=== PATIENT | female | born 1950 | race Caucasian/White ===

== ENCOUNTER → 2017-02-21 | Outpatient (CLI) | payer MEDICARE, MEDICAID ==
[~2017-02-21] MED LIST: ALEN70TA47 PO; ASPI-586 PO; ATOR80TA76 PO; BUME2TAB3 PO; CARV6.252 PO; CITA40TA11 PO; DEXL60CA PO; DOCU-238 PO; FLUT9.9S NS; GABA-486 PO; HYDR-3812 PO; INSU100V16 SQ; LEVO500T2 PO; LINA145C PO; LISI10TA2 PO; LORA10TA7 PO; METF500T4 PO; MULT-974 PO; MUPI15CR11 TP; NYST1POW22 TOP; POTA10TA36 PO
== END ==
LOC: FS 11:35
PROVIDERS: ATTEND Internal Medicine Hematology & Oncology
DX: Z08 Encounter for follow-up examination after completed treatment for malignant neoplasm (principal); Z80.3 Family history of malignant neoplasm of breast; M81.0 Age-related osteoporosis without current pathological fracture; I10 Essential (primary) hypertension; I25.10 Atherosclerotic heart disease of native coronary artery without angina pectoris; E11.9 Type 2 diabetes mellitus without complications; F17.210 Nicotine dependence, cigarettes, uncomplicated; Z79.899 Other long term (current) drug therapy
CPT/HCPCS: 99213

== ENCOUNTER 2017-04-03 15:03 | Outpatient (RCR) | payer MEDICARE, MEDICAID ==
[~2017-04-03 15:03] MED LIST changes: +FERRIC CARBOXYMALTOSE (CANCER) 750 MG in NS (IVPB) CANCER CENTER 250 ML IV SCH
== END 2017-05-27 | disposition home or self-care (01) ==
LOC: ONC 15:03
PROVIDERS: ATTEND Internal Medicine Hematology & Oncology
DX: Z79.899 Other long term (current) drug therapy; Z85.3 Personal history of malignant neoplasm of breast; Z08 Encounter for follow-up examination after completed treatment for malignant neoplasm; I25.10 Atherosclerotic heart disease of native coronary artery without angina pectoris; I10 Essential (primary) hypertension; F17.210 Nicotine dependence, cigarettes, uncomplicated; E11.9 Type 2 diabetes mellitus without complications; M81.0 Age-related osteoporosis without current pathological fracture
CPT/HCPCS: 96365

== ENCOUNTER 2017-07-26 11:08 | Outpatient (RCR) | payer MEDICARE, MEDICAID ==
[~2017-07-26 11:08] MED LIST changes: +ACHD5005 PO; -FERRIC CARBOXYMALTOSE (CANCER) 750 MG in NS (IVPB) CANCER CENTER 250 ML IV SCH; -HYDR-3812 PO
== END 2017-10-24 | disposition home or self-care (01) ==
LOC: ONC 11:08
PROVIDERS: ATTEND Internal Medicine Hematology & Oncology
DX: Z08 Encounter for follow-up examination after completed treatment for malignant neoplasm (principal); Z85.3 Personal history of malignant neoplasm of breast; M81.0 Age-related osteoporosis without current pathological fracture; I10 Essential (primary) hypertension; I25.10 Atherosclerotic heart disease of native coronary artery without angina pectoris; E11.9 Type 2 diabetes mellitus without complications; F17.210 Nicotine dependence, cigarettes, uncomplicated; Z79.899 Other long term (current) drug therapy
CPT/HCPCS: 99213

== ENCOUNTER 2018-02-26 12:02 | Outpatient (CLI) | payer MEDICARE, MEDICAID ==
[~2018-02-26] VITALS: Ht 165.1 cm; Wt 96.6 kg
[~2018-02-26 12:02] MED LIST changes: -METF500T4 PO; +METF500T5 PO
[2018-02-26] MEDS ORDERED: CHOL100048 PO (12:15)
[2018-02-26] MEDS ORDERED: CALC600T12 PO (12:15)
[2018-02-26] MEDS ORDERED: TRAZ150T72 PO (12:15)
[2018-02-26 12:23] VITALS: BP 117/59
== END 2018-02-26 15:13 | disposition home or self-care (01) ==
LOC: PREOP 12:02
PROVIDERS: ATTEND Podiatrist Foot & Ankle Surgery
DX: Z01.818 Encounter for other preprocedural examination (principal)
CPT/HCPCS: 87081

== ENCOUNTER 2018-03-02 11:15 | Day surgery (SDC) | payer MEDICARE, MEDICAID ==
[~2018-03-02] VITALS: Ht 165.1 cm; Wt 96.6 kg
[2018-03-02 11:15] VITALS: BP 167/85
[~2018-03-02 11:15] MED LIST changes: +CALC600T12 PO; +CHOL100048 PO; +TRAZ150T72 PO
[2018-03-02] MEDS ORDERED: VANCOMYCIN INJECTION 1,000 MG in NS (IVPB) 250 ML IV ONE (11:30)
[2018-03-02] MEDS ORDERED: ONDANSETRON 4 MG/2 ML (SDV) Z0FRAN ONE (11:54)
[2018-03-02] MEDS ORDERED: LIDOCAINE PF 2% 5 ML (XYLOCAINE) VIAL ONE (11:54)
[2018-03-02] MEDS ORDERED: proPOfol 200 MG/20 ML (DIPRIVAN) VIAL IV ONE (11:54)
[2018-03-02] MEDS ORDERED: MIDAZOLAM 2 MG/2 ML (VERSED) VIAL ONE (11:55)
[2018-03-02] MEDS ORDERED: fentaNYL INJECTION 100 MCG/2 ML AMP ONE (11:55)
[2018-03-02] MEDS: LACTATED RINGERS 1,000 ML IV PRN ×2 (12:16→13:25)
--- NOTE | 2018-03-02 12:36 | Progress Note-Pre Operative ---
Pre-Operative Progress Note H&P Reviewed The H&P was reviewed, patient examined and no changes noted. Date Seen by Provider: Mar 02, 2018 Time Seen by Provider: 12:36 Date H&P Reviewed: Mar 02, 2018 Time H&P Reviewed: 12:36 Pre-Operative Diagnosis: Fracture of the left 5th Metatarsal PASQUALE LEWIS DPM Mar 02, 2018 12:36 pm
[2018-03-02] MEDS ORDERED: BUPIVACAINE 0.5% 30 ML (SENSORCAINE) VIAL ONE (12:55)
--- NOTE | 2018-03-02 12:56 | Physical Therapy Progress Note ---
Therapy Progress Note Talked with patient before surgery. She is aware that she will be NWB on the left foot after surgery. Recommended patient use a rolling walker so she can ambulate and perform transfers while maintaining her weight bearing status. Patient states she will be getting a wheelchair also. Also advised patient to perform ankle pumps and LAQ at home to maintain ROM and strength. Patient has several stairs to enter her home and only a handrail on one side. However, patient has had a similar surgery on the right side and is familiar with mobility when NWB on one side and she is confident that she will be fine. REMI GARCIA PT Mar 02, 2018 12:56
[2018-03-02] MEDS ORDERED: ROCURONIUM 10 MG/ML 5 ML SYRINGE IV ONE (14:19)
[2018-03-02] MEDS ORDERED: SEVOFLURANE (ULTANE) 15 ML INHAL SOLN ONE (14:19)
[2018-03-02] MEDS ORDERED: SUCCINYLCHOLINE INJ 100 MG/5 ML SYR ONE (14:19)
[2018-03-02] MEDS ORDERED: morphine INJ 10 MG/ML 1ML (SYR OR VIAL) IVP PRN (14:30)
[2018-03-02] MEDS ORDERED: LACTATED RINGERS 1,000 ML IV SCH (14:36)
--- NOTE | 2018-03-02 14:36 | Progress Note-Post Operative ---
Post-Operative Progess Note Surgeon (s)/Store Mgr (s) Surgeon PASQUALE LEWIS DPM Store Mgr: None Pre-Operative Diagnosis Fracture of the left 5th Metatarsal Post-Operative Diagnosis Same Procedure & Operative Findings Date of Procedure 03/02/18 Procedure Performed/Findings ORIF of left 5th metatarsal fracture Anesthesia Type General Estimated Blood Loss Estimated blood loss (mL): Minimal Specimens/Packing Specimens Removed none PASQUALE LEWIS DPM Mar 02, 2018 2:36 pm
[2018-03-02] MEDS ORDERED: HYDROcodone/APAP 5 MG/325 MG (LORTAB) TAB PO PRN (14:45)
[2018-03-02] MEDS ORDERED: ACHD5005 PO (14:46)
--- NOTE | 2018-03-02 15:19 | Anesthesia-General Post-Op ---
General Patient Condition Mental Status/LOC: Same as Preop Cardiovascular: Satisfactory Nausea/Vomiting: Absent Respiratory: Satisfactory Pain: Controlled Complications: Absent Post Op Complications Complications None Follow Up Care/Instructions Patient Instructions None needed. Anesthesia/Patient Condition Patient Condition Patient is doing well, no complaints, stable vital signs, no apparent adverse anesthesia problems. No complications reported per nursing. ANDREW VILLAGOMEZ CRNA Mar 02, 2018 15:19
[2018-03-02 15:25] VITALS: BP 183/84
--- NOTE | 2018-03-02 15:50 | Diagnostic Imaging Report ---
INDICATION: Left foot surgery. TIME OF EXAMINATION: 03:00 p.m. FINDINGS: Two views of the left foot demonstrate a partially threaded screw extending through the fifth metatarsal. Alignment is normal. Phalanges are intact. Midfoot and hindfoot are unremarkable apart from a plantar calcaneal spur. IMPRESSION: Postop changes with ORIF of the left fifth metatarsal fracture. Dictated by: Dictated on workstation # [id number]
[2018-03-02 15:55] VITALS: BP 180/80
[2018-03-02] MEDS ORDERED: SULF1TAB35 PO (16:31)
[2018-03-02 16:45] VITALS: BP 170/78
[2018-03-02 17:00] VITALS: BP 170/78
--- NOTE | 2018-03-02 17:48 | Diagnostic Imaging Report ---
INDICATION: Fracture, undergoing fixation. TECHNIQUE: Two intraprocedural images of the foot. CORRELATION STUDY: None. FINDINGS: Imaging not specified as to laterality. There is placement of a partially threaded, cannulated screw transfixing the fifth proximal metatarsal shaft fracture. There does appear to be some callus formation with fracture line visualized. Alignment appears to be near anatomic as visualized on these intraoperative views. FLUOROSCOPY TIME: 21 seconds. IMPRESSION: Fluoroscopy utilized during internal fixation of a fifth metatarsal fracture. Dictated by: Dictated on workstation # [id number]
--- NOTE | 2018-03-02 23:26 | OPERATIVE REPORT ---
DATE OF SERVICE: 03/02/2018 SURGEON: Chata Lewis DPM. PREOPERATIVE DIAGNOSIS: Fracture of the left fifth metatarsal. POSTOPERATIVE DIAGNOSIS: Fracture of the left fifth metatarsal with addition of delayed union. PROCEDURE: Open reduction and internal fixation, left fifth metatarsal. WOUND CLASS: Clean. ANESTHESIA: General. HEMOSTASIS: Pneumatic thigh tourniquet at 300 mmHg. INDICATIONS: This 67-year-old female presents complaining of a chronic fracture of the left fifth metatarsal. Conservative therapy was met with unsatisfactory results and the patient is agreeable to surgical intervention after risks and complications were discussed at length. No guarantees were extended to the patient and she is willing to proceed. DESCRIPTION OF PROCEDURE: The patient was brought back to the armed operating table and placed in a secured supine position. A general anesthetic was then induced. Appropriate timeout was performed. The left foot had a thigh tourniquet placed over several layers of padding. The left foot was then prepped and draped in a normal sterile manner. The left foot was then elevated and allowed to exsanguinate after which the tourniquet was inflated to 250 mmHg. This was inadequate and it was then inflated to 300 mmHg later in the case. Attention was then directed to the lateral aspect of the left fifth ray where a 6 cm longitudinal linear incision was created. The incision was deepened in the same plane with sharp and blunt dissection down to periosteum. Longitudinal periosteal incision was made. The proximal diaphysis fracture site was identified and widened utilizing a freer elevator. The area was fenestrated to help promote healing. There was satisfactory alignment appreciated at this time. The wound was flushed with copious amounts of normal saline. Under the direct observation of C-arm, a guidewire was driven from proximal to distal from the base of the fifth metatarsal down the diaphysis. Next, a 4.0 cannulated screw of 36 mm in length was then introduced over the wire and into the fifth metatarsal. Great care was taken to make sure the threads of the screw were beyond the fracture site. Excellent bony apposition and fixation was appreciated at this time. The guidewire was then removed from the foot. The wound was flushed with copious amounts of normal saline and closure was then performed in layers. Deep closure was performed with 3-0 Vicryl, superficial with 4-0 Vicryl, skin closure with 4-0 Prolene in a horizontal mattress type stitch. Postoperative injection consisted of 10 mL of 0.5% Marcaine injected for local effusion to the incision site. Postoperative dressing consisted of Betadine soaked Adaptic, sterile 4 x 4 and sterile Kerlix secured with a soft roll, three ABD pads applied to the proximal portion of the calf as well as the heel and forefoot. Additional soft roll was applied and a posterior splint secured with two Fuentes wraps. The patient tolerated the anesthesia and procedure well, was transported from the operating room to the recovery area with vital signs stable and vascular status intact to all digits of the left foot. Postoperative instructions were given to the patient. She is to be nonweightbearing on the left. We will see the patient back in the office in 10 days' period of time or sooner if necessary. Job ID: [id number] DocumentID: [id number] Dictated Date: 03/02/2018 14:46:07 Tabulating Supervisor Date: 03/02/2018 23:25:20 Dictated By: CHATA LEWIS DPM
== END 2018-03-02 17:00 | disposition home or self-care (01) ==
LOC: SDC 11:15
PROVIDERS: ATTEND Podiatrist Foot & Ankle Surgery
DX: S92.355K Nondisplaced fracture of fifth metatarsal bone, left foot, subsequent encounter for fracture with nonunion (principal); I25.10 Atherosclerotic heart disease of native coronary artery without angina pectoris; I10 Essential (primary) hypertension; E11.43 Type 2 diabetes mellitus with diabetic autonomic (poly)neuropathy; J44.9 Chronic obstructive pulmonary disease, unspecified; G47.33 Obstructive sleep apnea (adult) (pediatric); Z79.82 Long term (current) use of aspirin; Z79.4 Long term (current) use of insulin; Z79.899 Other long term (current) drug therapy; Z95.1 Presence of aortocoronary bypass graft
CPT/HCPCS: 73620; 82962

== ENCOUNTER 2018-07-26 10:48 | Outpatient (RCR) | payer MEDICARE, MEDICAID ==
[~2018-07-26 10:48] MED LIST changes: -ALEN70TA47 PO; +ALEN70TA5 PO; +METF-397 PO; -METF500T5 PO; +SULF1TAB35 PO
== END 2018-10-24 | disposition home or self-care (01) ==
LOC: ONC 10:48
PROVIDERS: ATTEND Internal Medicine Hematology & Oncology
DX: Z08 Encounter for follow-up examination after completed treatment for malignant neoplasm (principal); Z85.3 Personal history of malignant neoplasm of breast; M81.0 Age-related osteoporosis without current pathological fracture; I10 Essential (primary) hypertension; I25.10 Atherosclerotic heart disease of native coronary artery without angina pectoris; E11.9 Type 2 diabetes mellitus without complications; F17.210 Nicotine dependence, cigarettes, uncomplicated; Z79.899 Other long term (current) drug therapy
CPT/HCPCS: 99213

== ENCOUNTER → 2019-06-10 | Outpatient (CLI) | payer MEDICARE, MEDICAID ==
[~2019-06-10] MED LIST changes: -BUME2TAB3 PO; +BUME2TAB7 PO
--- NOTE | 2019-06-10 16:03 | Diagnostic Imaging Report ---
INDICATION: Right shoulder pain FINDINGS: Two views of the right shoulder do not show any displaced fractures. The acromioclavicular and glenohumeral joints appear intact. IMPRESSION: Negative right shoulder. Dictated by: Dictated on workstation # [id number]
== END ==
LOC: RAD FS 14:49
PROVIDERS: ATTEND Nurse Practitioner Family
DX: M25.511 Pain in right shoulder (principal)
CPT/HCPCS: 73030

== ENCOUNTER → 2019-07-22 | Outpatient (CLI) | payer MEDICARE, MEDICAID ==
[2019-07-22 09:37] LABS: BASOPHILS % (AUTO) 0 % (0-10); EOSINOPHILS # (AUTO) 0.2 10^3/uL (0.0-0.3); EOSINOPHILS % (AUTO) 4 % (0-10); HEMATOCRIT 33 % (35-52); HEMOGLOBIN 10.5 G/DL (11.5-16.0); LYMPHOCYTES # (AUTO) 1.3 X 10^3 (1.0-4.0); LYMPHOCYTES % (AUTO) 27 % (12-44); MEAN CORPUSCULAR HEMOGLOBIN 28 PG (25-34); MEAN CORPUSCULAR HGB CONC 31 G/DL (32-36); MEAN CORPUSCULAR VOLUME 89 FL (80-99); MEAN PLATELET VOLUME 9.5 FL (7.4-10.4); MONOCYTES # (AUTO) 0.5 X 10^3 (0.0-1.0); MONOCYTES % (AUTO) 10 % (0-12); NEUTROPHILS # (AUTO) 2.7 X 10^3 (1.8-7.8); NEUTROPHILS % (AUTO) 58 % (42-75); PLATELET COUNT 130 10^3/uL (130-400); RED CELL DISTRIBUTION WIDTH 13.4 % (10.0-14.5); WHITE BLOOD COUNT 4.7 10^3/uL (4.3-11.0)
[2019-07-22 10:10] LABS: ALBUMIN 3.9 GM/DL (3.2-4.5); BILIRUBIN,TOTAL 0.4 MG/DL (0.1-1.0); CALCIUM 8.6 MG/DL (8.5-10.1); CREATININE SERUM 1.01 MG/DL (0.60-1.30); POTASSIUM 4.4 MMOL/L (3.6-5.0); TOTAL PROTEIN 6.9 GM/DL (6.4-8.2)
== END ==
LOC: ONC 09:19
PROVIDERS: ATTEND Internal Medicine Hematology & Oncology
DX: M81.0 Age-related osteoporosis without current pathological fracture (principal); D50.9 Iron deficiency anemia, unspecified; I25.10 Atherosclerotic heart disease of native coronary artery without angina pectoris; E11.9 Type 2 diabetes mellitus without complications; I10 Essential (primary) hypertension; E78.00 Pure hypercholesterolemia, unspecified; J43.9 Emphysema, unspecified; Z92.23 Personal history of estrogen therapy; Z85.3 Personal history of malignant neoplasm of breast
CPT/HCPCS: 80053; 82728; 85025; 99213

== ENCOUNTER 2019-12-06 21:24 | Emergency (ER) | payer MEDICARE, MEDICAID ==
[~2019-12-06] VITALS: Ht 165 cm; Wt 99.0 kg
--- NOTE | 2019-12-06 21:54 | ED EENT ---
History of Present Illness General Chief Complaint: Dental Problems/Pain Stated Complaint: TEETH EXTRACTON SITE BLEEDING Nursing Triage Note: Pt had 4 upper teeth pulled today and states they are bleeding intermittently. Pt states she also feels nauseated at times. Source: patient History of Present Illness Date Seen by Provider: Dec 06, 2019 Time Seen by Provider: 21:54 Initial Comments 69-year-old female presenting with complaints of bleeding from her left upper mouth where she had 4 teeth pulled today with a dentist through [facility]. She states that this was done this morning and she had been having intermittent oozing of blood since she had gotten home. She has some nausea tonight from swallowing b lood. She denies any vomiting. She states that she tried calling the dentist throughout the day but no one called her back. She denies any pain at the dental extraction site. Out of the 4 extractions only one is oozing blood. She has gone through all of the gauze she had at home. she is still taking Xarelto for a blood thinner. Allergies and Home Medications Allergies Coded Allergies: Penicillins (Verified Allergy, Severe, BLISTERS, 02/26/18) adhesive tape (Verified Allergy, Severe, BLISTERS, 02/26/18) barium sulfate (Verified Allergy, Severe, SEVERE GI UPSET, 02/26/18) cefazolin (Verified Allergy, Severe, BLISTERS, 02/26/18) clindamycin (Verified Allergy, Severe, BLISTERS, 02/26/18) erythromycin base (Verified Allergy, Severe, BLISTERS, 02/26/18) indomethacin (Verified Allergy, Severe, BLISTERS/SYNCOPE, 02/26/18) venom-honey bee (Verified Allergy, Severe, SWELLING, 02/26/18) cortisone (Verified Allergy, Intermediate, SYNCOPE, 02/26/18) Uncoded Allergies: IV DYE (Allergy, Severe, SEVERE GI PROBLEMS FOR DAYS, 07/29/15) SWEETNERS (Allergy, Severe, MAKES HER VERY ILL-HOSPITALIZED, 07/29/15) Home Medications Alendronate Sodium 70 Mg Tablet, 70 MG PO UD, (Reported) Aspirin 81 Mg Tablet.dr, 81 MG PO DAILY, (Reported) Atorvastatin Calcium 80 Mg Tablet, 80 MG PO HS, (Reported) Calcium Carbonate 600 Mg Tablet, 600 MG PO BID, (Reported) Carvedilol 6.25 Mg Tablet, 6.25 MG PO BID, (Reported) Cholecalciferol (Vitamin D3) 1,000 Unit Capsule, 1,000 UNIT PO DAILY, (Reported) Citalopram Hydrobromide 40 Mg Tablet, 40 MG PO HS, (Reported) Dexlansoprazole 60 Mg Cap.bp, 60 MG PO DAILY, (Reported) Docusate Sodium 100 Mg Capsule, 100 MG PO DAILY, (Reported) Fluticasone Propionate 9.9 Ml Bryan.susp, 1 SPR NS BID, (Reported) Gabapentin 100 Mg Capsule, 100 MG PO BID, (Reported) Hydrocodone Bit/Acetaminophen 1 Each Tablet, 1 EACH PO Q4H PRN for PAIN, (Reported) Hydrocodone Bit/Acetaminophen 1 Tab Tab, 1-2 TAB PO Q4-6HR PRN for PAIN PRN PAIN Prescribed by: PASQUALE LEWIS on 03/02/18 1446 Insulin Aspart 100 Unit/1 Ml Susp, 1.9 UNIT SQ UD, (Reported) Lisinopril 10 Mg Tablet, 10 MG PO DAILY, (Reported) Loratadine 10 Mg Tablet, 10 MG PO BID, (Reported) Metformin HCl 500 Mg Tablet, 500 MG PO BID, (Reported) Multivitamin 1 Each Tablet, 1 EACH PO DAILY, (Reported) Potassium Chloride 10 Meq Tab.er.prt, 10 MEQ PO DAILY, (Reported) Sulfamethoxazole/Trimethoprim 1 Each Tablet, 1 EACH PO BID Prescribed by: AMY BARROS on 03/02/18 1631 Trazodone HCl 150 Mg Tablet, 150 MG PO HS, (Reported) Patient Home Medication List Home Medication List Reviewed: Yes Review of Systems Review of Systems Constitutional: No chills, No fever Eyes: No Symptoms Reported Ears: No Symptoms Reported Nose: no symptoms reported Mouth: see HPI Throat: no symptoms reported Respiratory: no symptoms reported Cardiovascular: no symptoms reported Gastrointestinal: see HPI, nausea; No vomiting Musculoskeletal: no symptoms reported Skin: no symptoms reported Past Jnemuye-Lqozkc-Gaawut Hx Past Med/Social Hx: Reviewed Nursing Past Med/Soc Hx Patient Social History Alcohol Use: Denies Use Recreational Drug Use: No Smoking Status: Former Smoker Type Used: Cigarettes Former Smoker, Quit: Nov 24, 2008 2nd Hand Smoke Exposure: No Recent Foreign Travel: No Contact w/Someone Who Travel: No Recent Infectious Disease Expo: No Recent Hopitalizations: No Physical Abuse: No Sexual Abuse: No Immunizations Up To Date Date of Pneumonia Vaccine: Jul 28, 2015 Date of Influenza Vaccine: Jun 12, 2017 Seasonal Allergies Seasonal Allergies: Yes Past Medical History Surgeries: Yes (L EYE, RT HERNIA, PARTIAL AMP. R GREAT TOE, PARTIAL HYSTER- CERVICAL CA,) Breast, CABG, Gallbladder Respiratory: Yes (O2 2L ) Sleep Apnea, COPD, Emphysema Currently Using CPAP: Yes Cardiac: Yes (BYPASS X5) Coronary Artery Disease, Heart Attack, Heart Murmur, High Cholesterol, Hypertension Neurological: Yes Neuropathy Reproductive Disorders: No Female Reproductive Disorders: Denies Sexually Transmitted Disease: No HIV/AIDS: No Gastrointestinal: Yes (HX ULCERATIVE COLITIS) Colitis, Gastrointestinal Bleed Musculoskeletal: Yes (OSTEOARTHRITIS) Back Injury, Chronic Back Pain Endocrine: Yes (INSULIN PUMP) Loss of Vision: Bilateral Hearing Impairment: Denies Cancer: Yes Breast, Cervical Did You Recieve Any Treatments: Yes What Type of Treatment Did You: Radiation, Surgical Intervention Psychosocial: Yes (MILD) Depression Integumentary: No Blood Disorders: No Adverse Reaction/Blood Tranf: Yes (HAS RECIEVED BLOOD WITHOUT DIFFICULTY) Physical Exam Vital Signs Vital Signs - First Documented 12/06/19 21:27 Temp 36.5 Pulse 80 Resp 18 B/P (MAP) 171/80 (110) Pulse Ox 98 O2 Delivery Nasal Cannula O2 Flow Rate 2.00 Height, Weight, BMI Height: 5'5.00" Weight: 213lbs. 0.0oz. 96.881389nl; 36.00 BMI Method: General Appearance: no apparent distress Nose: normal inspection Mouth/Throat: pharynx normal; No pharynx swelling, No tongue swollen; other (edentulous. 4 recent dental extractions to left maxillary area with clots present and some oozing to back most extraction site. ) Neck: non-tender, full range of motion, supple Neurologic/Psychiatric: alert, normal mood/affect, oriented x 3 Skin: normal color, warm/dry Progress/Results/Core Measures Results/Orders My Orders Orders - ZAHRA MEMBRENO MD Ondansetron Oral Dissolve Tab (Zofran (12/06/19 22:09) Vital Signs/I&O 12/06/19 21:27 Temp 36.5 Pulse 80 Resp 18 B/P (MAP) 171/80 (110) Pulse Ox 98 O2 Delivery Nasal Cannula O2 Flow Rate 2.00 Blood Pressure Mean: 110 Progress Progress Note #1: Progress Note Given Zofran 4 mg ODT for nausea. Initially attempted direct pressure with gauze while looking for clotting material such as surgicell or gelfoam. Progress Note #2: Time: 22:32 Progress Note Applied piece of surgicell and had patient hold pressure with rolled up piece of gauze in mouth for over 10 minutes in mouth. This did not control the bleeding when rechecked so at 2246 I applied a new piece of surgicell and held direct pressure for 15 minutes. This did control the bleeding and get it to stop. Counseled on management of bleeding. On recheck of her blood pressure it was also better. Departure Impression Primary Impression: Bleeding gums Additional Impression: Status post tooth extraction Disposition: 01 HOME, SELF-CARE Condition: Stable Departure-Patient Inst. Decision time for Depature: 23:11 Referrals: SELFCHRISTY MD (PCP/Family) Primary Care Physician Patient Instructions: Tooth Extraction (DC), Bleeding Gums (DC) Add. Discharge Instructions: Follow up with dentist as needed. Use gauze to apply pressure and keep bleeding controlled All discharge instructions reviewed with patient and/or family. Voiced understanding. ZAHRA MEMBRENO MD Dec 06, 2019 21:54
[2019-12-06] MEDS ORDERED: ONDANSETRON 4 MG (ZOFRAN) ORAL DISSOLVE TAB PO STA (22:09)
[2019-12-06 23:21] VITALS: BP 152/94
== END 2019-12-06 23:21 | disposition home or self-care (01) ==
LOC: EDUNIT# 21:24 → ER FS 21:25
DX: K91.840 Postprocedural hemorrhage of a digestive system organ or structure following a digestive system procedure (principal); I10 Essential (primary) hypertension; I25.10 Atherosclerotic heart disease of native coronary artery without angina pectoris; I25.2 Old myocardial infarction; E78.00 Pure hypercholesterolemia, unspecified; J43.9 Emphysema, unspecified; F32.9 Major depressive disorder, single episode, unspecified; G47.30 Sleep apnea, unspecified; Z85.3 Personal history of malignant neoplasm of breast; Z85.41 Personal history of malignant neoplasm of cervix uteri; Z95.5 Presence of coronary angioplasty implant and graft; Z79.01 Long term (current) use of anticoagulants; Z88.0 Allergy status to penicillin; Z88.1 Allergy status to other antibiotic agents; Z88.8 Allergy status to other drugs, medicaments and biological substances; Z91.041 Radiographic dye allergy status; Z79.82 Long term (current) use of aspirin; Z79.51 Long term (current) use of inhaled steroids; Z79.4 Long term (current) use of insulin; Z87.891 Personal history of nicotine dependence
CPT/HCPCS: 99283

== ENCOUNTER 2020-03-02 16:00 | Emergency (ER) | payer MEDICARE, MEDICAID ==
[~2020-03-02] VITALS: Ht 165.1 cm; Wt 102.5 kg
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
--- NOTE | 2020-03-02 16:36 | Diagnostic Imaging Report ---
Indication: Right foot pain 3 views right foot There are postsurgical changes in the foot including screws in the 5th metatarsal and head of the 3rd metatarsal. There is no acute fracture or dislocation. IMPRESSION: Postsurgical changes in the foot. No acute abnormalities seen. Dictated by: Dictated on workstation # [id number]
--- NOTE | 2020-03-02 16:38 | Diagnostic Imaging Report ---
Indication: Right ankle pain 3 views of the right ankle show no fracture, dislocation or other acute abnormalities. IMPRESSION: Negative right ankle Dictated by: Dictated on workstation # [id number]
[2020-03-02 17:40] VITALS: BP 145/88
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
--- OUTSIDE RECORDS SUMMARY | 2020-03-02 17:45 | XMS REPORT | Encounter Summary ---
Author Author [facility] Organization [facility] Address Unknown Phone Unavailable Care Team Providers Care Order Caller Name Role Phone Bishnu Martin MD Unavailable Chata Chau DPM Unavailable SelfJesus MD PCP Reason for Visit * Reason Comments Cardiac Eval follow up post-op Encounter Details Care Team Description Date Type Department Dina Barnes, SET DECORATOR-UI DESIGNER [address] [id number] Cardiac Eval (follow up post-op) 01/02/2020 Scheduled [facility] [address] [phone] Social History Date Tobacco Use Types Packs/Day Years Used Quit: 10/30/2008 Former Smoker Cigarettes 2 48 Smokeless Tobacco: Never Used Drinks/Week oz/Week Comments Alcohol Use 0 Standard drinks or equivalent 0.0 1-2 x per year No Sex Assigned at Date Recorded Not on file Industry Job Start Date Occupation Not on file Not on file Not on file Travel End Travel History Travel Start No recent travel history available. Date Recorded COVID-19 Exposure Response 01/02/2020 3:21 PM CDT In the last month, have you been in contact with No / Unsure someone who was confirmed or suspected to have Coronavirus / COVID-19? documented as of this encounter Last Filed Vital Signs Reading Time Taken Comments Vital Sign - - Blood Pressure - - Pulse - - Temperature - - Respiratory Rate - - Oxygen Saturation - - Inhaled Oxygen Concentration 102.5 kg (226 lb) 01/02/2020 3:22 PM CDT Weight 165.1 cm (5' 5") 01/02/2020 3:22 PM CDT Height 37.61 01/02/2020 3:22 PM CDT Body Mass Index documented in this encounter Functional Status Date of Assessment Functional Status Response 12/28/2019 Does the patient have a hearing impairment: No 07/15/2016 Does the patient have a visual impairment: Yes 07/15/2016 Does the patient have impaired ambulation: No 07/15/2016 Does the patient have an activity of daily living No (ADL) impairment: 07/15/2016 Does the patient have an instrumental activity of No daily living (IADL) impairment: Date of Assessment Cognitive Status Response 07/15/2016 Does the patient have a cognitive impairment: No documented as of this encounter Progress Notes * Dina Barnes, TONE-UI DESIGNER - 01/02/2020 4:30 PM CDT Telehealth Visit Note Date of Service: 01/02/2020 Subjective: Obtained patient's verbal consent to treat them and their agreement to LILI johnson policy and NPP via this telehealth visit during the Coronavirus [facility] Maggy Nicholas is a 69 y.o. female. History of Present Illness I had the pleasure of visiting with Maggy Nicholas via telephone for post TAVR follow up. She is a 69 y.o. with a history of insulin dependent diabetes, hyper tension, hyperlipidemia, ANCA, COPD with O2 dependence, obesity, coronary artery disease s/p CABG, breast cancer, PAD, carotid artery disease, PE on chronic anti coagulation and aortic stenosis. She developed progressive aortic stenosis and was referred for TAVR. Maggy Nicholas underwent workup, including a cardiac catheterization which reve aled severe [place] coronary disease with patent grafts. She was admitted on 11/28 and underwent TAVR by Dr. Moise and Dr. Patel utilizing a 26 Gregoria valve with a femoral approach. Her post procedure echo revealed a well seated valve with no paravalvular regurgitation, a mean gradient of 14 mmHg and an ejection fracti on of 55%. She had no post procedure issues and was discharged on post procedur e day 2. Maggy Nicholas returns for follow up and states that she has had symptomatic im provement with less fatigue and shortness of breath. She continues 2L of O2. S he denies chest pain, palpitations, lower extremity edema, near syncope or synco pe. She denies issues with her access sites and states that are slightly sore b ut there is no swelling, redness or drainage. She is planning to start cardiac rehab as soon as it is open. Review of Systems Constitutional: Positive for fatigue. HENT: Negative. Eyes: Negative. Respiratory: Negative. Cardiovascular: Negative. Gastrointestinal: Negative. Endocrine: Negative. Genitourinary: Negative. Musculoskeletal: Negative. Skin: Negative. Allergic/Immunologic: Negative. Neurological: Negative. Hematological: Negative. Psychiatric/Behavioral: Negative. Objective: alendronate (FOSAMAX) 70 mg tablet Take 70 mg by mouth every 7 days. ARIPiprazole (ABILIFY) 5 mg tablet Take 5 mg by mouth at bedtime daily. aspirin EC 81 mg tablet Take 81 mg by mouth daily. atorvastatin (LIPITOR) 80 mg tablet Take 80 mg by mouth at bedtime daily. bacitracin 500 unit/g topical ointment Apply topically to affected area twi ce daily. Apply thin layer to cheek incision twice daily bumetanide (BUMEX) 2 mg tablet Take 2 mg by mouth daily. calcium carbonate/vitamin D-3 (OSCAL-500+D) 1250 mg/200 unit tablet Take 2 t ablets by mouth daily. Calcium Carb 1250mg delivers 500mg elemental Ca citalopram (CELEXA) 40 mg tablet Take 40 mg by mouth at bedtime daily. docusate (COLACE) 100 mg capsule Take 100 mg by mouth at bedtime daily. fluticasone (FLONASE) 50 mcg/actuation nasal spray Apply 1 [place] to each nos tril as directed twice daily. gabapentin (NEURONTIN) 100 mg capsule Take 100 mg by mouth three times daily . HYDROcodone/acetaminophen (NORCO) 5/325 mg tablet Take 1 tablet by mouth jeremy ry 4 hours as needed insulin pump -ASPART- Patients Own by SubQ Pump route. Indications: 1.9U bas al, 1U=8carbs, target range 100-130 lisinopril (PRINIVIL; ZESTRIL) 10 mg tablet Take 10 mg by mouth daily. loratadine (CLARITIN) 10 mg tablet Take 10 mg by mouth twice daily. metFORMIN (GLUCOPHAGE) 500 mg tablet Take 500 mg by mouth twice daily. mupirocin (BACTROBAN) 2 % topical ointment Apply to affected area as Needed . nystatin (NYSTOP) 100,000 unit/g topical powder Apply topically to affected area twice daily as needed. potassium chloride SR (K-DUR) 10 mEq tablet Take 10 mEq by mouth daily after dinner. temazepam (RESTORIL) 15 mg capsule Take 15 mg by mouth at bedtime as needed. traZODone (DESYREL) 150 mg tablet Take 150 mg by mouth at bedtime daily. vitamins, multiple cap Take 1 Cap by mouth daily. XARELTO 20 mg tablet Take 20 mg by mouth daily. Vitals: 01/02/20 1522 Weight: 102.5 kg (226 lb) Height: 1.651 m (5' 5") PainSc: Zero Body mass index is 37.61 kg/m. Physical Exam Not performed Assessment and Plan: 1. Aortic stenosis, status post TAVR with a 26 Gregoria valve. She has had sympt omatic improvement. She denies symptoms of high grade conduction abnormalities. She needs to continue aspirin 81 mg daily and SBE prophylaxis indefinitely. She should continue to increase activity as tolerated. 2. Chronic diastolic heart failure. She has NYHA class II symptoms (primarily related to lung disease). She denies symptoms of volume overload. 3. Coronary artery disease. Recent cath revealed patent grafts. She denies ang inal symptoms. She needs aggressive risk factor modification. 4. Hypertension. Carvedilol was held at discharge. She does not have a BP cuff at home. She is scheduled to follow up on January 22 with an echocardiogram. Thank you for allowing us to participate in the care of this pleasant individual. If you have any other questions or concerns, please do not hesitate to contact us. Efra Barnes APRN Structural Heart Nurse Practitioner Pager [phone] Total time 20 minutes. Estimated counseling time 10 minutes. Counseled her reg micky BP monitoring, activity, follow up. T documented in this encounter Plan of Treatment Not on filedocumented as of this encounter Goals Goal Patient Associated Recent Progress Patient-Stat Aut hor Goal Type Problems ed? Diabetic Blood Sugar Lifestyle No Lashell, Lisa Mera RN documented as of this encounter Visit Diagnoses Diagnosis Nonrheumatic aortic valve stenosis Aortic valve disorders S/P TAVR (transcatheter aortic valve re placement) Heart valve replaced by other means Chronic obstructive pulmonary disease, unspecified COPD type (HCC) Coronary artery disease involving nativ e coronary artery of [place] heart without angina pectoris Acute on chronic diastolic heart failur e (HCC) Acute on chronic diastolic heart failur e Hypoxemia documented in this encounter
--- OUTSIDE RECORDS SUMMARY | 2020-03-02 17:45 | XMS REPORT | Clinical Summary ---
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 If you d o not see the information that you expected, contact Release of Information in [facility] Information Management department at [phone] for further assistan ce in locating additional records.[facility] Allergies Comments Active Allergy Reactions Severity Noted Date Paper tape is OK; Steri strips cause severe reaction Adhesive Tape (Rosins) BLISTERS High 016 Cefazolin UNKNOWN Low 12/01/2015 Artificial Sweetner VISION Medium 12/01/2015 CHANGES Sick x 1 week Barium Sulfate DIARRHEA, Low 12/01/2015 VOMITING Bumble Bee EDEMA Medium 12/01/2015 Clindamycin DIARRHEA, Medium 12/01/2015 RASH, NAUSEA AND VOMITING Iodinated Contrast Media RASH Medium 11/30 Erythromycin DIARRHEA, High 12/01/2015 NAUSEA AND VOMITING, BLISTERS Hornet Venom EDEMA Medium 12/01/2015 Indomethacin RASH Medium 12/01/2015 All over body Penicillins RASH High 12/01/2015 Venom-Wasp EDEMA Medium 12/01/2015 Medications End Date Status Medication Sig Dispensed Refills Start Date Active atorvastatin (LIPITOR) 80 Take 80 mg by 0 mg tablet mouth at bedtime daily. Active alendronate (FOSAMAX) 70 Take 70 mg by 0 mg tablet mouth every 7 days. Active aspirin EC 81 mg tablet Take 81 mg by 0 mouth daily. Active bumetanide (BUMEX) 2 mg Take 2 mg by 0 tablet mouth daily. Active citalopram (CELEXA) 40 mg Take 40 mg by 0 tablet mouth at bedtime daily. Active fluticasone (FLONASE) 50 Apply 1 Juda 0 mcg/actuation nasal spray to each nostril as directed twice daily. Active gabapentin (NEURONTIN) Take 100 mg 0 100 mg capsule by mouth three times daily. Active lisinopril (PRINIVIL; Take 10 mg by 0 ZESTRIL) 10 mg tablet mouth daily. Active metFORMIN (GLUCOPHAGE) Take 500 mg 0 500 mg tablet by mouth twice daily. Active mupirocin (BACTROBAN) 2 % Apply to 0 topical ointment affected area as Needed. Active potassium chloride SR Take 10 mEq 0 (K-DUR) 10 mEq tablet by mouth daily after dinner. Active insulin pump -ASPART- by SubQ Pump 0 Patients OwnIndications: route. 1.9U basal, 1U=8carbs, Indications: target range 100-130 1.9U basal, 1U=8carbs, target range 100-130 Active docusate (COLACE) 100 mg Take 100 mg 0 capsule by mouth at bedtime daily. Active vitamins, multiple cap Take 1 Cap by 0 mouth daily. Active nystatin (NYSTOP) 100,000 Apply 0 unit/g topical powder topically to affected area twice daily as needed. Active loratadine (CLARITIN) 10 Take 10 mg by 0 mg tablet mouth twice daily. Active bacitracin 500 unit/g Apply 14 g 1 09/28 topical ointment topically to 7 affected area twice daily. Apply thin layer to cheek incision twice daily Active calcium carbonate/vitamin Take 2 0 D-3 (OSCAL-500+D) 1250 tablets by mg/200 unit tablet mouth daily. Calcium Carb 1250mg delivers 500mg elemental Ca Active ARIPiprazole (ABILIFY) 5 Take 5 mg by 0 11/03 / mg tablet mouth at 0 bedtime daily. Active traZODone (DESYREL) 150 Take 150 mg 0 05/25/ mg tablet by mouth at 8 bedtime daily. Active XARELTO 20 mg tablet Take 20 mg by 0 mouth daily. 0 Active HYDROcodone/acetaminophen Take 1 tablet 0 07/30 (NORCO) 5/325 mg tablet by mouth 8 every 4 hours as needed Active temazepam (RESTORIL) 15 Take 15 mg by 0 mg capsule mouth at bedtime as needed. Active Problems Problem Noted Date Hypoxemia 01/02/2020 Thrombocytopenia 12/28/2019 Postoperative anemia due to acute blood loss 020 S/P TAVR (transcatheter aortic valve replacement) Overview: 12/26/19 Type 2 diabetes mellitus with circulatory disorder, w ith long-term current 10/03/2016 use of insulin Overview: 2009 - Insulin pump started. L ast Assessment & Plan: Dr. López is managing her diabetes. Hypertension 09/27/2016 Last Assessment & Plan: Her ARNOLD inhibitor/diuretic dosages were cut in half recently because she was having symptomatic hypotension. Coronary artery disease involving [place] coronary art mukul of [place] heart 09/27/2016 without angina pectoris Overview: 09/15/05 Cath ([facility]):Triple-vessel CAD with 100% proximal RCA with significant reconstitution of the vesse l distally from collaterals, 90% stenosis of the circumflex proximal to a large obtuse marginal branch, and a 75% lesion in the diagonal branch. EF 25-30%. Elevated EDP. Inferior akinesis. 04/17/06 Cath ([facility]): Severe triple-ves namrata [place] coronary disease. 12/30 bypasses remain open with good flow. Ov erall preserved LV systolic function. 02/15/13 Echo ([facility]): Normal LV contrac tion. AV sclerosis vs mild aortic stenosis. Minimally dilated LA. Mild mi tral and tricuspid regurgitation. 12/30/14 Echo ([facility]): Mild concentric LV H and dilation with overall normal systolic EF and mildly impaired diastol ic relaxation. Calcified , mild to moderate. Left atrial enlargement, mild . Mild tricuspid regurgitation. 02/19/16 Echo ([facility]): EF 60%. Mild to m oderate . (Mean gradient 21 mmHg) Mild mitral and tricuspid regurgitation . Mild diastolic dysfunction of the LV. LVH with normal LV contraction. Min imally dilated LA. 07/23/16 ECG ([facility]): SR, 86 BPM. No di stinct abnormalities are seen. 07/23/16 Chest X-ray ([facility]): No acute cardiopulmonary findings. 07/24/16 CTA Chest ([facility]): No central PE. Groundglass opacities involving the upper lobes in the dependent RLL wh y may represent fluid overload. Emphysema. L ast Assessment & Plan: She's had none of the left shoulder/dys pnea symptoms that she had prior to her CABG 10 years ago. She's had every -other-year surveillance stress testing through Dr. Herrera in [place]. I'll get a copies of his CABG Operative Report and the most recent st ress test. COPD (chronic obstructive pulmonary disease) 017 HLD (hyperlipidemia) 09/27/2016 Last Assessment & Plan: Dr. 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 From my standpoint I 'd prefer to get this chronic, infected fistula track dealt with soone r than later. We won't want her to have such a lesion at the point she fonseca s need a prosthetic aortic valve, which will probably be necessary within a few years. It is fine for her to stop aspirin 7 da ys prior to the anticipated surgery date. Primary osteoarthritis of hand 12/01/2015 Breast cancer 08/28/2007 Overview: Right- lumpectomy and radiation MRSA cellulitis 08/28/2005 Overview: right leg vein harvest site S/P CABG (coronary artery bypass graft) 08/28/2005 Overview: [facility] in [place], [place] Nonrheumatic aortic valve stenosis Contrast media allergy Hyperlipidemia DM (diabetes mellitus) Obese PVD (peripheral vascular disease) Pulmonary embolism Myocardial infarction Overview: Total of 3 Family history of premature CAD Requires continuous at home supplementa l oxygen ANCA on CPAP Overview: with supplemental O2 Obesity, Class II, BMI 35-39.9 Anticoagulated Overview: for PE Acute on chronic diastolic heart failur e Chronic back pain Overview: with spinal nerve stimulator Gastroparesis PAD (peripheral artery disease) Overview: s/p bilateral iliac stents Osteoporosis Bilateral carotid artery disease Overview: moderate disease CVA (cerebral vascular accident) Encounters Care Team Description Date Type Specialty Sue Ríos RN Essential hypertension (Primary Dx); Nonrheumatic aortic valve stenosis; S/P TAVR (transcatheter aortic valve replacement) 01/21/2020 Orders Only Cardiology Dina Barnes, HOUSE CARPENTER-ASSISTANT FRONT OFFICE MANAGER Cardiac Eval (follow up post-op) 01/02/2020 Scheduled Cardiology Telephone 01/02/2020 Travel Ashlie Pina MA Appointment (Telephone appt) 01/01/2020 Telephone Cardiology Neymar Moise (Trip) Arcenio MENA MD PERCUTANEOUS TRANSCATHETER REPLACEMENT A ORTIC VALVE - FEMORAL ARTERY-amelia, left common femoral, 26s3 *ICU* 12/26/2019 Surgery Sudarshan Lynne, Sharon Sesay PA-C 12/26/2019 Anesthesia Event Neymar Moise (Trip) MD Amanda Rg III, Peter N, MD S/P TAVR (transcatheter aortic valve rep lacement) 12/26/2019 Hospital - Encounter 12/28/2019 12/26/2019 Travel Carline Frank RN 12/25/2019 Documentation Cardiothoracic Surg Flavia Geller MD Acute upper respiratory infection, unspe cified 12/24/2019 Hospital Lab Encounter Pre-op testing (Primary Dx) 12/24/2019 Nurse Only Urgent Care Neymar Moise (Augusto) Arcenio MENA MD 12/24/2019 Hospital Radiology Encounter Neymar Moise (Augusto) Arcenio MENA MD Canceled (Office-Scheduling Error) 12/24/2019 Hospital Radiology Encounter Neymar Moise (Augusto) Arcenio MENA MD Preop examination (Primary Dx); Aortic valve stenosis, etiology of cardiac valve disease unspecified 12/24/2019 Ancillary Pre-Admission Testi ng Procedure 12/24/2019 Travel Carline Frank RN 12/23/2019 Telephone Pre-Admission Testi ng Carline Frank RN 12/23/2019 Telephone Cardiothoracic Surg Carline Ibarra RN 12/23/2019 Telephone Cardiothoracic Surg Neymar Gordon (Trip) Arcenio MENA MD Contrast media allergy (Primary Dx); Aortic valve stenosis, etiology of cardiac valve disease unspecified 12/23/2019 Pre-Admit Cardiology Orders Only Carline Frank RN 12/23/2019 Telephone Cardiothoracic Surg Neymar Gordon (Trip) Arcenio MENA MD Aortic valve stenosis, etiology of cardi ac valve disease unspecified (Primary Dx) 12/23/2019 Pre-Admit Cardiology Orders Only Dina Barnes, HOUSE CARPENTER-ASSISTANT FRONT OFFICE MANAGER Provider Discussion About Patient (TAVR eval) 12/23/2019 Documentation Cardiology Jud Portillo RN 12/20/2019 Documentation Cardiothoracic Surg Neymar Gordon (Trip) Arcenio MENA MD 12/20/2019 Orders Only Cardiothoracic Surg Neymar Gordon (Trip) Arcenio MENA MD Aortic valve stenosis, etiology of cardi ac valve disease unspecified (Primary Dx) 12/20/2019 Orders Only Cardiothoracic Surg Sue Delgadillo RN Nonrheumatic aortic valve stenosis (Prim brandon Dx) 12/12/2019 Prep for Case Cardiology Sue Ríos RN Follow-up Phone Call (Xarelto holding & Lovenox bridging prior to TAVR & dental work completed) 12/10/2019 Telephone Cardiology from Last 3 Months Family History Medical History Relation Name Comments Diabetes Father Emphysema Father Heart Attack Father >55 y/o Heart Disease Father Cancer Mother uterine Stroke Mother Cancer-Breast Other Seizures Other Cancer Paternal Grandmother Diabetes Paternal Grandmother Relation Name Status Comments Father Mother Other Other Paternal Grandmother Social History Date Tobacco Use Types Packs/Day Years Used Quit: 10/30/2008 Former Smoker Cigarettes 2 48 Smokeless Tobacco: Never Used Tobacco Cessation: Counseling Given: Yes Drinks/Week oz/Week Comments Alcohol Use 0 Standard drinks or equivalent 0.0 1-2 x per year No Sex Assigned at Date Recorded Not on file Industry Job Start Date Occupation Not on file Not on file Not on file Travel End Travel History Travel Start No recent travel history available. 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 Respiratory Rate 98% 12/28/2019 3:36 PM CDT Oxygen Saturation - - Inhaled Oxygen Concentration 102.5 kg (226 lb) 01/02/2020 3:22 PM CDT Weight 165.1 cm (5' 5") 01/02/2020 3:22 PM CDT Height 37.61 01/02/2020 3:22 PM CDT Body Mass Index Plan of Treatment Health Maintenance Due Date Last Done Comments MEDICARE ANNUAL WELLNESS 1948 VISIT DILATED EYE EXAM 1966 DTAP/TDAP VACCINES (1 - 1966 Tdap) FOOT EXAM 1966 HEPATITIS C SCREENING 1966 PHYSICAL (COMPREHENSIVE) 1966 EXAM BREAST CANCER SCREENING 1988 COLORECTAL CANCER 1998 SCREENING SHINGLES RECOMBINANT 1998 VACCINE (1 of 2) OSTEOPOROSIS 2013 SCREENING/MONITORING PNEUMONIA (PPSV23) 2013 VACCINE (1 of 1 - PPSV23) INFLUENZA VACCINE 05/28/2020 HBA1C 06/24/2020 12/24/2019 Goals Goal Patient Associated Recent Progress Patient-Stat Aut hor Goal Type Problems ed? Diabetic Blood Sugar Lifestyle No Lashell, Lisa Mera RN Implants Device Identifier Shelf Expiration Date Model / Serial / L ot Implanted Type Area Manufactur er 05/28/2021 [id number] / [id number] / NA System Delivery 26mm Commander - N/A: Heart EDWA RDS [id number] [employer] Implanted: Qty: 1 on 12/26/2019 by Armor5 Neymar Becerra III, MD (Trip) at [facility] Procedures Comments Procedure Name Priority Date/Time Associated Diag nosis POC GLUCOSE 12/28/2019 4:31 PM CDT POC GLUCOSE 12/28/2019 3:36 PM CDT POC GLUCOSE 12/28/2019 2:46 PM CDT POC GLUCOSE 12/28/2019 12:36 PM CDT POC GLUCOSE 12/28/2019 9:13 AM CDT CHEST SINGLE VIEW Routine 12/28/2019 6:50 AM CDT HC CBC,AUTOMATED 12/28/2019 4:50 AM CDT HC BASIC METABOLIC PANEL 12/28/2019 4:50 AM CDT HC MAGNESIUM Routine 12/28/2019 4:50 AM CDT POC GLUCOSE 12/28/2019 3:09 AM CDT POC GLUCOSE 12/27/2019 10:14 PM CDT ECG 12-LEAD Routine 12/27/2019 8:00 PM CDT POC GLUCOSE 12/27/2019 5:16 PM CDT POC GLUCOSE 12/27/2019 4:04 PM CDT POC GLUCOSE 12/27/2019 2:27 PM CDT POC GLUCOSE 12/27/2019 1:26 PM CDT POC GLUCOSE 12/27/2019 12:15 PM CDT POC GLUCOSE 12/27/2019 9:20 AM CDT LIMITED ECHO NO CONTRAST Routine 12/27/2019 7:15 AM CDT POC GLUCOSE 12/27/2019 5:40 AM CDT CHEST SINGLE VIEW Routine 12/27/2019 4:07 AM CDT POC GLUCOSE 12/27/2019 3:15 AM CDT HC MAGNESIUM Routine 12/27/2019 3:15 AM CDT HC BASIC METABOLIC PANEL STAT 12/27/2019 3:15 AM CDT HC CBC,AUTOMATED STAT 12/27/2019 3:15 AM CDT POC GLUCOSE 12/27/2019 1:10 AM CDT POC GLUCOSE 12/26/2019 11:47 PM CDT POC GLUCOSE 12/26/2019 11:11 PM CDT POC GLUCOSE 12/26/2019 9:32 PM CDT POC GLUCOSE 12/26/2019 8:28 PM CDT POTASSIUM Routine 12/26/2019 6:31 PM CDT HC MAGNESIUM Routine 12/26/2019 6:31 PM CDT POC GLUCOSE 12/26/2019 6:29 PM CDT POC GLUCOSE 12/26/2019 5:14 PM CDT POC GLUCOSE 12/26/2019 4:05 PM CDT POC GLUCOSE 12/26/2019 2:14 PM CDT POC GLUCOSE 12/26/2019 1:06 PM CDT ANESTHESIA Routine 12/26/2019 TRANSEESOPHAGEAL 12:14 PM CDT ECHOCARDIOGRAM LINE PLCMT 1V CXR STAT 12/26/2019 12:11 PM CDT POC GLUCOSE 12/26/2019 12:01 PM CDT HC PTT(APTT) STAT 12/26/2019 12:00 PM CDT HC PT(INR) STAT 12/26/2019 12:00 PM CDT HC MAGNESIUM STAT 12/26/2019 12:00 PM CDT HC BASIC METABOLIC PANEL STAT 12/26/2019 12:00 PM CDT HC CBC,AUTOMATED STAT 12/26/2019 12:00 PM CDT ECG 12-LEAD STAT 12/26/2019 11:53 AM CDT POC GLUCOSE 12/26/2019 10:57 AM CDT HC ACTIVATED CLTG TIME-OR 12/26/2019 LAB 10:38 AM CDT HC IONIZED CA, POC 12/26/2019 10:34 AM CDT HC SODIUM, POC 12/26/2019 10:34 AM CDT HC POTASSIUM, POC 12/26/2019 10:34 AM CDT HC HEMATOCRIT POC 12/26/2019 10:34 AM CDT HC BLOOD GAS, POC 12/26/2019 10:34 AM CDT POC GLUCOSE 12/26/2019 10:31 AM CDT HC ACTIVATED CLTG TIME-OR 12/26/2019 LAB 10:30 AM CDT ANESTHESIA CENTRAL LINE Routine 12/26/2019 INSERTION 10:15 AM CDT ANESTHESIA ARTERIAL LINE Routine 12/26/2019 INSERTION 8:35 AM CDT HC ABO GROUP STAT 12/26/2019 7:38 AM CDT POC GLUCOSE 12/26/2019 7:37 AM CDT TELEMETRY STRIPS-SCAN 12/26/2019 12:00 AM CDT TELEMETRY STRIPS-SCAN 12/26/2019 12:00 AM CDT ECG-SCAN 12/26/2019 12:00 AM CDT ECG-SCAN 12/26/2019 12:00 AM CDT ECG-SCAN 12/26/2019 12:00 AM CDT COVID-19 (SARS-COV-2) PCR Routine 12/24/2019 Aort ic valve stenosis, 1:51 PM CDT etiology of cardiac valve disease unspecified CHEST 2 VIEWS STAT 12/24/[address] enosis, 1:16 PM CDT etiology of cardiac valve disease unspecified URINALYSIS MICROSCOPIC STAT 12/24/2019 Aortic valve stenosis, REFLEX TO CULTURE 12:05 PM CDT etiology of cardiac valve disease unspecified HC URINALYSIS UAR STAT 12/24/2019 Aortic valve stenosis, 12:05 PM CDT etiology of cardiac valve disease unspecified UA REFLEX CULTURE LABEL STAT 12/24/2019 Aortic valve stenosis, 12:05 PM CDT etiology of cardiac valve disease unspecified HC BLOOD TYPING, ABO Routine 12/24/2019 Preop exa mination CONFIRM 91 12:00 PM CDT HC ABO GROUP 12/24/2019 11:50 AM CDT HC COMPREHENSIVE STAT 12/24/2019 Aortic valve stenosis, METABOLIC PANEL 11:50 AM CDT etiology of cardiac valve disease unspecified HC PTT(APTT) STAT 12/24/[address] enosis, 11:50 AM CDT etiology of cardiac valve disease unspecified HC PT(INR) STAT 12/24/[address] enosis, 11:50 AM CDT etiology of cardiac valve disease unspecified HC HEMOGLOBIN A1C STAT 12/24/2019 Aortic valve stenosis, 11:50 AM CDT etiology of cardiac valve disease unspecified HC CBC,AUTOMATED STAT 12/24/2019 Aortic valve stenosis, 11:50 AM CDT etiology of cardiac valve disease unspecified HC B-TYPE NATRIURETIC STAT 12/24/2019 Aortic v alve stenosis, PEPTIDE 11:50 AM CDT etiology of cardiac valve disease unspecified ECG-SCAN 12/24/2019 12:00 AM CDT from Last 3 Months Results * POC GLUCOSE (12/28/2019 4:31 PM CDT) Only the most recent of 29 results within the time period is included. Glucose, POC 182 (H) 70 - 100 MG/DL [facility] Specimen Performing Organization Address City/State/Zipcode Ph one Number MAIN LAB [address] [place] [address] * CHEST SINGLE VIEW (12/28/2019 6:50 AM CDT) Only the most recent of 2 results within the time period is included. Specimen Impressions Performed At 1. Interval removal previously noted right IJ tempora ry pacer lead. [facility] 2. Unchanged mild cardiomegaly with sta ble mild central pulmonary venous congestion. 3. Persistent bibasilar opacities, like ly representing atelectasis. Finalized by Bhavesh Wilhelm M.D. on 020 7:27 AM. Dictated by Bhavesh Wilhelm M.D. on 12/28/2019 7:23 AM. Narrative Performed At Portable AP chest [facility] CLINICAL HISTORY: Atelectasis, status p ost TAVR . COMPARISON: 12/27/2019. FINDINGS: Portable upright AP chest again demonst rates prior median sternotomy and CABG. Spinal stimulator leads again noted in place. Prior TAVR are again noted. There has been removal previously noted right IJ temporary pacer lead. There is persistent mild cardiac enlarg ement with stable mild central pulmonary venous congestion. Atherosclerotic calc ification about the aortic knob again noted. Bibasilar opacities are again id entified, likely representing atelectasis. No pneumothorax or signifi cant pleural effusion. Procedure Note Interface, Radiant Results - 12/28/2019 7:30 AM CDT Portable AP chest CLINICAL HISTORY: Atelectasis, status post TAVR . COMPARISON: 12/27/2019. FINDINGS: Portable upright AP chest again demonstrates prior median sternotomy and CABG. Spinal stimulator leads again noted in place. Prior TAVR are again noted. There has been removal previously noted right IJ temporary pacer lead. There is persistent mild cardiac enlargement with stable mild central pulmonary venous congestion. Atherosclerotic calcification about the aortic knob again noted. Bibasilar opacities are again identified, likely representing atelectasis. No pneumothorax or significant pleural effusion. IMPRESSION 1. Interval removal previously noted rig ht IJ temporary pacer lead. 2. Unchanged mild cardiomegaly with stab le mild central pulmonary venous congestion. 3. Persistent bibasilar opacities, likel y representing atelectasis. Finalized by Bhavesh Wilhelm M.D. on 12/28/2019 7:27 AM. Dictated by Bhavesh Wilhelm M.D. on 12/28/2019 7:23 AM. Performing Organization Address City/State/Zipcode Ph one Number [facility] * CBC (12/28/2019 4:50 AM CDT) Only the most recent of 4 results within the time period is included. White Blood 4.9 4.5 - 11.0 K/UL [facility] Cells RBC 2.72 (L) 4.0 - 5.0 M/UL [facility] Hemoglobin 7.7 (L) 12.0 - 15.0 GM/DL [facility] Hematocrit 23.1 (L) 36 - 45 % [facility] MCV 85.0 80 - 100 FL [facility] MCH 28.4 26 - 34 PG [facility] MCHC 33.4 32.0 - 36.0 G/DL [facility] RDW 14.6 11 - 15 % [facility] Platelet Count 86 (L) 150 - 400 K/UL [facility] MPV 7.7 7 - 11 FL [facility] Specimen Performing Organization Address [facility] Ph one Number [facility] [address] [place] [address] * MAGNESIUM (12/28/2019 4:50 AM CDT) Only the most recent of 4 results within the time period is included. Magnesium 2.0 1.6 - 2.6 mg/dL [facility] Specimen Blood Performing Organization Address [facility] one Number [facility] [address] [place] [address] * BASIC METABOLIC PANEL (12/28/2019 4:50 AM CDT) Only the most recent of 3 results within the time period is included. Sodium 135 (L) 137 - 147 MMOL/L [facility] Potassium 4.5 3.5 - 5.1 MMOL/L [facility] Chloride 102 98 - 110 MMOL/L [facility] CO2 28 21 - 30 MMOL/L [facility] Anion Gap 5 3 - 12 [facility] Glucose 217 (H) 70 - 100 MG/DL [facility] Blood Urea 16 7 - 25 MG/DL [facility] Nitrogen Creatinine 0.92 0.4 - 1.00 MG/DL [facility] Calcium 7.7 (L) 8.5 - 10.6 MG/DL [facility] eGFR Non >60 >60 mL/min [facility] Comment: [facility] The eGFR is not validated f or use in drug dosing adjustments. Continue to use estimated creatinine clearance per dosing reference text. Please contact the Clinical Pharmacist for questions. eGFR >60 >60 mL/min [facility] Comment: The eGFR is not validated for use in drug dosing adjustments. Continue to use estimated creatinine clearance per dosing reference text. Please contact the Clinical Pharmacist for questions. Specimen Performing Organization Address City/State/Zipcode Ph one Number [facility] [address] [place] [address] * LIMITED ECHO (12/27/2019 7:15 AM CDT) LVOT diameter 2.21 cm OTHER OUTSIDE LAB IVS 1.35 0.6 - 0.9 cm OTHER OUTSIDE LAB LVIDD 4.68 3.8 - 5.2 cm OTHER OUTSIDE LAB LVIDS 3.02 2.2 - 3.5 cm OTHER OUTSIDE LAB PW 1.23 0.6 - 0.9 cm OTHER OUTSIDE LAB Left Ventricle 102.38 46 - 106 mL OTHER OUTSIDE Diastolic LAB Volume Left Ventricle 47.84 29 - 61 mL OTHER OUTSIDE Diastolic LAB Volume Index Left Ventricle 47.44 14 - 42 mL OTHER OUTSIDE Systolic Volume LAB Left Ventricle 22.17 8 - 24 mL OTHER OUTSIDE Systolic Volume LAB Index LVOT peak gerardo 1.34 m/s OTHER OUTSIDE LAB LVOT peak VTI 29.58 cm OTHER OUTSIDE LAB TDI lateral e' 0.07 m/s OTHER OUTSIDE LAB Right 3.01 1.9 - 3.5 cm OTHER OUTSIDE Ventricular Mid LAB Diameter LA size 3.19 2.7 - 3.8 cm OTHER OUTSIDE LAB LA volume 43.29 22 - 52 mL OTHER OUTSIDE LAB Right Atrial 15.72 <18 cm2 OTHER OUTSIDE Area LAB Right Atrial 4.88 2.2 - 2.8 cm OTHER OUTSIDE Major Dimension LAB , with a mean 14 mmHg OTHER OUTSIDE gradient of LAB AV peak 2.6 m/s OTHER OUTSIDE velocity LAB Ao VTI 53.1 cm OTHER OUTSIDE LAB MV Peak A Gerardo 0.87 m/s OTHER OUTSIDE LAB MV Peak E Gerardo 0.62 m/s OTHER OUTSIDE PW LAB Right 3.90 2.5 - 4.1 cm OTHER OUTSIDE Ventricular LAB Basal Diameter Right Heart 0.13 m/s OTHER OUTSIDE Systolic TDI S' LAB Right Heart 2.24 >1.7 cm OTHER OUTSIDE Systolic Mmode LAB TAPSE Sinus 3.36 2.4 - 3.6 cm OTHER OUTSIDE LAB Ascending aorta 2.95 cm OTHER OUTSIDE LAB BSA 2.14 m2 OTHER OUTSIDE LAB Referring Self, Jesus OTHER OUTSIDE Provider LAB FS 35.47 28 - 44 % OTHER OUTSIDE LAB EF 60.30 % OTHER OUTSIDE LAB LV mass 233.69 67 - 162 g OTHER OUTSIDE LAB RWT 0.53 <=0.42 OTHER OUTSIDE LAB Aortic valve 2.14 cm2 OTHER OUTSIDE area = LAB AV index 0.52 OTHER OUTSIDE ([place]) LAB E/A ratio 0.71 OTHER OUTSIDE LAB LVOT area 3.84 cm2 OTHER OUTSIDE LAB LVOT stroke 113.47 cm3 OTHER OUTSIDE volume LAB and a peak 27 mmHg OTHER OUTSIDE gradient of LAB TV rest N/A mmHg OTHER OUTSIDE pulmonary LAB artery pressure Lateral E/E' 8.86 OTHER OUTSIDE ratio LAB Left Atrium 20.23 16 - 34 OTHER OUTSIDE Index LAB Cardiology Siemens [id number] OTHER OUTSIDE Ultrasound LAB Machine Left Ventricle 109.20 43 - 95 g/m2 OTHER OUTSIDE Mass Index LAB TDI Medial e' 0.055 m/s OTHER OUTSIDE LAB Medial E/E' 11.27 OTHER OUTSIDE ratio LAB ECHO EF 55 % OTHER OUTSIDE LAB Specimen Narrative Performed At OTHER OUTSIDE LAB Left Ventricle: Normal size. Mild co ncentric hypertrophy. Normal ejection fraction with LVEF=55%. No seg mental wall motion abnormalities. Right Ventricle: Normal size, wall t hickness and ejection fraction. Normal biatrial size. Aortic Valve: There is a 26 mm S3 bi oprosthetic valve present. The prosthetic valve is normal. (MG=14mmHg, DVI=0.52) No regurgitation. The pulmonary artery pressure could not be obtained. No pericardial effusion. Compared with study dated 10/08/19, t here is no a bioprosthesis in the aortic position. No other significant c hange are noted. Performing Organization Address [facility] Ph one Number OTHER OUTSIDE LAB * POTASSIUM (12/26/2019 6:31 PM CDT) Potassium 4.1 3.5 - 5.1 MMOL/L MAIN LAB Specimen Blood Performing Organization Address [facility] Ph one Number MAIN LAB [address] [place] [address] * MALINA (12/26/2019 12:14 PM CDT) Narrative Performed At Sudarshan Lynne MD 12/26/2019 12 :19 PM Anesthesia Procedure: Transesophageal E chocardiogram AMLINA Date/Time: 12/26/2019 11:14 AM Associated procedure: AVR Preprocedure checklist performed: 2 pat ient identifiers, risks & benefits discussed, patient evaluated, timeout p erformed, consent obtained and patient being monitored Staff Anesthesiologist: Sudarshan Lynne MD Surgeon: Neymar Moise III, MD (Trip) Performed personally Indication for MALINA: assessment of ascen ding aorta, assessment of surgical repair, defect repair evaluation, hemod ynamic monitoring, ventricular function, confirmation of pre-procedure diagnosis and valvular assessment Physician requesting echo: Neymar Moise III, MD (Trip) CPT codes: 76889 - MALINA 2D imaging (w or w/o M-mode) including probe placement, image acquisition, interpret ation & report, 89935 - PWD and/or CWD f/u or limited study and 61637 - Co sun flow velocity mapping Patient location: OR Intubated: yes Bite block: no Heart visualized: yes Insertion: easy Probe type: multiplane Modalities: 2D, color flow mapping, con tinuous wave Doppler and pulse wave Doppler Echocardiographic and Doppler Measureme nts Ventricular Findings Right Ventricle RV cavity size: normal RV hypertrophy: no RV thrombus: no RV global function: normal Left Ventricle LV cavity size: normal LV cavity dimension: 4.33 cm LV hypertrophy: yes LV wall thickness: 1.39 cm LV thrombus: no LV global function: mildly impaired LV ejection fraction: 45-50% Ventricular Wall Motion Four Chamber View Basal anterolateral: normal Basal inferoseptal: normal Mid anterolateral: normal Mid inferoseptal: normal Apical lateral: normal Apical septal: normal Two Chamber View Basal anterior: normal Basal inferior: normal Mid anterior: normal Mid inferior: normal Apical anterior: normal Apical inferior: normal [place] View Basal anteroseptal: normal Basal inferolateral: normal Mid anteroseptal: normal Mid inferolateral: normal Apical lateral: normal Apical septal: normal [place]: normal Mid [place] View Mid anteroseptal: normal Mid anterior: normal Mid anterolateral: normal Mid inferolateral: normal Mid inferior: normal Mid inferoseptal: normal Valves Aortic Valve Annulus: calcified Stenosis: severe and dimensionless i ndex 0.19 Area: 0.72 cm2 Peak gradient: 35 mmHg Mean gradient: 24 mmHg Regurgitation severity: none Leaflet morphology: calcified Leaflet motion: restricted Mitral Valve Annulus: calcified Stenosis: none Regurgitation severity: mild Leaflet morphology: normal Leaflet motion: normal Tricuspid Valve Annulus: normal Stenosis: none Regurgitation severity: trace Leaflet morphology: normal Leaflet motion: normal Pulmonic Valve Annulus: normal Stenosis: none Regurgitation severity: none Leaflet morphology: normal Aorta Ascending Aorta Size: normal Diameter: 3.12 cm Dissection: no Plaque thickness: >3 mm Plaque mobile: no Sinotubular Junction Size: normal Diameter: 2.27 cm Dissection: no Sinus of Valsalva Size: normal Diameter: 3.34 cm Dissection: no Descending Thoracic Aorta Size: normal Dissection: no Plaque thickness: >3 mm Plaque mobile: no Atria Right Atrium Size: normal SEC (smoke): no Thrombus: no Tumor: no Device: no Left Atrium Size: dilated SEC (smoke): no Thrombus: no Tumor: no Device: no Left atrial appendage size: normal Septa Intra-atrial septal morphology: normal and lipomatous hypertrophy Other Findings Pericardium: normal Pleural effusion: none Pulmonary venous flow: normal Post Procedure Post-procedure comments: Post-TAVR: The patient is in SR and is not on any vasoactive infusions. A prosthetic valve is seen in the aortic position. T here is a trace paravalvular leak. The mean gradient across the valve is 5 mmHg. LV systolic function and RV systolic function are preserved. The ao rta is intact after removal of wires. These findings were communicated to Dr. Moise and Dr. Patel at the time of surgery. Performed by: Sudarshan Lynne MD Authorized by: Sudarshan Lynne MD * [facility] 1 CXR (12/26/2019 12:11 PM CDT) Specimen Impressions Performed At 1. Interval TAVR and placement of temporary pacing electrode. [facility] RAD RESULTS 2. Stable cardiomegaly with developme nt of mild pulmonary vascular congestion. 3. Bibasilar opacities, likely atelec tasis. By my electronic signature, I attest th at I have personally reviewed the images for this examination and formulated the interpretations and opinions expressed in this report Finalized by Andrew Levine M.D. on 020 1:38 PM. Dictated by Shilpa Ingram MD on 12/26/2019 1:02 PM. Narrative Performed At [facility] 1 CXR KU RAD RESULTS HISTORY: Female, 69 years old; s/p TA VR TECHNIQUE: A portable AP view of the est was obtained. COMPARISON: Chest radiograph December 24, 2019 FINDINGS: Interval TAVR and placement of right IJ temporary pacing electrode with tip overlying the right ventricle. Prior me caryl sternotomy and CABG with stable configuration of multiple fractured dayana rnal wires. Spinal stimulator electrodes overlying the thoracic spine. The heart size remains enlarged with de velopment of mild pulmonary venous congestion. Bibasilar opacities, likely atelectasis. No pleural effusion or pneumothorax. Procedure Note Interface, Radiant Results - 12/26/2019 1:41 PM CDT LINE PLCMT 1V CXR HISTORY: Female, 69 years old; s/p TAVR TECHNIQUE: A portable AP view of the chest was obtained. COMPARISON: Chest radiograph December 24, 2019 FINDINGS: Interval TAVR and placement of right IJ temporary pacing electrode with tip overlying the right ventricle. Prior median sternotomy and CABG with stable configuration of multiple fractured sternal wires. Spinal stimulator electrodes overlying the thoracic spine. The heart size remains enlarged with development of mild pulmonary venous congestion. Bibasilar opacities, likely atelectasis. No pleural effusion or pneumothorax. IMPRESSION 1. Interval TAVR and placement of tempo rary pacing electrode. 2. Stable cardiomegaly with development of mild pulmonary vascular congestion. 3. Bibasilar opacities, likely atelecta sis. By my electronic signature, I attest that I have personally reviewed the images for this examination and formulated the interpretations and opinions expressed in this report Finalized by Andrew Levine M.D. on 12/26/2019 1:38 PM. Dictated by Shilpa Ingram MD on 12/26/2019 1:02 PM. Performing Organization Address [facility] one Number RAD RESULTS * PTT (APTT) (12/26/2019 12:00 PM CDT) Only the most recent of 2 results within the time period is included. APTT 32.5 24.0 - 36.5 SEC MAIN LAB Specimen Performing Organization Address [facility] one Number MAIN LAB [address] [place] [address] * PROTIME INR (PT) (12/26/2019 12:00 PM CDT) Only the most recent of 2 results within the time period is included. INR 1.2 0.8 - 1.2 MAIN LAB Specimen Performing Organization Address [facility] one Number MAIN LAB [address] [place] [address] * POC ACTIVATED CLOTTING TIME (12/26/2019 10:38 AM CDT) Only the most recent of 2 results within the time period is included. Activated 252 s MAIN LAB Clotting Time Specimen Performing Organization Address [email or web address]de Ph one Number MAIN LAB [address] [place] [address] * POC BLOOD GAS ARTERIAL (12/26/2019 10:34 AM CDT) PH-ART-POC 7.39 7.35 - 7.45 MAIN LAB [id number]-AQL 46 (H) 35 - 45 MMHG [facility] MAIN LAB PO2-ART-POC 143 (H) 80 - 100 MMHG MAIN LAB Base Ex-ART-POC 2.0 MMOL/L MAIN LAB O2 Sat-ART-POC 99.0 95 - 99 % MAIN LAB Bicarbonate-ART 27.5 21 - 28 MMOL/L MAIN LAB -POC Specimen Performing Organization Address [facility] Ph one Number MAIN LAB [address] [id number] * POC SODIUM (12/26/2019 10:34 AM CDT) Sodium-POC 135 (L) 137 - 147 MMOL/L MAIN LAB Specimen Performing Organization Address [facility] Ph one Number MAIN LAB [address] [place] [address] * POC POTASSIUM (12/26/2019 10:34 AM CDT) Potassium-POC 4.8 3.5 - 5.1 MMOL/L MAIN LAB Specimen Performing Organization Address [email or web address] Ph one Number MAIN LAB [address] [place] [address] * POC IONIZED CALCIUM (12/26/2019 10:34 AM CDT) Ionized 1.13 1.0 - 1.3 MMOL/L MAIN LAB Calcium-POC Specimen Performing Organization Address [facility] Ph one Number MAIN LAB [address] [place] [address] * POC HEMATOCRIT (12/26/2019 10:34 AM CDT) Hemoglobin POC 9.9 (L) 12.0 - 15.0 GM/DL [facility] MAIN LAB Hematocrit POC 29.0 (L) 36 - 45 % [facility] MAIN LAB Specimen Performing Organization Address City/State/Zipcode Ph one Number MAIN LAB [address] [place] [address] * CENTRAL LINE INSERTION (12/26/2019 10:15 AM CDT) Narrative Performed At Sudarshan Lynne MD 12/26/2019 12 :12 PM Anesthesia Procedure: Central Venous Ca theter Line CENTRAL LINE INSERTION Date/Time: 12/26/2019 9:50 AM Patient location: OR Indications: medications requiring CV a ccess, other and vascular access Preprocedure checklist performed: 2 pat ient identifiers, risks & benefits discussed, patient evaluated, timeout p erformed, consent obtained, patient being monitored and CVC bundle followed (proper hand washing, maximal sterile barrier technique with cap, dayana rile gown, sterile glove, sterile drape, and skin prep for antisepsis) CVC Line Insertion Procedure Skin prepped with chlorhexidine; skin p rep agent completely dried prior to procedure. Patient Position: Trendelenburg Location: internal jugular vein Laterality: right Vein identification: ultrasound guided Confirmation of venous placement prior to dilation of vein by: ultrasound Ultrasound image captured Number of attempts: 1 Successful placement: yes Patient sedated: yes Catheter: Catheter type: introducer placed usi ng standard wire through needle technique Catheter size: 6Fr. Catheter insertion depth (cm): hub. Procedure Outcome Post procedure: all ports aspirated, dr essing applied, line sutured and securement device; Dressing: chlorhexid ine impregnated sponge and sterile occlusive dressing Placement verification: x-ray verificat ion pending Events: none Observations: patient tolerated well Additional notes: ATTESTATION I was present during the entire procedu re performed by a resident Staff name: Sudarshan Lynne MD Date: 12/26/2019 Performed by: Nayana Watson DO Authorized by: Sudarshan Lynne MD * A-LINE INSERTION (12/26/2019 8:35 AM CDT) Narrative Performed At Sudarshan Lynne MD 12/26/2019 12 :11 PM Anesthesia Procedure: Arterial Line Kishore cement A-LINE INSERTION Date/Time: 12/26/2019 8:30 AM Patient location: Pre/Post Indications: multiple ABGs and hemodyna britt monitoring Preprocedure checklist performed: 2 pat ient identifiers, risks & benefits discussed, patient evaluated, timeout p erformed, consent obtained, patient being monitored and sterile drape Sterile technique: - Proper hand washing - Cap, mask - Sterile gloves - Skin prep for antisepsis Arterial Line Procedure Patient sedated: yes (see MAR) Sedation type: midazolam; Artery prepped with chlorhexidine; skin prep agent completely dried prior to procedure. Location: radial artery Laterality: left Technique: palpation and ultrasound Needle gauge: 20 G Number of attempts: 1 Procedure Medications Local Anesthesia: lidocaine PF 1% (10 m g/mL) injection, 1 mL Procedure Outcome Catheter secured with adhesive dressing applied Events: no complications noted during i nsertion and skin intact, warm, and dry Observation: pt tolerated well Additional notes: ATTESTATION I was present during the entire procedu re performed by a resident Staff name: Sudarshan Lynne MD Date: 12/26/2019 Refer to nursing documentation for stephie ls and monitoring data during procedure. Performed by: Nayana Watson DO Authorized by: Sudarshan Lynne MD * TYPE & CROSSMATCH (12/26/2019 7:38 AM CDT) Only the most recent of 2 results within the time period is included. Units Ordered 4 MAIN LAB Crossmatch 12/29/2019,2359 [facility] MAIN LAB Expires Record Check FOUND [facility] MAIN LAB ABO/RH(D) O POS [facility] MAIN LAB Antibody Screen NEG [facility] MAIN LAB Electronic YES [facility] MAIN LAB Crossmatch Unit Number [id number] MAIN LAB Blood Component RBC,ADSOL,LEUKO REDUCED MAIN LAB Type Unit Division 0 MAIN LAB Status OF Unit REL FROM ALLOC MAIN LAB Transfusion OK TO TRANSFUSE MAIN LAB Status Crossmatch COMPATIBLE,ELECTRONIC MAIN LAB Result Unit Number [id number] MAIN LAB Blood Component RBC,ADSOL,LEUKO REDUCED MAIN LAB Type Unit Division 0 MAIN LAB Status OF Unit REL FROM ALLOC MAIN LAB Transfusion OK TO TRANSFUSE MAIN LAB Status Crossmatch COMPATIBLE,ELECTRONIC MAIN LAB Result Unit Number [id number] MAIN LAB Blood Component RBC,ADSOL,LEUKO REDUCED MAIN LAB Type Unit Division 0 MAIN LAB Status OF Unit REL FROM ALLOC [facility] MAIN LAB Transfusion OK TO TRANSFUSE [facility] MAIN LAB Status Crossmatch COMPATIBLE,ELECTRONIC [facility] MAIN LAB Result Unit Number [id number] [facility] MAIN LAB Blood Component RBC,ADSOL,LEUKO REDUCED [facility] MAIN LAB Type Unit Division 0 MAIN LAB Status OF Unit REL FROM ALLOC [facility] MAIN LAB Transfusion OK TO TRANSFUSE [facility] MAIN LAB Status Crossmatch COMPATIBLE,ELECTRONIC MAIN LAB Result Specimen Blood Performing Organization Address City/State/Zipcode Ph one Number MAIN LAB [address] [place] [address] * TELEMETRY STRIPS-SCAN (12/26/2019 12:00 AM CDT) Narrative Performed At This result has an attachment that is n ot available. Ordered by an unspecified provider. * TELEMETRY STRIPS-SCAN (12/26/2019 12:00 AM CDT) Narrative Performed At This result has an attachment that is n ot available. Ordered by an unspecified provider. * ECG-SCAN (12/26/2019 12:00 AM CDT) Narrative Performed At This result has an attachment that is n ot available. Ordered by an unspecified provider. * ECG-SCAN (12/26/2019 12:00 AM CDT) Narrative Performed At This result has an attachment that is n ot available. Ordered by an unspecified provider. * ECG-SCAN (12/26/2019 12:00 AM CDT) Narrative Performed At This result has an attachment that is n ot available. Ordered by an unspecified provider. * COVID-19 (SARS-COV-2) PCR (12/24/2019 1:51 PM CDT) COVID-19 NASOPHARYNGEAL SWAB REFERENCE LAB (SARS-CoV-2) PCR Source COVID-19 NOT DETECTED DN-NOT DETECTED REFERENCE LAB (SARS-CoV-2) Comment: PCR This assay is designed to detect the N and/or RdRp genes of SARS-CoV-2 using nucleic acid amplification. A "Not Detected" result does not preclude the possibility of SARS-CoV-2 infection since the adequacy of sample collection and/or low viral burden may result in the presence of viral nucleic acids below the analytical sensitivity of this test method. Test results should be used along with other clinical and laboratory data in making the diagnosis. Test parameters have not been validated for screening in asymptomatic patients. This test is authorized for use under the FDA Emergency Use Authorization and performance characteristics have been verified by the [facility]. Fact sheet for providers: https://www.fda.gov/media/3285 56/download Fact sheet for patients: https://www.fda.gov/media/0638 57/download Specimen Nasopharyngeal Swab Performing Organization Address City/State/Zipcode Ph one Number REFERENCE LAB REFERENCE LAB See results for address. * CHEST 2 VIEWS (12/24/2019 1:16 PM CDT) Specimen Impressions Performed At 1. Mild cardiomegaly without evidence of pulmonary vascular congestion. [facility] RAD RESULTS 2. Bibasilar opacities, likely atelec tasis. By my electronic signature, I attest th at I have personally reviewed the images for this examination and formulated the interpretations and opinions expressed in this report Finalized by Ximena Trevino M.D. on 1:38 PM. Dictated by Shilpa Ingram MD on 12/24/2019 1:32 PM. Narrative Performed At CHEST 2 VIEWS [facility] RAD RESULTS HISTORY: Female, 69 years old; PREOP TAVR EXAM TECHNIQUE: Frontal and lateral views of the chest were obtained. COMPARISON: CTA chest October 02, 2019, and chest radiograph September 21, 2016 FINDINGS: Prior median sternotomy and CABG. Mild cardiomegaly without evidence of pulmonary venous congestion. Calcificat ion of the aortic knob. Bibasilar opacities, likely atelectasis. No pleur al effusion, pneumothorax, or lobar consolidation. Partial visualization of thoracic spinal stimulator leads. Thoracic spondylosis. Procedure Note Interface, Radiant Results - 12/24/2019 1:41 PM CDT CHEST 2 VIEWS HISTORY: Female, 69 years old; PREOP TAVR EXAM TECHNIQUE: Frontal and lateral views of the chest were obtained. COMPARISON: CTA chest October 02, 2019, and chest radiograph September 21, 2016 FINDINGS: Prior median sternotomy and CABG. Mild cardiomegaly without evidence of pulmonary venous congestion. Calcification of the aortic knob. Bibasilar opacities, likely atelectasis. No pleural effusion, pneumothorax, or lobar consolidation. Partial visualization of thoracic spinal stimulator leads. Thoracic spondylosis. IMPRESSION 1. Mild cardiomegaly without evidence o f pulmonary vascular congestion. 2. Bibasilar opacities, likely atelecta sis. By my electronic signature, I attest that I have personally reviewed the images for this examination and formulated the interpretations and opinions expressed in this report Finalized by Ximena Trevino M.D. on 12/24/2019 1:38 PM. Dictated by Shilpa Ingram MD on 12/24/2019 1:32 PM. Performing Organization Address [facility] one Number KU RAD RESULTS * UA REFLEX CULTURE LABEL (12/24/2019 12:05 PM CDT) UA Reflex Criteria for reflex to culture [facility] Culture are WBC>10, Positive Nitrit e, and/or >=+1 leukocytes. If quantity is not sufficient, an addendum will follow. Specimen Urine Performing Organization Address [facility] one Number [facility]U MAIN LAB [address] [place] [address] * URINALYSIS MICROSCOPIC REFLEX TO CULTURE (12/24/2019 12:05 PM CDT) WBCs,UA 0-2 0 - 2 /HPF [facility] MAIN LAB RBCs,UA 0-2 0 - 3 /HPF [facility] MAIN LAB Comment,UA Criteria for reflex to culture [facility] are WBC>10, Positive Nitrite, and/or >=+1 leukocytes. If quantity is not sufficient, an addendum will follow. MucousUA TRACE [facility] MAIN LAB Squamous 0-2 0 - 5 [facility] MAIN LAB Epithelial Cells Specimen Urine Performing Organization Address [facility] one Number [facility] MAIN LAB [address] [place] [address] * URINALYSIS DIPSTICK REFLEX TO CULTURE (12/24/2019 12:05 PM CDT) Color,UA YELLOW [facility] MAIN LAB Turbidity,UA CLEAR CLEAR-CLEAR [facility] MAIN LAB Specific 1.017 1.003 - 1.035 [facility] MAIN LAB [place]-Urine pH,UA 6.0 5.0 - 8.0 [facility] MAIN LAB Protein,UA NEG NEG-NEG [facility] MAIN LAB Glucose,UA NEG NEG-NEG [facility] MAIN LAB Ketones,UA NEG NEG-NEG [facility] MAIN LAB Bilirubin,UA NEG NEG-NEG [facility] MAIN LAB Blood,UA NEG NEG-NEG [facility] MAIN LAB Urobilinogen,UA NORMAL NORM-NORMAL [facility] MAIN LAB Nitrite,UA NEG NEG-NEG [facility] MAIN LAB Leukocytes,UA NEG NEG-NEG [facility] MAIN LAB Urine Ascorbic NEG NEG-NEG [facility] MAIN LAB Acid, UA Specimen Urine Performing Organization Address [facility] Ph one Number MAIN LAB [address] [place] [address] * BLOOD TYPE CONFIRMATION - ORDER ONLY IF REQUESTED BY LAB (12/24/2019 12:00 PM CDT) ABO/RH(D) O POS [facility] MAIN LAB Specimen Blood Performing Organization Address [facility] Ph one Number MAIN LAB [address] [place] [address] * BNP (B-TYPE NATRIURETIC PEPTI) (12/24/2019 11:50 AM CDT) B Type 13.0 0 - 100 PG/ML [facility] MAIN LAB Natriuretic Peptide Specimen Blood Performing Organization Address [facility] one Number MAIN LAB [address] [place] [address] * HEMOGLOBIN A1C (12/24/2019 11:50 AM CDT) Hemoglobin A1C 6.8 (H) 4.0 - 6.0 % [facility] MAIN LAB Comment: The ADA recommends that most patients with type 1 and type 2 diabetes maintain an A1c level <7%. Specimen Blood Performing Organization Address [facility] one Number MAIN LAB [address] [place] [address] * COMPREHENSIVE METABOLIC PANEL (12/24/2019 11:50 AM CDT) Sodium 141 137 - 147 MMOL/L [facility] MAIN LAB Potassium 4.6 3.5 - 5.1 MMOL/L [facility] MAIN LAB Chloride 103 98 - 110 MMOL/L [facility] MAIN LAB Glucose 142 (H) 70 - 100 MG/DL [facility] MAIN LAB Blood Urea 15 7 - 25 MG/DL [facility] MAIN LAB Nitrogen Creatinine 0.98 0.4 - 1.00 MG/DL [facility] MAIN LAB Calcium 9.2 8.5 - 10.6 MG/DL [facility] MAIN LAB Total Protein 6.7 6.0 - 8.0 G/DL [facility] MAIN LAB Total Bilirubin 0.3 0.3 - 1.2 MG/DL [facility] MAIN LAB Albumin 3.8 3.5 - 5.0 G/DL [facility] MAIN LAB Alk Phosphatase 72 25 - 110 U/L [facility] MAIN LAB AST (SGOT) 21 7 - 40 U/L [facility] MAIN LAB CO2 30 21 - 30 MMOL/L [facility] MAIN LAB ALT (SGPT) 17 7 - 56 U/L [facility] MAIN LAB Anion Gap 8 3 - 12 [facility] MAIN LAB eGFR Non 56 (L) >60 mL/min [facility] MAIN LAB Comment: [facility] The eGFR is not validated f or use in drug dosing adjustments. Continue to use estimated creatinine clearance per dosing reference text. Please contact the Clinical Pharmacist for questions. eGFR >60 >60 mL/min [facility] MAIN [facility] Comment: The eGFR is not validated for use in drug dosing adjustments. Continue to use estimated creatinine clearance per dosing reference text. Please contact the Clinical Pharmacist for questions. Specimen Blood Performing Organization Address City/State/Zipcode Ph one Number [facility] MAIN LAB [address] [place] [address] * ECG-SCAN (12/24/2019 12:00 AM CDT) Narrative Performed At This result has an attachment that is n ot available. Ordered by an unspecified provider. 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
--- OUTSIDE RECORDS SUMMARY | 2020-03-02 17:45 | XMS REPORT | Encounter Summary ---
Author Author [facility] Organization [facility] Address Unknown Phone Unavailable Care Team Providers Care Outer Diameter Technician Name Role Phone Bihsnu Martin MD Unavailable Chata Chau DPM Unavailable Jesus López MD PCP Encounter Details Care Team Description Date Type Department 01/02/2020 Travel Social History Date Tobacco Use Types Packs/Day [...] / COVID-19? documented as of this encounter Functional Status Date of Assessment [...] impairment: No documented as of this encounter Plan of Treatment Not on filedocumented as of this encounter Goals Goal Patient Associated Recent Progress Patient-Stat Aut hor Goal Type Problems ed? Diabetic Blood Sugar Lifestyle No Lashell, Monitoring Samaria, RN documented as of this encounter Visit Diagnoses Not on filedocumented in this encounter
--- OUTSIDE RECORDS SUMMARY | 2020-03-02 17:45 | XMS REPORT | Encounter Summary ---
Author Author [facility] Organization [facility] Address Unknown Phone Unavailable Care Team Providers Care [facility] Worker Name Role Phone Bishnu Martin MD Unavailable Chata Chau DPM Unavailable SelfJesus MD PCP Reason for Visit * Reason Comments Appointment Telephone appt Encounter Details Care Team Description Date Type Department Ashlie Pina MA Appointment (Telephone appt) 01/01/2020 Telephone The [address] [place] [address] Social History Date Tobacco Use Types Packs/Day [...] history available. Date Recorded COVID-19 Exposure Response 12/26/2019 6:50 AM CDT In the last month, have you [...] impairment: No documented as of this encounter Miscellaneous Notes * Telephone Encounter - Ashlie Pina MA - 01/01/2020 12:04 PM CDT Staff called pt and had to leave voicemail. Staff briefly went over the reason f or the call and left pt a call back number as well. documented in this encounter Plan of Treatment Not on filedocumented as of this encounter Goals Goal Patient Associated Recent Progress Patient-Stat Aut hor Goal Type Problems ed? Diabetic Blood Sugar Lifestyle No Lashell, Lisa Mera RN documented as of this encounter Visit Diagnoses Not on filedocumented in this encounter
--- OUTSIDE RECORDS SUMMARY | 2020-03-02 17:45 | XMS REPORT | Encounter Summary ---
Author Author [facility] Organization [facility] Address Unknown Phone Unavailable Care Team Providers Care Renewals Representative Name Role Phone Bishnu Martin MD Unavailable Chata Chau DPM Unavailable SelfJesus MD PCP Reason for Referral * Test (Routine) Referred By Contact Referred To Contact Status Reason Specialty Diagnoses / Procedures Dina Barnes D, BLUEPRINTER-CERAMICS INSTRUCTOR [address] [address] [facility] [address] [address] No Auth Needed Cardiology Diagnoses Nonrheumatic aortic valve stenosis S/P TAVR (transcatheter aortic valve replacement) P rocedures 2-D + DOPPLER ECHOCARDIOGRAM [place] ECHO [facility] R-T 2D W/WOM-MODE COMPL SPEC&COLR D Encounter Details Care Team Description Date Type Department Sue Ríos RN Essential hypertension (Primary Dx); Nonrheumatic aortic valve stenosis; S/P TAVR (transcatheter aortic valve replacement) 01/21/2020 Orders Only The [facility] [address] [id number] Social History Date Tobacco Use Types Packs/Day [...] as of this encounter Plan of Treatment Order Schedule Name Type Priority Associated Diag noses Expected: 01/23/2020, Expires: 2-D + DOPPLER ECHO Routine Nonrheumatic ao rtic valve ECHOCARDIOGRAM stenosis S/P TAVR (transcatheter aortic valve replacement) Expected: 01/23/2020 (Approximate), Expi res: 01/20/2021 CBC Lab Routine Nonrheumatic ao rtic valve stenosis S/P TAVR (transcatheter aortic valve replacement) Expected: 01/23/2020 (Approximate), Expi res: 01/20/2021 BASIC METABOLIC PANEL Lab Routine Nonrheum atic aortic valve stenosis S/P TAVR (transcatheter aortic valve replacement) Expected: 01/23/2020 (Approximate), Expi res: 01/20/2021 BNP (B-TYPE NATRIURETIC Lab Routine Essent ial hypertension PEPTI) Nonrheumatic aortic valve stenosis S/P TAVR (transcatheter aortic valve replacement) documented as of this encounter Goals Goal Patient Associated Recent Progress Patient-Stat Aut hor Goal Type Problems ed? Diabetic Blood Sugar Lifestyle Lisa Mendoza RN documented as of this encounter Visit Diagnoses Diagnosis Essential hypertension Unspecified essential hypertension Nonrheumatic aortic valve stenosis Aortic valve disorders S/P TAVR (transcatheter aortic valve re placement) Heart valve replaced by other means documented in this encounter
--- OUTSIDE RECORDS SUMMARY | 2020-03-02 17:46 | XMS REPORT | Encounter Summary ---
Author Author [facility] Organization [facility] Address Unknown Phone Unavailable Care Team Providers Care Service Desk Team Lead Name Role Phone Bishnu Martin MD Unavailable Chata Chau DPM Unavailable SelfChristy MD PCP Reason for Visit * Auth/Cert Referred By Contact Referred To Contact Status Reason Specialty Diagnoses / Procedures Diagnoses Nonrheumatic aortic valve stenosis Nonrheumatic aortic valve stenosis [I35.0] P rocedures MS REPLACE AORTIC VALVE PERQ FEMORAL ARTRY APPROACH PERCUTANEOUS TRANSCATHETER REPLACEMENT AORTIC VALVE - FEMORAL ARTERY-gregoria, left common femoral, 26s3 *ICU* Encounter Details Care Team Description Date Type Department Nando Lemus (Trip) Arcenio MENA MD [address] [address] [phone] Duncan Patel MD [address] [address] [phone] S/P TAVR (transcatheter aortic valve rep lacement) 12/26/2019 [facility] 12/28/2019 [address] [place] [address] Social History Date Tobacco Use Types Packs/Day [...] (98.1 F) 12/28/2019 3:36 PM CDT Temperature - - Respiratory Rate 98% 12/28/2019 3:36 PM CDT Oxygen Saturation - - Inhaled Oxygen Concentration 102 kg (224 lb 12.8 oz) 12/28/2019 5:00 AM CDT Weight 165.1 cm (5' 5") 12/27/2019 7:16 AM CDT Height 37.41 12/27/2019 7:16 AM CDT Body Mass Index documented in this [...] impairment: No documented as of this encounter Discharge Summaries * Madeline Wilkins PA-C - 12/28/2019 3:05 PM CDT Physician Discharge Summary Name: Kvng Sumner Date Of : 1950 Age: 69 years Admit date: 12/26/2019 Discharge date: 12/28/2019 Attending Physician: Nando Lemus II (Trip)* Physician Summary completed by: Madeline Wilkins PA-C Reason for hospitalization: Aortic stenosis, severe [I35.0] Significant PMH: Medical History: Diagnosis Date Acute on chronic diastolic CHF (congestive heart failure), NYHA class 3 (HCC ) Anticoagulated for PE Aortic stenosis Arthritis Bilateral carotid artery disease (HCC) moderate disease Breast cancer ([facility]) 2007 Right- lumpectomy and radiation CAD (coronary artery disease) CHF (congestive heart failure) ([facility]) Chronic back pain with spinal nerve stimulator Contrast media allergy COPD, severe (HCC) CVA (cerebral vascular accident) ([facility]) DM (diabetes mellitus) ([facility]) Family history of premature CAD Gastroparesis Heart murmur Hyperlipidemia Hypertension MRSA cellulitis 2006 right leg vein harvest site Myocardial infarction ([facility]) 2005, ~2004 Total of 3 Neuropathy Obese Obesity, Class II, BMI 35-39.9 ANCA on CPAP with supplemental O2 Osteoporosis PAD (peripheral artery disease) ([facility]) s/p bilateral iliac stents Pulmonary embolism ([facility]) PVD (peripheral vascular disease) ([facility]) Requires continuous at home supplemental oxygen S/P CABG (coronary artery bypass graft) 2006 [facility] in [place], [place] Allergies: Adhesive tape (rosins); Erythromycin; Pcn [penicillins]; Artificial s weetner; Bee [bumble bee]; Clindamycin; Contrast dye iv, iodine containing [iodi nated contrast media]; Hornet venom; Indomethacin; Venom-wasp; Ancef [cefazolin] ; and Barium sulfate Admission Physical Exam notable for: Aortic stenosis, severe [I35.0] Admission Lab/Radiology studies notable for: Hgb A1c 6.8%, COVID negative, BNP 1 3 Brief Hospital Course: The patient was admitted to [facility] for elective transcatheter aortic valve replacement. The patient underwen t the procedure and tolerated it well. She was monitored in the cardiothoracic intensive care unit following surgery. Endocrinology was consulted to assist wi managing the patient's insulin pump. Her rhythm remained stable overnight. The patient's overall hospital course was uneventful. They increased their acti vity and oral intake. She was able to ambulate on room air and maintain an SpO2 93% on POD 2. (She was requiring 2L supplemental oxygen at home prior to surge ry). A post-operative echocardiogram demonstrated a well seated bioprosthetic v alve. The patient had normal bowel and bladder function. The patient was stabl e to be discharged home on post operative day#2. She will follow up with her P for continued diabetes management. Her [employer] coreg was not resumed due to labil e blood pressure. Condition at Discharge: Stable Discharge Diagnoses: Hospital Problems Active Problems * (Principal) S/P TAVR (transcatheter aortic valve replacement) Hypertension CAD (coronary artery disease) COPD (chronic obstructive pulmonary disease) ([facility]) HLD (hyperlipidemia) Status post coronary artery bypass graft Type 2 diabetes mellitus with circulatory disorder, with long-term current use of insulin ([facility]) Contrast media allergy Hyperlipidemia Obese PVD (peripheral vascular disease) ([facility]) Pulmonary embolism ([facility]) Requires continuous at home supplemental oxygen ANCA on CPAP MRSA cellulitis Anticoagulated Acute on chronic diastolic CHF (congestive heart failure), NYHA class 3 ([facility]) PAD (peripheral artery disease) ([facility]) Bilateral carotid artery disease ([facility]) CVA (cerebral vascular accident) ([facility]) Thrombocytopenia ([facility]) Postoperative anemia due to acute blood loss Resolved Problems RESOLVED: Aortic stenosis Surgical Procedures: 12/26/19: 1. Access to bilateral common femoral arteries using ultrasound guidance with a micropuncture technique. 2. Placement of balloon-tipped temporary pacemaker. 3. Ascending aortogram. 4. Transcatheter aortic valve replacement using a 26 mm S3 valve. 5. Iliofemoral arteriogram with runoff Significant Diagnostic Studies and Procedures: noted in brief hospital course Consults: Anesthesiology and Endocrinology Patient Disposition: Home Patient instructions/medications: Cardiac Diet Limiting unhealthy fats and cholesterol is the most important step you can take in reducing your risk for cardiovascular disease. Unhealthy fats include satura sammie and trans fats. Monitor your sodium and cholesterol intake. Restrict your so dium to 2g (grams) or 2000mg (milligrams) daily, and your cholesterol to 200mg d aily. If you have questions regarding your diet at home, you may contact a dietitian a t . Diabetic Diet You should eat between 1600 and 2000 calories per day. This is equal to 60g (g desiree) of carbohydrates per meal, and 30g of carbohydrates for a bedtime snack. If you have questions about your diet after you go home, you can call a dietitia n at [phone]. Other Activity Restrictions -You should and need to walk daily. Your goal is to walk 30 minutes at at time without stopping for breaks. This is a daily exercise routine that you should st art as soon as you arrive home. Your basic daily activities do not count toward your 30 minute minimum, e.g. housework, toileting, fixing meals. Do not exercise outside in extremely hot or cold temperatures. -Bathing: NO tub baths, hot tubs, or swimming for 6 weeks. You may shower at any time. -Driving: NO driving for 2 weeks or while taking narcotics -Lifting: NO lifting more than 10 pounds (gallon of milk) for 2 weeks. -Monitoring: If you have access to a home blood pressure cuff, record your blood pressure and heart rate daily. Please call if your systolic blood pressure is <90 or >160, OR if your heart rate is <50 or >120 at rest Incision Care Keep your incision(s) clean and dry. It is ok to shower unless otherwise noted . Do not soak in a bath tub, hot tub, pool or rees for 6 weeks. Do not use cre ams or lotions on incision until it is fully healed. If your surgeon used [place] lin (skin glue), this will fall off gradually, do not pick at the glue. If you notice redness, swelling, drainage, foul odor, or sutures sticking up through y our incision, please call the Cardiothoracic Surgery clinic immediately. Report These Signs and Symptoms Please contact your doctor for the following symptoms: *Temperature over 100 degrees F *Uncontrolled pain *Drainage with a foul odor *Shortness of breath *Racing or skipping heart beats *Swelling or tenderness in your groin *Painful/Cold/Discolored legs or toes *Suture material sticking up through your incisions *Change in coordination of ability to talk *If you gain more than 2 pounds in 24 hours, or 5 pounds in one week. Return Appointment Echocardiogram at 2pm, appointment will follow at 3pm. Provider DINA BARNES [[id number]] Location Cardiology Clinic Appointment date: 01/23/2020 Appointment time: 2:00 PM Return Appointment Call to schedule an appointment with your primary care doctor in 1-2 weeks for a check up and medication review. Address your blood glucose levels at this aldo ointment as well. Provider CHRISTY MORA [[id number]] Cardiac Rehab Your physician has referred you [facility] at [phone] to schedule an appointment. If you will be attending cardiac rehab at a different facility, a referral will be sent to the facility of your choice. If you have not heard from that facilit y within 2 weeks after you have been discharged, please call them to schedule an appointment. Referral to outpatient cardiac rehab: Outside referral faxed: Internal referral sent to: Opioid (Narcotic) Safety Information OPIOID (NARCOTIC) PAIN MEDICATION SAFETY We care about your comfort, and believe you need opioid medications at this time to treat your pain. An opioid is a strong pain medication. It is only availab le by prescription for moderate to severe pain. Usually these medications are u sed for only a short time to treat pain, but sometimes will be prescribed for lo nger. Talk with your doctor or nurse about how long they expect you to need thi s medication. When used the right way, opioids are safe and effective medications to treat you r pain, even when used for a long time. Yet, when used in the wrong way, opioid s can be dangerous for you or others. Opioids do not work for everyone. Most p atients do not get full relief of their pain from opioid medication; full relief of your pain may not be possible. For your safety, we ask you to follow these instructions: *Only take your opioid medication as prescribed. If your pain is not controlled with the prescribed dose, or the medication is not lasting long enough, call yo ur doctor. *Do not break or crush your opioid medication unless your doctor or pharmacist s ays you can. With certain medications, this can be dangerous, and may cause galindo th. *Never share your medications with others, even if they appear to have a good re ason. Never take someone else's pain medication-this is dangerous, and illegal (a crime). Overdoses and deaths have occurred. *Keep your opioid medications safe, as you would with martinez, in a lock box or sim ilar container. *Make sure your opioids are going to be secure, especially if you are around chi ldren or teens. *Talk with your doctor or pharmacist before you take other medications. *Avoid driving, operating machinery, or drinking alcohol while taking opioid shalini n medication. This may be unsafe. Pain medications can cause constipation. Constipation is bowel movements that ar e less often than normal. Stools often become very hard and difficult to pass. T his may lead to stomach pain and bloating. It may also cause pain when trying to use the bathroom. Constipation may be treated with suppositories, laxatives or stool softeners. A diet high in fiber with plenty of fluids helps to maintain re gular, soft bowel movements. Risk Reduction Plan Cardiac Event Personal Risk Factor Reduction Plan Take this sheet to your physician to show treatment recommendations Kvng Sumner Admission Date: 12/26/2019 LOS: 2 days Blood Pressure Risk Goal: Keep blood pressure below 130/80 Your Numbers: BP Readings from Last 1 Encounters: 12/28/19 : 138/60 Plan: High blood pressure is the single most important risk factor for cardiac e vents because it's the #1 cause of cardiac events. Take medication as prescribe d and monitor your blood pressure. Abnormal lipids (fats in blood) Risk Goal: Total Cholesterol: <200 LDL (bad cholesterol): primary prevention <100 LDL (bad cholesterol): secondary prevention < 70 HDL ("good" cholesterol): >40 for men, >50 for women Triglycerides: <150 Your Numbers: No results found for: CHOL No results found for: LDL No results found for: HDL No results found for: TRIG Plan: Diets high in saturated fat, trans fat and cholesterol can raise blood cho lesterol levels increasing your risk of having a cardiac event. Take medication as prescribed and eat a heart healthy, low sodium diet. Smoking Risk Goals: If you smoke, STOP! Plan: Smoking DOUBLES your risk of having a cardiac event. Quitting can greatly reduce your risk. To register for smoking cessation program call [phone] or visit www.smokefree.gov Diabetes Risk Goal: Non-diabetic: Below 5.7% Goal for diabetic: Less than 7% Your Numbers: Hemoglobin A1C Date Value Ref Range Status 12/24/2019 6.8 (H) 4.0 - 6.0 % Final Comment: The ADA recommends that most patients with type 1 and type 2 diabetes maintain an A1c level <7%. Plan: If you have diabetes, even if treated, you are at an increased risk of hav ing a cardiac event. Alcohol Use Risk Goal: Alcohol use can lead to a cardiac event. Plan: For men, limit intake to no more than 2 drinks per day. For women, limit intake to no more than one drink per day. Weight Management Risk Goal: Healthy: BMI is 18.5 to 24.9 Overweight: BMI is 25 to 29.9 Obese: BMI is 30 or higher Morbid Obesity: BMI [...] Your Numbers: Your BMI (Calculated): 36.61 Plan: If you have questions about your diet after you go home, you can call a deng randall at [phone] Physical Activity Risk Goal: Patients should have approval by a physician prior to beginning an exercis e program. Plan: Try to get at least 30 minutes of moderate physical activity five days a w grayling or 20 minutes of vigorous physical activity three days a week with your doct or's approval. To the Neurology and the NeuroSurg Discharge order sets set add a new order in t he education section titled "Risk Reduction Plan", in the comments section add t he following (default select this new order for neuro and neuro surg and ensure this information is added to the AVS). Additional Discharge Instructions You MUST take antibiotics prior to any dental procedures (including cleaning), invasive respiratory tract procedures and invasive skin procedures. You should NOT have any of these procedure for 3 months after your valve surgery. This дмитрий l help to prevent infection to the heart valve. Contact your primary care provi mckay or other spatial scientist for an antibiotic prescription when needed. Questions About Your Stay For questions or concerns regarding your hospital stay. Call [phone] Discharging attending physician: NANDO LEMUS ([place]) Arcenio MENA [[id number]] Return Appointment [facility] Provider DINA BARNES [[id number]] Location [facility] Appointment date: 01/02/2020 Appointment time: 4:30 PM Diabetes Information Diabetes is managed by checking your blood sugar, taking your medicine, exercis ing and eating healthy. Target blood sugar range is 110 - 130 mg/dL Check your blood sugar today on your trip home - at 3:30pm and 4:30pm to ensure your glucose is continuing to normalize. Check blood sugars before meals and at bedtime once you are home from the hospit al. Treatment of low blood sugars: If your blood sugar is low, you may feel shaky, w eak, sweaty, hungry, confused, or have a headache. Check your blood sugar with a glucose meter. If it is below 70 treat with one of the following: juice (4 oz.) or regular soda (4 oz.) or 4-5 hard candies. Recheck your blood sugar in 15 min utes and repeat this until level is above 70. Follow up with your doctor and inform them of any changes to your diabetes plan of care. *Talk with your doctor before stopping any medication or if you need refills on supplies or medications. *Eat three meals each day at regularly scheduled intervals (about 4-5 hours apar t). It helps to control your blood sugar. Each meal should have equal amounts of carbohydrates. *Check your feet every day for blisters, cuts, and redness. Call your doctor if you have an infection, wound or cut anywhere on your feet. *Get a dilated eye exam each year. *Wear a medic alert ID if you are on insulin. *In an emergency contact your healthcare provider or go to the emergency room. A free class is available for diabetes education. The class is held in the [facility] on the 5th Floor of the Medical Office Building, every Monday f rom 2:00 PM - 3:00 PM. The class is not held on actual or observed holidays. Iain cosme call [phone] to let us know when you plan on attending. There is no cost and we will not bill your insurance. More diabetes education and individual nutrition appointments are offered at the [facility]. Most insurance plans cover these services if you have a r eferral from your doctor. Call [phone], option 3 or go to [email or web address] for details. insulin pen needles not needed insulin pen needles not needed insulin syringe-needle not needed insulin syringe-needle not needed HOME RESPIRATORY EQUIPMENT Pt has supplemental home oxygen therapy arranged. Continue to use as needed to maintain SpO2 >88%. Respiratory Therapy equipment to be ordered from homecare provider: Oxygen Current Discharge Medication List START taking these medications Details acetaminophen (TYLENOL) 325 mg tablet Take one tablet by mouth every 6 hours as needed. PRESCRIPTION TYPE: OTC senna/docusate (SENOKOT-S) 8.6/50 mg tablet Take two tablets by mouth twice cyndy y. PRESCRIPTION TYPE: OTC CONTINUE these medications which have NOT CHANGED Details albuterol (VENTOLIN HFA, PROAIR HFA, PROVENTIL HFA) 90 mcg/actuation inhaler Inh bebe 2 Puffs by mouth into the lungs every 6 hours as needed for Wheezing or Shor tness of Breath. Shake well before use. Qty: 1 Inhaler, Refills: 11 PRESCRIPTION TYPE: Normal Associated Diagnoses: Other emphysema (HCC) alendronate (FOSAMAX) 70 mg tablet Take 70 mg by mouth every 7 days. PRESCRIPTION TYPE: Historical Med ARIPiprazole (ABILIFY) 5 mg tablet Take 5 mg by mouth at bedtime daily. PRESCRIPTION TYPE: Historical Med aspirin EC 81 mg tablet Take 81 mg by mouth daily. PRESCRIPTION TYPE: Historical Med atorvastatin (LIPITOR) 80 mg tablet Take 80 mg by mouth at bedtime daily. PRESCRIPTION TYPE: Historical Med bacitracin 500 unit/g topical ointment Apply topically to affected area twice d aily. Apply thin layer to cheek incision twice daily Qty: 14 g, Refills: 1 PRESCRIPTION TYPE: Print bumetanide (BUMEX) 2 mg tablet Take 2 mg by mouth daily. PRESCRIPTION TYPE: Historical Med calcium carbonate/vitamin D-3 (OSCAL-500+D) 1250 mg/200 unit tablet Take 2 table ts by mouth daily. Calcium Carb 1250mg delivers 500mg elemental Ca PRESCRIPTION TYPE: Historical Med chlorhexidine gluconate (PERIDEX) 0.12 % solution Swish and Spit 15 mL by mouth as directed after meals and at bedtime. Qty: 473 mL, Refills: 2 PRESCRIPTION TYPE: Print citalopram (CELEXA) 40 mg tablet Take 40 mg by mouth at bedtime daily. PRESCRIPTION TYPE: Historical Med dexlansoprazole (+) (DEXILANT) 60 mg capsule Take 60 mg by mouth daily. PRESCRIPTION TYPE: Historical Med docusate (COLACE) 100 mg capsule Take 100 mg by mouth at bedtime daily. PRESCRIPTION TYPE: Historical Med fluticasone (FLONASE) 50 mcg/actuation nasal spray Apply 1 [place] to each nostril as directed twice daily. PRESCRIPTION TYPE: Historical Med gabapentin (NEURONTIN) 100 mg capsule Take 100 mg by mouth three times daily. PRESCRIPTION TYPE: Historical Med HYDROcodone/acetaminophen (NORCO) 5/325 mg tablet Take 1 tablet by mouth every 4 hours as needed PRESCRIPTION TYPE: Historical Med insulin pump -ASPART- Patients Own by [employer] Pump route. Indications: 1.9U basal, 1U=8carbs, target range 100-130 PRESCRIPTION TYPE: Historical Med lisinopril (PRINIVIL; ZESTRIL) 10 mg tablet Take 5 mg by mouth daily. PRESCRIPTION TYPE: Historical Med loratadine (CLARITIN) 10 mg tablet Take 10 mg by mouth twice daily. PRESCRIPTION TYPE: Historical Med metFORMIN (GLUCOPHAGE) 500 mg tablet Take 500 mg by mouth twice daily. PRESCRIPTION TYPE: Historical Med mupirocin (BACTROBAN) 2 % topical ointment Apply to affected area as Needed. PRESCRIPTION TYPE: Historical Med nystatin (NYSTOP) 100,000 unit/g topical powder Apply topically to affected are a twice daily as needed. PRESCRIPTION TYPE: Historical Med potassium chloride SR (K-DUR) 10 mEq tablet Take 10 mEq by mouth daily after din ner. PRESCRIPTION TYPE: Historical Med temazepam (RESTORIL) 15 mg capsule Take 15 mg by mouth at bedtime as needed. PRESCRIPTION TYPE: Historical Med traZODone (DESYREL) 150 mg tablet Take 150 mg by mouth at bedtime daily. PRESCRIPTION TYPE: Historical Med vitamin E 400 unit capsule Take 400 Units by mouth daily. PRESCRIPTION TYPE: Historical Med vitamins, multiple cap Take 1 Cap by mouth daily. PRESCRIPTION TYPE: Historical Med XARELTO 20 mg tablet Take 20 mg by mouth daily. PRESCRIPTION TYPE: Historical Med The following medications were removed from your list. This list includes medic ations discontinued this stay and those removed from your prior med list in our system carvedilol (COREG) 6.25 mg tablet enoxaparin (LOVENOX) 100 mg syringe predniSONE (DELTASONE) 20 mg tablet Scheduled appointments: January 02, 2020 4:30 PM CDT Return Patient with MARI Cruz [facility] (CVM Exam) [address] [facility] [facility] [address] January 23, 2020 2:00 PM CDT Echo Doppler with [facility] SPECIAL PROC/RESEARCH [facility] (CVM Procedural) 4000 [facility] [facility] [address] January 23, 2020 3:00 PM CDT Return Patient with MARI Cruz [facility] (CVM Exam) 4000 [facility] [facility] [address] Pending items needing follow up: [facility] 4:30[facility] to ensure the level is normalizing. Signed: Madeline Wilkins PA-C 12/28/2019 cc: Primary Care Physician: Christy Mora Referring physicians: Dina Barnes A* Additional provider(s): Referral to outpatient cardiac rehab: Pt refused. Outside referral faxed: Internal referral sent to: T documented in this encounter Medications at Time of Discharge Start Date End Date Medication Sig Dispensed Refills alendronate (FOSAMAX) 70 Take 70 mg by 0 mg tablet mouth every 7 days. 11/04/2019 ARIPiprazole (ABILIFY) 5 Take 5 mg by 0 mg tablet mouth at bedtime daily. aspirin EC 81 mg tablet Take 81 mg by 0 mouth daily. atorvastatin (LIPITOR) 80 Take 80 mg by 0 mg tablet mouth at bedtime daily. 10/13/2016 bacitracin 500 unit/g Apply 14 g 1 topical ointment topically to affected area twice daily. Apply thin layer to cheek incision twice daily bumetanide (BUMEX) 2 mg Take 2 mg by 0 tablet mouth daily. calcium carbonate/vitamin Take 2 0 D-3 (OSCAL-500+D) 1250 tablets by mg/200 unit tablet mouth daily. Calcium Carb 1250mg delivers 500mg elemental Ca citalopram (CELEXA) 40 mg Take 40 mg by 0 tablet mouth at bedtime daily. docusate (COLACE) 100 mg Take 100 mg 0 capsule by mouth at bedtime daily. fluticasone (FLONASE) 50 Apply 1 [place] 0 mcg/actuation nasal spray to each nostril as directed twice daily. gabapentin (NEURONTIN) Take 100 mg 0 100 mg capsule by mouth three times daily. 08/27/2018 HYDROcodone/acetaminophen Take 1 tablet 0 (NORCO) 5/325 mg tablet by mouth every 4 hours as needed insulin pump -ASPART- by SubQ Pump 0 Patients OwnIndications: route. 1.9U basal, 1U=8carbs, Indications: target range 100-130 1.9U basal, 1U=8carbs, target range 100-130 lisinopril (PRINIVIL; Take 10 mg by 0 ZESTRIL) 10 mg tablet mouth daily. loratadine (CLARITIN) 10 Take 10 mg by 0 mg tablet mouth twice daily. metFORMIN (GLUCOPHAGE) Take 500 mg 0 500 mg tablet by mouth twice daily. mupirocin (BACTROBAN) 2 % Apply to 0 topical ointment affected area as Needed. nystatin (NYSTOP) 100,000 Apply 0 unit/g topical powder topically to affected area twice daily as needed. potassium chloride SR Take 10 mEq 0 (K-DUR) 10 mEq tablet by mouth daily after dinner. temazepam (RESTORIL) 15 Take 15 mg by 0 mg capsule mouth at bedtime as needed. 05/25/2018 traZODone (DESYREL) 150 Take 150 mg 0 mg tablet by mouth at bedtime daily. vitamins, multiple cap Take 1 Cap by 0 mouth daily. 10/21/2019 XARELTO 20 mg tablet Take 20 mg by 0 mouth daily. 12/28/2019 01/02/2020 acetaminophen (TYLENOL) Take one 0 325 mg tablet tablet by mouth every 6 hours as needed. 09/21/2016 01/02/2020 albuterol (VENTOLIN HFA, Inhale 2 1 Inhaler 11 PROAIR HFA, PROVENTIL Puffs by HFA) 90 mcg/actuation mouth into inhalerIndications: Other the lungs emphysema (HCC) every 6 hours as needed for Wheezing or Shortness of Breath. Shake well before use. 10/13/2016 01/02/2020 chlorhexidine gluconate Swish and 473 mL 2 (PERIDEX) 0.12 % solution Spit 15 mL by mouth as directed after meals and at bedtime. 01/02/2020 dexlansoprazole (+) Take 60 mg by 0 (DEXILANT) 60 mg capsule mouth daily. 12/28/2019 01/02/2020 senna/docusate Take two 0 (SENOKOT-S) 8.6/50 mg tablets by tablet mouth twice daily. 01/02/2020 vitamin E 400 unit Take 400 0 capsule Units by mouth daily. documented as of this encounter Progress Notes * Samaria Lobo RN - 12/28/2019 1:05 PM CDT 1305: Patient refusing HFR bundle, patient provided education on importance of bundle, patient still refused. Charge nurse and CTS notified. Per CTS, patient cleared to be off HFR bundle. CTS and Endo teams notified of patient's elevated blood sugar levels. Will reche ck blood sugar at 1445 and notify teams. 1545: Reviewed AVS with patient - patient denied any questions or concerns. PIV and te le d/c'd. Patient A&Ox4. VS per trend. RA / 2L on NC. Incisions CDI. Pain controlled c current PO pain regimen. Blood sugar levels WNL. Patient's spouse on way to pick out hand patient for d/c. 1645: Patient escorted via wheelchair for d/c by staff. All belongings c patient. * Candace Kahn MD - 12/28/2019 12:48 PM CDT Called by nurse: - had regular lunch around noon -blood sugar around 1230 517, right after she ate -patient bolused 18.1 units of insulin around 1230 for lunch, she estimated 93 c arbs and the other was correction -will plan to recheck blood sugar 2 hours after call, around 245pm Patient hoping to dc home today. Discussed if blood sugar improving <300 would be okay with dc later today. Will re evaluate plan at 245 and nurse will call me back. Appreciate nurses call. Discussed with CTS. * Eloisa Mancera - 12/28/2019 10:37 AM CDT 12/28/19 1015 Education Person Instructed Patient Patient Barriers To Learning None Noted Interventions/Teaching Methods Verbal Instructions;Written Materials Provided Patient Response Verbalized Understanding Topics Wound Care;Reasons to call your doctor;Home Walking Guidelines;Outpatient Cardiac Rehab Referral Information (Lifting restrictions) Teaching Completed 12/28/19 Heart Resource Manual Given 12/28/19 Comments Pt. provided with outpatient cardiac rehab referral. Pt. verbalized she is not intersted at this time due to the distance she would have to travel. Pt. was provided with written contact infromation should she wish to participate in the future. Outpatient Cardiopulmonary Rehab OPCR No Why? Refused/Declined * Eloisa Mancera - 12/28/2019 10:35 AM CDT 12/28/19 1006 Cardiac Rehab Activity Distance Walked (feet) 360 ft HR Pre-activity 94 bpm HR Post-activity 108 SaO2 Pre-activity 94 % SaO2 Post-activity 93 O2 Device None (Room Air) Comments Pt. tolerated 360ft on RA. Pt. stopped for two standing rest breaks due to chronic back pain. Pt. was assisted to the bed at the completion and voiced no concerns. Mobility Progressive Mobility Level 9 Level of Assistance Stand by assistance Assistive Device None Time Tolerated 0-10 minutes Activity Limited By No limitations * Candace Kahn MD - 12/28/2019 7:39 AM CDT Endocrinology Note Name: Kvng Sumner Admission Date: 12/26/2019 Principal Problem: S/P TAVR (transcatheter aortic valve replacement) Active Problems: Hypertension CAD (coronary artery disease) COPD (chronic obstructive pulmonary disease) ([facility]) HLD (hyperlipidemia) Status post coronary artery bypass graft Type 2 diabetes mellitus with circulatory disorder, with long-term current use of insulin (HCC) Contrast media allergy Hyperlipidemia Obese PVD (peripheral vascular disease) ([facility]) Pulmonary embolism (HCC) Requires continuous at home supplemental oxygen ANCA on CPAP MRSA cellulitis Anticoagulated Acute on chronic diastolic CHF (congestive heart failure), NYHA class 3 ([facility]) PAD (peripheral artery disease) ([facility]) Bilateral carotid artery disease (HCC) CVA (cerebral vascular accident) ([facility]) Thrombocytopenia ([facility]) Postoperative anemia due to acute blood loss Reason for Consult: "insulin pump" Assessment / Plan Kvng Sumner is a 69 y.o. female with a PMH of aortic stenosis, diastolic hea rt failure, CAD s/p CABG, COPD, type 2 diabetes, HLD, HTN, PAD who was admitted for TAVR on 12/25. Endocrinology is been consulted for assistance in management of insulin drip and [employer]AT[employer]ER pump. 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 Mora (PCP) in [place] -Diabetic-complications assessment: Retinopathy: denies Peripheral neuropathy: yes, bilateral feet Gastroparesis: yes Autonomic neuropathy: denies Nephropathy: pt reports yes, last urine prot:cr ratio 8.9 mg/g 10/31/2017 Macrovascular complications: PVD, RI Risk factor assessment: Last lipid profile - 07/25/2018 LDL 79 TG 110 BP 127/51 On ACEi/ARB?: lisinopril 5mg qday On Statin?: atorvastatin 80mg qhs -Blood glucose 360 on admission, took high dose prednisone (60mg 12/24, 60mg 12/25 ) for contrast allergy -insulin pump removed on admission, initiated insulin drip, has most recently be en on 6.5 units/hr -required 15 units of insulin via drip from 1734-3400 12/26, equates 2.5 units/hr basal rate - insulin pump resumed on 12/26 Aortic stenosis s/p TAVR 12/25 Diastolic heart failure CAD s/p CABG COPD HLD HTN PAD Impression / Recommendations Patient bolused for dinner and then for correction at 2200 on 12/26. Results for KVNG SUMNER ( ) as of 12/28/2019 09:35 Ref. Range 12/27/2019 16:04 12/27/2019 17:16 12/27/2019 22:14 12/28/2019 03:09 12/28/2019 09:13 Glucose, POC Latest Ref Range: 70 - 100 MG/DL 164 (H) 159 (H) 300 (H) 222 (H) 22 5 (H) -continue current insulin pump settings (same as home settings): basal rate of 1 .9, bolus of 1:8 carb ratio, target 110-120 -parent educator consult to provide education on priming her insulin pump, aldo reciate their help Okay to discharge from a diabetes standpoint. Blood sugars will likely decrease over the day and improve as further out from prednisone. (last dose on 12/25) Follow up: will be with her PCP in [place] (she has appt in January and have adv ised her to call in 1 week with blood sugars) Thank you for the consult, we will continue to follow. Seen and discussed with Dr. Alanis. Candace Kahn MD Endocrinology Fellow PGY-4 Subjective: Ms Sumner is doing well today. She is happy to have her insulin pump back on. H er last dose of steroids was on 12/25. She notes that steroids really effect her blood sugars. She follows with her PCP for diabetes care. She denies eating or d rinking anything overnight except water. She bolused around dinner time and then again around 2200 for a correction bolus. She notes that she is supposed to try and walk without oxygen today. ROS: denies any fevers,c hills, nausea, vomiting, shortness of breath Physical Exam: General: sitting in chair, comfortable in no acute distress Head: Normocephalic ENT: NC in place Lungs: non labored breathing Neurologic: Alert Vital Signs: Last Filed In 24 Hours Vital Signs: 24 Hour Range BP: 116/54 (12/27 1138) Temp: 37.1 C (98.8 F) (12/27 1138) Pulse: 84 (12/27 1138) Respirations: 18 PER MINUTE (12/27 1138) SpO2: 96 % (12/27 1138) SpO2 Pulse: 73 (12/26 1200) BP: (100-145)/(41-66) Temp: [36.6 C (97.8 F)-37.7 C (99.9 F)] Pulse: [73-89] Respirations: [16 PER MINUTE-19 PER MINUTE] SpO2: [88 %-100 %] Intensity Pain Scale (Self Report): 2 (12/28/19 0900) Medications: Current Facility-Administered Medications: acetaminophen (TYLENOL) tablet 325 mg, 325 mg, Oral, Q6H PRN, Codi Kumar APRN, 325 mg at 12/28/19 0904 albuterol sulfate (PROAIR HFA) inhaler 2 puff, 2 puff, Inhalation, PRN, Nando Serrano (Mary Rg III, MD ARIPiprazole (ABILIFY) tablet 5 mg, 5 mg, Oral, QHS, Mildred Carrillo APRN- FLAVOR MAKER, 5 mg at 12/27/192049 aspirin chewable tablet 81 mg, 81 mg, Oral, QDAY, Mildred Carrillo APRN-FLAVOR MAKER, 81 mg at 12/28/1904 atorvastatin (LIPITOR) tablet 80 mg, 80 mg, Oral, QHS, Mildred Carrillo APR N-FLAVOR MAKER, 80 mg at 12/27/192048 bisacodyL (DULCOLAX) rectal suppository 10 mg, 10 mg, Rectal, QDAY PRN, Mildred Marie APRN-FLAVOR MAKER citalopram (CeleXA) tablet 40 mg, 40 mg, Oral, QHS, Mildred Carrillo APRN-N P, 40 mg at 12/27/192048 fluticasone propionate (FLONASE) nasal spray 2 spray, 2 spray, Each Nostril , QDAY, Modesta Walton MD, 2 spray at 12/27/1918 gabapentin (NEURONTIN) capsule 100 mg, 100 mg, Oral, TID, Mildred Carrillo APRN-FLAVOR MAKER, 100 mg at 12/28/1904 hydrALAZINE (APRESOLINE) injection 10 mg, 10 mg, Intravenous, Q6H PRN, Mildred Terry APRN-FLAVOR MAKER HYDROcodone/acetaminophen (NORCO) 5/325 mg tablet 1 tablet, 1 tablet, Oral, Q4H PRN, Shelley Kumar TREE WRAPPER, 1 tablet at 12/27/19 2207 Insulin Pump User Patient Agreement Form, , , Once AND insulin pump - PART- Patients Own, , SubQ Pump, TID w/ Meals & PRN, Meaghan Red MD, 11.1 Units at 12/28/19 0930 magnesium sulfate 1 g/D5W 100 mL IVPB, 1 g, Intravenous, PRN AND Magn esium, , , PRN AND Notify Physician, , , Ongoing, Mildred Carrillo APRN-FLAVOR MAKER milk of magnesia (CONC) oral suspension 10 mL, 10 mL, Oral, QDAY PRN, Mildred Carrillo TREE WRAPPER-FLAVOR MAKER ondansetron (ZOFRAN) injection 4 mg, 4 mg, Intravenous, Q6H PRN, Deshawn Carrillo, TREE WRAPPER-FLAVOR MAKER pantoprazole DR (PROTONIX) tablet 40 mg, 40 mg, Oral, QDAY(21), Franky Carrillo, TREE WRAPPER-FLAVOR MAKER, 40 mg at 12/27/192047 potassium chloride SR (K-DUR) tablet 20-40 mEq, 20-40 mEq, Oral, PRN, 20 mE q at 12/26/19 2245 OR potassium chloride oral solution 20-40 mEq, 20-40 mEq, Per NG tube, PRN OR potassium chloride in water IVPB 10 mEq, 10 mEq, Intrav enous, PRN, Mildred Carrillo, TREE WRAPPER-FLAVOR MAKER, Last Rate: 50 mL/hr at 12/26/19 1314, 10 m Eq at 12/26/19 1314 prochlorperazine (COMPAZINE) rectal suppository 25 mg, 25 mg, Rectal, Q6H P RN, Mildred Carrillo, TREE WRAPPER-FLAVOR MAKER rivaroxaban (XARELTO) tablet 20 mg, 20 mg, Oral, QDAY w/dinner, Franky Carrillo, TREE WRAPPER-FLAVOR MAKER, 20 mg at 12/27/19 1716 senna/docusate (SENOKOT-S) tablet 2 tablet, 2 tablet, Oral, BID, Deshawn Carrillo, TREE WRAPPER-FLAVOR MAKER, 2 tablet at 12/28/19 0904 traZODone (DESYREL) tablet 150 mg, 150 mg, Oral, QHS PRN, Margarita Olivo AP RN, 150 mg at 12/27/198 Lab/Radiology/Other Diagnostic Tests: 24-hour labs: Results for orders placed or performed during the hospital encounter of 12/26/19 (from the past 24 hour(s)) POC GLUCOSE Collection Time: 12/27/19 12:15 PM Result Value Ref Range Glucose, POC 182 (H) 70 - 100 MG/DL POC GLUCOSE Collection Time: 12/27/19 1:26 PM Result Value Ref Range Glucose, POC 174 (H) 70 - 100 MG/DL POC GLUCOSE Collection Time: 12/27/19 2:27 PM Result Value Ref Range Glucose, POC 229 (H) 70 - 100 MG/DL POC GLUCOSE Collection Time: 12/27/19 4:04 PM Result Value Ref Range Glucose, POC 164 (H) 70 - 100 MG/DL POC GLUCOSE Collection Time: 12/27/19 5:16 PM Result Value Ref Range Glucose, POC 159 (H) 70 - 100 MG/DL POC GLUCOSE Collection Time: 12/27/19 10:14 PM Result Value Ref Range Glucose, POC 300 (H) 70 - 100 MG/DL POC GLUCOSE Collection Time: 12/28/19 3:09 AM Result Value Ref Range Glucose, POC 222 (H) 70 - 100 MG/DL MAGNESIUM Collection Time: 12/28/19 4:50 AM Result Value Ref Range Magnesium 2.0 1.6 - 2.6 mg/dL BASIC METABOLIC PANEL Collection Time: 12/28/19 4:50 AM Result Value Ref Range Sodium 135 (L) 137 - 147 MMOL/L Potassium 4.5 3.5 - 5.1 MMOL/L Chloride 102 98 - 110 MMOL/L CO2 28 21 - 30 MMOL/L Anion Gap 5 3 - 12 Glucose 217 (H) 70 - 100 MG/DL Blood Urea Nitrogen 16 7 - 25 MG/DL Creatinine 0.92 0.4 - 1.00 MG/DL Calcium 7.7 (L) 8.5 - 10.6 MG/DL eGFR Non >60 >60 mL/min eGFR >60 >60 mL/min CBC Collection Time: 12/28/19 4:50 AM Result Value Ref Range White Blood Cells 4.9 4.5 - 11.0 K/UL RBC 2.72 (L) 4.0 - 5.0 M/UL Hemoglobin 7.7 (L) 12.0 - 15.0 GM/DL Hematocrit 23.1 (L) 36 - 45 % MCV 85.0 80 - 100 FL MCH 28.4 26 - 34 PG MCHC 33.4 32.0 - 36.0 G/DL RDW 14.6 11 - 15 % Platelet Count 86 (L) 150 - 400 K/UL MPV 7.7 7 - 11 FL POC GLUCOSE Collection Time: 12/28/19 9:13 AM Result Value Ref Range Glucose, POC 225 (H) 70 - 100 MG/DL Glucose: (!) 217 (12/28/19 6760) POC Glucose (Download): (!) 225 (12/28/19 0538) Pertinent radiology reviewed. Associated attestation - Ion Alanis MD - 12/28/2019 11:53 AM CDT ATTESTATION I personally performed the jackson portions of the E/M visit, discussed case with re sident and concur with resident documentation of history, physical exam, assessm ent, and treatment plan unless otherwise noted. I agreed with Dr. Barahona's note I have reviewed diabetes plan with the yusuf sy. She will follow up with Dr. Mora as an outpatient for diabetes management She has all her insulin and pump supplies. She was seen by diabetes education kerrie avery. Staff name: Ion Alanis MD Date: 12/28/2019 * Madeline Wilkins PA-C - 12/28/2019 6:48 AM CDT Cardiothoracic Surgery Progress Note Kvnglizzette Sumner Today's Date: 12/28/2019 Admission Date: 12/26/2019 LOS: 2 days POD: 2 Procedure: 12/26/19 - PERCUTANEOUS TRANSCATHETER REPLACEMENT AORTIC VALVE - FEMOR AL ARTERY-gregoria, left common femoral, 26s3 *ICU*: 51401 (CPT) Principal Problem: S/P TAVR (transcatheter aortic valve replacement) Active Problems: Hypertension CAD (coronary artery disease) COPD (chronic obstructive pulmonary disease) ([facility]) HLD (hyperlipidemia) Status post coronary artery bypass graft Type 2 diabetes mellitus with circulatory disorder, with long-term current use of insulin (HCC) Contrast media allergy Hyperlipidemia Obese PVD (peripheral vascular disease) ([facility]) Pulmonary embolism (HCC) Requires continuous at home supplemental oxygen ANCA on CPAP MRSA cellulitis Anticoagulated Acute on chronic diastolic CHF (congestive heart failure), NYHA class 3 (HCC) PAD (peripheral artery disease) (HCC) Bilateral carotid artery disease (HCC) CVA (cerebral vascular accident) (HCC) Thrombocytopenia (HCC) Postoperative anemia due to acute blood loss Subjective: Feels like breathing has improved. Overnight Events: Transferred from [facility] yesterday. Assessment/Plan: Neuro A&O x4, OGLESBY. Continue PRN Tylenol, resume [employer] [place]. CV SR, rates 70s-80s. SBP 100-140s. Cont ASA 81 mg, [employer] PLATEMAKER xarelto (for h/o PD ) and statin. Intra op AMLINA LVEF 45-50%. Hold [employer]ATEMAKER coreg 6.25mg and Lisinopril 5m g for now. Resp Daily CXR lungs expanded, atelectasis, pulmonary vascular congestio n. SpO2 93% on 2 L NC, on home O2 @ 2 L. Continue IS, aggressive pulm toilet. Renal Baseline Scr 0.9. Today 0.92. UOP 1.9L/24hr, net -100 mL/24hr, Weight +1.8kg/admission. Resume [employer]AT[employer]ER Bumex. GI - KRISHNA, continue post op bowel regimen. No BM since surgery. ID Afebrile, wbc 4.9. Heme Hgb 9.0-->7.7, plt 86. Monitor anemia/thrombocytopenia. Continue [employer]ER Xarelto for PE, continue mechanical DVT prophylaxis. FEN Hgb A1c 6.8 %. On insulin pump [employer]ER, resumed yesterday. Endocrinology f luiza, appreciate recs. Activity OOBTC, ambulate in halls with nursing, CR/PT/OT. Ambulated 360' on RA and was able to maintain SpO2 93%. Prophylaxis Review: Lines: No Antibiotic Usage: No VTE: Pharmacological prophylaxis; Rivaroxaban and Mechanical prophylaxis; Seque ntial compression device Urinary Catheter: No Disposition: Discharge home today pending Endocrinology recommendations. Madeline Wilkins PA-C [id number] 12/28/2019 Subjective: HPI: Kvng Sumner is a 69 y.o. female with a history of aortic stenosis, diastolic heart failure, DM II(on insulin pump), history of MRSA- cellulitis,chronic Pulmonary embolism- on Xarelto, ANCA, HTN, HLD, and severe COPD with home oxygen (2L). She is now s/p TAVR on 12/26/2019. 12/26: d/c TVP, transfer REVIEW OF SYSTEMS: Constitutional: negative for fevers, chills and fatigue Eyes: negative for visual disturbance Respiratory: negative for increased work of breathing, wheezing or dyspnea on ex ertion Cardiovascular: negative for chest pain, dyspnea, palpitations, lower extremity edema Gastrointestinal: negative for nausea, vomiting and abdominal pain Genitourinary:negative Neurological: negative for headaches, dizziness and paresthesia Objective: Medications: Scheduled Meds:ARIPiprazole (ABILIFY) tablet 5 mg, 5 mg, Oral, QHS aspirin chewable tablet 81 mg, 81 mg, Oral, QDAY atorvastatin (LIPITOR) tablet 80 mg, 80 mg, Oral, QHS citalopram (CeleXA) tablet 40 mg, 40 mg, Oral, QHS fluticasone propionate (FLONASE) nasal spray 2 spray, 2 spray, Each Nostril, QDA Y gabapentin (NEURONTIN) capsule 100 mg, 100 mg, Oral, TID insulin pump -ASPART- Patients Own, , SubQ Pump, TID w/ Meals & PRN pantoprazole DR (PROTONIX) tablet 40 mg, 40 mg, Oral, QDAY(21) rivaroxaban (XARELTO) tablet 20 mg, 20 mg, Oral, QDAY w/dinner senna/docusate (SENOKOT-S) tablet 2 tablet, 2 tablet, Oral, BID Continuous Infusions: PRN and Respiratory Meds:acetaminophen Q6H PRN, albuterol sulfate PRN, bisacodyL QDAY PRN, hydrALAZINE Q6H PRN, HYDROcodone/acetaminophen Q4H PRN, magnesium sul fate PRN AND Magnesium PRN AND Notify Physician Ongoing, milk of magnesi a (CONC) QDAY PRN, ondansetron (ZOFRAN) IV Q6H PRN, potassium chloride SR PRN OR potassium chloride PRN OR potassium chloride in water PRN, prochlorpera zine Q6H PRN, traZODone QHS PRN Vital Signs: Last Filed Vital Signs: 24 Hour Ra nge BP: 138/60 (12/27 814) Temp: 37.1 C (98.8 F) (12/27 814) Pulse: 83 (12/27 929) Respirations: 18 PER MINUTE (12/27 929) SpO2: 95 % (12/27 929) SpO2 Pulse: 73 (12/26 1200) BP: (100-145)/(41-66) Temp: [36.6 C (97.8 F)-37.7 C (99.9 F)] Pulse: [73-89] Respirations: [16 PER MINUTE-19 PER MINUTE] SpO2: [88 %-100 %] Intensity Pain Scale (Self Report): 4 (12/27/192042) Vitals: 12/26/19 0745 12/27/19 0716 12/28/19 0500 Weight: 100.2 kg (220 lb 14.4 oz) 99.8 kg (220 lb) 102 kg (224 lb 12.8 oz) Intake/Output Summary: (Last 24 hours) Intake/Output Summary (Last 24 hours) at 12/28/2019 1028 Last data filed at 12/28/2019 1000 Gross per 24 hour Intake 1157.03 ml Output 2001 ml Net -843.97 ml Physical Exam: Neuro: A&O x4, OGLESBY Cardiovascular: RRR no rub or murmur Respiratory: LS CTA jovita - diminished in the bases GI: soft, NT, active BS Extremities: No Edema Incisions: groin dressings C/D/I, without hematoma, ecchymosis present LABS: Recent Labs 12/26/19 1200 12/26/19 1831 12/27/19 0315 12/28/19 0450 NA 138 -- 138 135* K 3.7 4.1 3.8 4.5 CL 103 -- 103 102 CO2 27 -- 26 28 GAP 8 -- 9 5 BUN 11 -- 13 16 CR 0.81 -- 1.04* 0.92 GLU 256* -- 180* 217* CA 8.2* -- 7.9* 7.7* MG 1.1* 1.9 1.8 2.0 Recent Labs 12/26/19 1200 12/27/19 0315 12/28/19 0450 WBC 6.6 7.7 4.9 HGB 10.6* 9.0* 7.7* HCT 31.4* 26.7* 23.1* PLTCT 134* 116* 86* INR 1.2 -- -- PTT 32.5 -- -- Estimated Creatinine Clearance: 66.4 mL/min (based on SCr of 0.92 mg/dL). Vitals: 12/26/19 0745 12/27/19 0716 12/28/19 0500 Weight: 100.2 kg (220 lb 14.4 oz) 99.8 kg (220 lb) 102 kg (224 lb 12.8 oz) No results for input(s): PHART, PO2ART in the last 72 hours. Invalid input(s): PC02A Radiology and Other Diagnostic Procedures Review: Reviewed T * Xiao Greenfield RN - 12/28/2019 6:26 AM CDT I have reviewed the notes, assessment, and/or procedures performed by Elena Goetz RN and concur with her documentation unless otherwise noted. * Elena Goetz RN - 12/28/2019 6:22 AM CDT Heart Failure Nursing Progress Note Admission Date: 12/26/2019 LOS: 2 days Admission Weight: 100.2 kg (220 lb 14.4 oz) Most recent weights (inpatient): Vitals: 12/26/19 0745 12/27/19 0716 12/28/19 0500 Weight: 100.2 kg (220 lb 14.4 oz) 99.8 kg (220 lb) 102 kg (224 lb 12.8 oz) Weight change from previous day +2.2kg Fluid restriction ordered: n/a Intake/Output Summary: (Last 24 hours) Intake/Output Summary (Last 24 hours) at 12/28/2019 0623 Last data filed at 12/28/2019 0500 Gross per 24 hour Intake 1753.03 ml Output 1851 ml Net -97.97 ml Is patient incontinent No Anticipated discharge date: 12/28/2019 Discharge goals: to follow plan for care. Daily Assessment of Patient Stated Goals: * Parisa Mcelroy RN - 12/27/2019 4:42 PM CDT I attest to the documentation of URIAH Reddy unless otherwise noted. * Nydia yL RN - 12/27/2019 3:32 PM CDT Assessments complete and documented per flowsheet. A/Ox4. VSS. 2L NC. SR on tele. Insulin gtt infusing per BALJINDER. Patient denies pain. Denies nausea. Surgical incision dressings CDI. Ambulating in room with assist x1, fall bundle in place. UOA but inaccurate with missed hat occurrence. Last BM [employer]ATEM[employer]ER. Call light within reach, will continue to monitor until transferring care to [facility] shift RN. * Cynthia Castanon PT - 12/27/2019 9:05 AM CDT PHYSICAL THERAPY NOTE Name: Kvng Sumner : 1950 Age: 69 y.o. Admission Date: 12/26/2019 LOS: 1 day Physical therapy orders received. Per discussion with Occupational Therapist, sarah bello endorses no concerns with mobility at home. Currently, the patient is ambu lating on unit without difficulty. Physical therapy services will be discontinue d at this time, please re-consult if the patient has a change in mobility status . Therapist: Cynthia Castanon PT, DPT Date: 12/27/2019 * Ibeth Camargo - 12/27/2019 8:43 AM CDT OCCUPATIONAL THERAPY ASSESSMENT AND DISCHARGE NOTE Name: Kvng Sumner : 1950 Age: 69 y.o. Admission Date: 12/26/2019 LOS: 1 day Mobility Patient Turn/Position: Self Progressive Mobility Level: Walk in room Distance Walked (feet): 10 ft(x2) Level of Assistance: Stand by assistance Assistive Device: None Time Tolerated: 0-10 minutes Activity Limited By: No limitations Subjective Pertinent Dx per Physician: s/p TAVR Precautions: O2 Requirement;Falls Pain / Complaints: Patient has no c/o pain Objective Psychosocial Status: Willing and Cooperative to Participate Home Living Type of Home: House Home Layout: One Level Bathroom Toilet: Standard Bathroom Equipment: Shower Chair Home Equipment: Walker;Cane Prior Function Level Of Alexis: Independent with ADLs and functional transfers Lives With: Spouse Receives Help From: None Needed Other Function Comments: Spouse performs all IADLs. ADL's Where Assessed: Edge of Bed;In Bathroom Eating Assist: Independent Grooming Assist: Supervision Only For Lines Toileting Assist: Supervision Only For Lines Functional Transfer Assist: Supervision Only for Lines Activity Tolerance Sitting Balance: 5/5 Moves/Returns Trunkal Midpoint in All Planes > 2 Inches Cognition Overall Cognitive Status: WNL Orientation: Alert & Oriented x4 Education Persons Educated: Patient Barriers To Learning: None Noted Teaching Methods: Verbal Instruction Patient Response: Verbalized Understanding Topics: Role of OT, Goals for Therapy Assessment Prognosis: Good;w/ Family No Skilled OT: No Acute OT Goals Identified;Safe To Return Home AM-PAC 6 Clicks Daily Activity Inpatient Putting on and taking off regular lower body clothes?: None Bathing (Including washing, rinsing, drying): A Little Toileting, which includes using toilet, bedpan, or urinal: None Putting on and taking off regular upper body clothing: None Taking care of personal grooming such as brushing teeth: None Eating meals?: None Daily Activity Raw Score: 23 Standardized (t-scale) score: 51.12 CMS 0-100% Score: 15.86 CMS G Code Modifier: CI Plan Progress: Discontinue OT OT Frequency: No Further Treatment OT Discharge Recommendations Recommendation: Home/prior living situation Patient Currently Requires Supervision For: Mobility Patient Currently Requires Equipment: None;Owns what is needed Therapist: Ibeth Arteaga OTR/L Date: 12/27/2019 * Shelley Kumar APRN - 12/27/2019 8:37 AM CDT Cardiothoracic Surgery Critical Care Progress Note Kvng Sumner Today's Date: 12/27/2019 Admission Date: 12/26/2019 LOS: 1 day POD: 1 Procedure: PERCUTANEOUS TRANSCATHETER REPLACEMENT AORTIC VALVE - FEMORAL ARTERY- gregoria, left common femoral, 26s3 *ICU*: 33262 (CPT) Active Problems: Hypertension CAD (coronary artery disease) COPD (chronic obstructive pulmonary disease) ([facility]) HLD (hyperlipidemia) Status post coronary artery bypass graft Type 2 diabetes mellitus with circulatory disorder, with long-term current use of insulin ([facility]) Contrast media allergy Hyperlipidemia Obese PVD (peripheral vascular disease) ([facility]) Pulmonary embolism ([facility]) ANCA on CPAP MRSA cellulitis Acute on chronic diastolic CHF (congestive heart failure), NYHA class 3 (HCC) PAD (peripheral artery disease) (HCC) Bilateral carotid artery disease (HCC) S/P TAVR (transcatheter aortic valve replacement) Assessment/Plan: Neuro A&O x4, OGLESBY. Continue PRN Tylenol, resume [employer] [place]. CV SR, rates 70s-80s, no pacing requirements, remove TVP. BP 121/53, 90s-120 s/30s-40s overnight. Continue to hold BB for labile BP, and ACEI in the initial post op phase. ASA 81 mg (hold for plts <80k) and statin. Intra op MALINA LVEF 45-50%. Resp Daily CXR bedside interpretation: lungs expanded, atelectasis, pulm onary vascular congestion. Will review radiology report. SpO2 97% on 2 L NC, on home O2 @ 2 L. Continue IS, aggressive pulm toilet. Renal Baseline Scr 0.9. Monitor BMP, assess for MAIKOL. UOP 2.8 L/24hr, net -10 50 mL/24hr, Resume [employer] Bumex. GI - ADAT, continue post op bowel regimen. ID Continue standard post op antibiotic for prophylaxis, per CTS protocol. Heme 9.0, Continue [employer] Xarelto for PE, continue mechanical DVT prophylaxis. FEN If creatinine < 2.0, replace Mg and K per CTS post op protocol to minimize cardiac arrhythmias. Hgb A1c 6.8 %.On insulin pump [employer], currently on insulin gtt. Endocrinology following, appreciate recs. Activity OOBTC, ambulate in halls with nursing. Early cardiac PT/OT. Prophylaxis Review: Lines: No - remove introducer Antibiotic Usage: No VTE: Pharmacological prophylaxis; Rivaroxaban and Mechanical prophylaxis; Seque ntial compression device Urinary Catheter: No Disposition: Plan as above, This patient is post-cardiac surgery and at risk for life threate sadia deterioration. Recovering as expected. Anticipate transfer to the floor la ter today. Shelley Kumar APRN [facility] Intensive Care Pager [phone] 12/27/2019 Subjective: HPI: Kvng Sumner is a 69 y.o. female with a history of aortic stenosis, diastolic heart failure, DM II(on insulin pump), history of MRSA- cellulitis,chronic Pulmonary embolism- on Xarelto, ANCA, HTN, HLD, and severe COPD with home oxygen (2L). She is now s/p TAVR on 12/26/2019. 12/26: d/c TVP, transfer REVIEW OF SYSTEMS: Constitutional: negative for fevers, chills and fatigue Eyes: negative for visual disturbance Respiratory: negative for increased work of breathing, wheezing or dyspnea on ex ertion Cardiovascular: negative for chest pain, dyspnea, palpitations, lower extremity edema Gastrointestinal: negative for nausea, vomiting and abdominal pain Genitourinary:negative Neurological: negative for headaches, dizziness and paresthesia Objective: Medications: Scheduled Meds:albuterol sulfate (PROAIR HFA) inhaler 2 puff, 2 puff, Inhalation , Q6H & PRN ARIPiprazole (ABILIFY) tablet 5 mg, 5 mg, Oral, QHS aspirin chewable tablet 81 mg, 81 mg, Oral, QDAY atorvastatin (LIPITOR) tablet 80 mg, 80 mg, Oral, QHS citalopram (CeleXA) tablet 40 mg, 40 mg, Oral, QHS fluticasone propionate (FLONASE) nasal spray 2 spray, 2 spray, Each Nostril, QDA Y gabapentin (NEURONTIN) capsule 100 mg, 100 mg, Oral, TID magnesium sulfate 1 g/D5W 100 mL IVPB, 1 g, Intravenous, Q1H X 2DO pantoprazole DR (PROTONIX) tablet 40 mg, 40 mg, Oral, QDAY(21) rivaroxaban (XARELTO) tablet 20 mg, 20 mg, Oral, QDAY w/dinner senna/docusate (SENOKOT-S) tablet 2 tablet, 2 tablet, Oral, BID vancomycin (VANCOCIN) 1,500 mg in sodium chloride 0.9% (NS) IVPB, 15 mg/kg, Intr avenous, Q24H* Continuous Infusions: insulin regular 100 units/NS 100 mL IV drip (premade) 4 Units/hr (12/27/19 0 708) PRN and Respiratory Meds:acetaminophen Q6H PRN, [START ON 12/28/2019] bisacodyL QD AY PRN, hydrALAZINE Q6H PRN, magnesium sulfate PRN AND Magnesium PRN AND Notify Physician Ongoing, milk of magnesia (CONC) QDAY PRN, ondansetron (ZOFRAN) IV Q6H PRN, potassium chloride SR PRN OR potassium chloride PRN OR pot assium chloride in water PRN, prochlorperazine Q6H PRN, traZODone QHS PRN Vital Signs: Last Filed Vital Signs: 24 Hour Ra nge BP: 121/53 (12/26 699) Temp: 36.7 C (98 F) (12/26 744) Pulse: 75 (12/26 744) Respirations: 13 PER MINUTE (12/26 744) SpO2: 98 % (12/26 744) SpO2 Pulse: 75 (12/26 744) Height: 165.1 cm (65") (12/27 715) BP: (117-182)/(53-99) ABP: (95-202)/(38-82) Temp: [36.6 C (97.9 F)-36.9 C (98.4 F)] Pulse: [73-90] Respirations: [12 PER MINUTE-27 PER MINUTE] SpO2: [89 %-100 %] Intensity Pain Scale (Self Report): 4 (12/26/191999) Vitals: 12/26/19 0745 12/27/19 0716 Weight: 100.2 kg (220 lb 14.4 oz) 99.8 kg (220 lb) Intake/Output Summary: (Last 24 hours) Intake/Output Summary (Last 24 hours) at 12/27/2019 0837 Last data filed at 12/27/2019 0600 Gross per 24 hour Intake 1741.78 ml Output 2800 ml Net -1058.22 ml Physical Exam: Neuro: A&O x4, OGLESBY Cardiovascular: RRR no rub or murmur Respiratory: LS CTA jovita - diminished in the bases GI: soft, NT, active BS Extremities: No Edema Incisions: groin dressings C/D/I, without hematoma, ecchymosis present Laboratory: LABS: Recent Labs 12/24/19 1150 12/26/19 1200 12/26/19 1831 12/27/19 0315 NA 141 138 -- 138 K 4.6 3.7 4.1 3.8 CL 103 103 -- 103 CO2 30 27 -- 26 GAP 8 8 -- 9 BUN 15 11 -- 13 CR 0.98 0.81 -- 1.04* GLU 142* 256* -- 180* CA 9.2 8.2* -- 7.9* ALBUMIN 3.8 -- -- -- MG -- 1.1* 1.9 1.8 HGBA1C 6.8* -- -- -- Recent Labs 12/24/19 1150 12/26/19 1200 12/27/19 0315 WBC 4.4* 6.6 7.7 HGB 9.6* 10.6* 9.0* HCT 28.6* 31.4* 26.7* PLTCT 150 134* 116* INR 1.2 1.2 -- PTT 42.8* 32.5 -- AST 21 -- -- ALT 17 -- -- ALKPHOS 72 -- -- Estimated Creatinine Clearance: 58 mL/min (A) (based on SCr of 1.04 mg/dL (H)). Vitals: 12/26/19 0745 12/27/19 0716 Weight: 100.2 kg (220 lb 14.4 oz) 99.8 kg (220 lb) No results for input(s): PHART, PO2ART in the last 72 hours. Invalid input(s): PC02A Radiology and Other Diagnostic Procedures Review: Reviewed * Meaghan Red MD - 12/27/2019 8:08 AM CDT Endocrinology Note Name: Kvng Sumner Admission Date: 12/26/2019 Active Problems: Hypertension CAD (coronary artery disease) COPD (chronic obstructive pulmonary disease) (HCC) HLD (hyperlipidemia) Status post coronary artery bypass graft Type 2 diabetes mellitus with circulatory disorder, with long-term current use of insulin (HCC) Contrast media allergy Hyperlipidemia Obese PVD (peripheral vascular disease) ([facility]) Pulmonary embolism (HCC) ANCA on CPAP MRSA cellulitis Acute on chronic diastolic CHF (congestive heart failure), NYHA class 3 (HCC) PAD (peripheral artery disease) (HCC) Bilateral carotid artery disease (HCC) S/P TAVR (transcatheter aortic valve replacement) Reason for Consult: "insulin pump" Assessment / Plan Kvng Sumner is a 69 y.o. female with a PMH of aortic stenosis, diastolic hea rt failure, CAD s/p CABG, COPD, type 2 diabetes, HLD, HTN, PAD who was admitted for TAVR on 12/25. Endocrinology is been consulted for assistance in management of insulin drip and [employer] pump. Type 2 Diabetes Mellitus Steroid induced hyperglycemia -Diagnosed: 1986 -A1c 6.8 (12/23) -[employer] regimen: insulin pump (medtronic, 1.9 unit bolus, 1 unit per 8 carbs, targe t 110-130), metformin 500mg BID -she has a new medtronic insulin pump which she will start using on discharge (p revious one has outgrown 5 yr warranty), also will start using freestyle eugenio C GM -Hypoglycemic episodes on this regimen: glucoses in 60s approximately 2x/week, h x of asymptomatic hypoglycemia -Follows with Dr. Mora (PCP) in [place] -Diabetic-complications assessment: Retinopathy: denies Peripheral neuropathy: yes, bilateral feet Gastroparesis: yes Autonomic neuropathy: denies Nephropathy: pt reports yes, last urine prot:cr ratio 8.9 mg/g 10/31/2017 Macrovascular complications: PVD, RI Risk factor assessment: Last lipid profile - 07/25/2018 LDL 79 TG 110 BP 127/51 On ACEi/ARB?: lisinopril 5mg qday On Statin?: atorvastatin 80mg qhs -Blood glucose 360 on admission, took high dose prednisone (60mg 12/24, 60mg 12/25 ) for contrast allergy -insulin pump removed on admission, initiated insulin drip, has most recently be en on 6.5 units/hr -required 15 units of insulin via drip from [id number] 12/26, equates 2.5 units/hr basal rate Aortic stenosis s/p TAVR 12/25 Diastolic heart failure CAD s/p CABG COPD HLD HTN PAD Impression / Recommendations Hyperglycemia likely secondary to recent high dose steroid use and recent cardia c procedure. Recent Labs 12/27/19 0315 12/27/19 0540 12/27/19 0920 12/27/19 1215 12/27/19 1326 12/27/19 1427 12/27/19 1604 12/27/19 1716 GLUPOC 190* 178* 151* 182* 174* 229* 164* 159* -resumed insulin pump at [employer] basal rate of 1.9, bolus of 1:8 carb ratio, target 11-120, pt initiated during our encounter (order placed) -insulin drip discontinued 2 hours after (ordered) -parent educator consult to provide education on priming her insulin pump Thank you for the consult, we will continue to follow. Seen and discussed with Dr. Alanis. Meaghan Red MD Internal Medicine PGY1 Pager [phone], available on Voalte Subjective: Ms Sumner is doing well today, she is up to the chair. She drank a coke last ni ght (non-diet, states she is allergic to artificial sweetener) and came to an ag reement with her nurse that she would have one 12 oz coke daily. She was able to eat dinner last night and breakfast this AM without issue. ROS:Denies CP, SOA Physical Exam: General: Alert, cooperative, no distress Head: Normocephalic Eyes: No scleral icterus Lungs: CTA Heart: RRR Abdomen: S, NT, + BS Skin: No rashes Neurologic: Alert Vital Signs: Last Filed In 24 Hours Vital Signs: 24 Hour Range BP: 119/48 (12/26 151) Temp: 37.1 C (98.7 F) (12/26 151) Pulse: 74 (12/26 1514) Respirations: 16 PER MINUTE (12/26 151) SpO2: 100 % (12/26 1514) SpO2 Pulse: 73 (12/26 1200) Height: 165.1 cm (65") (12/26 0716) BP: (119-145)/(48-63) ABP: (95-127)/(38-56) Temp: [36.6 C (97.8 F)-37.1 C (98.7 F)] Pulse: [72-90] Respirations: [13 PER MINUTE-22 PER MINUTE] SpO2: [89 %-100 %] Intensity Pain Scale (Self Report): 4 (12/26/191999) Medications: No current facility-administered medications on file prior to encounter. Current Outpatient Medications on File Prior to Encounter Medication Sig Dispense Refill albuterol (VENTOLIN HFA, PROAIR HFA, PROVENTIL HFA) 90 mcg/actuation inhaler Inhale 2 Puffs by mouth into the lungs every 6 hours as needed for Wheezing or Shortness of Breath. Shake well before use. 1 Inhaler 11 alendronate (FOSAMAX) 70 mg tablet Take 70 mg by mouth every 7 days. aspirin EC 81 mg tablet Take 81 mg by mouth daily. atorvastatin (LIPITOR) 80 mg tablet Take 80 mg by mouth at bedtime daily. bacitracin 500 unit/g topical ointment Apply topically to affected area twi ce daily. Apply thin layer to cheek incision twice daily 14 g 1 bumetanide (BUMEX) 2 mg tablet Take 2 mg by mouth daily. carvedilol (COREG) 6.25 mg tablet Take 6.25 mg by mouth twice daily. chlorhexidine gluconate (PERIDEX) 0.12 % solution Swish and Spit 15 mL by [facility] as directed after meals and at bedtime. 473 mL 2 citalopram (CELEXA) 40 mg tablet Take 40 mg by mouth at bedtime daily. dexlansoprazole (+) (DEXILANT) 60 mg capsule Take 60 mg by mouth daily. docusate (COLACE) 100 mg capsule Take 100 mg by mouth at bedtime daily. enoxaparin (LOVENOX) 100 mg syringe Inject 1 mL under the skin every 12 hour s. First injection will be the morning of 12/20. Last injection will be the morni ng of 12/24. 10 each 1 fluticasone (FLONASE) 50 mcg/actuation nasal spray Apply 1 [place] to each nos tril as directed twice daily. gabapentin (NEURONTIN) 100 mg capsule Take 100 mg by mouth three times daily . insulin pump -ASPART- Patients Own by [employer] Pump route. Indications: 1.9U bas al, 1U=8carbs, target range 100-130 lisinopril (PRINIVIL; ZESTRIL) 10 mg tablet Take 5 mg by mouth daily. loratadine (CLARITIN) 10 [...] mg by mouth at bedtime as needed. vitamin E 400 unit capsule Take 400 Units by mouth daily. vitamins, multiple cap Take 1 Cap by mouth daily. Lab/Radiology/Other Diagnostic Tests: 24-hour labs: Results for orders placed or performed during the hospital encounter of 12/26/19 (from the past 24 hour(s)) POC GLUCOSE Collection Time: 12/26/19 8:28 PM Result Value Ref Range Glucose, POC 241 (H) 70 - 100 MG/DL POC GLUCOSE Collection Time: 12/26/19 9:32 PM Result Value Ref Range Glucose, POC 198 (H) 70 - 100 MG/DL POC GLUCOSE Collection Time: 12/26/19 11:11 PM Result Value Ref Range Glucose, POC 114 (H) 70 - 100 MG/DL POC GLUCOSE Collection Time: 12/26/19 11:47 PM Result Value Ref Range Glucose, POC 133 (H) 70 - 100 MG/DL POC GLUCOSE Collection Time: 12/27/19 1:10 AM Result Value Ref Range Glucose, POC 191 (H) 70 - 100 MG/DL CBC Collection Time: 12/27/19 3:15 AM Result Value Ref Range White Blood Cells 7.7 4.5 - 11.0 K/UL RBC 3.21 (L) 4.0 - 5.0 M/UL Hemoglobin 9.0 (L) 12.0 - 15.0 GM/DL Hematocrit 26.7 (L) 36 - 45 % MCV 83.2 80 - 100 FL MCH 28.0 26 - 34 PG MCHC 33.7 32.0 - 36.0 G/DL RDW 15.0 11 - 15 % Platelet Count 116 (L) 150 - 400 K/UL MPV 7.3 7 - 11 FL BASIC METABOLIC PANEL Collection Time: 12/27/19 3:15 AM Result Value Ref Range Sodium 138 137 - 147 MMOL/L Potassium 3.8 3.5 - 5.1 MMOL/L Chloride 103 98 - 110 MMOL/L CO2 26 21 - 30 MMOL/L Anion Gap 9 3 - 12 Glucose 180 (H) 70 - 100 MG/DL Blood Urea Nitrogen 13 7 - 25 MG/DL Creatinine 1.04 (H) 0.4 - 1.00 MG/DL Calcium 7.9 (L) 8.5 - 10.6 MG/DL eGFR Non 52 (L) >60 mL/min eGFR >60 >60 mL/min MAGNESIUM Collection Time: 12/27/19 3:15 AM Result Value Ref Range Magnesium 1.8 1.6 - 2.6 mg/dL POC GLUCOSE Collection Time: 12/27/19 3:15 AM Result Value Ref Range Glucose, POC 190 (H) 70 - 100 MG/DL POC GLUCOSE Collection Time: 12/27/19 5:40 AM Result Value Ref Range Glucose, POC 178 (H) 70 - 100 MG/DL POC GLUCOSE Collection Time: 12/27/19 9:20 AM Result Value Ref Range Glucose, POC 151 (H) 70 - 100 MG/DL POC GLUCOSE Collection Time: 12/27/19 12:15 PM Result Value Ref Range Glucose, POC 182 (H) 70 - 100 MG/DL POC GLUCOSE Collection Time: 12/27/19 1:26 PM Result Value Ref Range Glucose, POC 174 (H) 70 - 100 MG/DL POC GLUCOSE Collection Time: 12/27/19 2:27 PM Result Value Ref Range Glucose, POC 229 (H) 70 - 100 MG/DL POC GLUCOSE Collection Time: 12/27/19 4:04 PM Result Value Ref Range Glucose, POC 164 (H) 70 - 100 MG/DL POC GLUCOSE Collection Time: 12/27/19 5:16 PM Result Value Ref Range Glucose, POC 159 (H) 70 - 100 MG/DL Glucose: (!) 180 (12/27/19 0315) POC Glucose (Download): (!) 159 (12/27/19 1716) Pertinent radiology reviewed. Associated attestation - Ion Alanis MD - 12/27/2019 8:53 PM CDT ATTESTATION I personally performed the jackson portions of the E/M visit, discussed case with re sident and concur with resident documentation of history, physical exam, assessm ent, and treatment plan unless otherwise noted. Recent Labs 12/27/19 0315 12/27/19 0540 12/27/19 0920 12/27/19 1215 12/27/19 1326 12/27/19 1427 12/27/19 1604 12/27/19 1716 GLUPOC 190* 178* 151* 182* 174* 229* 164* 159* -resumed insulin pump at [employer] basal rate of 1.9, bolus of 1:8 carb ratio, target 11-120, pt initiated during our encounter (order placed) -insulin drip discontinued 2 hours after (ordered) -parent educator consult to provide education on priming her insulin pump I have reviewed with her how to set a temporary basal. She demonstrated a good understanding of the insulin pump and I think was competent to operate the pump. Pump [place] Administrator: Medtronic Paradigm Insulin type Humalog Insulin Time: 4 hours Insulin Pump Settings Time Basal Rate ISF I:C Ratio Time Basal Rate ISF I:C Ratio MN 1.9 25 8 noon 0100 1300 0200 1400 0300 1500 0400 1600 0500 1700 0600 1800 0700 1900 0800 2000 0900 2100 1000 2200 1100 2300 1200 MN BG Targets: 110-130 Staff name: Ion Alanis MD Date: 12/27/2019 * Maryuri Simms RN - 12/27/2019 4:01 AM CDT Patient intermittently has low MAPs < 65. Lupe Villanueva APRN notified. No further orders. Pt still urinating appropriately at this time. * Maryuri Simms RN - 12/27/2019 1:00 AM CDT Patient reassessed, no c/o pain. Neurologically intact with no acute changes. SR ~ 80's. MAP > 65. NIV ~ home CPAP Adequate UOP Insulin gtt paused for low BS restarted @ 4 when blood sugar reached 191. Gtts: Insulin @ 4 NS @ 30 * Maryuri Simms RN - 12/26/2019 10:00 PM CDT Assumed care. Pt A&Ox4. FC. Afebrile. C/o chronic pain in lower back/feet/hands ~ Lupe Villanueva APRN to order [place] per patient request and home dose. SR ~ 70-80's. Pulses palpable. MAP > 65. TV pacemaker @ 40 VVI, sensitivity 2, output 5 ~ patient has not required/used pacer this shift. 2 L NC ~ baseline Cards/ADA diet. Pt, RN, and TREE WRAPPER discussed dietary restrictions for pt while on insulin gtt and attempting to manage blood sugars. Pt agreeable to only drinking one coke daily. Adequate UOP ~ yellow/clear All incisions/dressings CDI. Gtts: Insulin @ 8 units/hr NS @ 30 mL/hr * Herson Crowder MD - 12/26/2019 8:43 PM CDT Critical Care Progress Note Today's Date: 12/26/2019 Name: Kvng Sumner Admission Date: 12/26/2019 LOS: 0 days Assessment/Plan: Active Problems: Hypertension CAD (coronary artery disease) COPD (chronic obstructive pulmonary disease) (HCC) HLD (hyperlipidemia) Status post coronary artery bypass graft Type 2 diabetes mellitus with circulatory disorder, with long-term current use of insulin (HCC) Contrast media allergy Hyperlipidemia Obese PVD (peripheral vascular disease) (HCC) Pulmonary embolism (HCC) ANCA on CPAP MRSA cellulitis Acute on chronic diastolic CHF (congestive heart failure), NYHA class 3 (HCC) PAD (peripheral artery disease) (HCC) Bilateral carotid artery disease (HCC) S/P TAVR (transcatheter aortic valve replacement) Date of Service: 12/26/2019 I have personally seen and cared for this patient in conjunction with the ICU te am. This patient is critically ill with s/p TAVR. I provided or personally di rected critical care services including Management of Fluid Overload and Complex Fluid & Electrolyte Management and the patient is at risk for life threatening deterioration necessitating complex medical decision making and ongoing provision of ICU care. 69 y/o female with h/o , ANCA, obesity, COPD on home oxygen, CAD now s/p TAVR. Neurologically intact. Denies pain. Sleep hygiene. HR and BP good. TAVR today without complication. ASA/xeralto for valve and h/o PE. Monitor. Oxygenation good. Breathing comfortably. Advanced COPD on home oxygen. CXR cl ear. May need some diuresis in favor of lungs. Creat near baseline. Lasix in favor of lungs. H/H stable. No signs of bleeding. ASA/Xeralto. Advance diet once able to sit upright. Marleny-op abx. No other infectious concerns. MD Herson Iyer MD Pager [phone] * Ana M Mendez RN - 12/26/2019 6:39 PM CDT Pt care assumed 1640. Pt blood sugar decreased from 204 to 190, per scale no carol nge needed to insulin gtt of 6.5. Pt requesting regular coke, RN offered educati on on diabetes and blood sugar. While RN was in another pt room, transport broug ht pt's belongings from another floor and set next to her chair. Pt retrieved re missyr coke from personal belongings and drank it. Blood sugar 259. CTS notified. Pt stating she will continue to drink her coke and no one can stop her. * Tian Gilliland RT - 12/26/2019 4:37 PM CDT RT Adult Assessment Note NAME:Kvng Sumner :1950 AGE: 69 y.o. ADMISSION DATE: 12/26/2019 DAYS ADMITTED: LOS: 0 days RT Treatment Plan: Protocol Plan: Medications Albuterol: MDI PRN Protocol Plan: Procedures Oxygen/Humidity: O2 to keep SpO2 > 92% Monitoring: Pulse oximetry continuous during night/sleep Comment: ANCA Hx Additional Comments: Impressions of the patient: pt sitting on a chair and using 2 lpm Oxygen. Intervention(s)/outcome(s): assessment and IS . Patient education that was completed: IS . Recommendations to the care team: continue IS and use CPAP at night. Vital Signs: Pulse: 79 RR: 15 PER MINUTE SpO2: 97 % O2 Device: Cannula Liter Flow: 2 Lpm O2%: Breath Sounds: Respiratory Effort: * Jae Langley RN - 12/26/2019 12:43 PM CDT Patient arrived to room # (HC 303*) via bed accompanied by RN. Patient transferr ed to the bed with assistance. Bedside safety checks completed. Initial patient assessment completed. Refer to flowsheet for details. Admission skin assessment completed with: Maria Esther Nance RN Pressure injury present on arrival?: No 1. Head/Face/Neck: No 2. Trunk/Back: No 3. Upper Extremities: No 4. Lower Extremities: No 5. Pelvic/Coccyx: No 6. Assessed for device associated injury? Yes 7. Malnutrition Screening Tool (Nursing Nutrition Assessment) Completed? No See Doc Flowsheet for additional wound details. INTERVENTIONS: Will turn q 2 until able to get out of bed off bedrest. * Margarita Olivo APRN - 12/26/2019 12:22 PM CDT Cardiothoracic Surgery Critical Care Progress Note Kvng Sumner Today's Date: 12/26/2019 Admission Date: 12/26/2019 LOS: 0 days POD: 1 Procedure: PERCUTANEOUS TRANSCATHETER REPLACEMENT AORTIC VALVE - FEMORAL ARTERY- gregoria, left common femoral, 26s3 *ICU*: 83517 (CPT) Active Problems: Hypertension CAD (coronary artery disease) COPD (chronic obstructive pulmonary disease) (HCC) HLD (hyperlipidemia) Status post coronary artery bypass graft Type 2 diabetes mellitus with circulatory disorder, with long-term current use of insulin (HCC) Contrast media allergy Hyperlipidemia Obese PVD (peripheral vascular disease) ([facility]) Pulmonary embolism (HCC) ANCA on CPAP MRSA cellulitis Acute on chronic diastolic CHF (congestive heart failure), NYHA class 3 (HCC) PAD (peripheral artery disease) ([facility]) Bilateral carotid artery disease (HCC) S/P TAVR (transcatheter aortic valve replacement) Assessment/Plan: Neuro Lethargic, OGLESBY. Continue PRN Tylenol. CV SR 85, BP 157/72. TVP in place. Known carotic stenosis, goal SBP 160-170. Cont ASA 81 mg (hold for plts <80k) and statin. Hold BB and ACEI in the initial post op phase. Intra op MALINA LVEF 45-50%. Resp Daily CXR bedside interpretation: lungs expanded, lines in place, p ulmonary vascular congestion. Will await radiology report. 2 L NC, baseline per patient. 100 pack-year smoking history, quit in 2008. Severe COPD hx, FEV 1 38%. Initiate IS, aggressive pulm toilet. Renal Baseline Scr 0.9. Monitor BMP, assess for MAIKOL. Takes 2 mg PO bumex, wi ll give 1 mg IV bumex now. GI - ADAT, start post op bowel regimen. ID Continue standard post op antibiotic for prophylaxis, per CTS protocol. Heme Check post op CBC/coags, assess for coagulopathy. Hold DVT prophylaxis until cleared by CTS, continue mechanical prophylaxis. History of DVT/PE, on xar elto, will resume tonight per Dr. Lemus. FEN If creatinine < 2.0, replace Mg and K per CTS post op protocol to minimize cardiac arrhythmias. Hgb A1c 6.8 %. Insulin pump (needle kept in per patient), however pump disconnected from patient in OR. Will remain on insulin gtt today. Reportedly does not know how to manage her pump at home. Endocrine consulted Activity Bedrest x 6 hours, then advance activity as tolerated. Early cardia c PT/OT. Prophylaxis Review: Lines: Yes; Arterial Line; Indication: Continuous BP monitoring; Location: Ra dial Central Line; Indication: Hemodynamic monitoring; Type: Internal jugular Antibiotic Usage: No VTE: Mechanical prophylaxis; Sequential compression device Urinary Catheter: No Disposition: The patient is post-cardiac surgery at at risk for life threatening deterioration. Patient is critically ill s/p TAVR with Dr. Lemus. I have seen, personally fully evaluated, and discussed patient with the critical care attending and cardiothoracic surgeon. The patient is critically ill s/p TA VR. I spent 60 minutes (excluding time spent performing procedures) providing an d personally directing critical care services including direct OR recovery, hemo dynamic monitoring and management, lab and radiology review, medication review a nd management, fluid and electrolyte management and coordination of care. Margarita Olivo APRN CTS Intensive Care Pager [phone] 12/26/2019 Subjective: HPI: Kvng Sumner is a 69 y.o. female with a history of aortic stenosis, diastolic heart failure, DM II (on insulin pump), history of MRSA- cellulitis, chronic Pu lmonary embolism- on Xarelto, ANCA, HTN, HLD, and severe COPD with home oxygen (2 L). REVIEW OF SYSTEMS: Review of systems not obtained from patient due to patient factors. Objective: Medications: Scheduled Meds:albuterol sulfate (PROAIR HFA) inhaler 2 puff, 2 puff, Inhalation , Q6H & PRN ARIPiprazole (ABILIFY) tablet 5 mg, 5 mg, Oral, QHS aspirin chewable tablet 81 mg, 81 mg, Oral, QDAY atorvastatin (LIPITOR) tablet 80 mg, 80 mg, Oral, QHS bumetanide (BUMEX) injection 1 mg, 1 mg, Intravenous, ONCE citalopram (CeleXA) tablet 40 mg, 40 mg, Oral, QHS gabapentin (NEURONTIN) capsule 100 mg, 100 mg, Oral, TID pantoprazole DR (PROTONIX) tablet 40 mg, 40 mg, Oral, QDAY(21) rivaroxaban (XARELTO) tablet 20 mg, 20 mg, Oral, QDAY senna/docusate (SENOKOT-S) tablet 2 tablet, 2 tablet, Oral, BID [START ON 12/27/2019] vancomycin (VANCOCIN) 1,500 mg in sodium chloride 0.9% (NS) IVPB, 15 mg/kg, Intravenous, Q24H* Continuous Infusions: insulin regular 100 units/NS 100 mL IV drip (premade) 6.5 Units/hr (12/26/19 1215) niCARdipine (cardENE) 50 mg in sodium chloride 0.9% (NS) 250 mL IV drip (dbl conc) sodium chloride 0.9 % infusion 30 mL/hr at 12/26/19 1207 PRN and Respiratory Meds:acetaminophen Q6H PRN, [START ON 12/28/2019] bisacodyL QD AY PRN, hydrALAZINE Q6H PRN, magnesium sulfate PRN AND Magnesium PRN AND Notify Physician Ongoing, milk of magnesia (CONC) QDAY PRN, ondansetron (ZOFRAN) IV Q6H PRN, potassium chloride SR PRN OR potassium chloride PRN OR pot assium chloride in water PRN, prochlorperazine Q6H PRN Vital Signs: Last Filed Vital Signs: 24 Hour Ra ng BP: 182/99 (12/25 0845) Temp: 36.6 C (97.9 F) (12/25 1153) Pulse: 85 (12/25 1215) Respirations: 15 PER MINUTE (12/25 1215) SpO2: 99 % (12/25 1215) SpO2 Pulse: 85 (12/25 1215) Height: 165.1 cm (65") (12/25 07) BP: (160-182)/(88-99) ABP: (164-202)/(62-82) Temp: [36.5 C (97.7 F)-36.6 C (97.9 F)] Pulse: [77-85] Respirations: [14 PER MINUTE-23 PER MINUTE] SpO2: [94 %-99 %] Intensity Pain Scale (Self Report): Asleep (12/26/19 1215) Vitals: 12/26/19 0745 Weight: 100.2 kg (220 lb 14.4 oz) Intake/Output Summary: (Last 24 hours) Intake/Output Summary (Last 24 hours) at 12/26/2019 1233 Last data filed at 12/26/2019 1200 Gross per 24 hour Intake 942.53 ml Output Net 942.53 ml Physical Exam: Neuro: lethargic, follows commands, OGLESBY Cardiovascular: RRR no rub or murmur Respiratory: LS CTA jovita - diminished in the bases GI: soft, NT, hypoactive BS Extremities: trace Edema Incisions: groin dressings C/D/I, without hematoma Laboratory: LABS: Recent Labs 12/24/19 1150 NA 141 K 4.6 CL 103 CO2 30 GAP 8 BUN 15 CR 0.98 GLU 142* CA 9.2 ALBUMIN 3.8 HGBA1C 6.8* Recent Labs 12/24/19 1150 12/26/19 1200 WBC 4.4* 6.6 HGB 9.6* 10.6* HCT 28.6* 31.4* PLTCT 150 134* INR 1.2 -- PTT 42.8* -- AST 21 -- ALT 17 -- ALKPHOS 72 -- Estimated Creatinine Clearance: 61.8 mL/min (based on SCr of 0.98 mg/dL). Vitals: 12/26/19 0745 Weight: 100.2 kg (220 lb 14.4 oz) No results for input(s): PHART, PO2ART in the last 72 hours. Invalid input(s): PC02A Radiology and Other Diagnostic Procedures Review: Reviewed * Maryam Aguilar RN - 12/26/2019 11:58 AM CDT CARDIOPULMONARY REHABILITATION INPATIENT ASSESSMENT Cardiac Rehabilitation Staff: Maryam Hernandez Discharge Date: Demographics Pre-admit Dx: Aortic Stenosis Date of Admission: 12/26/2019 Room: [place] [id number] : 1950 Insurance: Primary: Medicare Secondary: unknown Address: [address] [place] [id number] Patient (home) Marital Status: Occupation: Unknown ED Contact: Gianfranco Sumner ED Phone #: CTS: [place] Door Manager: not listed Cardiac Procedures and Events Valve: 12/26/19(TAVR) EF: 55 % Risk Factors Risk Factors: Hypertension, Obesity, Hyperlipidemia, Diabetes-type II BP: (!) 182/99 Height: 165.1 cm (65") Weight: 100.2 kg (220 lb 14.4 oz) BMI (Calculated): 36.76 Medical History has a past medical history of Acute on chronic diastolic CHF (congestive heart failure), NYHA class 3 ([facility]), Anticoagulated, Aortic stenosis, Arthritis, Bilate ral carotid artery disease ([facility]), Breast cancer ([facility]) (2007), CAD (coronary clarence ry disease), CHF (congestive heart failure) ([facility]), Chronic back pain, Contrast m edia allergy, COPD, severe ([facility]), CVA (cerebral vascular accident) ([facility]), DM (di abetes mellitus) ([facility]), Family history of premature CAD, Gastroparesis, Heart mu rmur, Hyperlipidemia, Hypertension, MRSA cellulitis (2005), Myocardial infarctio n ([facility]) (2005, ~2004), Neuropathy, Obese, Obesity, Class II, BMI 35-39.9, ANCA on CPAP, Osteoporosis, PAD (peripheral artery disease) ([facility]), Pulmonary embolism ( [facility]), PVD (peripheral vascular disease) ([facility]), Requires continuous at home suppl emental oxygen, and S/P CABG (coronary artery bypass graft) (2005). Labs Hemoglobin A1C Date Value Ref Range Status 12/24/2019 6.8 (H) 4.0 - 6.0 % Final Comment: The ADA recommends that most patients with type 1 and type 2 diabetes maintain an A1c level <7%. Heart Resource Manual Given: Teaching Completed: Outpatient Cardiopulmonary Rehabilitation Outpatient [facility] Rehab: Referral Faxed to: Date Faxed: Location: If [facility], Sent to Staff: Maryam Aguilar RN 12/26/2019 documented in this encounter H&P Notes * Mildred Carrillo, TREE WRAPPER-FLAVOR MAKER - 12/26/2019 8:13 AM CDT Admission History and Physical Examination Name: Kvng Sumner Admission Date: 12/26/2019 Assessment/Plan: Active Problems: Hypertension CAD (coronary artery disease) COPD (chronic obstructive pulmonary disease) (HCC) HLD (hyperlipidemia) Status post coronary artery bypass graft Type 2 diabetes mellitus with circulatory disorder, with long-term current use of insulin (HCC) Contrast media allergy Hyperlipidemia Obese PVD (peripheral vascular disease) (HCC) Pulmonary embolism (HCC) ANCA on CPAP MRSA cellulitis Acute on chronic diastolic CHF (congestive heart failure), NYHA class 3 (HCC) PAD (peripheral artery disease) (HCC) Bilateral carotid artery disease (HCC) Patient to undergo TAVR today with Dr. Lemus and Dr. Patel as planned. Patients states that Dr. Lemus explained the procedure and risks to patients satisfaction. Pertinent preoperative testing including history, labs and imaging reviewed. Sarah bello denies any new symptoms- COVID-19 testing negative on 12/23. Patient unders tands procedure and all questions were answered. Consents are signed and in christy t. Last Dose of Xarelto: 12/19, bridged with Lovenox, last dose 12/24. Home beta b locker dose taken this morning [employer] PLATEM[employer]ER. Pt has a home insulin pump- patient stopped pump at 0750, Endocrine consulted, Insulin drip ordered. Pt allergic to Ancef wi ll order Vancomycin. Patient has contrast allergy- patient received pretreatment . __ Primary Care Physician: Christy Mora Chief Complaint: Aortic Stenosis History of Present Illness: Kvng Sumner is a 69 y.o. female who presents tod for TAVR with Dr. Lemus and Dr. Patel. Patient has a history of aortic stenos is, diastolic heart failure, DM II (on insulin pump), history of MRSA- celluliti s, chronic Pulmonary embolism- on Xarelto, ANCA, HTN, HLD, and severe COPD with h ome oxygen (2L). Patient reports that she has had increased fatigue. Patient has severe COPD with shortness of air. Patient denies chest pain, lightheadedness, syncopal episodes, nausea, and vomiting. Medical History: Diagnosis Date Acute on chronic diastolic CHF (congestive heart failure), NYHA class 3 ([facility] ) Anticoagulated for PE Aortic stenosis Arthritis Bilateral carotid artery disease ([facility]) moderate disease Breast cancer ([facility]) 2007 Right- lumpectomy and radiation CAD (coronary artery disease) CHF (congestive heart failure) ([facility]) Chronic back pain with spinal nerve stimulator Contrast media allergy COPD, severe (HCC) CVA (cerebral vascular accident) ([facility]) DM (diabetes mellitus) ([facility]) Family history of premature CAD Gastroparesis Heart murmur Hyperlipidemia Hypertension MRSA cellulitis 2006 right leg vein harvest site Myocardial infarction ([facility]) 2006, ~2005 Total of 3 Neuropathy Obese Obesity, Class II, BMI 35-39.9 ANCA on CPAP with supplemental O2 Osteoporosis PAD (peripheral artery disease) ([facility]) s/p bilateral iliac stents Pulmonary embolism (HCC) PVD (peripheral vascular disease) ([facility]) Requires continuous at home supplemental oxygen S/P CABG (coronary artery bypass graft) 2006 [place], [place] Surgical History: Procedure Laterality Date EYE SURGERY Left 1956 HERNIA REPAIR Right 1958 HX TUBAL LIGATION 1974 HX HYSTERECTOMY 1980 AMPUTATION Right 1989 Toe CYST REMOVAL Left 1993 hand X2 HX CHOLECYSTECTOMY 1996 HX POLYPECTOMY Right 2003 vocal cord CORONARY ARTERY BYPASS GRAFT 2006 x 5 BREAST LUMPECTOMY Right 2008 BLADDER SUSPENSION 2009 VENTRAL HERNIA REPAIR 2011 mesh CARDIAC CATHERIZATION Bilateral 2011 PERIPHERAL VASCULAR SURGERY Bilateral 2011 Stent placement CARPAL TUNNEL RELEASE Left 2011 SPINE SURGERY 2014 neurostem FOOT SURGERY Right 2015 RADICAL EXCISION OF CHEEK FISTULA, TOOTH EXTRACTION Right 10/13/2016 Performed by Gianfranco Conti MD at [facility] OR CATARACT REMOVAL Bilateral 2009, 2010 DENTAL SURGERY 2011, 2013 cheek infection MS EXCISION TUMOR SOFT TISSUE LEG/ANKLE SUBQ 3 CM/> Right 2009 Fatty tumor LE Family History Problem Relation Age of Onset Cancer-Breast Other Cancer Mother uterine Stroke Mother Cancer Paternal Grandmother Diabetes Paternal Grandmother Diabetes Father Heart Disease Father Heart Attack Father >55 y/o Emphysema Father Seizures Other Social History Socioeconomic History Marital status: Spouse name: Not on file Number of children: Not on file Years of education: Not on file Highest education level: Not on file Occupational History Not on file Social Needs Financial resource strain: Not on file Food insecurity Worry: Not on file Inability: Not on file Transportation needs Medical: Not on file Non-medical: Not on file Tobacco Use Smoking status: Former Smoker Packs/day: 2.00 Years: 48.00 Pack years: 96.00 Types: Cigarettes Last attempt to quit: 10/30/2008 Years since quittin.1 Smokeless tobacco: Never Used Substance and Sexual Activity Alcohol use: No Alcohol/week: 0.0 standard drinks Comment: 1-2 x per year Drug use: No Sexual activity: Not on file Lifestyle Physical activity Days per week: Not on file Minutes per session: Not on file Stress: Not on file Relationships Social connections Talks on phone: Not on file Gets together: Not on file Attends hindu service: Not on file Active member of club or organization: Not on file Attends meetings of clubs or organizations: Not on file Relationship status: Not on file Intimate partner violence Fear of current or ex partner: Not on file Emotionally abused: Not on file Physically abused: Not on file Forced sexual activity: Not on file Other Topics Concern Not on file Social History Narrative Not on file Immunizations (includes history and patient reported): There is no immunization history on file for this patient. Allergies: Adhesive tape (rosins); Erythromycin; Pcn [penicillins]; Artificial sweetner; Bee [bumble bee]; Clindamycin; Contrast dye iv, iodine containing [iod inated contrast media]; Hornet venom; Indomethacin; Venom-wasp; Ancef [cefazolin ]; and Barium sulfate Medications: Medications Prior to Admission Medication Sig albuterol (VENTOLIN HFA, PROAIR HFA, PROVENTIL HFA) 90 mcg/actuation inhaler Inhale 2 Puffs by mouth into the lungs every 6 hours as needed for Wheezing or Shortness of Breath. Shake well before use. alendronate (FOSAMAX) 70 mg tablet Take 70 [...] Calcium Carb 1250mg delivers 500mg elemental Ca carvedilol (COREG) 6.25 mg tablet Take 6.25 mg by mouth twice daily. chlorhexidine gluconate (PERIDEX) 0.12 % solution Swish and Spit 15 mL by [facility] as directed after meals and at bedtime. citalopram (CELEXA) 40 mg tablet Take 40 mg by mouth at bedtime daily. dexlansoprazole (+) (DEXILANT) 60 mg capsule Take 60 mg by mouth daily. docusate (COLACE) 100 mg capsule Take 100 mg by mouth at bedtime daily. enoxaparin (LOVENOX) 100 mg syringe Inject 1 mL under the skin every 12 hour s. First injection will be the morning of 12/20. Last injection will be the morni ng of 12/24. fluticasone (FLONASE) 50 mcg/actuation nasal spray Apply 1 [place] to each nos tril as directed twice daily. gabapentin (NEURONTIN) 100 mg capsule Take 100 mg by mouth three times daily . HYDROcodone/acetaminophen (NORCO) 5/325 mg tablet Take 1 tablet by mouth jeremy ry 4 hours as needed insulin pump -ASPART- Patients Own by SubQ Pump route. Indications: 1.9U bas al, 1U=8carbs, target range 100-130 lisinopril (PRINIVIL; ZESTRIL) 10 mg tablet Take 5 mg by mouth daily. loratadine (CLARITIN) 10 [...] 10 mEq by mouth daily after dinner. predniSONE (DELTASONE) 20 mg tablet Take three tablets by mouth daily. Take 3 tablets with dinner on 12/24 traZODone (DESYREL) 150 mg tablet Take 150 mg by mouth at bedtime daily. vitamin E 400 unit capsule Take 400 Units by mouth daily. vitamins, multiple cap Take 1 Cap by mouth daily. XARELTO 20 mg tablet Take 20 mg by mouth daily. Review of Systems: Constitutional: positive fatigue. Ears, nose, mouth, throat, and face: negative Respiratory: positive, shortness of air. Cardiovascular: negative, positive for fatigue Gastrointestinal: negative Genitourinary:negative Integument/breast: negative Musculoskeletal:negative Neurological: negative Behavioral/Psych: negative Physical Exam: Vital Signs: Last Filed In 24 Hours Vital Signs: 24 Hour Range BP: 160/88 (12/25 744) Temp: (P) 36.5 C (97.7 F) (12/25 744) Pulse: 79 (12/25 744) Respirations: 21 PER MINUTE (12/25 744) SpO2: 94 % (12/25 744) SpO2 Pulse: 79 (12/25 744) Height: (P) 165.1 cm (65") (12/25 744) BP: (160-174)/(88-89) Temp: [36.5 C (97.7 F)] Pulse: [78-79] Respirations: [21 PER MINUTE-23 PER MINUTE] SpO2: [94 %] Intensity Pain Scale (Self Report): (P) 6 (12/26/19744) General: Alert, cooperative, no distress, appears stated age Neck: trachea midline, supple, no JVD. Lungs: Diminished bases. Heart: Regular rate and rhythm, S1, S2 normal, murmur, click rub or gallop Abdomen: Soft, non-tender. Bowel sounds normal. No masses. No organomegaly. Extremities: Extremities normal, atraumatic, no cyanosis or edema Peripheral pulses: 2+ and symmetric, all extremities Cap Refill: Capillary refill +3 Skin: Skin color, texture, turgor normal. No rashes or lesions. Neurologic: CNII - XII intact. Normal strength, sensation and reflexes through out. Psych: Calm and Cooperative. Lab/Radiology/Other Diagnostic Tests: Hematology: Lab Results Component Value Date HGB 9.6 12/24/2019 HCT 28.6 12/24/2019 PLTCT 150 12/24/2019 WBC 4.4 12/24/2019 MCV 83.7 12/24/2019 MCHC 33.7 12/24/2019 MPV 7.6 12/24/2019 RDW 14.7 12/24/2019 , Coagulation: Lab Results Component Value Date PTT 42.8 12/24/2019 INR 1.2 12/24/2019 , General Chemistry: Lab Results Component Value Date NA 141 12/24/2019 K 4.6 12/24/2019 CL 103 12/24/2019 GAP 8 12/24/2019 BUN 15 12/24/2019 CR 0.98 12/24/2019 GLU 142 12/24/2019 CA 9.2 12/24/2019 ALBUMIN 3.8 12/24/2019 TOTBILI 0.3 12/24/2019 , Enzymes: Lab Results Component Value Date AST 21 12/24/2019 ALT 17 12/24/2019 ALKPHOS 72 12/24/2019 , Cardiac markers: No results found for: TNI, CKMB, MYOGLB, Mg and PO4: No resu lts found for: MG, Endocrine: No results found for: ISAAK, FREET4, TSH, HgbA1C: Lab Results Component Value Date HGBA1C 6.8 12/24/2019 and Lipid Profile: No results found for: CHOL, TRIG, HDL, LDL, VLDL POC Glucose (Download): (!) 360 (12/26/19 3986) Pertinent radiology reviewed. STS: 11.143% Frailty: TAVR 5 Meter Walk Walk 1: 6.07 Walk 2: 5.71 Walk 3: 5.40 Lab: Hgb 10.2 Creat cl: 82.42 EKG: NSR Echo: LVEF=55-60%, Mild Abnormal Septal Motion Moderate Concentric LVH Mild Left Atrial Dilatation Severe Aortic Valve Stenosis: Peak Velocity=3.8m/sec, Mean Gradient=37mmHg, V elocity Ratio=0.21, Area=0.64cm2 Mild Mitral Annular Calcification No Pericardial Effusion PASP=19mmHg TAPSE=1.42cm Cath: elevated mean right atrial pressure at 10 pulmonary artery pressure mean was 34, pulmonary capillary wedge pressure was 25, cardiac output was 5.6 L/min with an index of 2.5, severe aortic valve stenosis with a mean gradient of 56 mmHg and a valve area of 0.6 cm, severe [place] three-vessel coronary artery disease with patent grafts throughout. Carotid duplex: severe bilateral carotid artery disease 60 to 79% with severe velocities. PFTs: FEV1 of 0.8 L and 38% predicted and a DLCO of 50% predicted suggesting sev ere COPD with air trapping and a moderate defect in diffusion. CTA report: CHEST: 1. Bilateral lower lobe pulmonary emboli 2. Enlarged main pulmonary artery that is suggestive of pulmonary hypertension. 3. Thickening and calcification of the aortic valve with a normal caliber thoracic aorta. 4. Emphysema and coronary artery disease ABDOMEN AND PELVIS: 1. Nonocclusive thrombus in the right external iliac vein 2. 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 bilateral iliac stents. calcium at CAR FERRY MASTER bilaterally. Likely bes t through left CAR FERRY MASTER. May need to dilate stents. 26 S3. Annular size: 23.9 CXR: 12/23 IMPRESSION 1. Mild cardiomegaly without evidence of pulmonary vascular congestion. 2. Bibasilar opacities, likely atelectasis. COVID-19: Negative 12/23 Mildred Carrillo APRN-FLAVOR MAKER Available on [employer]. T documented in this encounter Consult Notes * Maryam Sweet, RN - 12/28/2019 11:25 AM CDT Associated Order(s): CONSULT DIABETES NURSE EDUCATOR INPATIENT DIABETES EDUCATION TEAM Clinical Excellence Nursing Practice Reason for Consult: Pt has medtronic insulin pump, please provide education on h ow to prime the pump. Thanks. This consult team does not write orders. Primary Team is responsible for placing orders. Supplies/Resources provided: none Met with Kvng Sumner to discuss diabetes management. Pt laying in bed. Intro duced self and role. Diagnosed DM in 1982. Pt states that after surgery, her insulin pump was re-started. Re-started with t he assistance of endocrinology doctors. States that there was confusion when tegan d to prime her pump. Her pump prompts her to fill the tubing. It is at this time that she watches for drops of insulin from her cannula. She was confused because she had never heard of priming before, but now understands what the doctor was referring to. States that she has an new insulin pump and CGM at home. She is going to have an insulin pump teaching with a pump ultimate hoops trainer after leaving hospital. State that she has been using an insulin pump for 10 years, and knows how to work it properly. Knows what to do if her BS is high and knows what to do when her BS is low. Treats BS with hard candy using Rule of 15. Carb counts all foods. Avoid some carbohydrates. Drinks 1 coke a day with lunch. Pt has no further questions about diabetes management. Maryam Sweet RN, BSN, CDE Clinical Nurse Excellence - Town Administrator (P) [phone] (Pager) [phone] 08:00-4:30 weekdays, If no response, please call team pager ([phone]) Diabetic Education Team office [phone]) Available on [facility]. * Meaghan Red MD - 12/26/2019 2:24 PM CDT Associated Order(s): CONSULT ENDOCRINOLOGY PHYSICIAN Endocrinology Note Name: Kvng Sumner Admission Date: 12/26/2019 Active Problems: Hypertension CAD (coronary artery disease) COPD (chronic obstructive pulmonary disease) (HCC) HLD (hyperlipidemia) Status post coronary artery bypass graft Type 2 diabetes mellitus with circulatory disorder, with long-term current use of insulin (HCC) Contrast media allergy Hyperlipidemia Obese PVD (peripheral vascular disease) ([facility]) Pulmonary embolism (HCC) ANCA on CPAP MRSA cellulitis Acute on chronic diastolic CHF (congestive heart failure), NYHA class 3 (HCC) PAD (peripheral artery disease) (HCC) Bilateral carotid artery disease (HCC) S/P TAVR (transcatheter aortic valve replacement) Reason for Consult: "insulin pump" Assessment / Plan Kvng Sumner is a 69 y.o. female with a PMH of aortic stenosis, diastolic hea rt failure, CAD s/p CABG, COPD, type 2 diabetes, HLD, HTN, PAD who was admitted for TAVR on 12/25. Endocrinology is been consulted for assistance in management of insulin drip and [employer] PLATEMAKER pump. Type 2 Diabetes Mellitus Steroid induced hyperglycemia -Diagnosed: 1984 -A1c 6.8 (12/23) -[employer] P[employer]AGES PLATEMAKER regimen: insulin pump (medtronic, 1.9 unit bolus, 1 unit per 8 carbs, targe t 110-130), metformin 500mg BID -she has a new medtronic insulin pump which she will start using on discharge (p revious one has outgrown 5 yr warranty), also will start using freestyle eugenio C GM -Hypoglycemic episodes on this regimen: glucoses in 60s approximately 2x/week, h x of asymptomatic hypoglycemia -Follows with Dr. Mora (PCP) in [place] -Diabetic-complications assessment: Retinopathy: denies Peripheral neuropathy: yes, bilateral feet Gastroparesis: yes Autonomic neuropathy: denies Nephropathy: pt reports yes, last urine prot:cr ratio 8.9 mg/g 10/31/2017 Macrovascular complications: PVD, [place] Risk factor assessment: Last lipid profile - 07/25/2018 LDL 79 TG 110 BP 127/51 On ACEi/ARB?: lisinopril 5mg qday On Statin?: atorvastatin 80mg qhs -Blood glucose 360 on admission, took high dose prednisone (60mg 12/24, 60mg 12/25 ) for contrast allergy -insulin pump removed on admission, initiated insulin drip, has most recently be en on 6.5 units/hr Aortic stenosis s/p TAVR 12/25 Diastolic heart failure CAD s/p CABG COPD HLD HTN PAD Impression / Recommendations Hyperglycemia likely secondary to recent high dose steroid use and recent cardia c procedure. -continue insulin pump for now, as glucoses will likely remain elevated for the next 24 hours and variable glycemic control in the post operative period for TAV R is associated with increased risk of major adverse events -if awake, alert, and stable tomorrow will consider transitioning off the insuli n drip and restarting insulin pump, she brought her pump, insulin, and materials with her to the hospital Thank you for the consult, we will continue to follow. Seen and discussed with Dr. Alanis. Meaghan Red MD Internal Medicine PGY1 Pager [phone], available on Voalte Subjective: Kvng Sumner is a 69 y.o. female with a PMH of aortic stenosis, diastolic hea rt failure, CAD s/p CABG, COPD, type 2 diabetes, HLD, HTN, PAD who was admitted for TAVR on 12/25. Endocrinology has been consulted for assistance in management of insulin drip and [employer] insulin pump. Ms Sumner was diagnosed with type 2 diabetes in 1984 and states she has since c onverted to type I DM (DIMITRIS Ab 0 in 2014). [facility]. Last A1c was 6.8 on 12/23. Her [employer] regimen consists of metfo rmin 500 mg twice daily and an insulin pump (Medtronic, 1.9 unit bolus, 1 unit p er 8 carbs, target 110-130 per pt report). She states she has had this Medtroni c insulin pump for 5 years and will start a new Medtronic pump after discharge. Has been on an insulin pump for the past 10 years. Has previously been on glyb uride and subcutaneous insulin. She states her blood glucoses are usually less than 170, reports hypoglycemia occurring approximately twice a week with blood g lucoses in the 60s. Has once in the past had a blood glucose of 30 and was asym ptomatic. Prior to her TAVR she took prednisone 20 mg x 3 the day prior to the procedure and today of for the procedure for contrast allergy, she is not on andrey g-term steroids. Medical History: Diagnosis Date Acute on chronic diastolic CHF (congestive heart failure), NYHA class 3 ([facility] ) Anticoagulated for PE Aortic stenosis Arthritis Bilateral carotid artery disease ([facility]) moderate disease Breast cancer ([facility]) 2007 Right- lumpectomy and radiation CAD (coronary artery disease) CHF (congestive heart failure) ([facility]) Chronic back pain with spinal nerve stimulator Contrast media allergy COPD, severe ([facility]) CVA (cerebral vascular accident) ([facility]) DM (diabetes mellitus) ([facility]) Family history of premature CAD Gastroparesis Heart murmur Hyperlipidemia Hypertension MRSA cellulitis 2006 right leg vein harvest site Myocardial infarction ([facility]) 2005, ~2005 Total of 3 Neuropathy Obese Obesity, Class II, BMI 35-39.9 ANCA on CPAP with supplemental O2 Osteoporosis PAD (peripheral artery disease) ([facility]) s/p bilateral iliac stents Pulmonary embolism (HCC) PVD (peripheral vascular disease) (HCC) Requires continuous at home supplemental oxygen S/P CABG (coronary artery bypass graft) 2006 [facility] in [place], [place] Surgical History: Procedure Laterality Date EYE SURGERY Left 1956 HERNIA REPAIR Right 1958 HX TUBAL LIGATION 1974 HX HYSTERECTOMY 1980 AMPUTATION Right 1989 Toe CYST REMOVAL Left 1993 hand X2 HX CHOLECYSTECTOMY 1996 HX POLYPECTOMY Right 2003 vocal cord CORONARY ARTERY BYPASS GRAFT 2006 x 5 BREAST LUMPECTOMY Right 2008 BLADDER SUSPENSION 2009 VENTRAL HERNIA REPAIR 2011 mesh CARDIAC CATHERIZATION Bilateral 2010 PERIPHERAL VASCULAR SURGERY Bilateral 2010 Stent placement CARPAL TUNNEL RELEASE Left 2011 SPINE SURGERY 2014 neurostem FOOT SURGERY Right 2015 RADICAL EXCISION OF CHEEK FISTULA, TOOTH EXTRACTION Right 10/13/2016 Performed by Gianfranco Conti MD at [facility] OR CATARACT REMOVAL Bilateral 2009, 2010 DENTAL SURGERY 2011, 2013 cheek infection MS EXCISION TUMOR SOFT TISSUE LEG/ANKLE SUBQ 3 CM/> Right 2008, 2009 Fatty tumor LE Family History Problem Relation Age of Onset Cancer-Breast Other Cancer Mother uterine Stroke Mother Cancer Paternal Grandmother Diabetes Paternal Grandmother Diabetes Father Heart Disease Father Heart Attack Father >55 y/o Emphysema Father Seizures Other Social History Socioeconomic History Marital status: Spouse name: Not on file Number of children: Not on file Years of education: Not on file Highest education level: Not on file Occupational History Not on file Social Needs Financial resource strain: Not on file Food insecurity Worry: Not on file Inability: Not on file Transportation needs Medical: Not on file Non-medical: Not on file Tobacco Use Smoking status: Former Smoker Packs/day: 2.00 Years: 48.00 Pack years: 96.00 Types: Cigarettes Last attempt to quit: 10/30/2008 Years since quittin.1 Smokeless tobacco: Never Used Substance and Sexual Activity Alcohol use: No Alcohol/week: 0.0 standard drinks Comment: 1-2 x per year Drug use: No Sexual activity: Not on file Lifestyle Physical activity Days per week: Not on file Minutes per session: Not on file Stress: Not on file Relationships Social connections Talks on phone: Not on file Gets together: Not on file Attends hindu service: Not on file Active member of club or organization: Not on file Attends meetings of clubs or organizations: Not on file Relationship status: Not on file Intimate partner violence Fear of current or ex partner: Not on file Emotionally abused: Not on file Physically abused: Not on file Forced sexual activity: Not on file Other Topics Concern Not on file Social History Narrative Not on file Immunizations (includes history and patient reported): There is no immunization history on file for this patient. Allergies: Adhesive tape (rosins); Erythromycin; Pcn [penicillins]; Artificial sweetner; Bee [bumble bee]; Clindamycin; Contrast dye iv, iodine containing [iod inated contrast media]; Hornet venom; Indomethacin; Venom-wasp; Ancef [cefazolin ]; and Barium sulfate Review of Systems: A 10 point review of systems was completed and negative except for dry mouth. Physical Exam: General: Alert, cooperative, no distress Head: Normocephalic Eyes: No scleral icterus Lungs: CTA Heart: RRR Abdomen: S, NT, + BS Skin: No rashes Neurologic: Alert Vital Signs: Last Filed In 24 Hours Vital Signs: 24 Hour Range BP: 182/99 (12/25 0845) Temp: 36.6 C (97.9 F) (12/25 1153) Pulse: 82 (12/25 1300) Respirations: 15 PER MINUTE (12/25 1300) SpO2: 96 % (12/25 1300) SpO2 Pulse: 82 (12/25 1300) Height: 165.1 cm (65") (12/25 0745) BP: (160-182)/(88-99) ABP: (140-202)/(57-82) Temp: [36.5 C (97.7 F)-36.6 C (97.9 F)] Pulse: [77-85] Respirations: [14 PER MINUTE-23 PER MINUTE] SpO2: [94 %-100 %] Intensity Pain Scale (Self Report): Asleep (12/26/19 1215) Medications: No current facility-administered medications on file prior to encounter. Current Outpatient Medications on File Prior to Encounter Medication Sig Dispense Refill albuterol (VENTOLIN HFA, PROAIR HFA, PROVENTIL HFA) 90 mcg/actuation inhaler Inhale 2 Puffs by mouth into the lungs every 6 hours as needed for Wheezing or Shortness of Breath. Shake well before use. 1 Inhaler 11 alendronate (FOSAMAX) 70 mg tablet Take 70 mg by mouth every 7 days. aspirin EC 81 mg tablet Take 81 mg by mouth daily. atorvastatin (LIPITOR) 80 mg tablet Take 80 mg by mouth at bedtime daily. bacitracin 500 unit/g topical ointment Apply topically to affected area twi ce daily. Apply thin layer to cheek incision twice daily 14 g 1 bumetanide (BUMEX) 2 mg tablet Take 2 mg by mouth daily. carvedilol (COREG) 6.25 mg tablet Take 6.25 mg by mouth twice daily. chlorhexidine gluconate (PERIDEX) 0.12 % solution Swish and Spit 15 mL by [facility] as directed after meals and at bedtime. 473 mL 2 citalopram (CELEXA) 40 mg tablet Take 40 mg by mouth at bedtime daily. dexlansoprazole (+) (DEXILANT) 60 mg capsule Take 60 mg by mouth daily. docusate (COLACE) 100 mg capsule Take 100 mg by mouth at bedtime daily. enoxaparin (LOVENOX) 100 mg syringe Inject 1 mL under the skin every 12 hour s. First injection will be the morning of 12/20. Last injection will be the morni ng of 12/24. 10 each 1 fluticasone (FLONASE) 50 mcg/actuation nasal spray Apply 1 [place] to each nos tril as directed twice daily. gabapentin (NEURONTIN) 100 mg capsule Take 100 mg by mouth three times daily . insulin pump -ASPART- Patients Own by [employer] Pump route. Indications: 1.9U bas al, 1U=8carbs, target range 100-130 lisinopril (PRINIVIL; ZESTRIL) 10 mg tablet Take 5 mg by mouth daily. loratadine (CLARITIN) 10 [...] mg by mouth at bedtime as needed. vitamin E 400 unit capsule Take 400 Units by mouth daily. vitamins, multiple cap Take 1 Cap by mouth daily. Lab/Radiology/Other Diagnostic Tests: 24-hour labs: Results for orders placed or performed during the hospital encounter of 12/26/19 (from the past 24 hour(s)) POC GLUCOSE Collection Time: 12/26/19 7:37 AM Result Value Ref Range Glucose, POC 360 (H) 70 - 100 MG/DL TYPE & CROSSMATCH Collection Time: 12/26/19 7:38 AM Result Value Ref Range Units Ordered 4 Crossmatch Expires 12/29/2019,2359 Record Check FOUND ABO/RH(D) O POS Antibody Screen NEG Electronic Crossmatch YES Unit Number [id number] Blood Component Type RBC,ADSOL,LEUKO REDUCED Unit Division 0 Status OF Unit REL FROM ALLOC Transfusion Status OK TO TRANSFUSE Crossmatch Result COMPATIBLE,ELECTRONIC Unit Number [id number] Blood Component Type RBC,ADSOL,LEUKO REDUCED Unit Division 0 Status OF Unit REL FROM ALLOC Transfusion Status OK TO TRANSFUSE Crossmatch Result COMPATIBLE,ELECTRONIC Unit Number [id number] Blood Component Type RBC,ADSOL,LEUKO REDUCED Unit Division 0 Status OF Unit REL FROM ALLOC Transfusion Status OK TO TRANSFUSE Crossmatch Result COMPATIBLE,ELECTRONIC Unit Number [id number] Blood Component Type RBC,ADSOL,LEUKO REDUCED Unit Division 0 Status OF Unit REL FROM ALLOC Transfusion Status OK TO TRANSFUSE Crossmatch Result COMPATIBLE,ELECTRONIC POC GLUCOSE Collection Time: 12/26/19 10:31 AM Result Value Ref Range Glucose, POC 327 (H) 70 - 100 MG/DL POC BLOOD GAS ARTERIAL Collection Time: 12/26/19 10:34 AM Result Value Ref Range PH-ART-POC 7.39 7.35 - 7.45 [id number]-HWV 46 (H) 35 - 45 MMHG PO2-ART-POC 143 (H) 80 - 100 MMHG Base Ex-ART-POC 2.0 MMOL/L O2 Sat-ART-POC 99.0 95 - 99 % Yfeerdgljwn-AQR-CFI 27.5 21 - 28 MMOL/L POC HEMATOCRIT Collection Time: 12/26/19 10:34 AM Result Value Ref Range Hemoglobin POC 9.9 (L) 12.0 - 15.0 GM/DL Hematocrit POC 29.0 (L) 36 - 45 % POC POTASSIUM Collection Time: 12/26/19 10:34 AM Result Value Ref Range Potassium-POC 4.8 3.5 - 5.1 MMOL/L POC SODIUM Collection Time: 12/26/19 10:34 AM Result Value Ref Range Sodium-POC 135 (L) 137 - 147 MMOL/L POC IONIZED CALCIUM Collection Time: 12/26/19 10:34 AM Result Value Ref Range Ionized Calcium-POC 1.13 1.0 - 1.3 MMOL/L POC GLUCOSE Collection Time: 12/26/19 10:57 AM Result Value Ref Range Glucose, POC 305 (H) 70 - 100 MG/DL CBC Collection Time: 12/26/19 12:00 PM Result Value Ref Range White Blood Cells 6.6 4.5 - 11.0 K/UL RBC 3.73 (L) 4.0 - 5.0 M/UL Hemoglobin 10.6 (L) 12.0 - 15.0 GM/DL Hematocrit 31.4 (L) 36 - 45 % MCV 84.1 80 - 100 FL MCH 28.3 26 - 34 PG MCHC 33.6 32.0 - 36.0 G/DL RDW 14.4 11 - 15 % Platelet Count 134 (L) 150 - 400 K/UL MPV 7.2 7 - 11 FL BASIC METABOLIC PANEL Collection Time: 12/26/19 12:00 PM Result Value Ref Range Sodium 138 137 - 147 MMOL/L Potassium 3.7 3.5 - 5.1 MMOL/L Chloride 103 98 - 110 MMOL/L CO2 27 21 - 30 MMOL/L Anion Gap 8 3 - 12 Glucose 256 (H) 70 - 100 MG/DL Blood Urea Nitrogen 11 7 - 25 MG/DL Creatinine 0.81 0.4 - 1.00 MG/DL Calcium 8.2 (L) 8.5 - 10.6 MG/DL eGFR Non >60 >60 mL/min eGFR >60 >60 mL/min MAGNESIUM Collection Time: 12/26/19 12:00 PM Result Value Ref Range Magnesium 1.1 (L) 1.6 - 2.6 mg/dL PROTIME INR (PT) Collection Time: 12/26/19 12:00 PM Result Value Ref Range INR 1.2 0.8 - 1.2 PTT (APTT) Collection Time: 12/26/19 12:00 PM Result Value Ref Range APTT 32.5 24.0 - 36.5 SEC POC GLUCOSE Collection Time: 12/26/19 12:01 PM Result Value Ref Range Glucose, POC 259 (H) 70 - 100 MG/DL POC GLUCOSE Collection Time: 12/26/19 1:06 PM Result Value Ref Range Glucose, POC 253 (H) 70 - 100 MG/DL POC GLUCOSE Collection Time: 12/26/19 2:14 PM Result Value Ref Range Glucose, POC 239 (H) 70 - 100 MG/DL POC GLUCOSE Collection Time: 12/26/19 4:05 PM Result Value Ref Range Glucose, POC 204 (H) 70 - 100 MG/DL Glucose: (!) 256 (12/26/19 1200) POC Glucose (Download): (!) 239 (12/26/19 1414) Pertinent radiology reviewed. Associated attestation - Ion Alanis MD - 12/26/2019 9:31 PM CDT ATTESTATION I personally performed the jackson portions of the E/M visit, discussed case with re sident and concur with resident documentation of history, physical exam, assessm ent, and treatment plan unless otherwise noted. Endocrinology is consulted to provide an opinion and assistance in the managemen t of diabetes mellitus type 2. The patient's current presentation, previous his tory, physical examination, laboratory studies and assessment are well summarize d in DR. Red's note. The patient is awake and alert and provides good history and the chart was reviewed. The patient has a history of diabetes mellitus type 2 diagnosed initially in 198 . She is under the care of Dr. Christy Mora in [place] and has been under g ood glycemic control with a hemoglobin A1c recently of 6.8%. Control has been a chieved by the use of a Medtronic insulin pump without CGM with a basal rate of 1.9 units for the whole 24 hours and insulin to carb ratio of 8. She states she has a new Medtronic pump as her warranty just ran out but has not received educ ation on how to set it up or use it yet. She states that the CGM from [employer]tr[employer] was not covered under her insurance and she is going to be using freestyle eugenio which she also has not started yet. She has hypoglycemia 1-3 times per week. She is admitted to with aortic stenosis and underwent a TAVR procedure she is currently on an IV insulin drip and the pump has been discontinued and placed w ith her personal effects. The patient received prednisone 60 mg the night befor e the procedure and 60 mg this morning in light of her contrast allergy and the need for some contrast in the TAVR procedure. This will raise her blood sugar a nd increase her insulin requirements. For that reason we have elected to continue IV insulin today and through the jeremy sadia and tomorrow assess her insulin requirements and decide whether to restart her insulin pump at that time. She has her pump and infusion sets and seems sadi y competent to use it. Thank you very much for allowing us to participate in this patient's care. We w ill continue to see her and make adjustments in her insulin to achieve appropria te glycemic control. Staff name: Ion Alanis MD Date: 12/26/2019 documented in this encounter Miscellaneous Notes * Case Mgmt DC Plan - Harleen Saravia - 12/27/2019 4:03 PM CDT Case Management Note Plan: Admitted for TAVR and is POD 1 Intervention: NCM attempted to complete CM assessment x4 today with no success. CM team to follow up Monday to complete same. Should any dc needs arise over the weekend, please contact the [facility] and ask for the RNCM software configuration specialist. Harleen HYDEN, RN CTS Nurse Building Construction Ironworker [phone]: [phone] [phone] Cell: [phone] * Care Plan - Margarita Balbuena RN - 12/27/2019 7:49 AM CDT Problem: Discharge Planning Goal: Participation in plan of care Outcome: Goal Ongoing Goal: Knowledge regarding plan of care Outcome: Goal Ongoing Goal: Prepared for discharge Outcome: Goal Ongoing Problem: Infection, Risk of, Central Venous Catheter-Associated Bloodstream Infe ction Goal: Absence of CVC Associated Bloodstream infection Outcome: Goal Ongoing Problem: Falls, High Risk of Goal: Absence of falls-Adult Patient Outcome: Goal Ongoing * Care Plan - Maryuri Simms RN - 12/27/2019 4:07 AM CDT Problem: Discharge Planning Goal: Participation in plan of care Outcome: Goal Ongoing Note: POC discussed with patient at the start of the shift. Patient agreeable to all plans. Explained to patient we will walk before bed and walk in the morning. Manage bs with insulin gtt. Goal: Knowledge regarding plan of care Outcome: Goal Ongoing Goal: Prepared for discharge Outcome: Goal Ongoing Problem: Infection, Risk of, Central Venous Catheter-Associated Bloodstream Infe ction Goal: Absence of CVC Associated Bloodstream infection Outcome: Goal Ongoing Note: Will ensure dressing CDI, no s/s of infection * Operative Report (DICTATED ONLY) - Nando Lemus III, MD (Trip) - 12/26/2019 10:59 AM CDT [address] [id number] PATIENT NAME: KVNG SUMNER MR#/PT#: [id number] OPERATIVE REPORT : 1950 DATE OF OPERATION: 12/26/2019 ROOM #: 3 CV OR OPERATIVE REPORT SURGEON: Nando Lemus III, MD (Trip) PREOPERATIVE DIAGNOSIS: Severe symptomatic aortic stenosis. POSTOPERATIVE DIAGNOSIS: Severe symptomatic aortic stenosis. OPERATIVE PROCEDURE: 1. Access to bilateral common femoral arteries using ultrasound guidance with a micropuncture technique. 2. Placement of balloon-tipped temporary pacemaker. 3. Ascending aortogram. 4. Transcatheter aortic valve replacement using a 26 mm S3 valve. 5. Iliofemoral arteriogram with runoff. ANESTHESIA: General endotracheal. DESCRIPTION AND FINDINGS OF OPERATIVE PROCEDURE: After informed consent, the patient was brought to the Operating Room and placed supine on the table. Arterial and venous lines were placed per Anesthesia. A single-lumen endotracheal tube was placed. General endotracheal anesthesia was induced. The patient was prepped and draped in the usual sterile fashion. Access was gained to the bilateral common femoral arteries using ultrasound guid ance and a micropuncture technique. On the left side, 2 ProGlide sutures were p laced and an 8-Portuguese, and then subsequently the Caputo 14-Portuguese Esheath was p laced. On the right side, a 5-Portuguese sheath was positioned. A balloon-tipped t emporary pacemaker was advanced to the right IJ sheath into the right ventricle. Appropriate pacing thresholds were obtained. Systemic heparinization was achi eved and maintained throughout the procedure. The aortic valve was crossed using the AL1 catheter. After catheter and wire ex change, a pigtail catheter was positioned, and simultaneous pressure measurement s were used to confirm severe aortic stenosis. A Safari wire was then positione d in the ventricle, and over this, a 26 mm S3 valve was advanced and deployed wi thin the valve. We were very happy with the positioning of the device. There w as approximately 80% aortic and 20% ventricular. There was immediate hemodynami c recovery, without evidence of a conduction block. MALINA, ascending aortogram, a nd simultaneous pressure measurements confirmed resolution of the aortic stenosi s, with no paravalvular leak. The delivery system and sheath were removed. The ProGlide sutures were secured with good hemostasis. An iliofemoral arteriogram was performed, showing good distal runoff, without evidence of arterial injury. Protamine was administered. Manual pressure was held. Mynx device was used to close the right common femoral artery. The patient was awakened and extubated in the room, having tolerated the procedure well. All sponge, needle, and inst rument counts were correct per report. I was present for the entire procedure. ESTIMATED BLOOD LOSS: 20 mL. SPECIMENS REMOVED: None. COMPLICATIONS: None. Nando Lemus III, MD (Trip) GLMayra/Yasmin Lemus III, MD (Trip) / [employer] [id number] cc: - Nando eLmus III, MD (Trip) T * Operative Report (Direct Entry) - Duncan Patel MD - 12/26/2019 10:02 AM CDT TAVR (Transcatheter Aortic Valve Replacement) Date of procedure: 12/26/2019 Kvng Sumner, : 1950 INDICATIONS FOR PROCEDURE: Kvng Sumner is a 69 y.o. who has severe symptom atic aortic valve stenosis and Class III heart failure. In view of significant c o-morbidities, She is felt to be at high risk to undergo standard open surgical AVR as evaluated by the combined heart team. After a discussion with the combine d heart team of the risks and benefits and alternative of proceeding with surgic al versus transcatheter AVR, Kvng Sumner has elected to proceed with TAVR. OPERATORS: 1. Duncan Patel MD, Interventional Cardiology. 2. Augusto Lemus MD, Cardiothoracic Surgery. PROCEDURES PERFORMED: 1. Transvenous pacemaker through right IJ access. 2. Ultrasound-guided access to bilateral common femoral arteries 3. Left heart cardiac catheterization with simultaneous pressure assessment of t he LV and aorta both pre and post TAVR. 4. Ascending aortography. 5. Descending aortography. 6. Transcatheter valve replacement utilizing a number 26 Gregoria S3. PROCEDURE: 1. Patient was informed and consented to risks, benefits, and alternatives. Inez ent verbalized understanding and wished to proceed. 2. General anesthesia was performed under the care of Dr. Lynne/Josh the [facility] anesthesia service. The anesthesia team monitored the patient's hemodynamic s, airway, and sedation throughout the case. 3. Access was obtained in the right common femoral artery with placement of 5-Fr ench sheath. Access also obtained in the left common femoral artery with placeme nt of an 8-Portuguese sheath. A dual ProGlide pre-close technique was utilized. This was up sized to a 14 Fr delivery sheath 4. A 5Fr Diag bipolar balloon-tipped temporary pacemaker was advanced to the rig ht ventricle where appropriate pacing thresholds were obtained. 5. Utilizing an AL1 catheter and Glidewire, access was obtained into the left ve ntricle. 6. Initial hemodynamics were performed utilizing simultaneous pigtail catheter a ssessments in both the aortic root and left ventricle. Hemodynamics revealed an LV pressure of 140/16 LVEDP and a mean aortic gradient of 34 mmHg. 7. Utilizing an Safari extra small wire in the left ventricle, the valve was dep loyed under fluoroscopic guidance. The valve was well seated and had an aortic:v entricular ratio of 80%:20%. 8. TTE revealed a well seated TAVR valve with no paravalvular regurgitation and no evidence of central valve regurgitation. 9. Ascending aortography revealed no aortic valve regurgitation. Excellent yamilex w was noted within the coronary arteries as well as in the ascending aorta. Ther e was no evidence of dissection, perforation, intramural hematoma, plaque disrup tion or thrombus. 10. Post hemodynamic measurements had been obtained which revealed an LV pressur e 180/18 LVEDP with a mean gradient of 5 mmHg. 11. The left common femoral 16-Portuguese sheath was then removed and the dual ProGl kacey technique was used to close the arteriotomy. A descending aortography was pe rformed with no evidence of dissection, perforation, intramural hematoma, and th ere was excellent brisk flow in the iliofemoral system. The right common femora l artery sheath was removed and the arteriotomy was closed with a Perclose devic e. 12. Patient was extubated in the hybrid room at the conclusion of the case and t ransported to CTI in stable condition. 13. At the conclusion of the case the patient's transvenous pacemaker was suture d in place after pacing thresholds were re-checked. 14. A total of 86 mL of Visapaque 270 was utilized for the procedure. 15. Air Kerma was 366 mGy. IMPRESSION: 1. Severe symptomatic aortic valve stenosis. 2. Successful transcatheter valve replacement utilizing a number 26 Gregoria S3. -Residual transaortic mean gradient of 5 mmHg. -no paravalvular regurgitation. No central valve regurgitation was noted. RECOMMENDATIONS: 1. SBE prophylaxis indefinitely. 2. Aspirin 81 mg indefinitely 3. Echo Doppler in the morning. 4. Early ambulation. Duncan Patel MD documented in this encounter Plan of Treatment Not on filedocumented as of this encounter Goals Goal Patient Associated Recent Progress Patient-Stat Aut hor Goal Type Problems ed? Diabetic Blood Sugar Lifestyle No Lisa Lobo RN documented as of this encounter Procedures Comments Procedure Name Priority Date/Time Associated Diag nosis POC GLUCOSE 12/28/2019 4:31 PM CDT POC GLUCOSE 12/28/2019 3:36 PM CDT POC GLUCOSE 12/28/2019 2:46 PM CDT POC GLUCOSE 12/28/2019 12:36 PM CDT POC GLUCOSE 12/28/2019 9:13 AM CDT CHEST SINGLE VIEW Routine 12/28/2019 6:50 AM CDT HC CBC,AUTOMATED 12/28/2019 4:50 AM CDT HC MAGNESIUM Routine 12/28/2019 4:50 AM CDT HC BASIC METABOLIC PANEL 12/28/2019 4:50 AM CDT POC GLUCOSE 12/28/2019 [...] POC GLUCOSE 12/27/2019 3:15 AM CDT HC CBC,AUTOMATED STAT 12/27/2019 3:15 AM CDT HC MAGNESIUM Routine 12/27/2019 3:15 AM CDT HC BASIC METABOLIC PANEL STAT 12/27/2019 3:15 AM CDT POC GLUCOSE [...] CDT POC GLUCOSE 12/26/2019 1:06 PM CDT LINE PLCMT 1V CXR STAT 12/26/2019 12:11 PM CDT POC GLUCOSE 12/26/2019 12:01 PM CDT HC PTT(APTT) STAT 12/26/2019 12:00 PM CDT HC PT(INR) STAT 12/26/2019 12:00 PM CDT HC CBC,AUTOMATED STAT 12/26/2019 12:00 PM CDT HC MAGNESIUM STAT 12/26/2019 12:00 PM CDT HC BASIC METABOLIC PANEL STAT 12/26/2019 12:00 PM CDT ECG 12-LEAD STAT 12/26/2019 11:53 AM CDT POC GLUCOSE 12/26/2019 10:57 AM CDT HC ACTIVATED CLTG TIME-OR 12/26/2019 LAB 10:38 AM CDT HC BLOOD GAS, POC 12/26/2019 10:34 AM CDT HC SODIUM, POC 12/26/2019 10:34 AM CDT HC POTASSIUM, POC 12/26/2019 10:34 AM CDT HC IONIZED CA, POC 12/26/2019 10:34 AM CDT HC HEMATOCRIT POC 12/26/2019 10:34 AM CDT POC GLUCOSE 12/26/2019 10:31 AM CDT HC ACTIVATED CLTG TIME-OR 12/26/2019 LAB 10:30 AM CDT HC ABO GROUP STAT 12/26/2019 7:38 AM CDT POC GLUCOSE 12/26/2019 7:37 AM CDT TELEMETRY STRIPS-SCAN 12/26/2019 12:00 AM CDT TELEMETRY STRIPS-SCAN 12/26/2019 12:00 AM CDT ECG-SCAN 12/26/2019 12:00 AM CDT ECG-SCAN 12/26/2019 12:00 AM CDT ECG-SCAN 12/26/2019 12:00 AM CDT documented in this encounter Results * POC GLUCOSE (12/28/2019 4:31 PM CDT) Glucose, POC 182 (H) 70 - 100 MG/DL MAIN LAB Specimen Performing Organization Address [facility] Ph one Number MAIN LAB [address] [place] [address] * POC GLUCOSE (12/28/2019 3:36 PM CDT) Glucose, POC 164 (H) 70 - 100 MG/DL MAIN LAB Specimen Performing Organization Address [facility] Ph one Number MAIN LAB [address] [place] [address] * POC GLUCOSE (12/28/2019 2:46 PM CDT) Glucose, POC 201 (H) 70 - 100 MG/DL KU MAIN LAB Specimen Performing Organization Address [facility] one Number MAIN LAB [address] [place] [address] * POC GLUCOSE (12/28/2019 12:36 PM CDT) Glucose, POC 517 (HH) 70 - 100 MG/DL KU MAIN LAB Specimen Performing Organization Address [facility] one Number MAIN LAB [address] [place] [address] * POC GLUCOSE (12/28/2019 9:13 AM CDT) Glucose, POC 225 (H) 70 - 100 MG/DL MAIN LAB Specimen Performing Organization Address [facility] one Number MAIN LAB [address] [place] [address] * CHEST SINGLE VIEW (12/28/2019 6:50 AM CDT) Specimen Impressions Performed At 1. Interval removal [...] on 12/28/2019 7:23 AM. Performing Organization Address City/[facility] Ph one Number KU RAD RESULTS * CBC (12/28/2019 4:50 AM CDT) Pathologist [facility] White Blood 4.9 4.5 - 11.0 K/UL [...] KU MAIN LAB Specimen Performing Organization Address City/[facility] Ph one Number KU MAIN LAB [address] [place] [address] * BASIC METABOLIC PANEL (12/28/2019 4:50 AM CDT) Pathologist [facility] Sodium 135 (L) 137 - 147 MMOL/L KU MAIN LAB Potassium 4.5 3.5 - 5.1 MMOL/L KU MAIN LAB Chloride 102 98 - 110 MMOL/L KU MAIN LAB CO2 28 21 - 30 MMOL/L KU MAIN LAB Anion Gap 5 3 - 12 KU MAIN LAB Glucose 217 (H) 70 - 100 MG/DL MAIN LAB Blood Urea 16 7 - 25 MG/DL MAIN LAB Nitrogen Creatinine 0.92 0.4 - 1.00 MG/DL MAIN LAB Calcium 7.7 (L) 8.5 - 10.6 MG/DL MAIN LAB eGFR Non >60 >60 mL/min MAIN LAB Comment: [place] The eGFR is not validated f or use in drug dosing adjustments. Continue to use estimated creatinine clearance per dosing reference text. Please contact the Clinical Pharmacist for questions. eGFR >60 >60 mL/min MAIN LAB [place] Comment: The eGFR is not validated for use in drug dosing adjustments. Continue to use estimated creatinine clearance per dosing reference text. Please contact the Clinical Pharmacist for questions. Specimen Performing Organization Address City/State/Zipcode Ph one Number MAIN LAB [address] [place] [address] * MAGNESIUM (12/28/2019 4:50 AM CDT) Magnesium 2.0 1.6 - 2.6 mg/dL MAIN LAB Specimen Blood Performing Organization Address City/[facility] Number [facility] LAB [address] [place] [address] * POC GLUCOSE (12/28/2019 3:09 AM CDT) Glucose, POC 222 (H) 70 - 100 MG/DL MAIN LAB Specimen Performing Organization Address City/[facility] Ph one Number MAIN LAB [address] [place] [address] * POC GLUCOSE (12/27/2019 10:14 PM CDT) Glucose, POC 300 (H) 70 - 100 MG/DL MAIN LAB Specimen Performing Organization Address City/[facility]/Zipcode Ph one Number MAIN LAB [address] [place] [address] * POC GLUCOSE (12/27/2019 5:16 PM CDT) Glucose, POC 159 (H) 70 - 100 MG/DL MAIN LAB Specimen Performing Organization Address City/[facility] Ph one Number MAIN LAB [address] [place] [address] * POC GLUCOSE (12/27/2019 4:04 PM CDT) Glucose, POC 164 (H) 70 - 100 MG/DL KU MAIN LAB Specimen Performing Organization Address City/State/Zipcode Ph one Number MAIN LAB [address] [place] [address] * POC GLUCOSE (12/27/2019 2:27 PM CDT) Glucose, POC 229 (H) 70 - 100 MG/DL KU MAIN LAB Specimen Performing Organization Address City/[facility] Ph one Number MAIN LAB [address] [place] [address] * POC GLUCOSE (12/27/2019 1:26 PM CDT) Glucose, POC 174 (H) 70 - 100 MG/DL MAIN LAB Specimen Performing Organization Address City/[facility] Ph one Number MAIN LAB [address] [place] [address] * POC GLUCOSE (12/27/2019 12:15 PM CDT) Glucose, POC 182 (H) 70 - 100 MG/DL MAIN LAB Specimen Performing Organization Address City/[facility]/Zipcode Ph one Number MAIN LAB [address] [place] [address] * POC GLUCOSE (12/27/2019 9:20 AM CDT) Glucose, POC 151 (H) 70 - 100 MG/DL MAIN LAB Specimen Performing Organization Address City/[facility] Ph one Number MAIN LAB [address] [place] [address] * LIMITED ECHO (12/27/2019 7:15 AM CDT) [...] OUTSIDE Systolic Volume LAB Index LVOT peak jamir 1.34 m/s OTHER OUTSIDE LAB LVOT peak [...] cm OTHER OUTSIDE LAB MV Peak A Jamir 0.87 m/s OTHER OUTSIDE LAB MV Peak E Jamir 0.62 m/s OTHER OUTSIDE PW LAB Right 3.90 2.5 - 4.1 cm OTHER OUTSIDE Ventricular LAB Basal Diameter Right Heart 0.13 m/s OTHER OUTSIDE Systolic TDI S' LAB Right Heart 2.24 >1.7 cm OTHER OUTSIDE Systolic Mmode LAB TAPSE Sinus 3.36 2.4 - 3.6 cm OTHER OUTSIDE LAB Ascending aorta 2.95 cm OTHER OUTSIDE LAB BSA 2.14 m2 OTHER OUTSIDE LAB Referring Self, Christy OTHER OUTSIDE Provider LAB FS 35.47 28 - 44 % OTHER OUTSIDE LAB EF 60.30 % OTHER OUTSIDE LAB LV mass 233.69 67 - 162 g OTHER OUTSIDE LAB RWT 0.53 <=0.42 OTHER OUTSIDE LAB Aortic valve 2.14 cm2 OTHER OUTSIDE area = LAB AV index 0.52 OTHER OUTSIDE ([facility]) LAB E/A ratio 0.71 OTHER OUTSIDE LAB LVOT area 3.84 cm2 OTHER OUTSIDE LAB LVOT stroke 113.47 cm3 OTHER OUTSIDE volume LAB and a peak 27 mmHg OTHER OUTSIDE gradient of LAB TV rest N/A mmHg OTHER OUTSIDE pulmonary LAB artery pressure Lateral E/E' 8.86 OTHER OUTSIDE ratio LAB Left Atrium 20.23 16 - 34 OTHER OUTSIDE Index LAB Cardiology Siemens [id number] OTHER OUTSIDE Ultrasound LAB Machine Left Ventricle [...] c hange are noted. Performing Organization Address City/State/[facility] Ph one Number OTHER OUTSIDE LAB * POC GLUCOSE (12/27/2019 5:40 AM CDT) Glucose, POC 178 (H) 70 - 100 MG/DL KU MAIN LAB Specimen Performing Organization Address City/State/[facility] Ph one Number KU MAIN LAB [address] [place] [address] * CHEST SINGLE VIEW (12/27/2019 4:07 AM CDT) Specimen Impressions Performed At 1. Unchanged mild enlargement of the cardiac silhou ette with improvement in [facility] RAD RESULTS pulmonary venous congestion. 2. Improvement in bibasilar opacities , likely atelectasis. 3. Stable medical support devices as above. By my electronic signature, I attest th at I have personally reviewed the images for this examination and formulated the interpretations and opinions expressed in this report Finalized by Jose eMdrano M.D. on 020 7:36 AM. Dictated by Gumaro Maya M.D. on 12/27/2019 7:29 AM. Narrative Performed At CHEST SINGLE VIEW [facility] RAD RESULTS Clinical Indication: Female, 69 years o ld. Atelectasis, s/p TAVR or MitraClip Comparison: Chest x-ray prior day Findings: Prior TAVR. Unchanged position of right IJ temporary pacing electrode with tip overlying the right ventricle. Prior me caryl sternotomy and CABG with stable configuration of multiple fractured dayana rnal wires. Spinal stimulator electrodes overlying the thoracic spine. The heart size remains enlarged with im provement in mild pulmonary venous congestion. Improvement in bibasilar op acities, likely atelectasis. No pleural effusion or pneumothorax. Procedure Note Interface, Radiant Results - 12/27/2019 7:39 AM CDT CHEST SINGLE VIEW Clinical Indication: Female, 69 years old. Atelectasis, s/p TAVR or MitraClip Comparison: Chest x-ray prior day Findings: Prior TAVR. Unchanged position of right IJ temporary pacing electrode with tip overlying the right ventricle. Prior median sternotomy and CABG with stable configuration of multiple fractured sternal wires. Spinal stimulator electrodes overlying the thoracic spine. The heart size remains enlarged with improvement in mild pulmonary venous congestion. Improvement in bibasilar opacities, likely atelectasis. No pleural effusion or pneumothorax. IMPRESSION 1. Unchanged mild enlargement of the ca rdiac silhouette with improvement in pulmonary venous congestion. 2. Improvement in bibasilar opacities, likely atelectasis. 3. Stable medical support devices as ab ove. By my electronic signature, I attest that I have personally reviewed the images for this examination and formulated the interpretations and opinions expressed in this report Finalized by Jose Medrano M.D. on 12/27/2019 7:36 AM. Dictated by Gumaro Maya M.D. on 12/27/2019 7:29 AM. Performing Organization Address [facility] Ph one Number RAD RESULTS * POC GLUCOSE (12/27/2019 3:15 AM CDT) Glucose, POC 190 (H) 70 - 100 MG/DL MAIN LAB Specimen Performing Organization Address [facility] one Number MAIN LAB [address] [place] [address] * MAGNESIUM (12/27/2019 3:15 AM CDT) Magnesium 1.8 1.6 - 2.6 mg/dL MAIN LAB Specimen Blood Performing Organization Address [facility] Ph one Number MAIN LAB [address] [place] [address] * BASIC METABOLIC PANEL (12/27/2019 3:15 AM CDT) Sodium 138 137 - 147 MMOL/L KU MAIN LAB Potassium 3.8 3.5 - 5.1 MMOL/L KU MAIN LAB Chloride 103 98 - 110 MMOL/L KU MAIN LAB CO2 26 21 - 30 MMOL/L KU MAIN LAB Anion Gap 9 3 - 12 KU MAIN LAB Glucose 180 (H) 70 - 100 MG/DL KU MAIN LAB Blood Urea 13 7 - 25 MG/DL KU MAIN LAB Nitrogen Creatinine 1.04 (H) 0.4 - 1.00 MG/DL KU MAIN LAB Calcium 7.9 (L) 8.5 - 10.6 MG/DL MAIN LAB eGFR Non 52 (L) >60 mL/min MAIN LAB Comment: [place] The eGFR is not validated f or use in drug dosing adjustments. Continue to use estimated creatinine clearance per dosing reference text. Please contact the Clinical Pharmacist for questions. eGFR >60 >60 mL/min K[facility] MAIN LAB [place] Comment: The eGFR is not validated for use in drug dosing adjustments. Continue to use estimated creatinine clearance per dosing reference text. Please contact the Clinical Pharmacist for questions. Specimen Performing Organization Address City/[facility] Ph one Number MAIN LAB [address] [place] [address] * CBC (12/27/2019 3:15 AM CDT) White Blood 7.7 4.5 - 11.0 K/UL MAIN LAB Cells RBC 3.21 (L) 4.0 - 5.0 M/UL MAIN LAB Hemoglobin 9.0 (L) 12.0 - 15.0 GM/DL MAIN LAB Hematocrit 26.7 (L) 36 - 45 % MAIN LAB MCV 83.2 80 - 100 FL MAIN LAB MCH 28.0 26 - 34 PG MAIN LAB MCHC 33.7 32.0 - 36.0 G/DL MAIN LAB RDW 15.0 11 - 15 % MAIN LAB Platelet Count 116 (L) 150 - 400 K/UL MAIN LAB MPV 7.3 7 - 11 FL MAIN LAB Specimen Performing Organization Address [facility] one Number MAIN LAB [address] [place] [id number] * POC GLUCOSE (12/27/2019 1:10 AM CDT) Glucose, POC 191 (H) 70 - 100 MG/DL MAIN LAB Specimen Performing Organization Address [facility] one Number MAIN LAB [address] [place] [id number] * POC GLUCOSE (12/26/2019 11:47 PM CDT) Glucose, POC 133 (H) 70 - 100 MG/DL MAIN LAB Specimen Performing Organization Address [facility]/Zipcode Ph one Number MAIN LAB [address] [place] [address] * POC GLUCOSE (12/26/2019 11:11 PM CDT) Glucose, POC 114 (H) 70 - 100 MG/DL MAIN LAB Specimen Performing Organization Address [facility] Ph one Number MAIN LAB [address] [place] [address] * POC GLUCOSE (12/26/2019 9:32 PM CDT) Glucose, POC 198 (H) 70 - 100 MG/DL MAIN LAB Specimen Performing Organization Address City/[facility] Ph one Number MAIN LAB [address] [place] [address] * POC GLUCOSE (12/26/2019 8:28 PM CDT) Glucose, POC 241 (H) 70 - 100 MG/DL MAIN LAB Specimen Performing Organization Address [facility] Ph one Number MAIN LAB [address] [place] [address] * POTASSIUM (12/26/2019 6:31 PM CDT) Potassium 4.1 3.5 - 5.1 MMOL/L MAIN LAB Specimen Blood Performing Organization Address [facility] Ph one Number MAIN LAB [address] [place] [address] * MAGNESIUM (12/26/2019 6:31 PM CDT) Magnesium 1.9 1.6 - 2.6 mg/dL MAIN LAB Specimen Blood Performing Organization Address [facility] Ph one Number MAIN LAB [address] [place] [address] * POC GLUCOSE (12/26/2019 6:29 PM CDT) Glucose, POC 259 (H) 70 - 100 MG/DL MAIN LAB Specimen Performing Organization Address [facility] Ph one Number MAIN LAB [address] [place] [address] * POC GLUCOSE (12/26/2019 5:14 PM CDT) Glucose, POC 190 (H) 70 - 100 MG/DL MAIN LAB Specimen Performing Organization Address [facility] Ph one Number MAIN LAB [address] [place] [address] * POC GLUCOSE (12/26/2019 4:05 PM CDT) Glucose, POC 204 (H) 70 - 100 MG/DL KU MAIN LAB Specimen Performing Organization Address [facility] Ph one Number MAIN LAB [address] [place] [address] * POC GLUCOSE (12/26/2019 2:14 PM CDT) Glucose, POC 239 (H) 70 - 100 MG/DL MAIN LAB Specimen Performing Organization Address [facility] Ph one Number MAIN LAB [address] [place] [address] * POC GLUCOSE (12/26/2019 1:06 PM CDT) Glucose, POC 253 (H) 70 - 100 MG/DL MAIN LAB Specimen Performing Organization Address [facility] one Number MAIN LAB [address] [place] [address] * LINE PLCMT 1V CXR (12/26/2019 12:11 PM CDT) Specimen Impressions [...] on 12/26/2019 1:02 PM. Narrative Performed At LINE PLCMT 1V CXR K[facility] RAD RESULTS HISTORY: Female, 69 [...] on 12/26/2019 1:02 PM. Performing Organization Address [facility] one Number RAD RESULTS * POC GLUCOSE (12/26/2019 12:01 PM CDT) Glucose, POC 259 (H) 70 - 100 MG/DL MAIN LAB Specimen Performing Organization Address [facility] one Number MAIN LAB [address] [place] [address] * PTT (APTT) (12/26/2019 12:00 PM CDT) APTT 32.5 24.0 - 36.5 SEC MAIN LAB Specimen Performing Organization Address [facility] one Number MAIN LAB [address] [place] [address] * PROTIME INR (PT) (12/26/2019 12:00 PM CDT) INR 1.2 0.8 - 1.2 MAIN LAB Specimen Performing Organization Address [facility] one Number MAIN LAB [address] [place] [address] * MAGNESIUM (12/26/2019 12:00 PM CDT) Pathologist [facility] Magnesium 1.1 (L) 1.6 - 2.6 mg/dL KU MAIN LAB Specimen Blood Performing Organization Address [facility] Ph one Number KU MAIN LAB [address] [place] [address] * BASIC METABOLIC PANEL (12/26/2019 12:00 PM CDT) Pathologist [facility] Sodium 138 137 - 147 MMOL/L KU MAIN LAB Potassium 3.7 3.5 - 5.1 MMOL/L KU MAIN LAB Chloride 103 98 - 110 MMOL/L KU MAIN LAB CO2 27 21 - 30 MMOL/L KU MAIN LAB Anion Gap 8 3 - 12 KU MAIN LAB Glucose 256 (H) 70 - 100 MG/DL KU MAIN LAB Blood Urea 11 7 - 25 MG/DL KU MAIN LAB Nitrogen Creatinine 0.81 0.4 - 1.00 MG/DL KU MAIN LAB Calcium 8.2 (L) 8.5 - 10.6 MG/DL KU MAIN LAB eGFR Non >60 >60 mL/min K[facility] MAIN LAB Comment: [place] The eGFR is not validated f or use in drug dosing adjustments. Continue to use estimated creatinine clearance per dosing reference text. Please contact the Clinical Pharmacist for questions. eGFR >60 >60 mL/min KU MAIN LAB [place] Comment: The eGFR is not validated for use in drug dosing adjustments. Continue to use estimated creatinine clearance per dosing reference text. Please contact the Clinical Pharmacist for questions. Specimen Performing Organization Address [facility] Ph one Number KU MAIN LAB [address] [place] [address] * CBC (12/26/2019 12:00 PM CDT) White Blood 6.6 4.5 - 11.0 K/UL KU MAIN LAB Cells RBC 3.73 (L) 4.0 - 5.0 M/UL KU MAIN LAB Hemoglobin 10.6 (L) 12.0 - 15.0 GM/DL KU MAIN LAB Hematocrit 31.4 (L) 36 - 45 % KU MAIN LAB MCV 84.1 80 - 100 FL KU MAIN LAB MCH 28.3 26 - 34 PG KU MAIN LAB MCHC 33.6 32.0 - 36.0 G/DL KU MAIN LAB RDW 14.4 11 - 15 % MAIN LAB Platelet Count 134 (L) 150 - 400 K/UL MAIN LAB MPV 7.2 7 - 11 FL MAIN LAB Specimen Performing Organization Address City/State/Zipcode Ph one Number MAIN LAB [address] [place] [address] * POC GLUCOSE (12/26/2019 10:57 AM CDT) Glucose, POC 305 (H) 70 - 100 MG/DL MAIN LAB Specimen Performing Organization Address City/[facility]/Zipcode Ph one Number MAIN LAB [address] [place] [address] * POC ACTIVATED CLOTTING TIME (12/26/2019 10:38 AM CDT) Activated 252 s MAIN LAB Clotting Time Specimen Performing Organization Address City/[facility] Ph one Number MAIN LAB [address] [place] [address] * POC IONIZED CALCIUM (12/26/2019 10:34 AM CDT) Ionized 1.13 1.0 - 1.3 MMOL/L MAIN LAB Calcium-POC Specimen Performing Organization Address City/[facility] Ph one Number MAIN LAB [address] [place] [address] * POC SODIUM (12/26/2019 10:34 AM CDT) Sodium-POC 135 (L) 137 - 147 MMOL/L MAIN LAB Specimen Performing Organization Address City/[facility] Ph one Number MAIN LAB [address] [place] [address] * POC POTASSIUM (12/26/2019 10:34 AM CDT) Potassium-POC 4.8 3.5 - 5.1 MMOL/L MAIN LAB Specimen Performing Organization Address City/[facility] Number MAIN LAB [address] [place] [address] * POC HEMATOCRIT (12/26/2019 10:34 AM CDT) Hemoglobin POC 9.9 (L) 12.0 - 15.0 GM/DL MAIN LAB Hematocrit POC 29.0 (L) 36 - 45 % MAIN LAB Specimen Performing Organization Address City/State/Zipcode Ph one Number MAIN LAB [address] [place] [address] * POC BLOOD GAS ARTERIAL (12/26/2019 10:34 AM CDT) PH-ART-POC 7.39 7.35 - 7.45 KU MAIN LAB BNC1-JKA-BIP 46 (H) 35 - 45 MMHG KU MAIN LAB PO2-ART-POC 143 (H) 80 - 100 MMHG KU MAIN LAB Base Ex-ART-POC 2.0 MMOL/L KU MAIN LAB O2 Sat-ART-POC 99.0 95 - 99 % KU MAIN LAB Bicarbonate-ART 27.5 21 - 28 MMOL/L KU MAIN LAB -POC Specimen Performing Organization Address City/State/[facility] Ph one Number MAIN LAB [address] [place] [address] * POC GLUCOSE (12/26/2019 10:31 AM CDT) Glucose, POC 327 (H) 70 - 100 MG/DL KU MAIN LAB Specimen Performing Organization Address City/State/[facility] Ph one Number MAIN LAB [address] [place] [address] * POC ACTIVATED CLOTTING TIME (12/26/2019 10:30 AM CDT) Activated 223 s MAIN LAB Clotting Time Specimen Performing Organization Address City/[facility] Ph one Number MAIN LAB [address] [place] [address] * TYPE & CROSSMATCH (12/26/2019 7:38 AM CDT) Units Ordered 4 MAIN LAB Crossmatch 12/29/2019,2359 KU MAIN LAB Expires Record Check FOUND KU MAIN LAB ABO/RH(D) O POS MAIN LAB Antibody Screen NEG MAIN LAB Electronic YES MAIN LAB Crossmatch Unit Number [id number] MAIN LAB Blood Component RBC,ADSOL,LEUKO REDUCED MAIN LAB Type Unit Division 0 MAIN LAB Status OF Unit REL FROM ALLOC MAIN LAB Transfusion OK TO TRANSFUSE MAIN LAB Status Crossmatch COMPATIBLE,ELECTRONIC MAIN LAB Result Unit Number [id number] MAIN LAB Blood Component RBC,ADSOL,LEUKO REDUCED MAIN LAB Type Unit Division 0 MAIN LAB Status OF Unit REL FROM ALLOC MAIN LAB Transfusion OK TO TRANSFUSE KU MAIN LAB Status Crossmatch COMPATIBLE,ELECTRONIC KU MAIN LAB Result Unit Number [id number] K[facility] MAIN LAB Blood Component RBC,ADSOL,LEUKO REDUCED KU MAIN LAB Type Unit Division 0 KU MAIN LAB Status OF Unit REL FROM ALLOC KU MAIN LAB Transfusion OK TO TRANSFUSE KU MAIN LAB Status Crossmatch COMPATIBLE,ELECTRONIC KU MAIN LAB Result Unit Number [id number] [facility] MAIN LAB Blood Component RBC,ADSOL,LEUKO REDUCED KU MAIN LAB Type Unit Division 0 KU MAIN LAB Status OF Unit REL FROM ALLOC KU MAIN LAB Transfusion OK TO TRANSFUSE KU MAIN LAB Status Crossmatch COMPATIBLE,ELECTRONIC K[facility] MAIN LAB Result Specimen Blood Performing Organization Address City/State/Zipcode Ph one Number MAIN LAB [address] [place] [address] * POC GLUCOSE (12/26/2019 7:37 AM CDT) [facility] Signature Glucose, POC 360 (H) 70 - 100 MG/DL K[facility] MAIN LAB Specimen Performing Organization Address [facility] Ph one Number MAIN LAB [address] [place] [address] * TELEMETRY STRIPS-SCAN (12/26/2019 12:00 AM CDT) [...] ot available. Ordered by an unspecified provider. documented in this encounter Visit Diagnoses Diagnosis Aortic valve stenosis, etiology of card iac valve disease unspecified Contrast media allergy Allergy to radiographic dye Acute on chronic diastolic CHF (congest jeffrey heart failure), NYHA class 3 (HCC) Acute on chronic diastolic heart failur e Bilateral carotid artery stenosis Occlusion and stenosis of multiple and bilateral precerebral arteries without mention of cerebral infarction Chronic obstructive pulmonary disease, unspecified COPD type ([facility]) Mixed hyperlipidemia Essential hypertension Unspecified essential hypertension Class 2 severe obesity due to excess ca lories with serious comorbidity and body mass index (BMI) of 36.0 to 36.9 in adult (HCC) ANCA on CPAP Obstructive sleep apnea (adult) ([facility]) PAD (peripheral artery disease) ([facility]) Peripheral vascular disease, unspecifie d Chronic pulmonary embolism, unspecified pulmonary embolism type, unspecified whether acute cor pulmonale present ([facility]) S/P TAVR (transcatheter aortic valve re placement) Heart valve replaced by other means Type 2 diabetes mellitus with other cir culatory complication, with long-term current use of insulin ([facility]) Coronary artery disease due to calcifie d coronary lesion Status post coronary artery bypass maged t Postsurgical aortocoronary bypass statu s Hypertension Unspecified essential hypertension Coronary artery disease involving nativ e coronary artery of [place] heart without angina pectoris HLD (hyperlipidemia) Other and unspecified hyperlipidemia Hyperlipidemia Other and unspecified hyperlipidemia Obese Obesity, unspecified PVD (peripheral vascular disease) ([facility]) Peripheral vascular disease, unspecifie d Pulmonary embolism (HCC) Other pulmonary embolism and infarction Bilateral carotid artery disease ([facility]) Unspecified disorders of arteries and a rterioles Acute on chronic diastolic heart failur e (HCC) Acute on chronic diastolic heart failur e MRSA cellulitis Cellulitis and abscess of unspecified s ite Nonrheumatic aortic valve stenosis Aortic valve disorders Anticoagulated Long-term (current) use of anticoagulan ts Requires continuous at home supplementa l oxygen CVA (cerebral vascular accident) ([facility]) Unspecified cerebral artery occlusion w ith cerebral infarction Thrombocytopenia ([facility]) Thrombocytopenia, unspecified Postoperative anemia due to acute blood loss Acute posthemorrhagic anemia documented in this encounter Administered Medications Action Date Dose Rate Site Medication Order MAR Action 12/28/2019 3:45 PM CDT 325 mg acetaminophen (TYLENOL) tablet 325 mg Given 325 mg, Oral, EVERY 6 HOURS PRN, Starting Mon12/27/19 at 0922, Until 12/28/19 at 1847, Pain non-opioid: may be used alone or in combination with opioi d analgesia, Temp > 38.5 C, TOTAL ACETAMINOPHEN DOSE NOT TO EXCEED 4GM DAILY., 325 mg Given 12/28/2019 9:04 AM CDT 12/26/2019 2:35 PM CDT 650 mg acetaminophen (TYLENOL) tablet 650 mg Given 650 mg, Oral, EVERY 6 HOURS PRN, Starting Mon12/26/19 at 1153, Until Mon12/27/19 at 0922, Pain non-opioid: may be used alone or in combination with opioi d analgesia, Temp > 38.5 C, TOTAL ACETAMINOPHEN DOSE NOT TO EXCEED 4GM DAILY., albuterol sulfate (PROAIR HFA) inhaler 2 puff 2 puff, Inhalation, RT NEEDED, Starting Mon12/27/19 at 1415, Until Mon12/28/19 at 1847, RT PROTOCOL, When administered by RT, will be per RT policy., 12/27/2019 8:50 PM CDT 5 mg ARIPiprazole (ABILIFY) tablet 5 mg Given 5 mg, Oral, AT BEDTIME DAILY, First dos e on Christie 12/26/19 at 2100, Until Discontinued 5 mg Given 12/26/2019 10:34 PM CDT 12/28/2019 9:04 AM CDT 81 mg aspirin chewable tablet 81 mg Given 81 mg, Oral, DAILY, First dose on Christie 12/26/19 at 1200, Until Discontinued, Hold for platelet count <80K., 81 mg Given 12/27/2019 9:17 AM CDT 12/27/2019 8:49 PM CDT 80 mg atorvastatin (LIPITOR) tablet 80 mg Given 80 mg, Oral, AT BEDTIME DAILY, First dose on Christie 12/26/19 at 2100, Until Discontinued 80 mg Given 12/26/2019 10:35 PM CDT 12/26/2019 12:36 PM CDT 1 mg bumetanide (BUMEX) injection 1 mg Given 1 mg, Intravenous, ONCE, 1 dose, [facility] 12/26/19 at 1230, PROTECT FROM LIGHT, 12/27/2019 8:49 PM CDT 40 mg citalopram (CeleXA) tablet 40 mg Given 40 mg, Oral, AT BEDTIME DAILY, First dose on Christie 12/26/19 at 2100, Until Discontinued 40 mg Given 12/26/2019 10:33 PM CDT 12/26/2019 7:56 AM CDT 50 mg diphenhydrAMINE (BENADRYL) capsule 50 mg Given 50 mg, Oral, ONCE, 1 dose, [facility] 12/26/19 at 0700, Pre-Op DIPHENHYDRAMINE HCL 25 MG PO CAP (Cabinet Override) NOW, 1 dose, Christie 12/26/19 at 0800, Created by cabinet override, Created by cabinet override, 12/26/2019 7:57 AM CDT 20 mg famotidine (PEPCID) tablet 20 mg Given 20 mg, Oral, ONCE, 1 dose, Christie 12/26/19 at 0700, Pre-Op FAMOTIDINE 20 MG PO TAB (Cabinet Override) NOW, 1 dose, Christie 12/26/19 at 0800, Created by cabinekerrie override, Created by cabinet override, 12/27/2019 9:18 AM CDT 2 sprays fluticasone propionate (FLONASE) nasal Given spray 2 spray 2 spray, Each Nostril, DAILY, First dos e on Mon12/27/19 at 0900, Until Discontinued 12/28/2019 3:45 PM CDT 100 mg gabapentin (NEURONTIN) capsule 100 mg Given 100 mg, Oral, THREE TIMES DAILY, First dose on Christie 12/26/19 at 1500, Until Discontinued 100 mg Given 12/28/2019 9:04 AM CDT 100 mg Given 12/27/2019 8:48 PM CDT 12/26/2019 10:34 PM CDT 1 tablet HYDROcodone/acetaminophen (NORCO) 5/325 Given mg tablet 1 tablet 1 tablet, Oral, ONCE, 1 dose, [facility] 12/26/19 at 2100, TOTAL ACETAMINOPHEN DOSE NOT TO EXCEED 4GM DAILY NOTE: This is a HIGH ALERT Medication., 12/27/2019 10:07 PM CDT 1 tablet HYDROcodone/acetaminophen (NORCO) 5/325 Given mg tablet 1 tablet 1 tablet, Oral, EVERY 4 HOURS PRN, Starting Mon12/27/19 at 0922, Until 12/28/19 at 1847, Pain PO, TOTAL ACETAMINOPHEN DOSE NOT TO EXCEED 4GM DAILY NOTE: This is a HIGH ALERT Medication., 1 tablet Given 12/27/2019 10:27 AM CDT 12/28/2019 12:44 PM CDT 18.1 Units insulin pump -ASPART- Patients Own Given by SubQ Pump, THREE TIMES DAILY WITH MEALS Patient/Fami & PRN, First dose on 12/28/19 at 0800, ly Until Discontinued, This order is for a patient's own insulin pump in accordanc e with the Hospital's Insulin Pump (Non-Obstetric) policy. This order is for documentation of boluses delivered by the patient via the insulin pump. Please record units of insulin administered and grams of carbs consumed. Basal rate - 1.9 units/hr Bolus - 1:8 carbohydrate ratio ISF - 25 Target - 100-120, 11.1 Units Given by Patient/Family 12/28/2019 9:30 AM CDT 12/27/2019 4:30 PM CDT 4 Units/hr 4 mL/hr insulin regular 100 units/NS 100 mL IV Dose/Rate drip (premade) Change 100 mL, 1-32 Units/hr (1-32 mL/hr), at 1-32 mL/hr, Intravenous, TITRATE DIRECTED , Starting Christie 12/26/19 at 0800, Until Mon12/27/19 at 1715, (Administration Instructions were omitted from this summary because they were too long), 6 Units/hr 6 mL/hr Dose/Rate Change 12/27/2019 2:29 PM CDT 4 Units/hr 4 mL/hr Dose/Rate Verify 12/27/2019 1:29 PM CDT 12/26/2019 10:33 PM CDT 800 mg magnesium oxide (MAG-OX) tablet 800 mg Given 800 mg, Oral, ONCE, 1 dose, Christie 12/26/19 at 2100, Delivers 241.3mg elemental magnesium per tab, magnesium sulfate 1 g/D5W 100 mL IVPB 1 g, Intravenous, 100 mL, Administer over 1 Hours, NEEDED, Starting Christie 12/26/19 at 1153, Until 12/28/19 at 1847, Other..., magnesium replacement (see Admin Instructions), If urine output < 30 mL/hr or SCr >2 mg/dL, chec k with physician prior to giving magnesiu m replacement. - For Serum Magnesium > 2.1 mg/dL, No replacement necessary. - For Serum Magnesium 1.8 - 2.0 mg/dL, give Magnesium Sulfate 2 grams IV over 2 hours. - For Serum Magnesium 1.6 - 1.7 mg/dL, give Magnesium Sulfate 3 grams I V over 3 hours. - For Serum Magnesium 1. 3 - 1.5 mg/dL, give Magnesium Sulfate 4 grams IV over 4 hours. - For Serum Magnesium < = 1.2 mg/dL, give Magnesium Sulfate 6 grams IV over 6 hours AND notify physician. Recheck serum magnesium level 2 hours after completio n of appropriate replacement dose. Repeat this standing order x 1. Notify physician if serum magnesium < 2.1 mg/d L after two replacements. Infuse each 1gm Magnesium sulfate over 1 hour. Each 1 gm delivers 8.1 mEq Magnesium., 12/27/2019 7:44 AM CDT 1 g 100 mL/hr magnesium sulfate 1 g/D5W 100 mL IVPB Given - New 1 g, Intravenous, 100 mL, Administer Bag over 1 Hours, EVERY 1 HOUR FOR 2 DOSES , 2 doses, First dose on Mon12/27/19 at 0600, Last dose on Mon12/27/19 at 0700, Each 1gm delivers 8.1 mEq Magnesium., 1 g 100 mL/hr Given - New Bag 12/27/2019 5:34 AM CDT 12/26/2019 12:52 PM CDT 4 g 12.5 mL/hr magnesium sulfate 4 g/50 mL IVPB Given - New 4 g, Intravenous, 50 mL, Administer over Bag 4 Hours, ONCE, 1 dose, Christie 12/26/19 at 1345, Each 1gm delivers 8.1 mEq Magnesium, MAGNESIUM SULFATE IN WATER 4 GRAM/50 ML (8 %) IV PGBK (Cabinet Override) NOW, 1 dose, Christie 12/26/19 at 1300, Created by cabinet override, Created by cabinet override, 12/27/2019 8:48 PM CDT [address] (PROTONIX) tablet 40 mg Given 40 mg, Oral, DAILY, First dose on Christie 12/26/19 at 2100, Until Discontinued, Do not crush or chew tablet., 40 mg Given 12/26/2019 10:33 PM CDT 12/26/2019 1:14 PM CDT 10 mEq 50 mL/hr potassium chloride in water IVPB 10 mEq Given - New 10 mEq, Intravenous, 50 mL, Administer Bag over 60 Minutes, NEEDED, Starting Th u 12/26/19 at 1153, Until 12/28/19 at 1847, See admin instructions, Use table t or suspension if patient tolerating PO; use IV if not tolerating PO. It urine output <30 mL/hr or SCr >2 mg/dL, check with physician prior to giving K+ replacement. - For K+ 4.0-4.3, give potassium chloride 10 mEq IV over 1 hour* - For K+ 3.5-3.9, give potassium chloride 20 mEq IV over 2 hours* - For K+ 3.0-3.4, give potassium chloride 30 mEq IV over 3 hours* - For K+ <3, give potassium chloride 40 mEq IV over 4 hours* - *May increase rate to 20 mEq/h r if patient has central line - Check K+ 1 hour after end of each replacement dose . Follow K+ replacement orders based on result. NOTE: This is a HIGH ALERT Medication., 10 mEq 50 mL/hr Given - New Bag 12/26/2019 12:52 PM CDT potassium chloride oral solution 20-40 mEq 20-40 mEq, Per NG tube, NEEDED, Starting Christie 12/26/19 at 1153, Until 12/28/19 at 1847, Other..., See admin instructions, If urine output <30 mL/hr or SCr >2 mg/dL, check with physician prior to giving K+ replacement. - For K + 4.0-4.3, give potassium chloride 20 mEq PO/NG x 1 dose - For K+ 3.5-3.9, give potassium chloride 40 mEq PO/NG x 1 dos e - For K+ <3.5, give potassium chloride 40 mEq PO/NG every 4 hours x 2 doses - Check K+ in the AM if potassium >= 3.5 and replacement given - Check K+ 4 hour s after last replacement dose given if K+ <3.5, then repeat replacement orders if needed. , 12/26/2019 10:45 PM CDT 20 mEq potassium chloride SR (K-DUR) tablet Given 20-40 mEq 20-40 mEq, Oral, NEEDED, Starting Th u 12/26/19 at 1153, Until 12/28/19 at 1847, Other..., See admin instructions, If urine output <30 mL/hr or SCr >2 mg/dL, check with physician prior to giving K+ replacement. - For K+ 4.0-4.3 , give potassium chloride 20 mEq PO/NG x 1 dose - For K+ 3.5-3.9, give potassium chloride 40 mEq PO/NG x 1 dose - For K+ <3.5, give potassium chloride 40 mEq PO/NG every 4 hours x 2 doses - Check K + in the AM if potassium >= 3.5 and replacement given - Check K+ 4 hours after last replacement dose given if K+ <3.5, then repeat replacement orders if needed. , 12/27/2019 5:34 AM CDT 40 mEq potassium chloride SR (K-DUR) tablet 40 Given mEq 40 mEq, Oral, ONCE, 1 dose, Mon12/27/19 at 0615, - Tablet may be dispersed in water. Place tab in 30 mL of water for 40-60 seconds. - Gently swirl until fully dispersed. If particles remain after admin, add small amount of water and admin remaining content. - DO NOT CRUSH. Tablet may be split in half. , 12/27/2019 5:16 PM CDT 20 mg rivaroxaban (XARELTO) tablet 20 mg Given 20 mg, Oral, DAILY WITH DINNER, First dose on Mon12/26/19 at 1700, Until Discontinued, Administer with food. NOTE: This is a HIGH ALERT Medication., 20 mg Given 12/26/2019 4:05 PM CDT 12/28/2019 9:04 AM CDT 2 tablets senna/docusate (SENOKOT-S) tablet 2 Given tablet 2 tablet, Oral, TWICE DAILY, First dose on Mon12/26/19 at 1200, Until Discontinued, Hold for loose stools, 2 tablets Given 12/27/2019 8:49 PM CDT 2 tablets Given 12/26/2019 10:33 PM CDT 12/26/2019 7:45 AM CDT 20 mL/hr sodium chloride 0.9 % infusion Given - New 1,000 mL, Intravenous, at 20 mL/hr, Bag CONTINUOUS, Starting Mon12/26/19 at 0700, Until Mon12/26/19 at 1200, Pre-Op 12/26/2019 12:07 PM CDT 30 mL/hr sodium chloride 0.9 % infusion Dose/Rate 1,000 mL, Intravenous, at 30 mL/hr, Verify CONTINUOUS, Starting Mon12/26/19 at 1200, Until Mon12/27/19 at 0836 SODIUM CHLORIDE 0.9 % IV SOLP (Cabinet Override) NOW, 1 dose, Mon12/26/19 at 0600, Created by cabinet override, Created by cabinet override, 12/27/2019 8:48 PM CDT 150 mg traZODone (DESYREL) tablet 150 mg Given 150 mg, Oral, AT BEDTIME PRN, Starting Christie 12/26/19 at 1647, Until 12/28/19 a t 1847, Insomnia 150 mg Given 12/26/2019 8:09 PM CDT 12/27/2019 9:18 AM CDT 1,500 mg 187 mL/hr vancomycin (VANCOCIN) 1,500 mg in sodium Given - New chloride 0.9% (NS) IVPB Bag 1,500 mg (rounded from 1,497 mg = 15 mg/kg 99.8 kg), Intravenous, 280 mL, Administer over 90 Minutes, EVERY 24 HOURS, 1 dose, First dose on Mon12/27/19 at 0930, Give first dose at 12 hours after initial dose in the operating room. Note Pharmacokinetic Monitoring: Please record infusion start time (Action= Given) and stop time (Action= Completed) of dose when blood levels ar e drawn., for patients allergic to B-lactam, documented in this encounter
--- OUTSIDE RECORDS SUMMARY | 2020-03-02 17:46 | XMS REPORT | Encounter Summary ---
Author Author [facility] Organization [facility] Address Unknown Phone Unavailable Care Team Providers Care Eating Disorder Psychologist Name Role Phone Bishnu Martin MD Unavailable Chata Chau DPM Unavailable Jesus López MD PCP Encounter Details Care Team Description Date Type Department 12/26/2019 Travel Social History Date Tobacco Use Types [...] Status Date of Assessment Functional Status Response 07/15/2016 Does the patient have a hearing impairment: [...]
--- OUTSIDE RECORDS SUMMARY | 2020-03-02 17:47 | XMS REPORT | Encounter Summary ---
Author Author [facility] Organization [facility] Address Unknown Phone Unavailable Care Team Providers Care Tong Hooker Name Role Phone Bishnu Martin MD Unavailable Chata Chau DPM Unavailable SelfChristy MD PCP Reason for Visit * Auth/Cert Referred By Contact Referred To Contact Status Reason Specialty Diagnoses / Procedures Diagnoses Nonrheumatic aortic valve stenosis Nonrheumatic aortic valve stenosis [I35.0] P rocedures VA REPLACE AORTIC VALVE PERQ FEMORAL ARTRY APPROACH PERCUTANEOUS TRANSCATHETER REPLACEMENT AORTIC VALVE - FEMORAL ARTERY-gregoria, left common femoral, 26s3 *ICU* Encounter Details Care Team Description Date Type Department Nando Lemus (Trip) Arcenio MENA MD [address] [phone] PERCUTANEOUS TRANSCATHETER REPLACEMENT A ORTIC VALVE - FEMORAL ARTERY-gregoria, left common femoral, 26s3 *ICU* 12/26/2019 Surgery [facility] OR [address] [place], [place] [id number] Social History Date Tobacco Use Types Packs/Day [...] artery disease (HCC) moderate disease Breast cancer (HCC) 2007 Right- lumpectomy and radiation CAD (coronary artery disease) CHF (congestive heart failure) (HCC) Chronic back pain with spinal nerve stimulator Contrast media allergy COPD, severe ([facility]) CVA (cerebral vascular accident) ([facility]) DM (diabetes mellitus) ([facility]) Family history of premature CAD Gastroparesis Heart murmur Hyperlipidemia Hypertension MRSA cellulitis 2006 right leg vein harvest site Myocardial infarction ([facility]) 2006, ~2004 Total of 3 Neuropathy Obese Obesity, Class II, BMI 35-39.9 ANCA on CPAP with supplemental O2 Osteoporosis PAD (peripheral artery disease) ([facility]) s/p bilateral iliac stents Pulmonary embolism ([facility]) PVD (peripheral vascular disease) ([facility]) Requires continuous at home supplemental oxygen S/P CABG (coronary artery bypass graft) 2006 [facility] in [place], [place] Allergies: Adhesive tape (rosins); Erythromycin; Pcn [...] Course: The patient was admitted to [facility] for elective transcatheter aortic valve replacement. The patient underwen t the procedure and tolerated it well. She was monitored in the cardiothoracic intensive care unit following surgery. Endocrinology was consulted to assist wi th managing the patient's insulin pump. Her rhythm [...] day#2. She will follow up with her PC P for continued diabetes management. Her FORKLIFT TRUCK OPERATOR coreg was not resumed due to labil e blood pressure. Condition at Discharge: Stable Discharge Diagnoses: Hospital Problems Active Problems * (Principal) S/P TAVR (transcatheter aortic valve replacement) Hypertension CAD (coronary artery disease) COPD (chronic obstructive pulmonary disease) ([facility]) HLD (hyperlipidemia) Status post coronary artery bypass graft Type 2 diabetes mellitus with circulatory disorder, with long-term current use of insulin (HCC) Contrast media allergy Hyperlipidemia Obese PVD (peripheral vascular disease) (HCC) Pulmonary embolism (HCC) Requires continuous at home [...] you can call a dietitia n at [phone]. Other Activity Restrictions -You should and need [...] is fully healed. If your surgeon used [place] lin (skin glue), this will fall off [...] appointment will follow at 3pm. Provider DINA HAMILTON [[id number]] Location Cardiology Clinic Appointment date: 01/23/2020 Appointment time: 2:00 PM Return Appointment Call to schedule an appointment with your primary care doctor in 1-2 weeks for a check up and medication review. Address your blood glucose levels at this aldo ointment as well. Provider CHRISTY MORA [[id number]] Cardiac Rehab Your physician has referred you to [facility] Contact [facility] Cardiac Rehabilitation Departme nt at [phone] to schedule an appointment. If you will [...] is not lasting long enough, call yo doctor. *Do not break or crush your [...] To register for smoking cessation program call [phone] or visit www.smokefree.gov Diabetes Risk Goal: Non-diabetic: [...] you can call a deng randall at [phone] Physical Activity Risk Goal: Patients should have approval by a physician prior to beginning an exercis e program. Plan: Try to get at least 30 minutes of moderate physical activity five days a w atka or 20 minutes of vigorous physical activity [...] Contact your primary care provi mckay or automatic lump making machine tender for an antibiotic prescription when needed. Questions About Your Stay For questions or concerns regarding your hospital stay. Call [phone] Discharging attending physician: NANDO LEMUS ([place]) Arcenio MENA [[id number]] Return Appointment [facility] Provider DINA HAMILTON [[id number]] Location [facility] Appointment date: 01/02/2020 Appointment time: 4:30 PM [...] education. The class is held in the [facility] [place] on the 5th Floor of the Medical Office Building, every Monday f rom 2:00 PM - 3:00 PM. The class is not held on actual or observed holidays. Iain cosme call [phone] to let us know when you plan on attending. There is no cost and we will not bill your insurance. More diabetes education and individual nutrition appointments are offered at the [facility]. Most insurance plans cover these services if you have a r eferral from your doctor. Call [phone], option 3 or go to [email or web address] for details. insulin pen needles not needed [...] (FLONASE) 50 mcg/actuation nasal spray Apply 1 Schwertner to each nostril as directed twice daily. [...] CDT Return Patient with MARI Cruz [facility] (CVM Exam) [address] [address] January 23, 2020 2:00 PM CDT Echo Doppler with [facility] SPECIAL PROC/RESEARCH [facility] (CVM Procedural) [address] [address] January 23, 2020 3:00 PM CDT Return Patient with MARI Cruz [facility] (CVM Exam) [address] [address] Pending items needing follow up: Check your blood [facility]30[facility] and 4:30pm to ensure the level is normalizing. Signed: Madeline Wilkins PA-C 12/28/2019 cc: Primary Care Physician: Christy Mora Referring physicians: Cameron, Dina D, A* Additional provider(s): Referral to outpatient cardiac [...] bedtime daily. fluticasone (FLONASE) 50 Apply 1 Schwertner 0 mcg/actuation nasal spray to each nostril [...] of this encounter Progress Notes * Samaria Lobo, RN - 12/28/2019 1:05 PM CDT 1305: [...] levels WNL. Patient's spouse on way to worm picker patient for d/c. 1645: Patient escorted via [...] (peripheral vascular disease) (HCC) Pulmonary embolism (HCC) Requires continuous at home [...] assistance in management of insulin drip and FORKLIFT TRUCK OPERATOR pump. Type 2 Diabetes Mellitus Steroid induced hyperglycemia -Diagnosed: 1984 -A1c 6.8 (12/23) -FORKLIFT TRUCK OPERATOR regimen: insulin pump (medtronic, 1.9 unit bolus, [...] hypoglycemia -Follows with Dr. Mora (PCP) in [place] -Diabetic-complications assessment: Retinopathy: denies Peripheral neuropathy: yes, bilateral feet Gastroparesis: yes Autonomic neuropathy: denies Nephropathy: pt reports yes, last urine prot:cr ratio 8.9 mg/g 10/31/2017 Macrovascular complications: [place], [place] Risk factor assessment: Last lipid profile - [...] 15 units of insulin via drip from 3894-1408 12/26, equates 2.5 units/hr basal rate - [...] bolus of 1:8 carb ratio, target 110-120 -breastfeeding educator consult to provide education on priming her insulin pump, aldo reciate their help Okay to discharge from a diabetes standpoint. Blood sugars will likely decrease over the day and improve as further out from prednisone. (last dose on 12/25) Follow up: will be with her PCP in [place] (she has appt in January and have [...] mg, 325 mg, Oral, Q6H PRN, Codi Kumar, RUBBER VULCANIZING MACHINE OPERATOR, 325 mg at 12/28/19 0904 albuterol sulfate (PROAIR HFA) inhaler 2 puff, 2 puff, Inhalation, PRN, Nando Serrano (Trip) Arcenio MENA MD ARIPiprazole (ABILIFY) tablet 5 mg, 5 mg, Oral, QHS, Mildred Carrillo APRN- HAM TRIMMER, 5 mg at 12/27/19 205 aspirin chewable tablet 81 mg, 81 mg, Oral, QDAY, Mildred Carrillo APRN-HAM TRIMMER, 81 mg at 12/28/19 0904 atorvastatin (LIPITOR) tablet 80 mg, 80 mg, Oral, QHS, Mildred Carrillo APR N-HAM TRIMMER, 80 mg at 12/27/192048 bisacodyL (DULCOLAX) rectal suppository 10 mg, 10 mg, Rectal, QDAY PRN, Mildred Marie APRN-HAM TRIMMER citalopram (CeleXA) tablet 40 mg, 40 mg, Oral, QHS, Mildred Carrillo APRN-N P, 40 mg at 12/27/192048 fluticasone propionate (FLONASE) nasal spray 2 spray, 2 spray, Each Nostril , QDAY, Modesta Walton MD, 2 spray at 12/27/19917 gabapentin (NEURONTIN) capsule 100 mg, 100 mg, Oral, TID, Mildred Carrillo APRN-HAM TRIMMER, 100 mg at 12/28/1904 hydrALAZINE (APRESOLINE) injection 10 mg, 10 mg, Intravenous, Q6H PRN, Mildred Terry APRN-HAM TRIMMER HYDROcodone/acetaminophen (NORCO) 5/325 mg tablet 1 tablet, 1 tablet, Oral, Q4H PRN, Shelley Kumar APRN, 1 tablet at 12/27/197 Insulin Pump User Patient Agreement Form, , , Once AND insulin pump - PART- Patients Own, , SubQ Pump, TID w/ Meals & PRN, Meaghan Red MD, 11.1 Units at 12/28/19 0930 magnesium sulfate 1 g/D5W 100 mL IVPB, 1 g, Intravenous, PRN AND Magn esium, , , PRN AND Notify Physician, , , Ongoing, Mildred Carrillo APRN-NP milk of magnesia (CONC) oral suspension 10 mL, 10 mL, Oral, QDAY PRN, Mildred Carrillo APRN-HAM TRIMMER ondansetron (ZOFRAN) injection 4 mg, 4 mg, Intravenous, Q6H PRN, Deshawn Carrillo APRN-MEGAN pantoprazole DR (PROTONIX) tablet 40 mg, 40 mg, Oral, QDAY(21), Franky Carrillo, RUBBER VULCANIZING MACHINE OPERATOR-HAM TRIMMER, 40 mg at 12/27/198 potassium chloride SR (K-DUR) tablet 20-40 mEq, 20-40 mEq, Oral, PRN, 20 mE q at 12/26/19 2245 OR potassium chloride oral solution 20-40 mEq, 20-40 mEq, Per NG tube, PRN OR potassium chloride in water IVPB 10 mEq, 10 mEq, Intrav enous, PRN, Mildred Carrillo, RUBBER VULCANIZING MACHINE OPERATOR-HAM TRIMMER, Last Rate: 50 mL/hr at 12/26/19 1314, 10 m Eq at 12/26/19 1314 prochlorperazine (COMPAZINE) rectal suppository 25 mg, 25 mg, Rectal, Q6H P RN, Mildred Carrillo, RUBBER VULCANIZING MACHINE OPERATOR-HAM TRIMMER rivaroxaban (XARELTO) tablet 20 mg, 20 mg, Oral, QDAY w/dinner, Franky Carrillo, RUBBER VULCANIZING MACHINE OPERATOR-HAM TRIMMER, 20 mg at 12/27/19 1716 senna/docusate (SENOKOT-S) tablet 2 tablet, 2 tablet, Oral, BID, Deshawn Carrillo, RUBBER VULCANIZING MACHINE OPERATOR-HAM TRIMMER, 2 tablet at 12/28/19 0904 traZODone (DESYREL) tablet 150 mg, 150 mg, Oral, QHS PRN, Margarita Olivo AP RN, 150 mg at 12/27/19 2048 Lab/Radiology/Other Diagnostic Tests: 24-hour labs: Results for [...] - 100 MG/DL Glucose: (!) 217 (12/28/19 0450) POC Glucose (Download): (!) 225 (12/28/19912) Pertinent radiology reviewed. Associated attestation - Ion Alanis MD - 12/28/2019 11:53 AM CDT ATTESTATION I personally performed the jackson portions of the E/M visit, discussed case with re sident and concur with resident documentation of history, physical exam, assessm ent, and treatment plan unless otherwise noted. I agreed with Dr. Barahona's note I have reviewed diabetes plan with the patiestela t. She will follow up with Dr. Mora as an outpatient for diabetes management She has all her insulin and pump supplies. She was seen by diabetes education kerrie avery. Staff name: Ion Alanis MD Date: 12/28/2019 * Madeline Wilkins PA-C - 12/28/2019 6:48 AM CDT Cardiothoracic Surgery Progress Note Kvng Rg Prafuladams Today's Date: 12/28/2019 Admission Date: 12/26/2019 LOS: 2 days POD: 2 Procedure: 12/26/19 - PERCUTANEOUS TRANSCATHETER REPLACEMENT AORTIC VALVE - FEMOR AL ARTERY-gregoria, left common femoral, 26s3 *ICU*: 73042 (CPT) Principal Problem: S/P TAVR (transcatheter aortic valve replacement) Active Problems: Hypertension CAD (coronary artery disease) COPD (chronic obstructive pulmonary disease) ([facility]) HLD (hyperlipidemia) Status post coronary artery bypass graft Type 2 diabetes mellitus with circulatory disorder, with long-term current use of insulin (HCC) Contrast media allergy Hyperlipidemia Obese PVD (peripheral vascular disease) ([facility]) Pulmonary embolism (HCC) Requires continuous at home supplemental oxygen ANCA on CPAP MRSA cellulitis Anticoagulated Acute on chronic diastolic CHF (congestive heart failure), NYHA class 3 (HCC) PAD (peripheral artery disease) ([facility]) Bilateral carotid artery disease (HCC) CVA (cerebral vascular accident) (HCC) Thrombocytopenia (HCC) Postoperative anemia due to acute blood loss Subjective: Feels like breathing has improved. Overnight Events: Transferred from CTICU yesterday. Assessment/Plan: Neuro A&O x4, OGLESBY. Continue PRN Tylenol, resume FORKLIFT TRUCK OPERATOR [place]. CV SR, rates 70s-80s. SBP 100-140s. Cont ASA 81 mg, FORKLIFT TRUCK OPERATOR xarelto (for h/o PD ) and statin. Intra op MALINA LVEF 45-50%. Hold FORKLIFT TRUCK OPERATOR coreg 6.25mg and Lisinopril 5m g for now. Resp Daily CXR lungs expanded, atelectasis, pulmonary vascular congestio n. SpO2 93% on 2 L NC, on home O2 @ 2 L. Continue IS, aggressive pulm toilet. Renal Baseline Scr 0.9. Today 0.92. UOP 1.9L/24hr, net -100 mL/24hr, Weight +1.8kg/admission. Resume FORKLIFT TRUCK OPERATOR Bumex. GI - KRISHNA, continue post op bowel regimen. No BM since surgery. ID Afebrile, wbc 4.9. Heme Hgb 9.0-->7.7, plt 86. Monitor anemia/thrombocytopenia. Continue FORKLIFT TRUCK OPERATOR Xarelto for PE, continue mechanical DVT prophylaxis. FEN Hgb A1c 6.8 %. On insulin pump FORKLIFT TRUCK OPERATOR, resumed yesterday. Endocrinology f luiza, appreciate recs. [...] Signs: Last Filed Vital Signs: 24 Hour [facility] BP: 138/60 (12/27 814) Temp: 37.1 C [...] URIAH Reddy unless otherwise noted. * Nydia Ly RN - 12/27/2019 3:32 PM CDT Assessments complete and documented per flowsheet. A/Ox4. VSS. 2L NC. SR on tele. Insulin gtt infusing per MAR. Patient denies pain. Denies nausea. Surgical incision dressings CDI. Ambulating in room with assist x1, fall bundle in place. UOA but inaccurate with missed hat occurrence. Last BM FORKLIFT TRUCK OPERATOR. Call light within reach, will continue to monitor until transferring care to [facility] shift RN. * Cynthia Castanon, PT - 12/27/2019 9:05 AM CDT PHYSICAL [...] Home Equipment: Walker;Cane Prior Function Level Of [place]: Independent with ADLs and functional transfers Lives [...] Requires Equipment: None;Owns what is needed Therapist: NATHAN Lopez/Arcenio Date: 12/27/2019 * Shelley Kumar APRN - 12/27/2019 8:37 AM CDT Cardiothoracic Surgery Critical Care Progress Note Kvng Sumner Today's Date: 12/27/2019 Admission Date: 12/26/2019 LOS: 1 day POD: 1 Procedure: PERCUTANEOUS TRANSCATHETER REPLACEMENT AORTIC VALVE - FEMORAL ARTERY- gregoria, left common femoral, 26s3 *ICU*: 48549 (CPT) Active Problems: Hypertension CAD (coronary artery disease) COPD (chronic obstructive pulmonary disease) ([facility]) HLD (hyperlipidemia) Status post coronary artery bypass graft Type 2 diabetes mellitus with circulatory disorder, with long-term current use of insulin ([facility]) Contrast media allergy Hyperlipidemia Obese PVD (peripheral vascular disease) ([facility]) Pulmonary embolism ([facility]) ANCA on CPAP MRSA cellulitis Acute on chronic diastolic CHF (congestive heart failure), NYHA class 3 ([facility]) PAD (peripheral artery disease) ([facility]) Bilateral carotid artery disease ([facility]) S/P TAVR (transcatheter aortic valve replacement) Assessment/Plan: Neuro A&O x4, OGLESBY. Continue PRN Tylenol, resume FORKLIFT TRUCK OPERATOR [place]. CV SR, rates 70s-80s, no pacing requirements, [...] 2.8 L/24hr, net -10 50 mL/24hr, Resume FORKLIFT TRUCK OPERATOR Bumex. GI - ADAT, continue post op bowel regimen. ID Continue standard post op antibiotic for prophylaxis, per CTS protocol. Heme 9.0, Continue FORKLIFT TRUCK OPERATOR Xarelto for PE, continue mechanical DVT prophylaxis. FEN If creatinine < 2.0, replace Mg and K per CTS post op protocol to minimize cardiac arrhythmias. Hgb A1c 6.8 %.On insulin pump FORKLIFT TRUCK OPERATOR, currently on insulin gtt. Endocrinology following, appreciate [...] floor la ter today. Shelley Kumar APRN [facility] Intensive Care Pager [phone] 12/27/2019 Subjective: HPI: Kvng Sumner is a 69 y.o. female with a history of aortic stenosis, diastolic heart failure, DM II(on insulin pump), history of MRSA- cellulitis,chronic Pulmonary embolism- on Xarelto, ANCA, HTN, HLD, and severe COPD with home oxygen (2L). She is now s/p TAVR on 12/26/2019. 5/: d/c TVP, transfer REVIEW OF SYSTEMS: Constitutional: [...] assistance in management of insulin drip and FORKLIFT TRUCK OPERATOR pump. Type 2 Diabetes Mellitus Steroid induced hyperglycemia -Diagnosed: 1984 -A1c 6.8 (12/23) -FORKLIFT TRUCK OPERATOR regimen: insulin pump (medtronic, 1.9 unit bolus, [...] hypoglycemia -Follows with Dr. Mora (PCP) in [place] -Diabetic-complications assessment: Retinopathy: denies Peripheral neuropathy: yes, bilateral feet Gastroparesis: yes Autonomic neuropathy: denies Nephropathy: pt reports yes, last urine prot:cr ratio 8.9 mg/g 10/31/2017 Macrovascular complications: [place], [place] Risk factor assessment: Last lipid profile - [...] 15 units of insulin via drip from 7850-9852 12/26, equates 2.5 units/hr basal rate Aortic [...] 229* 164* 159* -resumed insulin pump at FORKLIFT TRUCK OPERATOR basal rate of 1.9, bolus of 1:8 carb ratio, target 11-120, pt initiated during our encounter (order placed) -insulin drip discontinued 2 hours after (ordered) -breastfeeding educator consult to provide education on priming her insulin pump Thank you for the consult, we will continue to follow. Seen and discussed with Dr. Alanis. Meaghan Red MD Internal Medicine PGY1 Pager [phone], available on Voalte Subjective: Ms Sumner is [...] Signs: 24 Hour Range BP: 119/48 (12/26 1514) Temp: 37.1 C (98.7 F) (12/26 1514) Pulse: 74 (12/26 1514) Respirations: 16 PER MINUTE (12/26 1514) SpO2: 100 % (12/26 1514) SpO2 Pulse: [...] solution Swish and Spit 15 mL by [facility] as directed after meals and [...] (FLONASE) 50 mcg/actuation nasal spray Apply 1 Schwertner to each nos tril as directed twice [...] 0315) POC Glucose (Download): (!) 159 (12/27/19 171) Pertinent radiology reviewed. Associated attestation - Ion [...] 229* 164* 159* -resumed insulin pump at FORKLIFT TRUCK OPERATOR basal rate of 1.9, bolus of 1:8 carb ratio, target 11-120, pt initiated during our encounter (order placed) -insulin drip discontinued 2 hours after (ordered) -breastfeeding educator consult to provide education on priming her insulin pump I have reviewed with her how to set a temporary basal. She demonstrated a good understanding of the insulin pump and I think was competent to operate the pump. Pump Icing Maker: Medtronic Paradigm Insulin type Humalog Insulin Time: [...] back/feet/hands ~ Lupe Villanueva APRN to order [place] per patient request and home dose. SR ~ 70-80's. Pulses palpable. MAP > 65. TV pacemaker @ 40 VVI, sensitivity 2, output 5 ~ patient has not required/used pacer this shift. 2 L NC ~ baseline Cards/ADA diet. Pt, RN, and RUBBER VULCANIZING MACHINE OPERATOR discussed dietary restrictions for pt while on [...] allergy Hyperlipidemia Obese PVD (peripheral vascular disease) ([facility]) Pulmonary embolism (HCC) ANCA on CPAP MRSA cellulitis Acute on chronic diastolic CHF (congestive heart failure), NYHA class 3 (HCC) PAD (peripheral artery disease) ([facility]) Bilateral carotid artery disease ([facility]) S/P TAVR (transcatheter aortic valve replacement) Date [...] infectious concerns. MD Herson Iyer MD Pager [phone] * Ana M Mendez RN - 12/26/2019 [...] next to her chair. Pt retrieved re adiel coke from personal belongings and drank it. [...] Cardiothoracic Surgery Critical Care Progress Note Kvng Rg Prafuladams Today's Date: 12/26/2019 Admission Date: 12/26/2019 LOS: 0 days POD: 1 Procedure: PERCUTANEOUS TRANSCATHETER REPLACEMENT AORTIC VALVE - FEMORAL ARTERY- gregoria, left common femoral, 26s3 *ICU*: 61626 (CPT) Active Problems: Hypertension CAD (coronary artery disease) COPD (chronic obstructive pulmonary disease) (HCC) HLD (hyperlipidemia) Status post coronary artery bypass graft Type 2 diabetes mellitus with circulatory disorder, with long-term current use of insulin (HCC) Contrast media allergy Hyperlipidemia Obese PVD (peripheral vascular disease) ([facility]) Pulmonary embolism (HCC) ANCA on CPAP MRSA cellulitis Acute on chronic diastolic CHF (congestive heart failure), NYHA class 3 (HCC) PAD (peripheral artery disease) ([facility]) Bilateral carotid artery disease (HCC) S/P [...] and coordination of care. Margarita Olivo APRN [facility] Intensive Care Pager [phone] 12/26/2019 Subjective: HPI: Kvng Sumner is a [...] Vital Signs: 24 Hour Ra nge BP: 182/99 (12/25 0845) Temp: 36.6 C (97.9 F) (12/25 1153) Pulse: 85 (12/25 1215) Respirations: 15 PER MINUTE (12/25 1215) SpO2: 99 % (12/25 1215) SpO2 Pulse: 85 (12/25 1215) Height: 165.1 cm (65") (12/25 0745) BP: (160-182)/(88-99) ABP: (164-202)/(62-82) Temp: [36.5 C [...] Aortic Stenosis Date of Admission: 12/26/2019 Room: [facility]/ : 1950 Insurance: Primary: Medicare Secondary: unknown Address: [address] [place] [address] [address] [place] [address] Patient (home) Marital Status: Occupation: Unknown ED Contact: Gianfranco Yu ED Phone #: CTS: [place] General Inspector: not listed Cardiac Procedures and Events Valve: 12/26/19(TAVR) EF: 55 % Risk Factors Risk Factors: Hypertension, Obesity, Hyperlipidemia, Diabetes-type II BP: (!) 182/99 Height: 165.1 cm (65") Weight: 100.2 kg (220 lb 14.4 oz) BMI (Calculated): 36.76 Medical History has a past medical history of Acute on chronic diastolic CHF (congestive heart failure), NYHA class 3 ([facility]), Anticoagulated, Aortic stenosis, Arthritis, Bilate ral carotid artery disease ([facility]), Breast cancer ([facility]) (2007), CAD (coronary clarence ry disease), CHF (congestive heart failure) ([facility]), Chronic back pain, Contrast m edia allergy, COPD, severe ([facility]), CVA (cerebral vascular accident) ([facility]), DM (di abetes mellitus) ([facility]), Family history of premature CAD, Gastroparesis, Heart mu rmur, Hyperlipidemia, Hypertension, MRSA cellulitis (2005), Myocardial infarctio n ([facility]) (2005, ~2004), Neuropathy, Obese, Obesity, Class II, BMI 35-39.9, ANCA on CPAP, Osteoporosis, PAD (peripheral artery disease) ([facility]), Pulmonary embolism ( [facility]), PVD (peripheral vascular disease) ([facility]), Requires continuous at home suppl emental oxygen, and S/P CABG (coronary artery bypass graft) (2005). Labs Hemoglobin A1C Date Value Ref Range Status 12/24/2019 6.8 (H) 4.0 - 6.0 % Final Comment: The ADA recommends that most patients with type 1 and type 2 diabetes maintain an A1c level <7%. Heart Resource Manual Given: Teaching Completed: Outpatient Cardiopulmonary Rehabilitation Outpatient [facility] Rehab: Referral Faxed to: Date Faxed: Location: If , Sent to Staff: Maryam Aguilar RN 12/26/2019 documented in this encounter H&P Notes * Gerardo Mildred New, RUBBER VULCANIZING MACHINE OPERATOR-HAM TRIMMER - 12/26/2019 8:13 AM CDT Admission History [...] beta b locker dose taken this morning FORKLIFT TRUCK OPERATOR. Pt has a home insulin pump- patient [...] CHF (congestive heart failure), NYHA class 3 ([facility] ) Anticoagulated for PE Aortic stenosis Arthritis Bilateral carotid artery disease (HCC) moderate disease Breast cancer ([facility]) 2007 Right- lumpectomy and radiation CAD (coronary artery disease) CHF (congestive heart failure) ([facility]) Chronic back pain with spinal nerve stimulator Contrast media allergy COPD, severe (HCC) CVA (cerebral vascular accident) ([facility]) DM (diabetes mellitus) ([facility]) Family history of premature CAD Gastroparesis Heart murmur Hyperlipidemia Hypertension MRSA cellulitis 2006 right leg vein harvest site Myocardial infarction (HCC) 2006, ~2005 Total of 3 Neuropathy Obese Obesity, Class II, BMI 35-39.9 ANCA on CPAP with supplemental O2 Osteoporosis PAD (peripheral artery disease) ([facility]) s/p bilateral iliac stents Pulmonary embolism ([facility]) PVD (peripheral vascular disease) ([facility]) Requires continuous at home supplemental oxygen S/P CABG (coronary artery bypass graft) 2006 [facility] in [place], [place] Surgical History: Procedure Laterality Date EYE [...] 10/13/2016 Performed by Gianfranco Conti MD at [facility] OR CATARACT REMOVAL Bilateral 2009, 2010 DENTAL SURGERY 2012, 2013 cheek infection VA EXCISION TUMOR SOFT TISSUE LEG/ANKLE SUBQ 3 [...] file Gets together: Not on file Attends gnosticism service: Not on file Active member of [...] solution Swish and Spit 15 mL by [facility] as directed after meals and [...] (FLONASE) 50 mcg/actuation nasal spray Apply 1 Schwertner to each nos tril as directed twice [...] VLDL POC Glucose (Download): (!) 360 (12/26/19 0734) Pertinent radiology reviewed. STS: 11.143% Frailty: TAVR [...] a valve area of 0.6 cm, severe [place] three-vessel coronary artery disease with patent grafts [...] difficult access. bilateral iliac stents. calcium at TRANSFER AND PUMPHOUSE OPERATOR bilaterally. Likely bes t through left TRANSFER AND PUMPHOUSE OPERATOR. May need to dilate stents. 26 S3. Annular size: 23.9 CXR: 12/23 IMPRESSION 1. Mild cardiomegaly without evidence of pulmonary vascular congestion. 2. Bibasilar opacities, likely atelectasis. COVID-19: Negative 12/23 Mildred Carrillo APRN-MEGAN Available on Voalte. T documented in this encounter Consult Notes * Maryam Sweet RN - 12/28/2019 11:25 AM CDT Associated [...] an insulin pump teaching with a pump industrial trainer after leaving hospital. State that she [...] RN, BSN, CDE Clinical Nurse Excellence - Baked Goods Stock Clerk (P) [phone] (Pager) [phone] 08:00-4:30 weekdays, If no response, please call team pager ([phone]) Diabetic Education Team office [phone]) Available on [employer]. * Meaghan Red MD - 12/26/2019 2:24 [...] assistance in management of insulin drip and FORKLIFT TRUCK OPERATOR pump. Type 2 Diabetes Mellitus Steroid induced hyperglycemia -Diagnosed: 1984 -A1c 6.8 (12/23) -FORKLIFT TRUCK OPERATOR regimen: insulin pump (medtronic, 1.9 unit bolus, [...] hypoglycemia -Follows with Dr. Mora (PCP) in [place] -Diabetic-complications assessment: Retinopathy: denies Peripheral neuropathy: yes, bilateral feet Gastroparesis: yes Autonomic neuropathy: denies Nephropathy: pt reports yes, last urine prot:cr ratio 8.9 mg/g 10/31/2017 Macrovascular complications: PVD, [place] Risk factor assessment: Last lipid profile - [...] Meaghan Red MD Internal Medicine PGY1 Pager [phone], available on Voalte Subjective: Kvng Sumner is a 69 y.o. female with a PMH of aortic stenosis, diastolic hea rt failure, CAD s/p CABG, COPD, type 2 diabetes, HLD, HTN, PAD who was admitted for TAVR on 12/25. Endocrinology has been consulted for assistance in management of insulin drip and FORKLIFT TRUCK OPERATOR insulin pump. Ms Sumner was diagnosed with type 2 diabetes in 1984 and states she has since c onverted to type I DM (DIMITRIS Ab 0 in 2014). She follows with Dr. mora in [facility] tt who is her PCP. Last A1c was 6.8 on 12/23. Her FORKLIFT TRUCK OPERATOR regimen consists of metfo rmin 500 mg [...] CHF (congestive heart failure), NYHA class 3 ([facility] ) Anticoagulated for PE Aortic stenosis Arthritis Bilateral carotid artery disease ([facility]) moderate disease Breast cancer ([facility]) 2007 Right- lumpectomy and radiation CAD (coronary artery disease) CHF (congestive heart failure) ([facility]) Chronic back pain with spinal nerve stimulator Contrast media allergy COPD, severe ([facility]) CVA (cerebral vascular accident) ([facility]) DM (diabetes mellitus) ([facility]) Family history of premature CAD Gastroparesis Heart murmur Hyperlipidemia Hypertension MRSA cellulitis 2006 right leg vein harvest site Myocardial infarction ([facility]) 2005, ~2004 Total of 3 Neuropathy Obese Obesity, Class II, BMI 35-39.9 ANCA on CPAP with supplemental O2 Osteoporosis PAD (peripheral artery disease) ([facility]) s/p bilateral iliac stents Pulmonary embolism ([facility]) PVD (peripheral vascular disease) ([facility]) Requires continuous at home supplemental oxygen S/P CABG (coronary artery bypass graft) 2005 [facility] [place] Surgical History: Procedure Laterality Date EYE [...] CATHERIZATION Bilateral 2011 PERIPHERAL VASCULAR SURGERY Bilateral 2010 Stent placement CARPAL TUNNEL RELEASE Left 2011 SPINE SURGERY 2014 neurostem FOOT SURGERY Right 2015 RADICAL EXCISION OF CHEEK FISTULA, TOOTH EXTRACTION Right 10/13/2016 Performed by Gianfranco Conti MD at [facility] OR CATARACT REMOVAL Bilateral 2009, 2010 DENTAL SURGERY 2012, 2014 cheek infection VA EXCISION TUMOR SOFT TISSUE LEG/ANKLE SUBQ 3 [...] file Gets together: Not on file Attends gnosticism service: Not on file Active member of [...] solution Swish and Spit 15 mL by [facility] as directed after meals and [...] (FLONASE) 50 mcg/actuation nasal spray Apply 1 Schwertner to each nos tril as directed twice [...] Screen NEG Electronic Crossmatch YES Unit Number [id number] Blood Component Type RBC,ADSOL,LEUKO REDUCED Unit Division 0 Status OF Unit REL FROM ALLOC Transfusion Status OK TO TRANSFUSE Crossmatch Result COMPATIBLE,ELECTRONIC Unit Number [id number] Blood Component Type RBC,ADSOL,LEUKO REDUCED Unit Division 0 Status OF Unit REL FROM ALLOC Transfusion Status OK TO TRANSFUSE Crossmatch Result COMPATIBLE,ELECTRONIC Unit Number [id number] Blood Component Type RBC,ADSOL,LEUKO REDUCED Unit Division 0 Status OF Unit REL FROM ALLOC Transfusion Status OK TO TRANSFUSE Crossmatch Result COMPATIBLE,ELECTRONIC Unit Number [id number] Blood Component Type RBC,ADSOL,LEUKO REDUCED Unit Division 0 Status OF Unit REL FROM ALLOC Transfusion Status OK TO TRANSFUSE Crossmatch Result COMPATIBLE,ELECTRONIC POC GLUCOSE Collection Time: 12/26/19 10:31 AM Result Value Ref Range Glucose, POC 327 (H) 70 - 100 MG/DL POC BLOOD GAS ARTERIAL Collection Time: 12/26/19 10:34 AM Result Value Ref Range PH-ART-POC 7.39 7.35 - 7.45 OFC7-CRF-KJC 46 (H) 35 - 45 MMHG PO2-ART-POC 143 (H) 80 - 100 MMHG Base Ex-ART-POC 2.0 MMOL/L O2 Sat-ART-POC 99.0 95 - 99 % Sdwpcmjzzif-PGE-UES 27.5 21 - 28 MMOL/L POC HEMATOCRIT [...] diabetes mellitus type 2 diagnosed initially in . She is under the care of Dr. Christy Mora in [place] and has been under g ood glycemic [...] arise over the weekend, please contact the [facility] and ask for the RNCM director of labor relations. Harleen Saravia BSN, RN CTS Nurse Medical Genetics Director [phone]: [phone] [phone] Cell: [phone] * Care Plan - Margarita Balbuena RN [...] MD (Trip) - 12/26/2019 10:59 AM CDT [address] [address] PATIENT NAME: KVNG SUMNER MR#/PT#: [id number] OPERATIVE REPORT : 1950 DATE OF OPERATION: 12/26/2019 ROOM #: HC3 CV OR OPERATIVE REPORT SURGEON: Nando Lemus [...] ProGlide sutures were p laced and an 8-Greenlandic, and then subsequently the Caputo 14-Greenlandic Esheath was p laced. On the right side, a 5-Greenlandic sheath was positioned. A balloon-tipped t emporary [...] COMPLICATIONS: None. Nando Lemus III, MD (Trip) GLZ/Yasmin Lemus III, MD (Trip) / Yasmin [id number] cc: - Nando Lemus III, MD (Trip) T * Operative Report [...] under the care of Dr. Lynne/Josh [facility] anesthesia service. The anesthesia team monitored the patient's hemodynamic s, airway, and sedation throughout the case. 3. Access was obtained in the right common femoral artery with placement of 5-Fr ench sheath. Access also obtained in the left common femoral artery with placeme nt of an 8-Greenlandic sheath. A dual ProGlide pre-close technique was [...] 5 mmHg. 11. The left common femoral 16-Greenlandic sheath was then removed and the dual [...] Mera RN documented as of this encounter Procedures [...] MG/DL MAIN LAB Specimen Performing Organization Address [facility] Ph one Number MAIN LAB [address] [place] [address] * POC GLUCOSE (12/28/2019 3:36 PM CDT) Glucose, POC 164 (H) 70 - 100 MG/DL MAIN LAB Specimen Performing Organization Address [facility] Ph one Number MAIN LAB [address] [place] [address] * POC GLUCOSE (12/28/2019 2:46 PM CDT) Glucose, POC 201 (H) 70 - 100 MG/DL MAIN LAB Specimen Performing Organization Address [facility]/State/Zipcode Ph one Number MAIN LAB [address] [place] [address] * POC GLUCOSE (12/28/2019 12:36 PM CDT) Glucose, POC 517 (HH) 70 - 100 MG/DL KU MAIN LAB Specimen Performing Organization Address [facility] Ph one Number MAIN LAB [address] [place] [address] * POC GLUCOSE (12/28/2019 9:13 AM CDT) Glucose, POC 225 (H) 70 - 100 MG/DL MAIN LAB Specimen Performing Organization Address [facility] Ph one Number MAIN LAB [address] [place] [address] * CHEST SINGLE VIEW (12/28/2019 6:50 AM [...] on 12/28/2019 7:23 AM. Performing Organization Address [facility] Ph one Number KU RAD RESULTS * CBC (12/28/2019 4:50 AM CDT) White Blood 4.9 4.5 - 11.0 K/UL [...] KU MAIN LAB Specimen Performing Organization Address [facility] Ph one Number KU MAIN LAB [address] [place] [address] * BASIC METABOLIC PANEL (12/28/2019 4:50 AM CDT) Sodium 135 (L) 137 - 147 MMOL/L [...] Non >60 >60 mL/min MAIN LAB Comment: [place]ian The eGFR is not validated f or use in drug dosing adjustments. Continue to use estimated creatinine clearance per dosing reference text. Please contact the Clinical Pharmacist for questions. eGFR >60 >60 mL/min MAIN LAB Croatian Comment: The eGFR is not validated for use in drug dosing adjustments. Continue to use estimated creatinine clearance per dosing reference text. Please contact the Clinical Pharmacist for questions. Specimen Performing Organization Address City/State/Zipcode Ph one Number MAIN LAB [address] [place] [address] * MAGNESIUM (12/28/2019 4:50 AM CDT) Magnesium 2.0 1.6 - 2.6 mg/dL MAIN LAB Specimen Blood Performing Organization Address City/State/Zipcode Ph one Number [facility] LAB [address] [place] [address] * POC GLUCOSE (12/28/2019 3:09 AM CDT) Glucose, POC 222 (H) 70 - 100 MG/DL MAIN LAB Specimen Performing Organization Address City/State/Zipcode Ph one Number MAIN LAB [address] [place] [address] * POC GLUCOSE (12/27/2019 10:14 PM CDT) Glucose, POC 300 (H) 70 - 100 MG/DL MAIN LAB Specimen Performing Organization Address City/[facility]/Zipcode Ph one Number MAIN LAB [address] [place] [address] * POC GLUCOSE (12/27/2019 5:16 PM CDT) Glucose, POC 159 (H) 70 - 100 MG/DL MAIN LAB Specimen Performing Organization Address City/[facility]/Zipcode Ph one Number MAIN LAB [address] [place] [address] * POC GLUCOSE (12/27/2019 4:04 PM CDT) Glucose, POC 164 (H) 70 - 100 MG/DL MAIN LAB Specimen Performing Organization Address City/[facility]/Zipcode Ph one Number MAIN LAB [address] [place] [address] * POC GLUCOSE (12/27/2019 2:27 PM CDT) Glucose, POC 229 (H) 70 - 100 MG/DL KU MAIN LAB Specimen Performing Organization Address City/[facility] [address] [place] [address] * POC GLUCOSE (12/27/2019 1:26 PM CDT) Glucose, POC 174 (H) 70 - 100 MG/DL KU MAIN LAB Specimen Performing Organization Address City/State/[facility] one Number MAIN LAB [address] [place] [address] * POC GLUCOSE (12/27/2019 12:15 PM CDT) Glucose, POC 182 (H) 70 - 100 MG/DL MAIN LAB Specimen Performing Organization Address City/[facility] Number MAIN LAB [address] [place] [address] * POC GLUCOSE (12/27/2019 9:20 AM CDT) Glucose, POC 151 (H) 70 - 100 MG/DL MAIN LAB Specimen Performing Organization Address City/[facility] Ph one Number MAIN LAB [address] [place] [address] * LIMITED ECHO (12/27/2019 7:15 AM CDT) [...] = LAB AV index 0.52 OTHER OUTSIDE ([place]) LAB E/A ratio 0.71 OTHER OUTSIDE LAB LVOT area 3.84 cm2 OTHER OUTSIDE LAB LVOT stroke 113.47 cm3 OTHER OUTSIDE volume LAB and a peak 27 mmHg OTHER OUTSIDE gradient of LAB TV rest N/A mmHg OTHER OUTSIDE pulmonary LAB artery pressure Lateral E/E' 8.86 OTHER OUTSIDE ratio LAB Left Atrium 20.23 16 - 34 OTHER OUTSIDE Index LAB Cardiology Siemens [id number] OTHER OUTSIDE Ultrasound LAB Machine Left Ventricle [...] c hange are noted. Performing Organization Address City/State/Zipcode Ph one Number OTHER OUTSIDE LAB * POC GLUCOSE (12/27/2019 5:40 AM CDT) Glucose, POC 178 (H) 70 - 100 MG/DL KU MAIN LAB Specimen Performing Organization Address City/State[facility] Number [facility]U MAIN LAB [address] [place] [address] * CHEST SINGLE VIEW (12/27/2019 4:07 AM [...] report Finalized by Jose Medrano M.D. on 020 7:36 AM. Dictated by [...] on 12/27/2019 7:29 AM. Performing Organization Address [facility] Ph one Number RAD RESULTS * POC GLUCOSE (12/27/2019 3:15 AM CDT) Pathologist [facility] Glucose, POC 190 (H) 70 - 100 MG/DL MAIN LAB Specimen Performing Organization Address [facility] Ph one Number MAIN LAB [address] [place] [address] * MAGNESIUM (12/27/2019 3:15 AM CDT) [facility] Magnesium 1.8 1.6 - 2.6 mg/dL MAIN LAB Specimen Blood Performing Organization Address [facility] Ph one Number MAIN LAB [address] [place] [address] * BASIC METABOLIC PANEL (12/27/2019 3:15 AM [...] Calcium 7.9 (L) 8.5 - 10.6 MG/DL KU MAIN LAB eGFR Non 52 (L) >60 mL/min MAIN LAB Comment: [place]ian The eGFR is not validated f or use in drug dosing adjustments. Continue to use estimated creatinine clearance per dosing reference text. Please contact the Clinical Pharmacist for questions. eGFR >60 >60 mL/min KU MAIN LAB Croatian Comment: The eGFR is not validated for use in drug dosing adjustments. Continue to use estimated creatinine clearance per dosing reference text. Please contact the Clinical Pharmacist for questions. Specimen Performing Organization Address City/[facility] one Number MAIN LAB [address] [place] [address] * CBC (12/27/2019 3:15 AM CDT) White [...] FL MAIN LAB Specimen Performing Organization Address [facility] one Number MAIN LAB [address] [place] [address] * POC GLUCOSE (12/27/2019 1:10 AM CDT) Glucose, POC 191 (H) 70 - 100 MG/DL MAIN LAB Specimen Performing Organization Address [facility] Ph one Number MAIN LAB [address] [place] [address] * POC GLUCOSE (12/26/2019 11:47 PM CDT) Glucose, POC 133 (H) 70 - 100 MG/DL MAIN LAB Specimen Performing Organization Address [facility] Ph one Number MAIN LAB [address] [place] [address] * POC GLUCOSE (12/26/2019 11:11 PM CDT) Glucose, POC 114 (H) 70 - 100 MG/DL MAIN LAB Specimen Performing Organization Address City/[facility] Number MAIN LAB [address] [place] [address] * POC GLUCOSE (12/26/2019 9:32 PM CDT) Glucose, POC 198 (H) 70 - 100 MG/DL KU MAIN LAB Specimen Performing Organization Address City/[facility] one Number MAIN LAB [address] [place] [address] * POC GLUCOSE (12/26/2019 8:28 PM CDT) Glucose, POC 241 (H) 70 - 100 MG/DL MAIN LAB Specimen Performing Organization Address City/[facility] one Number MAIN LAB [address] [place] [address] * POTASSIUM (12/26/2019 6:31 PM CDT) Potassium 4.1 3.5 - 5.1 MMOL/L MAIN LAB Specimen Blood Performing Organization Address City/[facility] one Number MAIN LAB [address] [place] [address] * MAGNESIUM (12/26/2019 6:31 PM CDT) Magnesium 1.9 1.6 - 2.6 mg/dL MAIN LAB Specimen Blood Performing Organization Address City/[facility] Number MAIN LAB [address] [place] [address] * POC GLUCOSE (12/26/2019 6:29 PM CDT) Glucose, POC 259 (H) 70 - 100 MG/DL MAIN LAB Specimen Performing Organization Address City/[facility]/Zipcode Ph one Number MAIN LAB [address] [place] [address] * POC GLUCOSE (12/26/2019 5:14 PM CDT) Glucose, POC 190 (H) 70 - 100 MG/DL MAIN LAB Specimen Performing Organization Address City/[facility]/Zipcode Ph one Number MAIN LAB [address] [place] [address] * POC GLUCOSE (12/26/2019 4:05 PM CDT) Glucose, POC 204 (H) 70 - 100 MG/DL KU MAIN LAB Specimen Performing Organization Address [facility] one Number MAIN LAB [address] [place] [address] * POC GLUCOSE (12/26/2019 2:14 PM CDT) Glucose, POC 239 (H) 70 - 100 MG/DL KU MAIN LAB Specimen Performing Organization Address [facility] one Number MAIN LAB [address] [place] [address] * POC GLUCOSE (12/26/2019 1:06 PM CDT) Glucose, POC 253 (H) 70 - 100 MG/DL MAIN LAB Specimen Performing Organization Address [facility] one Number MAIN LAB [address] [place] [address] * [facility] 1V CXR (12/26/2019 12:11 PM CDT) Specimen [...] 12/26/2019 1:02 PM. Narrative Performed At [facility] 1V CXR KU RAD RESULTS HISTORY: Female, [...] on 12/26/2019 1:02 PM. Performing Organization Address [facility] one Number RAD RESULTS * POC GLUCOSE (12/26/2019 12:01 PM CDT) Glucose, POC 259 (H) 70 - 100 MG/DL MAIN LAB Specimen Performing Organization Address [facility] one Number MAIN LAB [address] [place] [address] * PTT (APTT) (12/26/2019 12:00 PM CDT) APTT 32.5 24.0 - 36.5 SEC MAIN LAB Specimen Performing Organization Address [facility] Ph one Number MAIN LAB [address] [place] [address] * PROTIME INR (PT) (12/26/2019 12:00 PM CDT) INR 1.2 0.8 - 1.2 MAIN LAB Specimen Performing Organization [facility] one Number MAIN LAB [address] [place] [address] * MAGNESIUM (12/26/2019 12:00 PM CDT) Magnesium 1.1 (L) 1.6 - 2.6 mg/dL KU MAIN LAB Specimen Blood Performing Organization Address [facility] Ph one Number KU MAIN LAB [address] [place] [address] * BASIC METABOLIC PANEL (12/26/2019 12:00 PM CDT) Pathologist [facility] Sodium 138 137 - 147 MMOL/L KU [...] >60 >60 mL/min KU MAIN LAB Comment: [place]ian The eGFR is not validated f or use in drug dosing adjustments. Continue to use estimated creatinine clearance per dosing reference text. Please contact the Clinical Pharmacist for questions. eGFR >60 >60 mL/min KU MAIN LAB Croatian Comment: The eGFR is not validated for use in drug dosing adjustments. Continue to use estimated creatinine clearance per dosing reference text. Please contact the Clinical Pharmacist for questions. Specimen Performing Organization Address [facility] Ph one Number KU MAIN LAB [address] [place] [address] * CBC (12/26/2019 12:00 PM CDT) Pathologist [facility] White Blood 6.6 4.5 - 11.0 K/UL [...] LAB RDW 14.4 11 - 15 % KU MAIN LAB Platelet Count 134 (L) 150 - 400 K/UL KU MAIN LAB MPV 7.2 7 - 11 FL KU MAIN LAB Specimen Performing Organization Address City/State/Zipcode Ph one Number MAIN LAB [address] [place] [address] * POC GLUCOSE (12/26/2019 10:57 AM CDT) Glucose, POC 305 (H) 70 - 100 MG/DL MAIN LAB Specimen Performing Organization Address City/[facility]/Zipcode Ph one Number MAIN LAB [address] [place] [address] * POC ACTIVATED CLOTTING TIME (12/26/2019 10:38 AM CDT) Activated 252 s MAIN LAB Clotting Time Specimen Performing Organization Address City/[facility] Number MAIN LAB [address] [place] [address] * POC IONIZED CALCIUM (12/26/2019 10:34 AM CDT) Ionized 1.13 1.0 - 1.3 MMOL/L MAIN LAB Calcium-POC Specimen Performing Organization Address City/[facility] Number MAIN LAB [address] [place] [address] * POC SODIUM (12/26/2019 10:34 AM CDT) Sodium-POC 135 (L) 137 - 147 MMOL/L MAIN LAB Specimen Performing Organization Address City/[facility] Number MAIN LAB [address] [place] [address] * POC POTASSIUM (12/26/2019 10:34 AM CDT) Potassium-POC 4.8 3.5 - 5.1 MMOL/L MAIN LAB Specimen Performing Organization Address City/[facility] Number MAIN LAB [address] [place] [address] * POC HEMATOCRIT (12/26/2019 10:34 AM CDT) Hemoglobin POC 9.9 (L) 12.0 - 15.0 GM/DL MAIN LAB Hematocrit POC 29.0 (L) 36 - 45 % MAIN LAB Specimen Performing Organization Address City/[facility]/Zipcode Ph one Number MAIN LAB [address] [place] [address] * POC BLOOD GAS ARTERIAL (12/26/2019 10:34 AM CDT) PH-ART-POC 7.39 7.35 - 7.45 KU MAIN LAB [id number] 46 (H) 35 - 45 MMHG KU MAIN LAB PO2-ART-POC 143 (H) 80 - 100 MMHG MAIN LAB Base Ex-ART-POC 2.0 MMOL/L MAIN LAB O2 Sat-ART-POC 99.0 95 - 99 % MAIN LAB Bicarbonate-ART 27.5 21 - 28 MMOL/L [facility] MAIN LAB -POC Specimen Performing Organization Address City/State/Zipcode Ph one Number MAIN LAB [address] [place] [address] * POC GLUCOSE (12/26/2019 10:31 AM CDT) Glucose, POC 327 (H) 70 - 100 MG/DL [facility] MAIN LAB Specimen Performing Organization Address City/[facility] LAB [address] [place] [address] * POC ACTIVATED CLOTTING TIME (12/26/2019 10:30 AM CDT) Activated 223 s MAIN LAB Clotting Time Specimen Performing Organization Address City/[facility] Ph one Number MAIN LAB [address] [place] [address] * TYPE & CROSSMATCH (12/26/2019 7:38 AM CDT) Units Ordered 4 [facility] MAIN LAB Crossmatch 12/29/2019,2359 [facility] MAIN LAB Expires Record Check FOUND MAIN LAB ABO/RH(D) O POS MAIN LAB Antibody Screen NEG MAIN LAB Electronic YES MAIN LAB Crossmatch Unit Number [id number] MAIN LAB Blood Component RBC,ADSOL,LEUKO REDUCED MAIN LAB Type Unit Division 0 MAIN LAB Status OF Unit REL FROM ALLOC MAIN LAB Transfusion OK TO TRANSFUSE MAIN LAB Status Crossmatch COMPATIBLE,ELECTRONIC MAIN LAB Result Unit Number [id number] MAIN LAB Blood Component RBC,ADSOL,LEUKO REDUCED MAIN LAB Type Unit Division 0 MAIN LAB Status OF Unit REL FROM ALLOC MAIN LAB Transfusion OK TO TRANSFUSE MAIN LAB Status Crossmatch COMPATIBLE,ELECTRONIC MAIN LAB Result Unit Number [id number] MAIN LAB Blood Component RBC,ADSOL,LEUKO REDUCED MAIN LAB Type Unit Division 0 MAIN LAB Status OF Unit REL FROM ALLOC MAIN LAB Transfusion OK TO TRANSFUSE MAIN LAB Status Crossmatch COMPATIBLE,ELECTRONIC MAIN LAB Result Unit Number [id number] MAIN LAB Blood Component RBC,ADSOL,LEUKO REDUCED [facility] MAIN LAB Type Unit Division 0 MAIN LAB Status OF Unit REL FROM ALLOC MAIN LAB Transfusion OK TO TRANSFUSE MAIN LAB Status Crossmatch COMPATIBLE,ELECTRONIC MAIN LAB Result Specimen Blood Performing Organization Address City/[facility]/Zipcode Ph one Number MAIN LAB [address] [place] [address] * POC GLUCOSE (12/26/2019 7:37 AM CDT) Glucose, POC 360 (H) 70 - 100 MG/DL MAIN LAB Specimen Performing Organization Address [facility] Ph one Number MAIN LAB [address] [place] [address] * TELEMETRY STRIPS-SCAN (12/26/2019 12:00 AM CDT) [...] documented in this encounter Visit Diagnoses Diagnosis Nonrheumatic aortic valve stenosis Aortic valve disorders documented in this encounter Administered Medications Action Date Dose Rate Site Medication Order MAR Action 12/28/2019 3:45 PM CDT 325 mg acetaminophen (TYLENOL) tablet 325 mg Given 325 mg, Oral, EVERY 6 HOURS PRN, Starting 12/27/19 at 0922, Until 12/28/19 at 1847, Pain non-opioid: may be used alone or in combination with opioi d analgesia, Temp > 38.5 C, TOTAL ACETAMINOPHEN DOSE NOT TO EXCEED 4GM DAILY., 325 mg Given 12/28/2019 9:04 AM CDT albuterol sulfate (PROAIR HFA) inhaler 2 puff [...] 81 mg, Oral, DAILY, First dose on Mon12/26/19 at 1200, Until Discontinued, Hold for platelet count <80K., 81 mg Given 12/27/2019 9:17 AM CDT 12/27/2019 8:49 PM CDT 80 mg atorvastatin (LIPITOR) tablet 80 mg Given 80 mg, Oral, AT BEDTIME DAILY, First dose on Mon12/26/19 at 2100, Until Discontinued 80 mg Given 12/26/2019 10:35 PM CDT 12/27/2019 8:49 PM CDT 40 mg citalopram (CeleXA) tablet 40 mg Given 40 mg, Oral, AT BEDTIME DAILY, First dose on Mon12/26/19 at 2100, Until Discontinued 40 mg Given 12/26/2019 10:33 PM CDT 12/27/2019 9:18 AM CDT 2 sprays fluticasone propionate (FLONASE) nasal Given spray 2 spray 2 spray, Each Nostril, DAILY, First dos e on Mon12/27/19 at 0900, Until Discontinued 12/28/2019 3:45 PM CDT 100 mg gabapentin (NEURONTIN) capsule 100 mg Given 100 mg, Oral, THREE TIMES DAILY, First dose on Mon12/26/19 at 1500, Until Discontinued 100 mg Given 12/28/2019 9:04 AM CDT 100 mg Given 12/27/2019 8:48 PM CDT 12/27/2019 10:07 PM CDT 1 tablet HYDROcodone/acetaminophen (NORCO) 5/325 Given mg tablet 1 tablet 1 tablet, Oral, EVERY 4 HOURS PRN, Starting 12/27/19 at 0922, Until 12/28/19 at 1847, Pain [...] Given by Patient/Family 12/28/2019 9:30 AM CDT magnesium sulfate 1 g/D5W 100 mL IVPB [...] 1 gm delivers 8.1 mEq Magnesium., 12/27/2019 8:48 PM CDT 40 mg pantoprazole [...] repeat replacement orders if needed. , 12/27/2019 5:16 PM CDT 20 mg rivaroxaban (XARELTO) tablet 20 mg Given 20 mg, Oral, DAILY WITH DINNER, First dose on Christie 12/26/19 at 1700, Until Discontinued, Administer with food. NOTE: This is a HIGH ALERT Medication., 20 mg Given 12/26/2019 4:05 PM CDT 12/28/2019 9:04 AM CDT 2 tablets senna/docusate (SENOKOT-S) tablet 2 Given tablet 2 tablet, Oral, TWICE DAILY, First dose on Christie 12/26/19 at 1200, Until Discontinued, Hold for loose stools, 2 tablets Given 12/27/2019 8:49 PM CDT 2 tablets Given 12/26/2019 10:33 PM CDT 12/27/2019 8:48 PM CDT 150 mg traZODone (DESYREL) tablet 150 mg Given 150 mg, Oral, AT BEDTIME PRN, Starting Christie 12/26/19 at 1647, Until 12/28/19 a t 1847, Insomnia 150 mg Given 12/26/2019 8:09 PM CDT documented in this encounter
--- OUTSIDE RECORDS SUMMARY | 2020-03-02 17:47 | XMS REPORT | Encounter Summary ---
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 Name Role Phone Bishnu Martin MD Unavailable Chata Chau DPM Unavailable SelfJesus MD PCP Reason for Visit * Auth/Cert Referred By Contact Referred To Contact Status Reason Specialty Diagnoses / Procedures Diagnoses Nonrheumatic aortic valve stenosis Nonrheumatic aortic valve stenosis [I35.0] P rocedures VA REPLACE AORTIC VALVE PERQ FEMORAL ARTRY APPROACH PERCUTANEOUS TRANSCATHETER REPLACEMENT AORTIC VALVE - FEMORAL ARTERY-amelia, left common femoral, 26s3 *ICU* Encounter Details Care Team Description Date Type Department Sudarshan Lynne MD [address] [place], [place] [id number] Nayana Watson DO [address] [place], [place] [id number] 12/26/2019 Anesthesia [facility] OR [address] [place], [place] [id number] Anesthesia Record Responsible Anesthesiologist Anesthesia Start Time Anesthesi a Stop Time Procedure Name Sudarshan Lynne MD 12/26/19 0902 12/26/19 1152 PERCUTANEOUS TRANSCATHETER REPLACEMENT AORTIC VALVE - FEMORAL ARTERY-amelia, left common femoral, 26s3 *ICU* (N/A ) Date Time Event Comment 619 AN Equip Check 2019 0755 0831 Art Line 0901 Out of Pre Procedure 0902 Anes Start 0902 In Room 0903 An Start Data 0921 An Induction The patient was ree valuated immediately before moderate or deep sedation use and before anesthesia induction. 0924 An Intubation 0927 Anesthesia Ready 0927 AN MALINA 0931 Antibiotic Given 0950 CVC 1031 Quick Note BG 327, 1040 Quick Note ACT 252 1041 Valve Deployed 1058 Quick Note BG 305 1126 An Extubation 1146 Transport 1152 an stop data 1152 Handoff to RN I completed my SBAR handoff to the receiving nurse. 1152 An Stop Meds Name Total midazolam (VERSED) 1 mg/mL injection 1 mg lidocaine (2%) 200 mg/10mL Injection 100 mg syringe succinylcholine (ANECTINE) injection 120 mg (VIAL) rocuronium (ZEMURON) injection 60 mg heparin (porcine) 1,000 units/mL 9,000 Units injection protamine injection 40 mg dextran 70/hypromellose (GENTEAL TEARS; 1 drop BION TEARS) ophthalmic solution lidocaine PF 1% (10 mg/mL) injection 1 mL etomidate (AMIDATE) injection) 2mg/mL 30 mg esmolol (BREVIBLOC) 10 mg/mL injection 50 mg vancomycin (VANCOCIN) 1,500 mg in sodium 1,500 mg chloride 0.9% (NS) IVPB niCARdipine (cardENE) 2.5 mg in sodium 2.5 mg chloride PF 0.9% 10 mL injection insulin regular 100 units/NS 100 mL IV 25 Units drip (premade) phenylephrine (TAYLA-SYNEPHRINE) injection 100 mcg labetalol (NORMODYNE; TRANDATE) 5mg/mL 20 mg 20 mg injection (SYRINGE) ondansetron (ZOFRAN) injection 4 mg sugammadex (BRIDION) 100 mg/mL iv soln 200 mg sodium chloride 0.9 % infusion 800 mL sodium chloride 0.9 % infusion (1000 100 mL mL bag) * Name O2 N2O Inspired N2O Sevoflurane Inspired Sevoflurane * No blood administrations on file. Removal Type Details Placement Wounds 10/13/16; 0836; Face; Surgical Incision ; 10/13/16 0836 by (NOT for CLOSED WITH SUTURES AND SOLEDADI Chely Pacheco, Pressure RN Injuries) Peripheral 10/02/19; 1233; IV Therapy; L; Upper; 10/02/19 1233 by Alejandro, IV Forearm; 20 G; No; Ultrasound; 1; 1.25 URIAH Mann inches Puncture 12/26/19; 1025; Right; Femoral 0 1025 by Maria M Glass RN (Sheath) Puncture 12/26/19; 1026; Left; Femoral 12/26/19 1026 by Maria M Glass RN (Sheath) 12/28/19 1624 by Samaria Lobo RN Peripheral 12/26/19; 0745; RN; L; Hand; 20 G; No; 12/26/19 0745 by IV 1; Therapy completed; 12/28/19; 1624 V Venkat Hernandez RN 12/27/19 0658 by Maryuri Simms RN Arterial 12/26/19; 0830 (created via procedure 12/26/19 0830 by Line documentation); 20 G; 12/27/19; 0658 N Nayana cohen, DO 12/26/19 1126 by Nayana Watson DO ETT 12/26/19; 0924; Mask ventilation not 0 12/26/19 0924 by attempted (0); Video laryngoscopy, Nayana Watson, Stylet, Rapid sequence; Single-Lumen, Cuffed; 7.5mm; GlideScope; 3; Oral; 1-Full view of the glottis; 1 insertion attempt; Auscultation, ETCO2 Detector; 24 centimeters; atraumatic, dentition unchanged; 12/26/19; 1126 12/27/19 0930 by Margarita Balbuena RN Introducer 12/26/19; 0950 (created via procedure 12/26/19 0950 by / Cordis documentation); OR; Yes; (6Fr); Nayana Red DO Chlorhexadine (CHG) impregnated sponge, Sterile occlusive dressing; 12/27/19; 0930 documented in this encounter Social History Date Tobacco Use Types Packs/Day [...] impairment: No documented as of this encounter OR Notes * Anesthesia Procedure Notes - Sudarshan Lynne MD - 12/26/2019 12:14 PM CDT Associated Order(s): MALINA Anesthesia Procedure: Transesophageal Echocardiogram MALINA Date/Time: 12/26/2019 11:14 AM Associated procedure: AVR Preprocedure checklist performed: 2 patient identifiers, risks & benefits discussed, patient evaluated, timeout performed, consent obtained and patient being monitored Staff Anesthesiologist: Sudarshan Lynne MD Surgeon: Neymar Moise III, MD (Trip) Performed personally Indication for MALINA: assessment of ascending aorta, assessment of surgical repair , defect repair evaluation, hemodynamic monitoring, ventricular function, confir mation of pre-procedure diagnosis and valvular assessment Physician requesting echo: Neymar Moise III, MD (Trip) CPT codes: 33151 - MALINA 2D imaging (w or w/o M-mode) including probe placement, i mage acquisition, interpretation & report, 27476 - PWD and/or CWD f/u or limited study and 46233 - Color flow velocity mapping Patient location: OR Intubated: yes Bite block: no Heart visualized: yes Insertion: easy Probe type: multiplane Modalities: 2D, color flow mapping, continuous wave Doppler and pulse wave Doppl er Echocardiographic and Doppler Measurements Ventricular Findings Right Ventricle RV cavity size: [...] Apical anterior: normal Apical inferior: normal Long [place] View Basal anteroseptal: normal Basal inferolateral: normal Mid anteroseptal: normal Mid inferolateral: normal Apical lateral: normal Apical septal: normal [place]: normal Mid Short [place] View Mid anteroseptal: normal Mid anterior: normal Mid anterolateral: normal Mid inferolateral: normal Mid inferior: normal Mid inferoseptal: normal Valves Aortic Valve Annulus: calcified Stenosis: severe and dimensionless index 0.19 Area: 0.72 cm2 Peak gradient: 35 [...] valve is seen in the aortic position. There is a trace paravalvular leak. The mean gra dient across the valve is 5mmHg. LV systolic function and RV systolic function a re preserved. The aorta is intact after removal of wires. These findings were co mmunicated to Dr. Moise and Dr. Patel at the time of surgery. Performed by: Sudarshan Lynne MD Authorized by: Sudarshan Lynne MD * Anesthesia Postprocedure Evaluation - Sudarshan Lynne MD - 12/26/2019 12:04 PM CDT Post-Anesthesia Evaluation Name: Maggy Nicholas : 1950 Age: 69 y.o. Sex: female Procedure Date: 12/26/2019 Procedure(s): PERCUTANEOUS TRANSCATHETER REPLACEMENT AORTIC VALVE - FEMORAL ARTERY-amelia, lef t common femoral, 26s3 *ICU* Surgeon: Surgeon(s): Neymar Moise (MD Amanda Miller III, Peter, MD Post-Anesthesia Vitals Vitals Value Taken Time BP Temp Pulse 85 12/26/2019 12:02 PM Respirations 19 PER MINUTE 12/26/2019 12:02 PM SpO2 99 % 12/26/2019 12:02 PM Vitals shown include unvalidated device data. ABP 177/65 Post Anesthesia Evaluation Note Evaluation location: ICU Patient participation: recovered; patient participated in evaluation Level of consciousness: sleepy but conscious Pain score: 0 Pain management: adequate Hydration: normovolemia Temperature: 36.0C - 38.4C Airway patency: adequate Perioperative Events Post-op nausea and vomiting: no PONV Postoperative Status Cardiovascular status: hemodynamically stable and hypertensive Respiratory status: supplemental oxygen and spontaneous ventilation Follow-up needed: imaging (CXR for line placement) Additional comments: Post-Anesthesia Evaluation Attestation: I reviewed and agre e the indicated post-anesthesia care was provided. I have reviewed jackson portions of the indicated post anesthesia care. I have examined the patient's vitals, phy sical status, and complications and agree with what is documented. Staff name: Sudarshan Lynne MD Date: 12/26/2019 ICU Information Blood Products Given-no Staff involved in transport include: anesthesiologist, anes resident and OR nurs e Perioperative Events Perioperative Event: No Emergency Case Activation: No * Anesthesia Procedure Notes - Sudarshan Lynne MD - 12/26/2019 10:15 AM CDT Associated Order(s): CENTRAL LINE INSERTION Anesthesia Procedure: Central Venous Catheter Line CENTRAL LINE INSERTION Date/Time: 12/26/2019 9:50 AM Patient location: OR Indications: medications requiring CV access, other and vascular access Preprocedure checklist performed: 2 patient identifiers, risks & benefits discussed, patient evaluated, timeout performed, consent obtained, patient being monitored and CVC bundle followed (proper hand washing, maximal sterile barrier technique with cap, sterile gown, sterile glove, sterile drape, and skin prep for antisepsis) CVC Line Insertion Procedure Skin prepped with chlorhexidine; skin prep agent completely dried prior to proce dure. Patient Position: Trendelenburg Location: internal jugular vein Laterality: right Vein identification: ultrasound guided Confirmation of venous placement prior to dilation of vein by: ultrasound Ultrasound image captured Number of attempts: 1 Successful placement: yes Patient sedated: yes Catheter: Catheter type: introducer placed using standard wire through needle technique Catheter size: 6Fr. Catheter insertion depth (cm): hub. Procedure Outcome Post procedure: all ports aspirated, dressing applied, line sutured and secureme nt device; Dressing: chlorhexidine impregnated sponge and sterile occlusive dres sing Placement verification: x-ray verification pending Events: none Observations: patient tolerated well Additional notes: ATTESTATION I was present during the entire procedure performed by a resident Staff name: Sudarshan Lynne MD Date: 12/26/2019 Performed by: Nayana Watson DO Authorized by: Sudarshan Lynne MD * Anesthesia Procedure Notes - Sudarshan Lynne MD - 12/26/2019 8:35 AM CDT Associated Order(s): A-LINE INSERTION Anesthesia Procedure: Arterial Line Placement A-LINE INSERTION Date/Time: 12/26/2019 8:30 AM Patient location: Pre/Post Indications: multiple ABGs and hemodynamic monitoring Preprocedure checklist performed: 2 patient identifiers, risks & benefits discussed, patient evaluated, timeout performed, consent obtained, patient being monitored and sterile drape Sterile technique: - Proper hand washing - Cap, mask - Sterile gloves - Skin prep for antisepsis Arterial Line Procedure Patient sedated: yes (see MAR) Sedation type: midazolam; Artery prepped with chlorhexidine; skin prep agent completely dried prior to pro cedure. Location: radial artery Laterality: left Technique: palpation and ultrasound Needle gauge: 20 G Number of attempts: 1 Procedure Medications Local Anesthesia: lidocaine PF 1% (10 mg/mL) injection, 1 mL Procedure Outcome Catheter secured with adhesive dressing applied Events: no complications noted during insertion and skin intact, warm, and dry Observation: pt tolerated well Additional notes: ATTESTATION I was present during the entire procedure performed by a resident Staff name: Sudarshan Lynne MD Date: 12/26/2019 Refer to nursing documentation for vitals and monitoring data during procedure. Performed by: Nayana Watson DO Authorized by: Sudarshan Lynne MD * Anesthesia Preprocedure Evaluation - Nayana Watson DO - 12/26/2019 7:59 AM CDT Anesthesia Pre-Procedure Evaluation Name: Maggy Nicholas : 1950 Age: 69 y.o. Sex: female Procedure Date: 12/26/2019 Procedure: Procedure(s) with comments: PERCUTANEOUS TRANSCATHETER REPLACEMENT AORTIC VALVE - FEMORAL ARTERY-amelia, lef t common femoral, 26s3 *ICU* - 26 amelia 3 - left common femoral approach. Physical Assessment Vital Signs (last filed in past 24 hours): BP: 160/88 (12/25 744) Pulse: 79 (12/25 744) Respirations: 21 PER MINUTE (12/25 744) SpO2: 94 % (12/25 744) Patient History Allergies Allergen Reactions Adhesive Tape (Rosins) BLISTERS Paper tape is OK; Steri strips cause severe reaction Erythromycin DIARRHEA, NAUSEA AND VOMITING and BLISTERS Pcn [Penicillins] RASH All over body Artificial Sweetner VISION CHANGES Bee [Bumble Bee] EDEMA Clindamycin DIARRHEA, RASH and NAUSEA AND VOMITING Contrast Dye Iv, Iodine Containing [Iodinated Contrast Media] RASH Hornet Venom EDEMA Indomethacin RASH Venom-Wasp EDEMA Ancef [Cefazolin] UNKNOWN Barium Sulfate DIARRHEA and VOMITING Sick x 1 week Current Medications Medication Directions albuterol (VENTOLIN HFA, PROAIR HFA, PROVENTIL HFA) 90 mcg/actuation inhaler Inh bebe 2 Puffs by mouth into the lungs every 6 hours as needed for Wheezing or Shor tness of Breath. Shake well before use. alendronate [...] 1 mL under the skin every 12 hours. F irst injection will be the morning of 12/20. Last injection will be the morning o f 12/24. fluticasone (FLONASE) 50 mcg/actuation nasal spray Apply 1 [place] to each nostril as directed twice daily. gabapentin (NEURONTIN) 100 mg capsule Take 100 mg by mouth three times daily. HYDROcodone/acetaminophen (NORCO) 5/325 mg tablet Take 1 tablet by mouth every 4 hours as needed insulin pump -ASPART- Patients Own by SubQ Pump route. Indications: 1.9U basal, 1U=8carbs, target range 100-130 lisinopril (PRINIVIL; ZESTRIL) 10 mg tablet Take 5 mg by mouth daily. loratadine (CLARITIN) 10 mg tablet Take 10 mg by mouth twice daily. metFORMIN (GLUCOPHAGE) 500 mg tablet Take 500 mg by mouth twice daily. mupirocin (BACTROBAN) 2 % topical ointment Apply to affected area as Needed. nystatin (NYSTOP) 100,000 unit/g topical powder Apply topically to affected are a twice daily as needed. potassium chloride SR (K-DUR) 10 mEq tablet Take 10 mEq by mouth daily after din ner. predniSONE (DELTASONE) 20 mg tablet Take three tablets by mouth daily. Take 3 ta blets with dinner on 12/24 traZODone (DESYREL) 150 mg tablet Take 150 mg by mouth at bedtime daily. vitamin E 400 unit capsule Take 400 Units by mouth daily. vitamins, multiple cap Take 1 Cap by mouth daily. XARELTO 20 mg tablet Take 20 mg by mouth daily. Medical History: Diagnosis Date Acute on chronic diastolic CHF (congestive heart failure), NYHA class 3 ([facility] ) Anticoagulated for PE Aortic stenosis Arthritis Bilateral carotid artery disease (HCC) moderate disease Breast cancer (HCC) 2007 Right- lumpectomy and radiation CAD (coronary artery disease) CHF (congestive heart failure) (HCC) Chronic back pain with spinal nerve stimulator Contrast media allergy COPD, severe (HCC) CVA (cerebral vascular accident) (HCC) DM (diabetes mellitus) (HCC) Family history of premature CAD Gastroparesis Heart murmur Hyperlipidemia Hypertension MRSA cellulitis 2005 right leg vein harvest site Myocardial infarction (HCC) 2006, ~2005 Total of 3 Neuropathy Obese Obesity, Class II, BMI 35-39.9 ANCA on CPAP with supplemental O2 Osteoporosis PAD (peripheral artery disease) (HCC) s/p bilateral iliac stents Pulmonary embolism (HCC) PVD (peripheral vascular disease) (HCC) Requires continuous at home supplemental oxygen S/P CABG (coronary artery bypass graft) 2006 [facility] in [place], [place] Surgical History: Procedure Laterality Date EYE [...] 10/13/2016 Performed by Gianfranco Conti MD at [facility] OR CATARACT REMOVAL Bilateral 2009, 2010 DENTAL SURGERY 2011, 2013 cheek infection VA EXCISION TUMOR SOFT TISSUE LEG/ANKLE SUBQ 3 CM/> Right 2008, 2009 Fatty tumor LE Social History Socioeconomic History Marital status: Spouse name: Not on file Number of children: Not on file Years of education: Not on file Highest education level: Not on file Occupational History Not on file Tobacco Use Smoking status: Former Smoker Packs/day: 2.00 Years: 48.00 Pack years: 96.00 Types: Cigarettes Last attempt to quit: 10/30/2008 Years since quittin.1 Smokeless tobacco: Never Used Substance and Sexual Activity Alcohol use: No Alcohol/week: 0.0 standard drinks Comment: 1-2 x per year Drug use: No Sexual activity: Not on file Other Topics Concern Not on file Social History Narrative Not on file Review of Systems/Medical History Patient summary reviewed Nursing notes reviewed Pertinent labs reviewed PONV Screening: Female gender and Non-smoker No history of anesthetic complications No family history of anesthetic complications Airway No TMJ ( resolved) Pulmonary Not a current smoker (former smoker: 96 pack years, quit 2008) No indications/hx of asthma COPD, moderate Hx pulmonary embolus ( 09/2019, on xarelto) No recent URI Home oxygen use (2L with rest and exertion) Sleep apnea Interventions: CPAP; compliant PFT 2/11/20 FVC 48% FEV1 38% FEV1/FVC 59% Cardiovascular Recent diagnostic studies: echocardiogram EKG 12/24/19- NSR Echocardiogram 10/08/19 Interpretation Summary LVEF=55-60%, Mild Abnormal Septal Motion Moderate Concentric LVH Mild Left Atrial Dilatation Severe Aortic Valve Stenosis: Peak Velocity=3.8m/sec, Mean Gradient=37mmHg, Ve locity Ratio=0.21, Area=0.64cm2 Mild Mitral Annular Calcification No Pericardial Effusion PASP=19mmHg TAPSE=1.42cm Exercise tolerance: <4 METS (pt unable to walk 4 blocks without SOB) Beta Tyesha therapy: Yes Hypertension, well controlled Valvular problems/murmurs ( severe ): Past CO (08/2005), > 6 months Coronary artery disease Coronary artery bypass graft (CABG x5 with saphenous vein harvest complicate d by delayed leg wound healing requiring IV antibiotics (2005)) Palpitations ( with stress, resolves with relaxation) No angina PVD ( PAD and PVD) DVT ( right leg 09/2019, on xarelto) CHF Hyperlipidemia ( on statin) Orthopnea (SOB when supine requiring 2-3 pillows under the head) No indications/hx of PND Dyspnea on exertion No syncope Daily ASA and xarelto Followed by cardiology in Dr. Valera at [facility] in [facility] [place] 08/2019 Impression: Right: Severe disease (non critical) of 60-79% with severe velocities. Antegra de vertebral flow. Left: Severe disease (non critical) of 60-79% with severe velocities. Antegra de vertebral flow. Essentially unchanged. Based on today's results, a six month follow up is recommended if the patient re rhiannon asymptomatic. Cath 08/2019 SUMMARY: 1. Right heart catheterization demonstrating elevation of right heart pressures and pulmonary artery pressure as described above. Pulmonary capillary wedge pres sure was also elevated. 2. Thermodilution cardiac output of 5.6 L/min with cardiac index of 2.7. 3. No significant intracardiac shunt. 4. Severe aortic stenosis with a mean gradient of 56 mmHg and valve area of 0.6 cm2 using simultaneous femoral artery and left ventricular chamber pressure rhina urements. On pullback across the aortic valve the mean gradient was 34 mmHg with a area of 0.9 cm2. 5. Normal LV systolic function. 6. Severe belkofski three-vessel coronary artery disease as described above. 7. Widely patent saphenous vein Y graft to diagonal branch of the LAD and first obtuse marginal branch left circumflex. 8. Widely patent vein graft to distal RCA. 9. Widely patent vein graft to distal LAD. 10. Successful percutaneous closure of right femoral artery access site. 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", followed by PCP) Electrolyte problem ( potassium supplement) Hx of gastroparesis Neuro/Psych No seizures No CVA No headaches Neuropathy (bilateral LE neuropathy) No indications/hx of weakness Chronic opioid use (chronic [place] use x12 years, 1 tab BID ) Psychiatric history ( controlled) Depression Musculoskeletal No neck pain Back pain Arthritis Endocrine/Other Diabetes ( has insulin pump; pt reports fasting BS 80-150; pt reports last A 1c 6.8), well controlled, type 2; using insulin No hypothyroidism No hyperthyroidism Anemia (blood transfusion s/p blood loss; transfused without complication (2 013)) No blood dyscrasia Malignancy (cervical CA 1979, right breast cancer 2007 with subsequent radia tion, no chemotherapy) Obesity ( BMI 36) Constitution - negative Physical Exam Airway Findings Mallampati: IV TM distance: <3 FB Neck ROM: full Mouth opening: good Airway patency: adequate Dental Findings: Comments: Patient edentulous Cardiovascular Findings: Rhythm: regular Rate: normal Other findings: murmur (systolic, grade 4/6)Carotid bruit: radiation of mur mur into carotids. Peripheral edema: 1+ pitting. Pulmonary Findings: Decreased breath sounds (noted throughout). Abdominal Findings: Obese Neurological Findings: Alert and oriented x 3 Constitutional findings: No acute distress Diagnostic Tests Hematology: Lab Results Component Value Date HGB 9.6 12/24/2019 HCT 28.6 12/24/2019 PLTCT 150 12/24/2019 WBC 4.4 12/24/2019 MCV 83.7 12/24/2019 MCH 28.2 12/24/2019 MCHC 33.7 12/24/2019 MPV 7.6 12/24/2019 RDW 14.7 12/24/2019 General Chemistry: Lab Results Component Value Date NA 141 12/24/2019 K 4.6 12/24/2019 CL 103 12/24/2019 CO2 30 12/24/2019 GAP 8 12/24/2019 BUN 15 12/24/2019 CR 0.98 12/24/2019 GLU 142 12/24/2019 CA 9.2 12/24/2019 ALBUMIN 3.8 12/24/2019 TOTBILI 0.3 12/24/2019 Coagulation: Lab Results Component Value Date PTT 42.8 12/24/2019 INR 1.2 12/24/2019 Anesthesia Plan ASA score: 4 Plan: general and invasive monitoring Special equipment/procedures: Art line, CVC and MALINA Induction method: intravenous NPO status: acceptable Informed Consent Anesthetic plan and risks discussed with patient. Use of blood products discussed with patient Blood Consent: consented Plan discussed with: anesthesiologist and resident. * Anesthesia Preprocedure Evaluation - Sudarshan Lynne MD - 12/24/2019 10:24 AM CDT Anesthesia Pre-Procedure Evaluation Name: Maggy Nicholas : 1950 Age: 69 y.o. Sex: female Procedure Date: 12/26/2019 Procedure: Procedure(s) with comments: PERCUTANEOUS TRANSCATHETER REPLACEMENT AORTIC VALVE - FEMORAL ARTERY-amelia, lef t common femoral, 26s3 *ICU* - 26 amelia 3 - left common femoral approach. Physical Assessment Vital Signs (last filed in past 24 hours): BP: 182/99 (12/25 844) ABP: 202/82 (12/25 844) Temp: 36.5 C (97.7 F) (12/25 744) Pulse: 77 (12/25 844) Respirations: 14 PER MINUTE (12/25 844) SpO2: 97 % (12/25 844) Height: 165.1 cm (65") (12/25 744) Weight: 100.2 kg (220 lb 14.4 oz) (12/25 744) Dosing / Dry Weight: 100.2 kg (220 lb 14.4 oz) (12/25 5433) Patient History Allergies Allergen Reactions Adhesive Tape (Rosins) BLISTERS Paper tape is OK; Steri strips cause severe reaction Erythromycin DIARRHEA, NAUSEA AND VOMITING and BLISTERS Pcn [Penicillins] RASH All over body Artificial Sweetner VISION CHANGES Bee [Bumble Bee] EDEMA Clindamycin DIARRHEA, RASH and NAUSEA AND VOMITING Contrast Dye Iv, Iodine Containing [Iodinated Contrast Media] RASH Hornet Venom EDEMA Indomethacin RASH Venom-Wasp EDEMA Ancef [Cefazolin] UNKNOWN Barium Sulfate DIARRHEA and VOMITING Sick x 1 week Current Medications Medication Directions albuterol (VENTOLIN HFA, PROAIR HFA, PROVENTIL HFA) 90 mcg/actuation inhaler Inh bebe 2 Puffs by mouth into the lungs every 6 hours as needed for Wheezing or Shor tness of Breath. Shake well before use. alendronate [...] 1 mL under the skin every 12 hours. F irst injection will be the morning of 12/20. Last injection will be the morning o f 12/24. fluticasone (FLONASE) 50 mcg/actuation nasal spray Apply 1 [place] to each nostril as directed twice daily. gabapentin (NEURONTIN) 100 mg capsule Take 100 mg by mouth three times daily. HYDROcodone/acetaminophen (NORCO) 5/325 mg tablet Take 1 tablet by mouth every 4 hours as needed insulin pump -ASPART- Patients Own by SubQ Pump route. Indications: 1.9U basal, 1U=8carbs, target range 100-130 lisinopril (PRINIVIL; ZESTRIL) 10 mg tablet Take 5 mg by mouth daily. loratadine (CLARITIN) 10 mg tablet Take 10 mg by mouth twice daily. metFORMIN (GLUCOPHAGE) 500 mg tablet Take 500 mg by mouth twice daily. mupirocin (BACTROBAN) 2 % topical ointment Apply to affected area as Needed. nystatin (NYSTOP) 100,000 unit/g topical powder Apply topically to affected are a twice daily as needed. potassium chloride SR (K-DUR) 10 mEq tablet Take 10 mEq by mouth daily after din ner. predniSONE (DELTASONE) 20 mg tablet Take three tablets by mouth daily. Take 3 ta blets with dinner on 12/24 temazepam (RESTORIL) 15 mg capsule Take 15 mg by mouth at bedtime as needed. traZODone (DESYREL) 150 mg tablet Take 150 mg by mouth at bedtime daily. vitamin E 400 unit capsule Take 400 Units by mouth daily. vitamins, multiple cap Take 1 Cap by mouth daily. XARELTO 20 mg tablet Take 20 mg by mouth daily. Medical History: Diagnosis Date Acute on chronic diastolic CHF (congestive heart failure), NYHA class 3 ([facility] ) Anticoagulated for PE Aortic stenosis Arthritis Bilateral carotid artery disease ([facility]) moderate disease Breast cancer ([facility]) 2007 Right- lumpectomy and radiation CAD (coronary artery disease) CHF (congestive heart failure) ([facility]) Chronic back pain with spinal nerve stimulator Contrast media allergy COPD, severe ([facility]) CVA (cerebral vascular accident) ([facility]) DM (diabetes mellitus) ([facility]) Family history of premature CAD Gastroparesis Heart murmur Hyperlipidemia Hypertension MRSA cellulitis 2005 right leg vein harvest site Myocardial infarction (HCC) 2005, ~2004 Total of 3 Neuropathy Obese Obesity, Class II, BMI 35-39.9 ANCA on CPAP with supplemental O2 Osteoporosis PAD (peripheral artery disease) (HCC) s/p bilateral iliac stents Pulmonary embolism (HCC) PVD (peripheral vascular disease) (HCC) Requires continuous at home supplemental oxygen S/P CABG (coronary artery bypass graft) 2005 [facility] in [place], [place] Surgical History: Procedure Laterality Date EYE [...] 10/13/2016 Performed by Gianfranco Conti MD at [facility] OR CATARACT REMOVAL Bilateral 2009, 2010 DENTAL SURGERY 2011, 2013 cheek infection VA EXCISION TUMOR SOFT TISSUE LEG/ANKLE SUBQ 3 CM/> Right 2008, 2009 Fatty tumor LE Social History Socioeconomic History Marital status: Spouse name: Not on file Number of children: Not on file Years of education: Not on file Highest education level: Not on file Occupational History Not on file Tobacco Use Smoking status: Former Smoker Packs/day: 2.00 Years: 48.00 Pack years: 96.00 Types: Cigarettes Last attempt to quit: 10/30/2008 Years since quittin.1 Smokeless tobacco: Never Used Substance and Sexual Activity Alcohol use: No Alcohol/week: 0.0 standard drinks Comment: 1-2 x per year Drug use: No Sexual activity: Not on file Other Topics Concern Not on file Social History Narrative Not on file Review of Systems/Medical History Patient summary reviewed Nursing notes reviewed Pertinent labs reviewed PONV Screening: Female gender and Non-smoker No history of anesthetic complications No family history of anesthetic complications Airway No TMJ ( resolved) Pulmonary Not a current smoker (former smoker: 96 pack years, quit 2008) No indications/hx of asthma COPD, moderate Hx pulmonary embolus ( 09/2019, on xarelto) No recent URI Home oxygen use (2L with rest and exertion) Sleep apnea Interventions: CPAP; compliant PFT 10/08/19 FVC 48% FEV1 38% FEV1/FVC 59% Cardiovascular Recent diagnostic studies: echocardiogram EKG 12/24/19- NSR Echocardiogram 10/08/19 Interpretation Summary LVEF=55-60%, Mild Abnormal Septal Motion Moderate Concentric LVH Mild Left Atrial Dilatation Severe Aortic Valve Stenosis: Peak Velocity=3.8m/sec, Mean Gradient=37mmHg, Ve locity Ratio=0.21, Area=0.64cm2 Mild Mitral Annular Calcification No Pericardial Effusion PASP=19mmHg TAPSE=1.42cm Exercise tolerance: <4 METS (pt unable to walk 4 blocks without SOB) Beta Tyesah therapy: Yes Hypertension, well controlled Valvular problems/murmurs ( severe ): Past CO (08/2005), > 6 months Coronary artery disease Coronary artery bypass graft (CABG x5 with saphenous vein harvest complicate d by delayed leg wound healing requiring IV antibiotics (2005)) Palpitations ( with stress, resolves with relaxation) No angina PVD ( PAD and PVD) DVT ( right leg 09/2019, on xarelto) CHF Hyperlipidemia ( on statin) Orthopnea (SOB when supine requiring 2-3 pillows under the head) No indications/hx of PND Dyspnea on exertion No syncope Daily ASA and xarelto Followed by cardiology in Dr. Valera at [facility] in [facility] [place] 08/2019 Impression: Right: Severe disease (non critical) of 60-79% with severe velocities. Antegra de vertebral flow. Left: Severe disease (non critical) of 60-79% with severe velocities. Antegra de vertebral flow. Essentially unchanged. Based on today's results, a six month follow up is recommended if the patient re rhiannon asymptomatic. Cath 08/2019 SUMMARY: 1. Right heart catheterization demonstrating elevation of right heart pressures and pulmonary artery pressure as described above. Pulmonary capillary wedge pres sure was also elevated. 2. Thermodilution cardiac output of 5.6 L/min with cardiac index of 2.7. 3. No significant intracardiac shunt. 4. Severe aortic stenosis with a mean gradient of 56 mmHg and valve area of 0.6 cm2 using simultaneous femoral artery and left ventricular chamber pressure rhina urements. On pullback across the aortic valve the mean gradient was 34 mmHg with a area of 0.9 cm2. 5. Normal LV systolic function. 6. Severe belkofski three-vessel coronary artery disease as described above. 7. Widely patent saphenous vein Y graft to diagonal branch of the LAD and first obtuse marginal branch left circumflex. 8. Widely patent vein graft to distal RCA. 9. Widely patent vein graft to distal LAD. 10. Successful percutaneous closure of right femoral artery access site. 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", followed by PCP) Electrolyte problem ( potassium supplement) Hx of gastroparesis Neuro/Psych No seizures No CVA No headaches Neuropathy (bilateral LE neuropathy) No indications/hx of weakness Chronic opioid use (chronic [place] use x12 years, 1 tab BID ) Psychiatric history ( controlled) Depression Musculoskeletal No neck pain Back pain Arthritis Endocrine/Other Diabetes ( has insulin pump; pt reports fasting BS 80-150; pt reports last A 1c 6.8), well controlled, type 2; using insulin No hypothyroidism No hyperthyroidism Anemia (blood transfusion s/p blood loss; transfused without complication (2 013)) No blood dyscrasia Malignancy (cervical CA 1979, right breast cancer 2007 with subsequent radia tion, no chemotherapy) Obesity ( BMI 36) Constitution - negative Physical Exam Airway Findings Mallampati: III TM distance: <3 FB Neck ROM: full Mouth opening: good Dental Findings: Comments: Patient edentulous Cardiovascular Findings: Rhythm: regular Rate: normal Other findings: murmur (systolic, grade 4/6), peripheral edema ( 1+ pitting) No carotid bruit ( radiation of murmur into carotids) Pulmonary Findings: Decreased breath sounds (noted throughout). Abdominal Findings: Obese Neurological Findings: Normal mental status Comments: alert and oriented Constitutional findings: No acute distress Diagnostic Tests Hematology: Lab Results Component Value Date HGB 9.6 12/24/2019 HCT 28.6 12/24/2019 PLTCT 150 12/24/2019 WBC 4.4 12/24/2019 MCV 83.7 12/24/2019 MCH 28.2 12/24/2019 MCHC 33.7 12/24/2019 MPV 7.6 12/24/2019 RDW 14.7 12/24/2019 General Chemistry: Lab Results Component Value Date NA 141 12/24/2019 K 4.6 12/24/2019 CL 103 12/24/2019 CO2 30 12/24/2019 GAP 8 12/24/2019 BUN 15 12/24/2019 CR 0.98 12/24/2019 GLU 142 12/24/2019 CA 9.2 12/24/2019 ALBUMIN 3.8 12/24/2019 TOTBILI 0.3 12/24/2019 Coagulation: Lab Results Component Value Date PTT 42.8 12/24/2019 INR 1.2 12/24/2019 Anesthesia Plan ASA score: 4 Plan: general Special equipment/procedures: MALINA, Art line and CVC Induction method: intravenous NPO status: acceptable Informed Consent Anesthetic plan and risks discussed with patient. Use of blood products discussed with patient Blood Consent: consented Plan discussed with: anesthesiologist and resident. Labs: per Dr. Moise- CBC, CMP, PT/INT, PTT, HgbA1c, BNP, UA reflex cx, COVID19 sc reening, T&C KIRTI: none Consults: none Discussed at length with patient about blood glucose control, glucose > 200 DOS risks postponing/cancelation. Patient verbalizes understanding. documented in this encounter Plan of Treatment Not on filedocumented as of this encounter Goals Goal Patient Associated Recent Progress Patient-Stat Aut hor Goal Type Problems ed? Diabetic Blood Sugar Lifestyle No Lisa Lobo RN documented as of this encounter Procedures Comments Procedure Name Priority Date/Time Associated Diag nosis ANESTHESIA Routine 12/26/2019 TRANSEESOPHAGEAL 12:14 PM CDT ECHOCARDIOGRAM ANESTHESIA CENTRAL LINE Routine 12/26/2019 INSERTION 10:15 AM CDT ANESTHESIA ARTERIAL LINE Routine 12/26/2019 INSERTION 8:35 AM CDT documented in this encounter Results * MALINA (12/26/2019 12:14 PM CDT) Narrative Performed At Sudarshan Lynne MD 12/26/2019 12 :19 PM Anesthesia Procedure: Transesophageal E chocardiogram MALINA Date/Time: 12/26/2019 11:14 AM Associated procedure: AVR Preprocedure checklist performed: 2 pat ient identifiers, risks & benefits discussed, patient evaluated, timeout p erformed, consent obtained and patient being monitored Staff Anesthesiologist: Sudarshan Lynne MD Surgeon: Neymar Moise (Augusto) Arcenio MENA MD Performed personally Indication for MALINA: assessment of ascen ding aorta, assessment of surgical repair, defect repair evaluation, hemod ynamic monitoring, ventricular function, confirmation of pre-procedure diagnosis and valvular assessment Physician requesting echo: Neymar Moise III, MD (Trip) CPT codes: 71600 - MALINA 2D imaging (w or w/o M-mode) including probe placement, image acquisition, interpret ation & report, 93127 - PWD and/or CWD f/u or limited study and 11993 - Co sun flow velocity mapping Patient [...] Apical anterior: normal Apical inferior: normal Long [place] Basal anteroseptal: normal Basal inferolateral: normal Mid anteroseptal: normal Mid inferolateral: normal Apical lateral: normal Apical septal: normal [place]: normal Mid Short [place] View Mid anteroseptal: normal Mid anterior: normal [...] MD Authorized by: Sudarshan Lynne MD * CENTRAL LINE INSERTION (12/26/2019 10:15 AM [...] Outcome Post procedure: all ports aspirated, dr keenan applied, line sutured and securement device; Dressing: [...] Watson DO Authorized by: Sudarshan Lynne MD documented in this encounter Visit Diagnoses Not on filedocumented in this encounter Administered Medications Action Date Dose Rate Site Medication Order MAR Action 12/26/2019 9:25 AM CDT 1 drop dextran 70/hypromellose (GENTEAL TEARS) Given ophthalmic solution INTRA-PROCEDURE MED, Starting Christie 12/26/19 at 0925, Until Christie 12/26/19 at 1203, Anesthesia Intra-op 12/26/2019 9:20 AM CDT 40 mg esmoloL (BREVIBLOC) injection Given INTRA-PROCEDURE MED, Starting Christie 12/26/19 at 0915, Until Christie 12/26/19 at 1203, Anesthesia Intra-op 10 mg Given 12/26/2019 9:15 AM CDT 12/26/2019 9:21 AM CDT 30 mg etomidate (AMIDATE) injection Given INTRA-PROCEDURE MED, Starting Christie 12/26/19 at 0921, Until Christie 12/26/19 at 1203, Anesthesia Intra-op 12/26/2019 10:32 AM CDT 2,000 Units heparin (porcine) injection Given Intravenous, INTRA-PROCEDURE MED, Starting Christie 12/26/19 at 1022, Until Christie 12/26/19 at 1203, Anesthesia Intra-op 7,000 Units Given 12/26/2019 10:22 AM CDT 12/26/2019 10:26 AM CDT 10 Units insulin regular 100 units/NS 100 mL IV Bolus drip (premade) 100 mL, INTRA-PROCEDURE MED(CONT), Starting Christie 12/26/19 at 0959, Until Christie 12/26/19 at 1203, Anesthesia Intra-op 8 Units/hr 8 mL/hr Dose/Rate Change 12/26/2019 10:00 AM CDT 4 Units/hr 4 mL/hr Given - New Bag 12/26/2019 9:59 AM CDT 12/26/2019 11:05 AM CDT 10 mg labetaloL (NORMODYNE) injection Given INTRA-PROCEDURE MED, Starting Christie 12/26/19 at 1051, Until Christie 12/26/19 at 1203, Anesthesia Intra-op 10 mg Given 12/26/2019 10:51 AM CDT 12/26/2019 9:21 AM CDT 100 mg lidocaine (PF) injection Given INTRA-PROCEDURE MED, Starting Christie 12/26/19 at 0921, Until Christie 12/26/19 at 1203, Anesthesia Intra-op 12/26/2019 8:30 AM CDT 1 mL lidocaine PF 1% (10 mg/mL) injection Given Subcutaneous, Starting Christie 12/26/19 at 0830, Until Christie 12/26/19 at 0830, Anesthesia Intra-op 12/26/2019 9:12 AM CDT 1 mg midazolam (VERSED) injection Given Intravenous, INTRA-PROCEDURE MED, Starting Christie 12/26/19 at 0912, Until Christie 12/26/19 at 1203, Anesthesia Intra-op 12/26/2019 11:39 AM CDT 0.5 mg niCARdipine (cardENE) 2.5 mg in sodium Bolus chloride PF 0.9% 10 mL injection 10 mL, INTRA-PROCEDURE MED(CONT), Starting Christie 12/26/19 at 1031, Until Christie 12/26/19 at 1203, Anesthesia Intra-op 0.5 mg Bolus 12/26/2019 11:28 AM CDT 0.5 mg Bolus 12/26/2019 11:20 AM CDT 12/26/2019 10:59 AM CDT 4 mg ondansetron (ZOFRAN) injection Given INTRA-PROCEDURE MED, Starting Christie 12/26/19 at 1059, Until Christie 12/26/19 at 1201, Anesthesia Intra-op 12/26/2019 10:40 AM CDT 100 mcg phenylephrine (TAYLA-SYNEPHRINE) injection Given INTRA-PROCEDURE MED, Starting Christie 12/26/19 at 1040, Until Christie 12/26/19 at 1203, Anesthesia Intra-op 12/26/2019 11:04 AM CDT 20 mg protamine injection Given INTRA-PROCEDURE MED, Starting Christie 12/26/19 at 1059, Until Christie 12/26/19 at 1203, Anesthesia Intra-op 20 mg Given 12/26/2019 10:59 AM CDT 12/26/2019 10:11 AM CDT 60 mg rocuronium injection Given Intravenous, INTRA-PROCEDURE MED, Starting Christie 12/26/19 at 1011, Until Christie 12/26/19 at 1203, Anesthesia Intra-op 12/26/2019 9:50 AM CDT sodium chloride 0.9 % infusion Given - New INTRA-PROCEDURE MED(CONT), Starting Christie Bag 12/26/19 at 0950, Until Christie 12/26/19 at 1203, Anesthesia Intra-op 12/26/2019 9:21 AM CDT 120 mg succinylcholine (ANECTINE) injection Given Intravenous, INTRA-PROCEDURE MED, Starting Christie 12/26/19 at 0921, Until Christie 12/26/19 at 1203, Anesthesia Intra-op 12/26/2019 11:12 AM CDT 200 mg sugammadex (BRIDION) injection Given INTRA-PROCEDURE MED, Starting Christie 12/26/19 at 1112, Until Christie 12/26/19 at 1203, Anesthesia Intra-op 12/26/2019 9:31 AM CDT 1,500 mg vancomycin (VANCOCIN) 1,500 mg in sodium Given - New chloride 0.9% (NS) IVPB Bag 280 mL, Administer over 90 Minutes, INTRA-PROCEDURE MED(CONT), Starting Christie 12/26/19 at 0931, Until Christie 12/26/19 at 1203, Anesthesia Intra-op documented in this encounter
--- OUTSIDE RECORDS SUMMARY | 2020-03-02 17:47 | XMS REPORT | Encounter Summary ---
Author Author [facility] Organization [facility] Address Unknown Phone Unavailable Care Team Providers Care Shovel Mechanic Name Role Phone Bishnu Martin MD Unavailable Chata Chau DPM Unavailable SelfJesus MD PCP Encounter Details Care Team Description Date Type Department Carline Frank RN 12/25/2019 Documentation [facility] [address] [facility] [place] [address] Social History Date Tobacco Use Types Packs/Day [...] as of this encounter Progress Notes * Carline Frank, URIAH - 12/25/2019 9:[address] Moise and Justin of CBC result from 12/23. kz documented in this encounter Plan of Treatment Not on filedocumented as of this encounter Goals Goal Patient Associated Recent Progress Patient-Stat Aut hor Goal Type Problems ed? Diabetic Blood Sugar Lifestyle No Lashell, Lisa Mera RN documented as of this encounter Visit Diagnoses Not on filedocumented in this encounter
--- OUTSIDE RECORDS SUMMARY | 2020-03-02 17:47 | XMS REPORT | Encounter Summary ---
Author Author [facility] Organization [facility] Address Unknown Phone Unavailable Care Team Providers Care Refurbish Technician Name Role Phone Bishnu Martin MD Unavailable Chata Chau DPM Unavailable SelfJesus MD PCP Reason for Visit * Auth/Cert Referred By Contact Referred To Contact Status Reason Specialty Diagnoses / Procedures Diagnoses Nonrheumatic aortic valve stenosis Nonrheumatic aortic valve stenosis [I35.0] P rocedures [place] REPLACE AORTIC VALVE PERQ FEMORAL ARTRY APPROACH PERCUTANEOUS TRANSCATHETER REPLACEMENT AORTIC VALVE - FEMORAL ARTERY-maelia, left common femoral, 26s3 *ICU* Encounter Details Care Team Description Date Type Department Neymar Moise (Augusto) Arcenio MENA MD [address] [place] [address] [phone] Canceled (Office-Scheduling Error) 12/24/2019 [facility] [address] [place] [address] Social History Date Tobacco Use Types Packs/Day [...] history available. Date Recorded COVID-19 Exposure Response 12/24/2019 11:14 AM CDT In the last month, have [...] impairment: No documented as of this encounter Medications at Time of Discharge [...] bedtime daily. fluticasone (FLONASE) 50 Apply 1 [place] 0 mcg/actuation nasal spray to each nostril [...] Shortness of Breath. Shake well before use. 12/28/2019 carvedilol (COREG) 6.25 Take 6.25 mg 0 mg tablet by mouth twice daily. 10/13/2016 01/02/2020 chlorhexidine gluconate Swish and 473 mL 2 (PERIDEX) 0.12 % solution Spit 15 mL by mouth as directed after meals and at bedtime. 01/02/2020 dexlansoprazole (+) Take 60 mg by 0 (DEXILANT) 60 mg capsule mouth daily. 12/10/2019 12/28/2019 enoxaparin (LOVENOX) 100 Inject 1 mL 10 each 1 mg syringe under the skin every 12 hours. First injection will be the morning of 12/20. Last injection will be the morning of 12/24. 12/23/2019 12/28/2019 predniSONE (DELTASONE) 20 Take three 3 tablet 0 mg tablet tablets by mouth daily. Take 3 tablets with dinner on 12/2412/28/2019 01/02/2020 senna/docusate Take two 0 (SENOKOT-S) 8.6/50 mg tablets by tablet mouth twice daily. 01/02/2020 vitamin E 400 unit Take 400 0 capsule Units by mouth daily. documented as of this encounter Plan of Treatment Not on filedocumented as of this encounter Goals Goal Patient Associated Recent Progress Patient-Stat Aut hor Goal Type Problems ed? Diabetic Blood Sugar Lifestyle No Lisa Lobo RN documented as of this encounter Procedures Comments Procedure Name Priority Date/Time Associated Diag nosis CHEST 2 VIEWS STAT 12/24/[address] enosis, 1:16 PM CDT etiology of cardiac valve disease unspecified documented in this encounter Results * CHEST 2 VIEWS (12/24/2019 1:16 PM [...] on 12/24/2019 1:32 PM. Performing Organization Address City/State/Zipcode Ph one Number [facility] RESULTS documented in this encounter Visit Diagnoses Diagnosis Aortic valve stenosis, etiology of card iac valve disease unspecified documented in this encounter
--- OUTSIDE RECORDS SUMMARY | 2020-03-02 17:47 | XMS REPORT | Encounter Summary ---
Author Author [facility] Organization [facility] Address Unknown Phone Unavailable Care Team Providers Care Mortgage Processor Name Role Phone Bishnu Martin MD Unavailable Chata Chau DPM Unavailable SelfJesus MD PCP Reason for Visit * Auth/Cert Referred By Contact Referred To Contact Status Reason Specialty Diagnoses / Procedures Diagnoses Nonrheumatic aortic valve stenosis Nonrheumatic aortic valve stenosis [I35.0] P rocedures [place] REPLACE AORTIC VALVE PERQ FEMORAL ARTRY APPROACH PERCUTANEOUS TRANSCATHETER REPLACEMENT AORTIC VALVE - FEMORAL ARTERY-amelia, left common femoral, 26s3 *ICU* Encounter Details Care Team Description Date Type Department Flavia De Jesus MD [address] [facility] L[facility] [address] [place] [phone] Acute upper respiratory infection, unspe cified 12/24/2019 [facility] [address] [place] [address] Social History Date Tobacco Use Types Packs/Day [...] available. Date Recorded COVID-19 Exposure Response 12/24/2019 1:29 PM CDT In the last month, have [...] bedtime daily. fluticasone (FLONASE) 50 Apply 1 [place] 0 mcg/actuation nasal spray to each nostril [...] Procedure Name Priority Date/Time Associated Diag nosis COVID-19 (SARS-COV-2) PCR Routine 12/24/2019 Aort ic valve stenosis, 1:51 PM CDT etiology of cardiac valve disease unspecified ECG-SCAN 12/24/2019 12:00 AM CDT documented in this encounter Results * COVID-19 (SARS-COV-2) PCR (12/24/2019 1:51 PM CDT) [facility] COVID-19 NASOPHARYNGEAL SWAB REFERENCE LAB (SARS-CoV-2) PCR [...] performance characteristics have been verified by the [facility]. Fact sheet for providers: https://www.fda.gov/media/9953 56/download Fact sheet for patients: https://www.fda.gov/media/6392 57/download Specimen Nasopharyngeal Swab Performing Organization Address City/State/Zipcode Ph one Number REFERENCE LAB REFERENCE LAB See results for address. * ECG-SCAN (12/24/2019 12:00 AM CDT) Narrative Performed At This result has an attachment that is n ot available. Ordered by an unspecified provider. documented in this encounter Visit Diagnoses Diagnosis Aortic valve stenosis, etiology of card iac valve disease unspecified documented in this encounter
--- OUTSIDE RECORDS SUMMARY | 2020-03-02 17:47 | XMS REPORT | Encounter Summary ---
Author Author [facility] Organization [facility] Address Unknown Phone Unavailable Care Team Providers Care Facilities Specialist Name Role Phone Bishnu Martin MD Unavailable Chata Chau DPM Unavailable Jesus López MD PCP Reason for Visit * Auth/Cert Referred By Contact Referred To Contact Status Reason Specialty Diagnoses / Procedures Diagnoses Nonrheumatic aortic valve stenosis Nonrheumatic aortic valve stenosis [I35.0] P rocedures [place] REPLACE AORTIC VALVE PERQ FEMORAL ARTRY APPROACH PERCUTANEOUS TRANSCATHETER REPLACEMENT AORTIC VALVE - FEMORAL ARTERY-amelia, left common femoral, 26s3 *ICU* Encounter Details Care Team Description Date Type Department Neymar Moise (Mary Rg III, MD [address] [place] [id number] [phone] 12/24/2019 [facility] [id number] [place] [address] Social History Date Tobacco Use Types Packs/Day [...] bedtime daily. fluticasone (FLONASE) 50 Apply 1 [place] 0 mcg/actuation nasal spray to each nostril [...] RESULTS documented in this encounter Visit Diagnoses Not on filedocumented in this encounter
--- OUTSIDE RECORDS SUMMARY | 2020-03-02 17:48 | XMS REPORT | Encounter Summary ---
Author Author [facility] Organization [facility] Address Unknown Phone Unavailable Care Team Providers Care Professor Of Psychology Name Role Phone Bishnu Martin MD Unavailable Chata Chau DPM Unavailable SelfJesus MD PCP Encounter Details Care Team Description Date Type Department Sue Ríos RN Nonrheumatic aortic valve stenosis (Prim brandon Dx) 12/12/2019 Prep for Case [facility] [address] [facility] [place] [address] Social History Date Tobacco Use Types Packs/Day [...] Travel Start No recent travel history available. documented as of this encounter Functional Status [...]
--- OUTSIDE RECORDS SUMMARY | 2020-03-02 17:48 | XMS REPORT | Encounter Summary ---
Author Author [facility] Organization [facility] Address Unknown Phone Unavailable Care Team Providers Care Community Mental Health Social Worker Name Role Phone Bishnu Martin MD Unavailable Chata Chau DPM Unavailable SelfJesus MD PCP Encounter Details Care Team Description Date Type Department Carline Frank RN 12/23/2019 Telephone [facility] [address] [facility] [place] [address] Social History Date Tobacco Use Types Packs/Day [...]
--- OUTSIDE RECORDS SUMMARY | 2020-03-02 17:48 | XMS REPORT | Encounter Summary ---
Author Author [facility] Organization [facility] Address Unknown Phone Unavailable Care Team Providers Care Printed Circuit Photographer Name Role Phone Bishnu Martin MD Unavailable Chata Chau DPM Unavailable SelfJesus MD PCP Reason for Visit * Reason Comments Error Encounter Details Care Team Description Date Type Department Britney Sullivan RN Error 11/05/2019 Telephone The [facility] 4000 [facility] [place] [address] Social History Date Tobacco Use Types Packs/Day [...] Diabetic Blood Sugar Lifestyle No Lashell, Monitoring URIAH Mera documented as of this encounter Visit Diagnoses Not on filedocumented in this encounter
--- OUTSIDE RECORDS SUMMARY | 2020-03-02 17:48 | XMS REPORT | Encounter Summary ---
Author Author [facility] Organization [facility] Address Unknown Phone Unavailable Care Team Providers Care Janitorial Account Manager Name Role Phone Bishnu Martin MD Unavailable Chata Chau DPM Unavailable SelfJesus MD PCP Encounter Details Care Team Description Date Type Department Neymar Moise (Trip) Arcenio MENA MD [address] [phone] Aortic valve stenosis, etiology of cardi ac valve disease unspecified (Primary Dx) 12/20/2019 Orders Only The [facility] [address] [phone] Social History Date Tobacco Use Types Packs/Day [...] Lobo RN documented as of this encounter Results * COVID-19 (SARS-COV-2) PCR [...] performance characteristics have been verified by the [facility]. Fact sheet for providers: https://www.fda.gov/media/5133 56/download Fact sheet for patients: https://www.fda.gov/media/3207 57/download Specimen Nasopharyngeal Swab Performing Organization Address City/State/Zipcode Ph one Number REFERENCE LAB REFERENCE LAB See results for address. documented in this encounter Visit Diagnoses Diagnosis Aortic valve stenosis, etiology of card iac valve disease unspecified documented in this encounter
--- OUTSIDE RECORDS SUMMARY | 2020-03-02 17:48 | XMS REPORT | Encounter Summary ---
Author Author [facility] Organization [facility] Address Unknown Phone Unavailable Care Team Providers Care Manager Digital Name Role Phone Bishnu Martin MD Unavailable Chata Chau DPM Unavailable SelfJesus MD PCP Encounter Details Care Team Description Date Type Department Neymar Moise (Augusto) Arcenio MENA MD [address] [phone] 12/20/2019 Orders Only The [facility] [address] [phone] Social History Date Tobacco Use Types Packs/Day [...]
--- OUTSIDE RECORDS SUMMARY | 2020-03-02 17:48 | XMS REPORT | Encounter Summary ---
Author Author [facility] Organization [facility] Address Unknown Phone Unavailable Care Team Providers Care Software Technician Name Role Phone Bishnu Martin MD Unavailable Chata Chau DPM Unavailable SelfJesus MD PCP Reason for Visit * Reason Comments Pre Operative Visit Covid-19 Encounter Details Care Team Description Date Type Department Pre-op testing (Primary Dx) 12/24/2019 Nurse Only The [facility] [address] [place] [address] Social History Date Tobacco Use Types Packs/Day [...] as of this encounter Progress Notes * Meaghan Sargent RN - 12/24/2019 1:10 PM CDT Called patient and verified full name and date of . Informed patient of NEG ATIVE COVID 19 testing. Patient was asked if they were still experiencing any sy mptoms and responded with no symptoms; patient confirmed testing was completed f or pre-operative purposes. Patient was advised to contact surgeon and PCP should symptoms develop prior to scheduled procedure. Encouraged adherence to current public health recommendations (ie., social distancing, hand hygiene, etc.). Inez ent had no further questions. BARRETT SmithN, RN, CCRN, SCRN, CNRN * Janna Ramon RN - 12/24/2019 1:10 PM CDT Patient arrived to [facility] for COVID-19 testing 12/24/19 1332. Patient iden tity confirmed via photo I.D. Nasopharyngeal procedure explained to the patient. Nasopharyngeal swab completed right Patient education provided given and instructed patient self isolate until conta cted w/ results and further instructions. Swab collected by Brittani Mcconnell RN. Date symptoms began/reason for testing: pre- op for 12-26-2019 documented in this encounter Plan of Treatment Not on filedocumented as of this encounter Goals Goal Patient Associated Recent Progress Patient-Stat Aut hor Goal Type Problems ed? Diabetic Blood Sugar Lifestyle No Lisa Lobo RN documented as of this encounter Visit Diagnoses Diagnosis Pre-op testing Preoperative examination, unspecified documented in this encounter
--- OUTSIDE RECORDS SUMMARY | 2020-03-02 17:48 | XMS REPORT | Encounter Summary ---
Author Author [facility] Organization [facility] Address Unknown Phone Unavailable Care Team Providers Care Kilnman Name Role Phone Bishnu Martin MD Unavailable Chata Chau DPM Unavailable SelfJesus MD PCP Encounter Details Care Team Description Date Type Department Carline Frank RN 12/23/2019 Telephone The [facility] Pre [facility]esthesia [facility] [address] [place], [place] [phone] Social History Date Tobacco Use Types Packs/Day [...]
--- OUTSIDE RECORDS SUMMARY | 2020-03-02 17:48 | XMS REPORT | Encounter Summary ---
Author Author [facility] Organization [facility] Address Unknown Phone Unavailable Care Team Providers Care Settlement Processor Name Role Phone Bishnu Martin MD Unavailable Chata Chau DPM Unavailable SelfJesus MD PCP Reason for Visit * Reason Comments Provider Discussion About TAVR eval Patient Encounter Details Care Team Description Date Type Department Dina Barnes, BREAD JOCKEY-HYDRAULIC CONTROLS TECHNICIAN [address] [phone] Provider Discussion About Patient (TAVR eval) 12/23/2019 Documentation The [facility] 4000 [facility] [place], [place] [phone] Social History Date Tobacco Use Types Packs/Day [...] of this encounter Progress Notes * Dina Barnes APRN-MEGAN - 12/23/2019 7:41 AM CDT TAVR Evaluation Date of initial eval: 10/08 Name: Maggy Nicholas : 1950 Primary provider: Jesus López Referring quality control head: Soto Cardiac Surgeon eval: JANET Supervisor Carbon Paper Coating eval: MIKE Assessment & Plan: Severe symptomatic aortic stenosis. TAVR work up complete and results reviewed. TAVR scheduled 12/[address] Moise and Dr[address] Patel. DREW Hidalgo Anticoagulation/Antiplatelet plan: aspirin, rivaroxaban (chronic PE)- last dose 12/19, bridge with lovenox Patient to go to Stepdown? No Step-down Exclusion criteria Frail/limited mobility No LVEF < 40% No PASP > 50 mm Hg No Mitral Valve Regurgitation > 2+ No Severe Lung Disease Yes Creatinine clearance <20mL/min No Uncontrolled Hypertension No BMI <20 or >50 No STS risk score > 10 Yes Pertinent Medical History: IDDM, HTN, HLD, ANCA, COPD - O2 dependent, CABG 2005, breast CA - radiation, spin al stimulator in place, PAD- bilateral iliac stents, bilateral carotid dx, chron ic PE on anticoagulation Acute on chronic diastolic heart failure, NYHA class II BMI: 38.81 Allergies: Allergies Allergen Reactions Adhesive Tape (Rosins) UNKNOWN Ancef [Cefazolin] UNKNOWN Artificial Sweetner UNKNOWN Barium Sulfate UNKNOWN Bee [Bumble Bee] UNKNOWN Clindamycin UNKNOWN Contrast Dye Iv, Iodine Containing [Iodinated Contrast Media] UNKNOWN Erythromycin UNKNOWN Hornet Venom UNKNOWN Indomethacin UNKNOWN Indomethacin Sodium UNKNOWN Pcn [Penicillins] UNKNOWN Venom-Wasp UNKNOWN STS: 11.143% Frailty: TAVR 5 Meter Walk [...] a valve area of 0.6 cm, severe red devil three-vessel coronary artery disease wit h patent grafts throughout. Carotid duplex: severe bilateral [...] difficult access. bilateral iliac stents. calcium at TRAINING MGR bilaterally. Likely bes t through left TRAINING MGR. May need to dilate stents. 26 S3. Annular size: 23.9 T documented in this encounter Plan of Treatment Not on filedocumented as of this encounter Goals Goal Patient Associated Recent Progress Patient-Stat Aut hor Goal Type Problems ed? Diabetic Blood Sugar Lifestyle No Lisa Lobo RN documented as of this encounter Visit Diagnoses Not on filedocumented in this encounter
--- OUTSIDE RECORDS SUMMARY | 2020-03-02 17:48 | XMS REPORT | Encounter Summary ---
Author Author [facility] Organization [facility] Address Unknown Phone Unavailable Care Team Providers Care Schedule Hanger Name Role Phone Bishnu Martin MD Unavailable Chata Chau DPM Unavailable SelfJesus MD PCP Encounter Details Care Team Description Date Type Department Carline Frank RN 12/23/2019 Telephone The [facility] 4000 [facility] [place] [address] Social History Date Tobacco Use Types Packs/Day [...]
--- OUTSIDE RECORDS SUMMARY | 2020-03-02 17:48 | XMS REPORT | Encounter Summary ---
Author Author [facility] Organization [facility] Address Unknown Phone Unavailable Care Team Providers Care Crnp Name Role Phone Bishnu Martin MD Unavailable Chata Chau DPM Unavailable SelfJesus MD PCP Reason for Visit * Reason Comments Follow-up Phone Call Xarelto holding & Lovenox b ridging prior to TAVR & dental work completed Encounter Details Care Team Description Date Type Department Sue Ríos RN Follow-up Phone Call (Xarelto holding & Lovenox bridging prior to TAVR & dental work completed) 12/10/2019 Telephone The [address] [address] Social History Date Tobacco Use Types Packs/Day [...] encounter Miscellaneous Notes * Telephone Encounter - Sue Ríos RN - 12/12/2019 12:48 PM CDT Dental letter received - sent to [facility] recs to be scanned into patient's chart . * Telephone Encounter - Sue Ríos RN - 12/10/2019 11:24 AM CDT Received a voicemail on the nurse line from patient indicating her dental extrac tions were completed on 12/05 through [facility] . Spoke with the coating and baking operator at the oral surgery office. Request that a dental letter be faxed. Provided the valve clinic fax number. Relayed that patient's T AVR is scheduled 12/25. Connected with patient over the phone and relayed Xarelto holding and Lovenox br idging instructions. Patient verbalizes an understanding and has no questions at this time. Letter with instructions mailed to her home today. Lovenox prescript ion sent to patient's local [facility] pharmacy in [facility]. documented in this encounter Plan of Treatment Not on filedocumented as of this encounter Goals Goal Patient Associated Recent Progress Patient-Stat Aut hor Goal Type Problems ed? Diabetic Blood Sugar Lifestyle No Lisa Lobo RN documented as of this encounter Visit Diagnoses Not on filedocumented in this encounter
--- OUTSIDE RECORDS SUMMARY | 2020-03-02 17:48 | XMS REPORT | Encounter Summary ---
Author Author [facility] Organization [facility] Address Unknown Phone Unavailable Care Team Providers Care Lead Developer Name Role Phone Bishnu Martin MD Unavailable Chata Chau DPM Unavailable Jesus López MD PCP Reason for Visit * Auth/Cert Referred By Contact Referred To Contact Status Reason Specialty Diagnoses / Procedures Diagnoses Nonrheumatic aortic valve stenosis Nonrheumatic aortic valve stenosis [I35.0] P rocedures SD REPLACE AORTIC VALVE PERQ FEMORAL ARTRY APPROACH PERCUTANEOUS TRANSCATHETER REPLACEMENT AORTIC VALVE - FEMORAL ARTERY-amelia, left common femoral, 26s3 *ICU* Encounter Details Care Team Description Date Type Department Neymar Moise (Augusto) Arcenio MENA MD [address] [place] [id number] Preop examination (Primary Dx); Aortic valve stenosis, etiology of cardiac valve disease unspecified 12/24/2019 Ancillary [facility] Pre [facility]esthesia Clinic [address] [place] [address] Anesthesia Record Responsible Anesthesiologist Anesthesia Start Time [...] the receiving nurse. 1152 An Stop Meds * No agents on file. * No blood administrations on file. Removal Type Details Placement Wounds 10/13/16; 0836; Face; Surgical Incision ; 10/13/16 0836 by (NOT for CLOSED WITH SUTURES AND Chely Cabral, Pressure RN Injuries) Peripheral 10/02/19; 1233; IV Therapy; L; Upper; 10/02/19 1233 by NOELLE Allen Forearm; 20 G; No; Ultrasound; 1; 1.25 URIAH Mann inches Puncture 12/26/19; 1025; Right; Femoral 0 1025 by Maria M Glass RN (Sheath) Puncture 12/26/19; 1026; Left; Femoral 12/26/19 1026 by Maria M Glass, URIAH (Sheath) 12/28/19 1624 by Samaria Lobo RN [...] / Cordis documentation); OR; Yes; (6Fr); Nayana Red, Chlorhexadine (CHG) impregnated sponge, Sterile occlusive dressing; [...] Signs Reading Time Taken Comments Vital Sign 127/51 12/24/2019 11:29 AM CDT Blood Pressure 69 12/24/2019 11:29 AM CDT Pulse 36.8 C (98.2 F) 12/24/2019 11:29 AM CDT Temperature - - Respiratory Rate 96% 12/24/2019 11:29 AM CDT Oxygen Saturation - - Inhaled Oxygen Concentration 99.8 kg (220 lb) 12/24/2019 11:29 AM CDT Weight 165.1 cm (5' 5") 12/24/2019 11:29 AM CDT Height 36.61 12/24/2019 11:29 AM CDT Body Mass Index documented in [...] impairment: No documented as of this encounter Patient Instructions * Pre-Anesthesia Patient Instructions* Maria Esther Amaya RN - 12/24/2019 11:00 AM CDT GENERAL INFORMATION Before you come to the hospital Make arrangements for a responsible adult to drive you home and stay with you for 24 hours following surgery. Bath/Shower Instructions {BATH/SHOWER INSTRUCTIONS:43825} Leave money, credit cards, jewelry, and any other valuables at home. The [facility] is not responsible for the loss or breakage of persona l items. Remove nail italian, makeup and all jewelry (including piercings) before comin g to the hospital. The morning of your procedure: brush your teeth and tongue do not smoke do not shave the area where you will have surgery What to bring to the hospital ID/ Insurance Card Fine Grader card Official documents for legal guardianship Copy of your Living Will, Advanced Directives, and/or Durable Power of Attorn ey Small bag with a few personal belongings {OTHER PERSONAL ITEMS:02143} Dress in clean, loose, comfortable clothing Eating or drinking before surgery {FOOD/DRINK:75391} Other instructions: Other instructions Notify your surgeon if: there is a possibility that you are you become ill with a cough, fever, sore throat, nausea, vomiting or flu-like symptoms you have any open wounds/sores that are red, painful, draining, or are new si nce you last saw the doctor you need to cancel your procedure {ARRIVAL TIME:} Notify us at {SURGERY CONTACT PHONE NUMBERS:[id number]} if you need to cancel your procedure if you are going to be late Arrival at the hospital * Pre-Anesthesia Medication Instructions* Eloisa Weston, PHARMD - 12/24/2019 11:00 AM CDT YOUR MEDICATIONS: albuterol (VENTOLIN HFA, PROAIR HFA, PROVENTIL HFA) [...] solution Swish and Spit 15 mL by [facility] as directed after meals and at bedtime. [...] (FLONASE) 50 mcg/actuation nasal spray Apply 1 [place] to each nos tril as directed twice [...] tablet Take 20 mg by mouth daily. YOUR MEDICATION INSTRUCTIONS FOR SURGERY: Before surgery Stop the following medications NOW: Vitamins, supplements and herbal and natural products including: Vitamin E Multivitamin Stop the following medications NOW: Anti-inflammatory medications such as ibuprofen (Advil, Motrin) and naproxen (Aleve) You may use acetaminophen (Tylenol) or hydrocodone/APAP Please follow these instructions regarding your blood thinner medications: Aspirin: continue and take on the morning of the procedure Xarelto: continue holding Lovenox: continue injections as instructed with your last injection on morning (12/24) Please follow these instructions regarding your insulin: Continue your pump at the basal rate, no bolus doses after you finish eating Day before surgery: do not take metformin Morning of surgery On the morning of surgery, do NOT take these medications: Remaining vitamins/supplements Ointments/creams/lotions Alendronate (Fosamax) Bumetanide Lisinopril Metformin Potassium On the morning of surgery, take ONLY these medications with a sip (1-2 ounces) o f water: Aspirin Carvedilol Dexlansoprazole (Dexilant) Gabapentin Use all eye drops, nasal sprays, and inhalers as you normally do Loratadine Prednisone Other information Before surgery, please contact the clinic pharmacist with any medicine updates o r questions. E-mail: [email or web address] Before going home from the hospital, please ask your doctor when you should re-s tart your medicines that were stopped before surgery. documented in this encounter Plan of Treatment Order Schedule Name Type Priority Associated Diag noses Once for 1 Occurrences starting 12/24/19 20 until 12/24/2019 PREPARE RBC'S Blood Bank Routine Aortic valve st enosis, etiology of cardiac valve disease unspecified documented as of this encounter Goals Goal Patient Associated Recent Progress Patient-Stat Aut hor Goal Type Problems ed? Diabetic Blood Sugar Lifestyle No Lashell, Lisa Mera RN documented as of this encounter Procedures Comments Procedure Name Priority Date/Time Associated Diag nosis UA REFLEX CULTURE LABEL STAT 12/24/2019 Aortic [...] mination CONFIRM 91 12:00 PM CDT HC PTT(APTT) STAT 12/24/[address] enosis, 11:50 AM CDT etiology of cardiac valve disease unspecified HC PT(INR) STAT 12/24/[address] enosis, 11:50 AM CDT etiology of cardiac valve disease unspecified HC CBC,AUTOMATED STAT 12/24/2019 Aortic valve stenosis, 11:50 AM CDT etiology of cardiac valve disease unspecified HC ABO GROUP 12/24/2019 11:50 AM CDT HC B-TYPE NATRIURETIC STAT 12/24/2019 Aortic v alve stenosis, PEPTIDE 11:50 AM CDT etiology of cardiac valve disease unspecified HC HEMOGLOBIN A1C STAT 12/24/2019 Aortic valve stenosis, 11:50 AM CDT etiology of cardiac valve disease unspecified HC COMPREHENSIVE STAT 12/24/2019 Aortic valve stenosis, METABOLIC PANEL 11:50 AM CDT etiology of cardiac valve disease unspecified documented in this encounter Results * URINALYSIS MICROSCOPIC REFLEX TO CULTURE (12/24/2019 [...] Epithelial Cells Specimen Urine Performing Organization Address [facility] one Number [facility] [address] [place] [address] * URINALYSIS DIPSTICK REFLEX TO CULTURE (12/24/2019 12:05 PM CDT) Color,UA YELLOW [facility] Turbidity,UA CLEAR CLEAR-CLEAR [facility] Specific 1.017 1.003 - 1.035 [facility] Mcgregor-Urine pH,UA 6.0 5.0 - 8.0 [facility] [...] Acid, UA Specimen Urine Performing Organization Address [facility] Ph one Number [facility] [address] [place] [address] * UA REFLEX CULTURE LABEL (12/24/2019 12:05 PM CDT) UA Reflex Criteria for reflex to culture [facility] Culture are WBC>10, Positive Nitrit e, and/or >=+1 leukocytes. If quantity is not sufficient, an addendum will follow. Specimen Urine Performing Organization Address City/[facility] Ph one Number [facility] [address] [place] [address] * BLOOD TYPE CONFIRMATION - ORDER ONLY IF REQUESTED BY LAB (12/24/2019 12:00 PM CDT) ABO/RH(D) O POS MAIN LAB Specimen Blood Performing Organization Address City/[facility] Ph one Number MAIN LAB [address] [place] [address] * TYPE & CROSSMATCH (12/24/2019 11:50 AM CDT) Units Ordered 2 MAIN LAB Crossmatch 12/27/2019,2359 MAIN LAB Expires Record Check 2ND TYPE REQUIRED MAIN LAB ABO/RH(D) O POS MAIN LAB Antibody Screen NEG MAIN LAB Electronic YES MAIN LAB Crossmatch Specimen Performing Organization Address [facility] Ph one Number MAIN LAB [address] [place] [address] * COMPREHENSIVE METABOLIC PANEL (12/24/2019 11:50 AM [...] (L) >60 mL/min [facility] Comment: [place] The eGFR is not validated f or use in drug dosing adjustments. Continue to use estimated creatinine clearance per dosing reference text. Please contact the Clinical Pharmacist for questions. eGFR >60 >60 mL/min [facility] [place] Comment: The eGFR is not validated for use in drug dosing adjustments. Continue to use estimated creatinine clearance per dosing reference text. Please contact the Clinical Pharmacist for questions. Specimen Blood Performing Organization Address [facility] one Number MAIN LAB [address] [place] [address] * PTT (APTT) (12/24/2019 11:50 AM CDT) APTT 42.8 (H) 24.0 - 36.5 SEC MAIN LAB Specimen Blood Performing Organization Address [facility] one Number MAIN LAB [address] [place] [address] * PROTIME INR (PT) (12/24/2019 11:50 AM CDT) INR 1.2 0.8 - 1.2 MAIN LAB Specimen Blood Performing Organization Address [facility] one Number MAIN LAB [address] [place] [address] * HEMOGLOBIN A1C (12/24/2019 11:50 AM CDT) Hemoglobin A1C 6.8 (H) 4.0 - 6.0 % MAIN LAB Comment: The ADA recommends that most patients with type 1 and type 2 diabetes maintain an A1c level <7%. Specimen Blood Performing Organization Address [facility] one Number MAIN LAB [address] [place] [address] * CBC (12/24/2019 11:50 AM CDT) White Blood 4.4 (L) 4.5 - 11.0 K/UL MAIN LAB Cells RBC 3.42 (L) 4.0 - 5.0 M/UL MAIN LAB Hemoglobin 9.6 (L) 12.0 - 15.0 GM/DL MAIN LAB Hematocrit 28.6 (L) 36 - 45 % MAIN LAB MCV 83.7 80 - 100 FL MAIN LAB MCH 28.2 26 - 34 PG MAIN LAB MCHC 33.7 32.0 - 36.0 G/DL MAIN LAB RDW 14.7 11 - 15 % MAIN LAB Platelet Count 150 150 - 400 K/UL MAIN LAB MPV 7.6 7 - 11 FL MAIN LAB Specimen Blood Performing Organization Address [facility] one Number MAIN LAB [address] [place] [address] * BNP (B-TYPE NATRIURETIC PEPTI) (12/24/2019 11:50 AM CDT) B Type 13.0 0 - 100 PG/ML MAIN LAB Natriuretic Peptide Specimen Blood Performing Organization Address City/State/Zipcode Ph one Number MAIN LAB [address] [place] [address] documented in this encounter Visit Diagnoses Diagnosis Aortic valve stenosis, etiology of card iac valve disease unspecified Preop examination Preoperative examination, unspecified documented in this encounter
--- OUTSIDE RECORDS SUMMARY | 2020-03-02 17:48 | XMS REPORT | Encounter Summary ---
Author Author [facility] Organization [facility] Address Unknown Phone Unavailable Care Team Providers Care Sales And Marketing Executive Name Role Phone Bishnu Martin MD Unavailable Chata Chau DPM Unavailable Jesus López MD PCP Encounter Details Care Team Description Date Type Department 12/24/2019 Travel Social History Date Tobacco Use Types [...]
--- OUTSIDE RECORDS SUMMARY | 2020-03-02 17:48 | XMS REPORT | Encounter Summary ---
Author Author [facility] Organization [facility] Address Unknown Phone Unavailable Care Team Providers Care Regional Marketing Director Name Role Phone Bishnu Martin MD Unavailable Chata Chau DPM Unavailable SelfJesus MD PCP Reason for Visit * Reason Comments Error Encounter Details Care Team Description Date Type Department Britney Sullivan RN Error 11/05/2019 Telephone [facility] 4000 [facility] [place] [address] Social History Date Tobacco Use Types Packs/Day [...]
--- OUTSIDE RECORDS SUMMARY | 2020-03-02 17:48 | XMS REPORT | Encounter Summary ---
Author Author [facility] Organization [facility] Address Unknown Phone Unavailable Care Team Providers Care Production Superintendent Name Role Phone Bishnu Martin MD Unavailable Chata Chau DPM Unavailable SelfJesus MD PCP Encounter Details Care Team Description Date Type Department Neymar Moise (Trip) Arcenio MENA MD [address] [facility] [place] [address] Aortic valve stenosis, etiology of cardi ac valve disease unspecified (Primary Dx) 12/23/2019 Pre-Admit XDD CARDIOLOGY Orders Only Social History Date Tobacco Use Types Packs/Day [...] Schedule Name Type Priority Associated Diag noses ONE TIME for 1 Occurrences starting 11/27 until 12/24/2019 TYPE & CROSSMATCH Blood Bank Routine Aortic valve stenosis, etiology of cardiac valve disease unspecified Expected: 12/24/2019, Expires: 0 ECG 12-LEAD ECG Routine Aortic valve st enosis, etiology of cardiac valve disease unspecified documented as of this encounter Goals Goal Patient Associated Recent Progress Patient-Stat Aut hor Goal Type Problems ed? Diabetic Blood Sugar Lifestyle No [place], Monitoring URIAH Mera documented as of this encounter Results * CHEST 2 VIEWS [...] on 12/24/2019 1:32 PM. Performing Organization Address [facility] one Number [facility] RAD RESULTS * URINALYSIS DIPSTICK REFLEX TO CULTURE (12/24/2019 12:05 PM CDT) Color,UA YELLOW [facility] Turbidity,UA CLEAR CLEAR-CLEAR [facility] Specific 1.017 1.003 - 1.035 [facility] [place]-Urine pH,UA 6.0 5.0 - 8.0 [facility] MAIN [...] Acid, UA Specimen Urine Performing Organization Address [facility] one Number [facility] [address] [place] [address] * URINALYSIS MICROSCOPIC REFLEX TO CULTURE (12/24/2019 [...] Epithelial Cells Specimen Urine Performing Organization Address [facility]/Zipcode Ph one Number [facility] [address] [place] [address] * UA REFLEX CULTURE LABEL (12/24/2019 12:05 PM CDT) UA Reflex Criteria for reflex to culture [facility] Culture are WBC>10, Positive Nitrit e, and/or >=+1 leukocytes. If quantity is not sufficient, an addendum will follow. Specimen Urine Performing Organization Address [facility] Ph one Number MAIN LAB [address] [place] [address] * BNP (B-TYPE NATRIURETIC PEPTI) (12/24/2019 11:50 AM CDT) B Type 13.0 0 - 100 PG/ML MAIN LAB Natriuretic Peptide Specimen Blood Performing Organization Address [facility] one Number MAIN LAB [address] [place] [address] * HEMOGLOBIN A1C (12/24/2019 11:50 AM CDT) Hemoglobin A1C 6.8 (H) 4.0 - 6.0 % MAIN LAB Comment: The ADA recommends that most patients with type 1 and type 2 diabetes maintain an A1c level <7%. Specimen Blood Performing Organization Address [facility] Ph one Number MAIN LAB [address] [place] [address] * PTT (APTT) (12/24/2019 11:50 AM CDT) APTT 42.8 (H) 24.0 - 36.5 SEC MAIN LAB Specimen Blood Performing Organization Address [facility] Ph one Number MAIN LAB [address] [place] [address] * PROTIME INR (PT) (12/24/2019 11:50 AM CDT) INR 1.2 0.8 - 1.2 MAIN LAB Specimen Blood Performing Organization Address [facility] Ph one Number MAIN LAB [address] [place] [address] * COMPREHENSIVE METABOLIC PANEL (12/24/2019 11:50 AM CDT) Sodium 141 137 - 147 MMOL/L MAIN LAB Potassium 4.6 3.5 - 5.1 [...] (L) >60 mL/min [facility] Comment: [place] The eGFR is not validated f or use in drug dosing adjustments. Continue to use estimated creatinine clearance per dosing reference text. Please contact the Clinical Pharmacist for questions. eGFR >60 >60 mL/min [facility] [place] Comment: The eGFR is not validated for use in drug dosing adjustments. Continue to use estimated creatinine clearance per dosing reference text. Please contact the Clinical Pharmacist for questions. Specimen Blood Performing Organization Address City/State/Zipcode Ph one Number [facility] [address] [place] [address] * CBC (12/24/2019 11:50 AM CDT) White Blood 4.4 (L) 4.5 - 11.0 K/UL [facility] Cells RBC 3.42 (L) 4.0 - 5.0 M/UL [facility] Hemoglobin 9.6 (L) 12.0 - 15.0 GM/DL [facility] Hematocrit 28.6 (L) 36 - 45 % [facility] MCV 83.7 80 - 100 FL [facility] MCH 28.2 26 - 34 PG [facility] MCHC 33.7 32.0 - 36.0 G/DL [facility] RDW 14.7 11 - 15 % [facility] Platelet Count 150 150 - 400 K/UL [facility] MPV 7.6 7 - 11 FL [facility] Specimen Blood Performing Organization Address City/State/Zipcode Ph one Number [facility] [address] [place] [address] documented in this encounter Visit Diagnoses Diagnosis Aortic valve stenosis, etiology of card iac valve disease unspecified documented in this encounter
--- OUTSIDE RECORDS SUMMARY | 2020-03-02 17:48 | XMS REPORT | Encounter Summary ---
Author Author [facility] Organization [facility] Address Unknown Phone Unavailable Care Team Providers Care Drawing In Hand Name Role Phone Bishnu Martin MD Unavailable Chata Chau DPM Unavailable SelfJesus MD PCP Encounter Details Care Team Description Date Type Department Jud Portillo RN 12/20/2019 Documentation [facility] [address] [facility] [place] [address] Social History Date Tobacco Use Types Packs/Day [...] as of this encounter Progress Notes * Jud Portillo RN - 12/20/2019 4:21 PM CDT Pre-operative phone call completed. Spoke with pt regarding PAC appt, labs and c xr 12/23 @ [facility] @ 1100 and COVID swab @ 1310. Pt verbalized understanding. KCCQ co mpleted. Pt instructed to bring CPAP to hospital for surgery. Pt informed we дмитрий ignacio send Prednisone Rx to home pharmacy d/t contrast allergy. NPO at 2300 12/24, mo rning meds, Hibiclens shower 12/24 and 12/25 morning. Reviewed plan of care, hospi bill stay, dc restrictions and current visitor restrictions. Pt confirmed last do se of Xarelto was todat 12/19 and has Lovenox to begin injections tomorrow. Pt re quests a later arrival time since pt will be driving from [employer]. Startisthay jerome answered to pt's satisfaction. documented in this encounter Plan of Treatment Not on filedocumented as of this encounter Goals Goal Patient Associated Recent Progress Patient-Stat Aut hor Goal Type Problems ed? Diabetic Blood Sugar Lifestyle No Lisa Lobo RN documented as of this encounter Visit Diagnoses Not on filedocumented in this encounter
--- OUTSIDE RECORDS SUMMARY | 2020-03-02 17:48 | XMS REPORT | Encounter Summary ---
Author Author [facility] Organization [facility] Address Unknown Phone Unavailable Care Team Providers Care [employer] Principal Name Role Phone Bishnu Martin MD Unavailable Chata Chau DPM Unavailable SelfJesus MD PCP Encounter Details Care Team Description Date Type Department Neymar Moise (Trip) Arcenio MENA MD [address] [facility] [place] [address] Contrast media allergy (Primary Dx); Aortic valve stenosis, etiology of cardiac valve disease unspecified 12/23/2019 Pre-Admit XDD CARDIOLOGY Orders Only Social [...] as of this encounter Visit Diagnoses Diagnosis Contrast media allergy Allergy to radiographic dye Aortic valve stenosis, etiology of card iac valve disease unspecified documented in this encounter
--- OUTSIDE RECORDS SUMMARY | 2020-03-02 17:48 | XMS REPORT | Encounter Summary ---
Author Author [facility] Organization [facility] Address Unknown Phone Unavailable Care Team Providers Care Security Operations Analyst Name Role Phone Bishnu Martin MD Unavailable Chata Chau DPM Unavailable SelfJesus MD PCP Reason for Visit * Reason Comments Follow Up Encounter Details Care Team Description Date Type Department Britney Sullivan RN Follow Up 11/05/2019 Telephone The [address] [place] [address] Social History Date Tobacco Use Types Packs/Day [...] encounter Miscellaneous Notes * Telephone Encounter - Britney Sullivan RN - 11/08/2019 10:56 AM CDT Received call from patient stating her teeth extraction are scheduled for December 10. TAVR date to be postponed to 12/25. * Telephone Encounter - Britney Sullivan RN - 11/07/2019 12:46 PM CDT Received call from Leila at [facility] oral surgery ([phone]) garth mahan dental extractions/roots on patient. She was concerned that they may not be ab le to get teeth out prior to valve surgery. Explained that her valve surgery can be delayed if they need more time. She will notify when she has a confirmed nyla e. * Telephone Encounter - Britney Sullivan RN - 11/05/2019 3:14 PM CDT Pt returned call. She states she has a consultation with the oral surgeon tomorr ow regarding pulling her remaining teeth. Requested that she notify me of the pl anned date for extractions. She voiced understanding and will notify. * Telephone Encounter - Britney Sullivan RN - 11/05/2019 10:42 AM CDT Conacted patients primary number regarding dental clearance. Primary number is h er grandsons. He had the understanding that she was waiting on dates from us to get the tooth pulled. I explained that we have her tentatively set up for valve surgery but the dental work has to be scheduled by her/family. He is going to gi ve this information to her and have her call me directly. documented in this encounter Plan of Treatment Not on filedocumented as of this encounter Goals Goal Patient Associated Recent Progress Patient-Stat Aut hor Goal Type Problems ed? Diabetic Blood Sugar Lifestyle No Lisa Lobo RN documented as of this encounter Visit Diagnoses Not on filedocumented in this encounter
--- OUTSIDE RECORDS SUMMARY | 2020-03-02 17:48 | XMS REPORT | Encounter Summary ---
Author Author [facility] Organization [facility] Address Unknown Phone Unavailable Care Team Providers Care Automated Logistics Specialist Name Role Phone Bishnu Martin MD Unavailable Chata Chau DPM Unavailable SelfJesus MD PCP Encounter Details Care Team Description Date Type Department Carline Frank RN 12/23/2019 Telephone [facility] [address] [facility] [place] [address] Social History Date Tobacco Use Types Packs/Day [...]
--- OUTSIDE RECORDS SUMMARY | 2020-03-02 17:49 | XMS REPORT | Encounter Summary ---
Author Author [facility] Organization [facility] Address Unknown Phone Unavailable Care Team Providers Care Manufacturing Technician Name Role Phone Bishnu Martin MD Unavailable Jesus López MD PCP Chata Chau DPM Unavailable Jesus López MD PCP Chata Chau DPM Unavailable Reason for Referral * Consult, Test & Treat (Routine) Referred By Contact Referred To Contact Status Reason Specialty Diagnoses / Procedures Mac, Referring [facility] [address] [address] New Request Specialty Services Cardiothoracic Diagnoses Required Surgery Aortic valve stenosis, etiology of cardiac valve disease unspecified * Consult, Test & Treat (Routine) Referred By Contact Referred To Contact Status Reason Specialty Diagnoses / Procedures Mac, Referring [facility] [address] [address] New Request Specialty Services Cardiology Diagnoses Required Aortic valve stenosis, etiology of cardiac valve disease unspecified * Test (Routine) Referred By Contact Referred To Contact Status Reason Specialty Diagnoses / Procedures Dina Barnes, TELECOM FIELD TECHNICIAN-TRANSITION MGR 4000 [facility] [place] [address] [facility] [address] [address] No Auth Needed Cardiology Diagnoses Aortic valve stenosis, etiology of cardiac valve disease unspecified P rocedures 2-D + DOPPLER ECHOCARDIOGRAM TN ECHO TTHRC R-T 2D W/WOM-MODE COMPL SPEC&COLR D * Radiology Services (Routine) Referred By Contact Referred To Contact Status Reason Specialty Diagnoses / Procedures Dina Barnes, TELECOM FIELD TECHNICIAN-TRANSITION MGR [address] [address] No Auth Needed Radiology Diagnoses Aortic valve stenosis, etiology of cardiac valve disease unspecified P rocedures CTA CHEST WO/W CONTRAST+POST IMPRESSION * Radiology Services (Routine) Referred By Contact Referred To Contact Status Reason Specialty Diagnoses / Procedures Dina Barnes, TELECOM FIELD TECHNICIAN-TRANSITION MGR [address] [address] New Request Radiology Diagnoses Aortic valve stenosis, etiology of cardiac valve disease unspecified P rocedures CTA ABD/PELVIS Reason for Visit * Reason Comments Navigation Assessment /TAVR eval Encounter Details Care Team Description Date Type Department Britney Sullivan, URIAH Navigation Assessment (/TAVR eval) 09/23/2019 Patient Profile [facility] [address] [address] Social History Date Tobacco Use Types Packs/Day [...] as of this encounter Progress Notes * Britney Sullivan RN - 09/23/2019 11:46 AM TRAFFIC SURVEY TECHNICIAN Cardiac Navigation Intake Assessment Document Patient Name: Maggy Nicholas : 1950 Insurance: Payor: MEDICARE / Plan: MEDICARE PART A AND B / Product Type: Medic are / Primary contact for patient: Gianfranco Nicholas (Spouse) [phone] Appointment Info: Future Appointments Date Time Provider Department Center 10/08/2019 8:30 AM CTS/TAVR [id number] None 10/08/2019 9:30 AM [facility] SPECIAL PROC/RESEARCH MACKUECPV CVM Procedur 10/08/2019 10:30 AM Steven Berry MD MACKUCL CVM Exam 10/08/2019 10:30 AM Nyemar Moise MD [id number] CTS Diagnosis & Reason for Visit: /TAVR eval Physician Info: Referring Physician(Forest Landscape Ecology Professor): PATSY Valera MD PCP: Jesus López MD Location of Films: [facility]- [place] History of Present Illness: 07/22/19 Echo 1. Mild left atrial enlargement. 2. Normal LV systolic function, estimated LVEF 60-65%. Mild diastolic dysfunctio n (grade I). 3. Severe aortic stenosis. (ADELA-1.0cm2, Mean gradient: 39mmHg, 4.0 m/s) 4. No pericardial effusion 09/10/19 Cath 1. Right heart catheterization demonstrating elevation of right hea rt pressures and pulmonary artery pressure as described above. Pulmonary capillary wedge pressure was also elevated. 2. Thermodilution cardiac output of 5.6 L/min with cardiac index of 2.7. 3. No significant intracardiac shunt. 4. Severe aortic stenosis with a mean gradient of 56 mmHg and valve area of 0.6 cm2 using simultaneous femoral artery and left ventricular chamber pressure measurements. On pullback across the aortic valve the mean gradient was 34 mmHg with a area of 0.9 cm2. 5. Normal LV systolic function. 6. Severe [place] three-vessel coronary artery disease as described above. 7. Widely patent saphenous vein Y graft to diagonal branch of the LAD and first obtuse marginal branch left circumflex. 8. Widely patent vein graft to distal RCA. 9. Widely patent vein graft to distal LAD. 10. Successful percutaneous closure of right femoral artery access site. 09/19/[address] Valera for /TAVR eval 09/27/19 Carotid US Right: Severe disease (non critical) of 60-79% with severe velocities. Antegrade vertebral flow. Left: Severe disease (non critical) of 60-79% with severe velocities. Antegrade vertebral flow. 10/02/19 TAVR CTA CHEST: 1. Bilateral lower lobe pulmonary emboli 2. Enlarged main pulmonary artery that is suggestive of pulmonary hypertension. 3. Thickening and calcification of the aortic valve with a normal caliber thoracic aorta. 4. Emphysema and coronary artery disease ABDOMEN AND PELVIS: 1. Nonocclusive thrombus in the right external iliac vein 2. 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 Educa sammie to the need for dental clearance prior to valve surger NEEDS Assessment: Social Work/Financial: No need identified Physical: Independent Communication: No needs identified Plan: Echo, TAVR CTA, PFT, Office visit Creatinine clearance: 92.999 (Weight: 102.1kg, Creatinine: 0.89) Comments: Spoke to Mrs. Nicholas. Updated on current plan. Determined the best date for an appointment. Educated to all appointment information. FIC SURVEY TECHNICIAN documented in this encounter Nursing Notes * Britney Sullivan RN - 09/23/2019 11:46 AM TRAFFIC SURVEY TECHNICIAN 09/23/2019 11:57 AM Attempted to contact with no answer. Left VM with callback information. FIC SURVEY TECHNICIAN documented in this encounter Plan of Treatment Order Schedule Name Type Priority Associated Diag noses Ordered: 09/25/2019 AMB REFERRAL TO ADULT Outpatient Routine Aortic v alve stenosis, CARDIOLOGY:INTERVENTIONAL Referral etiology of cardiac valve CARDIOLOGY disease unspecified Ordered: 09/25/2019 AMB REFERRAL TO Outpatient Routine Aortic valve s tenosis, CARDIOVASCULAR SURGERY Referral etiology of car diac valve disease unspecified documented as of this encounter Goals Goal Patient Associated Recent Progress Patient-Stat Aut hor Goal Type Problems ed? Diabetic Blood Sugar Lifestyle No Lisa Lobo RN documented as of this encounter Procedures Comments Procedure Name Priority Date/Time Associated Diag nosis PFT COMPLETE PULM Routine 10/08/2019 Aortic valve stenosis, FUNCTION 8:18 AM TRAFFIC SURVEY TECHNICIAN etiology of cardiac valve disease unspecified documented in this encounter Results * 2D + DOPPLER ECHO (10/08/2019 10:14 AM TRAFFIC SURVEY TECHNICIAN) BSA 2.17 m2 OTHER OUTSIDE LAB LVOT diameter 1.95 cm OTHER OUTSIDE LAB IVS 1.77 0.6 - 0.9 cm OTHER OUTSIDE LAB LVIDD 4.32 3.8 - 5.2 cm OTHER OUTSIDE LAB LVIDS 3.32 2.2 - 3.5 cm OTHER OUTSIDE LAB PW 1.51 0.6 - 0.9 cm OTHER OUTSIDE LAB Left Ventricle 100.64 46 - 106 mL OTHER OUTSIDE Diastolic LAB Volume Left Ventricle 46.38 29 - 61 mL OTHER OUTSIDE Diastolic LAB Volume Index Left Ventricle 44.69 14 - 42 mL OTHER OUTSIDE Systolic Volume LAB Left Ventricle 20.59 8 - 24 mL OTHER OUTSIDE Systolic Volume LAB Index LVOT peak gerardo 0.8 m/s OTHER OUTSIDE LAB LVOT peak VTI 23.0 cm OTHER OUTSIDE LAB TDI lateral e' 0.08 m/s OTHER OUTSIDE LAB Right 3.25 1.9 - 3.5 cm OTHER OUTSIDE Ventricular Mid LAB Diameter LA size 4.32 2.7 - 3.8 cm OTHER OUTSIDE LAB LA volume 85.43 22 - 52 mL OTHER OUTSIDE LAB Right Atrial 16.56 <18 cm2 OTHER OUTSIDE Area LAB Right Atrial 4.99 2.2 - 2.8 cm OTHER OUTSIDE Major Dimension LAB , with a mean 37 mmHg OTHER OUTSIDE gradient of LAB AV peak 3.8 m/s OTHER OUTSIDE velocity LAB Ao VTI 106.7 cm OTHER OUTSIDE LAB MV Peak A Gerardo 0.77 m/s OTHER OUTSIDE LAB MV Peak E Gerardo 0.55 m/s OTHER OUTSIDE PW LAB Right 4.07 2.5 - 4.1 cm OTHER OUTSIDE Ventricular LAB Basal Diameter Right Heart 0.11 m/s OTHER OUTSIDE Systolic TDI S' LAB Right Heart 1.42 >1.7 cm OTHER OUTSIDE Systolic Mmode LAB TAPSE Ao root annulus 2.17 1.9 - 2.6 cm OTHER OUTSIDE LAB Sinus 3.47 2.4 - 3.6 cm OTHER OUTSIDE LAB STJ 2.87 2.0 - 3.2 cm OTHER OUTSIDE LAB Ascending aorta 3.27 cm OTHER OUTSIDE LAB FS 23.15 28 - 44 % OTHER OUTSIDE LAB EF 39.35 % OTHER OUTSIDE LAB LV mass 298.75 67 - 162 g OTHER OUTSIDE LAB RWT 0.70 <=0.42 OTHER OUTSIDE LAB Aortic valve 0.64 cm2 OTHER OUTSIDE area = LAB AV index 0.21 OTHER OUTSIDE ([place]) LAB E/A ratio 0.71 OTHER OUTSIDE LAB LVOT area 2.99 cm2 OTHER OUTSIDE LAB LVOT stroke 68.69 cm3 OTHER OUTSIDE volume LAB and a peak 57 mmHg OTHER OUTSIDE gradient of LAB TV rest 19 mmHg OTHER OUTSIDE pulmonary LAB artery pressure Lateral E/E' 6.88 OTHER OUTSIDE ratio LAB Left Atrium 39.37 16 - 34 OTHER OUTSIDE Index LAB Left Ventricle 137.67 43 - 95 g/m2 OTHER OUTSIDE Mass Index LAB TDI Medial e' 0.044 m/s OTHER OUTSIDE LAB Medial E/E' 12.50 OTHER OUTSIDE ratio LAB ECHO EF 60 % OTHER OUTSIDE LAB Referring Jesus Self OTHER OUTSIDE Provider LAB Cardiology Siemens [id number] OTHER OUTSIDE Ultrasound LAB Machine Specimen Narrative Performed At OTHER OUTSIDE LAB LVEF=55-60%, Mild Abnormal Septal Mo tion Moderate Concentric LVH Mild Left Atrial Dilatation Severe Aortic Valve Stenosis: Peak V elocity=3.8m/sec, Mean Gradient=37mmHg, Velocity Ratio=0.21, A tyrell=0.64cm2 Mild Mitral Annular Calcification No Pericardial Effusion PASP=19mmHg TAPSE=1.42cm Performing Organization Address City/State/Zipcode Ph one Number OTHER OUTSIDE LAB * PFT COMPLETE PULM FUNCTION (10/08/2019 8:18 AM TRAFFIC SURVEY TECHNICIAN) FVC-Pre 1.41 L [facility] FVC-%Pred-pre 48 % [facility] FVC-Post 1.86 L [facility] FVC-%Pred-Post 64 % [facility] FEV1-Pre 0.83 L [facility] FEV1-%Pred-Pre 38 % [facility] FEV1-Post 1.11 L [facility] FEV1-%Pred-Post 51 % [facility] FEV1/FVC-Pre 59 % [facility] [id number] 66 % [facility] [id number] 0.42 L/sec [facility] [id number]-%Pred-P 23 % [facility] re [id number] 0.92 L/sec [facility] [id number]-%Pred-P 50 % [facility] ost PEF-Post 175.2 L/min [facility] RVPleth-Pre 2.86 L [facility] RVPleth-%Pred-P 130 % [facility] re TLCPleth-Pre 4.52 L [facility] TLCPleth-%Pred- 90 % [facility] Pre DLCOunc-Pre 10.20 ml/min/mmHg [facility] DLCOunc-%Pred-P 50 % [facility] re DLCOunc-#SD -2.657 ml/min/mmHg [facility] DLVA-Pred 4.29 ml/min/mmHg/L [facility] DLVA-Pre 3.69 ml/min/mmHg/L [facility] DLVA-%Pred-Pre 86 % [facility] DLVA-SD 0.80 ml/min/mmHg/L [facility] DLVA-LLN 2.69 ml/min/mmHg/L [facility] DLVA-ULN 5.89 ml/min/mmHg/L [facility] DLVA-#SD -0.747 ml/min/mmHg/L [facility] [id number] 44 % [facility] Specimen Narrative Performed At This result has an attachment that is n ot available. Performing Organization Address City/State/Zipcode Ph one Number [facility] [address] [place], [place] [address] * CTA CHEST WO/W CONTRAST+POST IMPRESSION (10/02/2019 12:50 PM TRAFFIC SURVEY TECHNICIAN) Specimen Impressions Performed At CHEST: [facility] RESULTS 1. Bilateral lower lobe pulmonary embol i 2. Enlarged main pulmonary artery that is suggestive of pulmonary hypertension. 3. Thickening and calcification of the aortic valve with a normal caliber thoracic aorta. 4. Emphysema and coronary artery diseas e ABDOMEN AND PELVIS: 1. Nonocclusive thrombus in the right e xternal iliac vein 2. Short segment dissection of the righ t common iliac artery Dr. Bowman discussed these findings with Hernan Barnes nurse practitioner by telephone at 2:40 p.m. 10/02/2019 Finalized by Bishnu Bowman M.D. on 10/02/2019 2:41 PM. Dictated by Bishnu Bowman M.D. on 10/02/2019 2:19 PM. Narrative Performed At CTA CHEST, ABDOMEN AND PELVIS [facility] RES[facility] Clinical Indication: Female, 69 years old. Aortic valve stenosis, etiology of cardiac valve disease unspecified. TA VR Technique: Multiple contiguous axial im ages were obtained through the chest, abdomen and pelvis following the admini stration of IV contrast material. Arterial phase imaging was obtained thr ough the chest, abdomen, and pelvis. Delayed phase imaging was obtained th rough the abdomen and pelvis. Post processing coronal and sagittal reconst ruction images were made from the axial images. Image post-processing was obtai cindy. IV contrast: Yes Bowel contrast: None Comparison: None CHEST FINDINGS: Lower Neck: Unremarkable Axilla, Mediastinum and Adriana: Unremarka ble. Heart and Great Vessels: Normal size he art. No pericardial effusion. Dense calcific coronary artery disease status post median sternotomy and CABG. Thickening and calcification of the aor tic valve. Normal caliber thoracic aorta. Ascending aorta measures 3.3 cm. Enlarg ed main pulmonary artery up to 3.3 cm that is suggestive of pulmonary hyperte nsion. There are several filling defects within bilateral lower lobe pulmonary a rteries (such as series 5 image 300). Airway, Lungs and Pleura: Mild emphysem a. Minimal subpleural groundglass opacity in both lower lobes peripherally that m ost likely represents atelectasis. Chest Wall and Osseous Structures: Adva nced degenerative disc disease at T3-T4 and T4-T5. Mild/moderate degenerative d isc disease at other levels. Spinal stimulator extends to the level of the midthoracic spine. Subacute appearing fracture deformity of the right scapula , including fracture involving the articular surface of the glenoid. Diffu se thickening of the spine of the left scapula that may represent an old fract ure deformity. There are a few old, healed right posterior rib fracture def ormities. Cluster surgical clips are present in the lower outer quadrant of the right breast, which likely represents a prior lumpectomy. Abdomen and Pelvis Findings: Liver and Biliary system: Unremarkable liver. Prior cholecystectomy. Mild choledocho ectasia. Spleen: Unremarkable. Adrenal Glands and Kidneys: Unremarkabl e. Pancreas and Retroperitoneum: Moderate atrophy of the pancreas. Aorta and Major Vessels: * Nonocclusive thrombus in the distal right external iliac vein (series 17 image 66). * Normal caliber abdominal aorta and common iliac arteries with mild to moderate atherosclerosis. Bilateral kis sing stents are present in the lower abdominal aorta extending into both com mon iliac arteries. There is a short segment dissection of the right common iliac artery (series 10 image 399). Mild stenosis of the celiac axis due to athe rosclerosis. Bowel, Mesentery and Peritoneal space: Unremarkable. Pelvis: Prior hysterectomy. Urinary vicky dder is mildly distended. No pelvic lymphadenopathy. Abdominal wall and Osseous Structures: Mild lumbar spondylosis. Spinal stimulator enters the spinal canal at t he level of L1 and L2. Prior mesh repair of the anterior abdominal wall. Procedure Note Interface, Radiant Results - 10/02/2019 2:44 PM TRAFFIC SURVEY TECHNICIAN CTA CHEST, ABDOMEN AND PELVIS Clinical Indication: Female, 69 years old. Aortic valve stenosis, etiology of cardiac valve disease unspecified. TAVR Technique: Multiple contiguous axial images were obtained through the chest, abdomen and pelvis following the administration of IV contrast material. Arterial phase imaging was obtained through the chest, abdomen, and pelvis. Delayed phase imaging was obtained through the abdomen and pelvis. Post processing coronal and sagittal reconstruction images were made from the axial images. Image post-processing was obtained. IV contrast: Yes Bowel contrast: None Comparison: None CHEST FINDINGS: Lower Neck: Unremarkable Axilla, Mediastinum and Adriana: Unremarkable. Heart and Great Vessels: Normal size heart. No pericardial effusion. Dense calcific coronary artery disease status post median sternotomy and CABG. Thickening and calcification of the aortic valve. Normal caliber thoracic aorta. Ascending aorta measures 3.3 cm. Enlarged main pulmonary artery up to 3.3 cm that is suggestive of pulmonary hypertension. There are several filling defects within bilateral lower lobe pulmonary arteries (such as series 5 image 300). Airway, Lungs and Pleura: Mild emphysema. Minimal subpleural groundglass opacity in both lower lobes peripherally that most likely represents atelectasis. Chest Wall and Osseous Structures: Advanced degenerative disc disease at T3-T4 and T4-T5. Mild/moderate degenerative disc disease at other levels. Spinal stimulator extends to the level of the midthoracic spine. Subacute appearing fracture deformity of the right scapula, including fracture involving the articular surface of the glenoid. Diffuse thickening of the spine of the left scapula that may represent an old fracture deformity. There are a few old, healed right posterior rib fracture deformities. Cluster surgical clips are present in the lower outer quadrant of the right breast, which likely represents a prior lumpectomy. Abdomen and Pelvis Findings: Liver and Biliary system: Unremarkable liver. Prior cholecystectomy. Mild choledocho ectasia. Spleen: Unremarkable. Adrenal Glands and Kidneys: Unremarkable. Pancreas and Retroperitoneum: Moderate atrophy of the pancreas. Aorta and Major Vessels: * Nonocclusive thrombus in the distal right external iliac vein (series 17 image 66). * Normal caliber abdominal aorta and common iliac arteries with mild to moderate atherosclerosis. Bilateral kissing stents are present in the lower abdominal aorta extending into both common iliac arteries. There is a short segment dissection of the right common iliac artery (series 10 image 399). Mild stenosis of the celiac axis due to atherosclerosis. Bowel, Mesentery and Peritoneal space: Unremarkable. Pelvis: Prior hysterectomy. Urinary bladder is mildly distended. No pelvic lymphadenopathy. Abdominal wall and Osseous Structures: Mild lumbar spondylosis. Spinal stimulator enters the spinal canal at the level of L1 and L2. Prior mesh repair of the anterior abdominal wall. IMPRESSION CHEST: 1. Bilateral lower lobe pulmonary emboli 2. Enlarged main pulmonary artery that i s suggestive of pulmonary hypertension. 3. Thickening and calcification of the a ortic valve with a normal caliber thoracic aorta. 4. Emphysema and coronary artery disease ABDOMEN AND PELVIS: 1. Nonocclusive thrombus in the right ex ternal iliac vein 2. 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 Bowman discussed these findings with Dina Barnes nurse practitioner by telephone at 2:40 p.m. 10/02/2019 Finalized by Bishnu Bowman M.D. on 10/02/2019 2:41 PM. Dictated by Bishnu Bowman M.D. on 10/02/2019 2:19 PM. Performing Organization Address City/State/Zipcode Ph one Number [facility] * CTA ABD/PELVIS (10/02/2019 12:50 PM TRAFFIC SURVEY TECHNICIAN) Specimen Impressions Performed At CHEST: [facility] RES[facility] 1. Bilateral lower lobe pulmonary embol i 2. Enlarged main pulmonary artery that is suggestive of pulmonary hypertension. 3. Thickening and calcification of the aortic valve with a normal caliber thoracic aorta. 4. Emphysema and coronary artery diseas e ABDOMEN AND PELVIS: 1. Nonocclusive thrombus in the right e xternal iliac vein 2. Short segment dissection of the righ t common iliac artery Dr. Bowman discussed these findings with Hernan Barnes nurse practitioner by telephone at 2:40 p.m. 10/02/2019 Finalized by Bishnu Bowman M.D. on 10/02/2019 2:41 PM. Dictated by Bishnu Bowman M.D. on 10/02/2019 2:19 PM. Narrative Performed At CTA CHEST, ABDOMEN AND PELVIS [facility] RESULTS Clinical Indication: Female, 69 years old. Aortic valve stenosis, etiology of cardiac valve disease unspecified. TA VR Technique: Multiple contiguous axial im ages were obtained through the chest, abdomen and pelvis following the admini stration of IV contrast material. Arterial phase imaging was obtained thr ough the chest, abdomen, and pelvis. Delayed phase imaging was obtained th rough the abdomen and pelvis. Post processing coronal and sagittal reconst ruction images were made from the axial images. Image post-processing was obtai cindy. IV contrast: Yes Bowel contrast: None Comparison: None CHEST FINDINGS: Lower Neck: Unremarkable Axilla, Mediastinum and Adriana: Unremarka ble. Heart and Great Vessels: Normal size he art. No pericardial effusion. Dense calcific coronary artery disease status post median sternotomy and CABG. Thickening and calcification of the aor tic valve. Normal caliber thoracic aorta. Ascending aorta measures 3.3 cm. Enlarg ed main pulmonary artery up to 3.3 cm that is suggestive of pulmonary hyperte nsion. There are several filling defects within bilateral lower lobe pulmonary a rteries (such as series 5 image 300). Airway, Lungs and Pleura: Mild emphysem a. Minimal subpleural groundglass opacity in both lower lobes peripherally that m ost likely represents atelectasis. Chest Wall and Osseous Structures: Adva nced degenerative disc disease at T3-T4 and T4-T5. Mild/moderate degenerative d isc disease at other levels. Spinal stimulator extends to the level of the midthoracic spine. Subacute appearing fracture deformity of the right scapula , including fracture involving the articular surface of the glenoid. Diffu se thickening of the spine of the left scapula that may represent an old fract ure deformity. There are a few old, healed right posterior rib fracture def ormities. Cluster surgical clips are present in the lower outer quadrant of the right breast, which likely represents a prior lumpectomy. Abdomen and Pelvis Findings: Liver and Biliary system: Unremarkable liver. Prior cholecystectomy. Mild choledocho ectasia. Spleen: Unremarkable. Adrenal Glands and Kidneys: Unremarkabl e. Pancreas and Retroperitoneum: Moderate atrophy of the pancreas. Aorta and Major Vessels: * Nonocclusive thrombus in the distal right external iliac vein (series 17 image 66). * Normal caliber abdominal aorta and common iliac arteries with mild to moderate atherosclerosis. Bilateral kis sing stents are present in the lower abdominal aorta extending into both com mon iliac arteries. There is a short segment dissection of the right common iliac artery (series 10 image 399). Mild stenosis of the celiac axis due to athe rosclerosis. Bowel, Mesentery and Peritoneal space: Unremarkable. Pelvis: Prior hysterectomy. Urinary vicky dder is mildly distended. No pelvic lymphadenopathy. Abdominal wall and Osseous Structures: Mild lumbar spondylosis. Spinal stimulator enters the spinal canal at t he level of L1 and L2. Prior mesh repair of the anterior abdominal wall. Procedure Note Interface, Radiant Results - 10/02/2019 2:44 PM TRAFFIC SURVEY TECHNICIAN CTA CHEST, ABDOMEN AND PELVIS Clinical Indication: Female, 69 years old. Aortic valve stenosis, etiology of cardiac valve disease unspecified. TAVR Technique: Multiple contiguous axial images were obtained through the chest, abdomen and pelvis following the administration of IV contrast material. Arterial phase imaging was obtained through the chest, abdomen, and pelvis. Delayed phase imaging was obtained through the abdomen and pelvis. Post processing coronal and sagittal reconstruction images were made from the axial images. Image post-processing was obtained. IV contrast: Yes Bowel contrast: None Comparison: None CHEST FINDINGS: Lower Neck: Unremarkable Axilla, Mediastinum and Adriana: Unremarkable. Heart and Great Vessels: Normal size heart. No pericardial effusion. Dense calcific coronary artery disease status post median sternotomy and CABG. Thickening and calcification of the aortic valve. Normal caliber thoracic aorta. Ascending aorta measures 3.3 cm. Enlarged main pulmonary artery up to 3.3 cm that is suggestive of pulmonary hypertension. There are several filling defects within bilateral lower lobe pulmonary arteries (such as series 5 image 300). Airway, Lungs and Pleura: Mild emphysema. Minimal subpleural groundglass opacity in both lower lobes peripherally that most likely represents atelectasis. Chest Wall and Osseous Structures: Advanced degenerative disc disease at T3-T4 and T4-T5. Mild/moderate degenerative disc disease at other levels. Spinal stimulator extends to the level of the midthoracic spine. Subacute appearing fracture deformity of the right scapula, including fracture involving the articular surface of the glenoid. Diffuse thickening of the spine of the left scapula that may represent an old fracture deformity. There are a few old, healed right posterior rib fracture deformities. Cluster surgical clips are present in the lower outer quadrant of the right breast, which likely represents a prior lumpectomy. Abdomen and Pelvis Findings: Liver and Biliary system: Unremarkable liver. Prior cholecystectomy. Mild choledocho ectasia. Spleen: Unremarkable. Adrenal Glands and Kidneys: Unremarkable. Pancreas and Retroperitoneum: Moderate atrophy of the pancreas. Aorta and Major Vessels: * Nonocclusive thrombus in the distal right external iliac vein (series 17 image 66). * Normal caliber abdominal aorta and common iliac arteries with mild to moderate atherosclerosis. Bilateral kissing stents are present in the lower abdominal aorta extending into both common iliac arteries. There is a short segment dissection of the right common iliac artery (series 10 image 399). Mild stenosis of the celiac axis due to atherosclerosis. Bowel, Mesentery and Peritoneal space: Unremarkable. Pelvis: Prior hysterectomy. Urinary bladder is mildly distended. No pelvic lymphadenopathy. Abdominal wall and Osseous Structures: Mild lumbar spondylosis. Spinal stimulator enters the spinal canal at the level of L1 and L2. Prior mesh repair of the anterior abdominal wall. IMPRESSION CHEST: 1. Bilateral lower lobe pulmonary emboli 2. Enlarged main pulmonary artery that i s suggestive of pulmonary hypertension. 3. Thickening and calcification of the a ortic valve with a normal caliber thoracic aorta. 4. Emphysema and coronary artery disease ABDOMEN AND PELVIS: 1. Nonocclusive thrombus in the right ex ternal iliac vein 2. 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 Bwoman discussed these findings with Dina Barnes nurse practitioner by telephone at 2:40 p.m. 10/02/2019 Finalized by Bishnu Bowman M.D. on 10/02/2019 2:41 PM. Dictated by Bishnu Bowman M.D. on 10/02/2019 2:19 PM. Performing Organization Address City/State/Zipcode Ph one Number [facility] documented in this encounter Visit Diagnoses Diagnosis Aortic valve stenosis, etiology of card iac valve disease unspecified Contrast media allergy Allergy to radiographic dye PVD (peripheral vascular disease) (HCC) Peripheral vascular disease, unspecifie d documented in this encounter
--- OUTSIDE RECORDS SUMMARY | 2020-03-02 17:49 | XMS REPORT | Encounter Summary ---
Author Author [facility] Organization [facility] Address Unknown Phone Unavailable Care Team Providers Care Manager Of Investigations Name Role Phone Bishnu Martin MD Unavailable Chata Chau DPM Unavailable SelfJesus MD PCP Encounter Details Care Team Description Date Type Department Dina Barnes, PRESS PIPE INSPECTOR-PILE DRIVING SUPERVISOR [address] [facility] [id number] [place], [place] [id number] 10/08/2019 [facility] [address] [facility] [address] [place], [place] [id number] Social History Date Tobacco Use Types Packs/Day [...] 0 mg tablet mouth every 7 days. aspirin EC 81 [...] 2 mg by 0 tablet mouth daily. citalopram (CELEXA) 40 mg Take 40 mg by 0 tablet mouth at bedtime daily. docusate (COLACE) 100 mg Take 100 mg 0 capsule by mouth at bedtime daily. fluticasone (FLONASE) 50 Apply 1 [place] 0 mcg/actuation nasal spray to each nostril [...] mEq tablet by mouth daily after dinner. 05/25/2018 traZODone (DESYREL) 150 Take 150 mg 0 mg tablet by mouth at bedtime daily. vitamins, multiple cap Take 1 Cap by 0 mouth daily. 09/21/2016 01/02/2020 albuterol (VENTOLIN HFA, Inhale 2 1 Inhaler 11 PROAIR HFA, PROVENTIL Puffs by HFA) 90 mcg/actuation mouth into inhalerIndications: Other the lungs emphysema (HCC) every 6 hours as needed for Wheezing or Shortness of Breath. Shake well before use. 12/24/2019 CALCIUM CARBONATE/VITAMIN Take by 0 D3 (CALCIUM + D PO) mouth. 12/28/2019 carvedilol (COREG) 6.25 Take 6.25 mg 0 mg tablet by mouth twice daily. 10/13/2016 01/02/2020 chlorhexidine gluconate Swish and 473 mL 2 (PERIDEX) 0.12 % solution Spit 15 mL by mouth as directed after meals and at bedtime. 01/02/2020 dexlansoprazole (+) Take 60 mg by 0 (DEXILANT) 60 mg capsule mouth daily. 09/25/2019 12/24/2019 methylprednisolone Take one 2 tablet 0 (MEDROL) 32 mg tablet tablet by mouth as directed. Take 32mg by mouth 12 hours before appointment, then take 32mg by mouth 2 hours before appointment time 01/02/2020 vitamin E 400 unit Take 400 [...] 10/08/2019 Aortic valve stenosis, FUNCTION 8:18 AM STAFFING DIRECTOR etiology of cardiac valve disease unspecified documented in this encounter Results * PFT COMPLETE PULM FUNCTION (10/08/2019 8:18 AM STAFFING DIRECTOR) FVC-Pre 1.41 L [facility] FVC-%Pred-pre 48 % [facility] FVC-Post 1.86 L [facility] FVC-%Pred-Post 64 % [facility] FEV1-Pre 0.83 L [facility] FEV1-%Pred-Pre 38 % [facility] FEV1-Post 1.11 L [facility] FEV1-%Pred-Post 51 % [facility] FEV1/FVC-Pre 59 % [facility] [id number] 66 % [facility] [id number] 0.42 L/sec [facility] [id number]-%Pred-P 23 % [facility] re [id number] 0.92 L/sec [facility] [id number]-%Pred-P 50 % [facility] ost PEF-Post [...] MAIN DLVA-#SD -0.747 ml/min/mmHg/L [facility] [id number] 44 % [facility] Specimen Narrative Performed At This result has an attachment that is n ot available. Performing Organization Address City/State/Zipcode Ph one Number [facility] [address] [place], [place] [address] documented in this encounter Visit Diagnoses Not on filedocumented in this encounter
--- OUTSIDE RECORDS SUMMARY | 2020-03-02 17:49 | XMS REPORT | Encounter Summary ---
Author Author [facility] Organization [facility] Address Unknown Phone Unavailable Care Team Providers Care Punch Molder Name Role Phone Bishnu Martin MD Unavailable Chata Chau DPM Unavailable Jesus López MD PCP Reason for Visit * Reason Comments New Patient /TAVR Eval * Consult, Test & Treat (Routine) Referred By Contact Referred To Contact Status Reason Specialty Diagnoses / Procedures Mac, Referring [facility] [address] [facility] [place] [address] New Request Specialty Services Cardiothoracic Diagnoses Required Surgery Aortic valve stenosis, etiology of cardiac valve disease unspecified Encounter Details Care Team Description Date Type Department Neymar Moise (Augusto) Arcenio MENA MD [address] [address] [phone] Aortic valve stenosis, etiology of cardi ac valve disease unspecified (Primary Dx); Acute on chronic diastolic CHF (congestive heart failure), NYHA class 3 ([facility]); S/P CABG (coronary artery bypass graft); COPD, severe ([facility]); Chronic pulmonary embolism, unspecified pulmonary embolism type, unspecified whether acute cor pulmonale present ([facility]); Anticoagulated; Obesity, Class II, BMI 35-39.9; Myocardial infarction, unspecified VA type, unspecified artery ([facility]); Requires continuous at home supplemental oxygen; ANCA on CPAP; PAD (peripheral artery disease) ([facility]); Bilateral carotid artery stenosis; Malignant neoplasm of right female breast, unspecified estrogen receptor status, unspecified site of breast (HCC); Type 2 diabetes mellitus with other specified complication, with long-term current use of insulin (HCC); Family history of premature CAD; MRSA cellulitis; Chronic back pain, unspecified back location, unspecified back pain laterality; PVD (peripheral vascular disease) (HCC); Gastroparesis; Osteoporosis, unspecified osteoporosis type, unspecified pathological fracture presence; Hyperlipidemia, unspecified hyperlipidemia type; Contrast media allergy 10/08/2019 Office Visit [facility] [address] [facility] [place] [address] Social History Date Tobacco Use Types Packs/Day [...] history available. documented as of this encounter Last Filed Vital Signs Reading Time Taken Comments Vital Sign 136/62 10/08/2019 10:24 AM FREEZING MACHINE OPERATOR Blood Pressure 67 10/08/2019 10:24 AM FREEZING MACHINE OPERATOR Pulse 36.7 C (98.1 F) 10/08/2019 10:24 AM FREEZING MACHINE OPERATOR Temperature - - Respiratory Rate 95% 10/08/2019 10:24 AM FREEZING MACHINE OPERATOR Oxygen Saturation - - Inhaled Oxygen Concentration 102.6 kg (226 lb 1.6 oz) 10/08/2019 10:24 AM FREEZING MACHINE OPERATOR Weight 162.6 cm (5' 4") 10/08/2019 10:24 AM FREEZING MACHINE OPERATOR Height 38.81 10/08/2019 10:24 AM FREEZING MACHINE OPERATOR Body Mass Index documented in this encounter [...] as of this encounter Progress Notes * Stephany George APRN - 10/08/2019 10:30 AM FREEZING MACHINE OPERATOR Date of Service: 10/08/2019 Subjective: Maggy Nicholas is a 69 y.o. female. History of Present Illness We had the pleasure of seeing Maggy Nicholas in clinic today for evaluation of their aortic valve stenosis. As you know Maggy Nicholas is a 69 y.o. female who has a history of type 2 diabetes with insulin pump and oral medication, hyperte nsion, hyperlipidemia, obstructive sleep apnea with CPAP machine, home O2 depend ence per nasal cannula currently on 2 L, gastroparesis, obesity, VA x3, status p ost coronary artery bypass grafting in 2005 at [facility] in [facility], breast cancer diagnosed in 2005 following her cardiac operation and is st atus post right lumpectomy and mediastinal radiation with chronic radiation type changes on her skin, severe COPD, history of tobacco use quitting in 2008, chip tester margarita back pain with a nerve stimulator in place, peripheral artery disease with b ilateral iliac stents, bilateral carotid artery disease, family history of adelso ture coronary artery disease with her father having an VA prior to the age of 55 , MRSA and E. coli cellulitis of her right leg and a graft harvest site, a recen t finding of chronic PEs on an outside CT scan and is currently on Xarelto for a nticoagulation. She reports ongoing and worsening dyspnea on exertion, orthopnea, and fatigue si nce April or May. She had an echocardiogram on 07/22/2019 at an outside facility that showed an EF of 60 to 65%, mild diastolic dysfunction, severe aor tic valve stenosis with a peak velocity of 4.0 m/s, a mean gradient of 39 mmHg, aortic valve area of 1.0 cm, no AI, mild MR, mild to moderate TR. On 09/10/2019 she had a right and left heart catheterization also at an outside [facility] that showed an elevated mean right atrial pressure at 10 pulmonary arter y pressure mean was 34, pulmonary capillary wedge pressure was 25, cardiac outpu t was 5.6 L/min with an index of 2.5, severe aortic valve stenosis with a mean g radient of 56 mmHg and a valve area of 0.6 cm, severe [place] three-vessel aurora nary artery disease with patent grafts throughout. On 09/27/2019 she also had a carotid duplex scan at an outside facility that show ed severe bilateral carotid artery disease 60 to 79% with severe velocities. She had pulmonary function testing completed here today that showed an FEV1 of 0 .8 L and 38% predicted and a DLCO of 50% predicted suggesting severe COPD with a ir trapping and a moderate defect in diffusion. She also had a repeat echocardiogram here today that was reviewed by Dr. Suma Berry prior to seeing the patient. She denies chest pain, palpitations, syncope, paroxysmal nocturnal dyspnea, lowe r extremity edema, chills, fever, myalgias, nonproductive cough and productive c ough. She also denies any history of CVA, TIA, cardiac arrhythmia, or blood clot ting disorders. She denies any allergy to nickel. Denies current rash on torso or groin area. Denies any reason or sabianist belief that would impact their car e such as receiving blood, tissue, or animal products. They don't currently foll ow routinely with their dentist and she has very few remaining teeth and those t eeth are broken and need attention. She is here today to discuss possible surgical interventions. This was all reviewed today by Dr. Augusto Moise III and was discussed at length wit robbie Nicholas. Preliminary STS today: Procedure: Isolated AVR CALCULATE Risk of Mortality: 11.143% Renal Failure: 5.798% Permanent Stroke: 1.967% Prolonged Ventilation: 26.929% DSW Infection: 0.576% Reoperation: 2.199% Morbidity or Mortality: 28.526% Short Length of Stay: 14.966% Long Length of Stay: 20.817% Review of Systems Constitution: Positive for malaise/fatigue. HENT: Negative. Eyes: Negative. Cardiovascular: Negative. Respiratory: Positive for shortness of breath. Endocrine: Negative. Hematologic/Lymphatic: Negative. Skin: Negative. Musculoskeletal: Positive for arthritis and back pain. Gastrointestinal: Negative. Genitourinary: Negative. Neurological: Negative. Psychiatric/Behavioral: Negative. Allergic/Immunologic: Negative. Medical History: Diagnosis Date Acute on chronic [...] (cerebral vascular accident) (HCC) DM (diabetes mellitus) ([facility]) Family history of premature CAD Gastroparesis Heart murmur Hyperlipidemia Hypertension MRSA cellulitis 2006 right leg vein harvest site Myocardial infarction (HCC) 2006, ~2005 Total of 3 Neuropathy Obese Obesity, Class II, BMI 35-39.9 ANCA on CPAP with supplemental O2 Osteoporosis PAD (peripheral artery disease) ([facility]) s/p bilateral iliac stents Pulmonary embolism (HCC) PVD (peripheral vascular disease) ([facility]) Requires continuous at home supplemental oxygen S/P CABG (coronary artery bypass graft) 2006 [facility] in [place], [place] Surgical History: Procedure Laterality Date EYE [...] CATHERIZATION Bilateral 2010 PERIPHERAL VASCULAR SURGERY Bilateral 2011 Stent placement CARPAL TUNNEL RELEASE Left 2012 SPINE SURGERY 2014 neurostem FOOT SURGERY Right 2015 RADICAL EXCISION OF CHEEK FISTULA, TOOTH EXTRACTION Right 10/13/2016 Performed by Gianfranco Conti MD at Main OR/Periop CATARACT REMOVAL Bilateral 2009, 2010 DENTAL SURGERY 2012, 2013 cheek infection LA EXCISION TUMOR SOFT TISSUE LEG/ANKLE SUBQ 3 [...] Last attempt to quit: 10/30/2008 Years since quittin.9 Smokeless tobacco: Never Used Substance and Sexual Activity Alcohol use: No Alcohol/week: 0.0 standard drinks Comment: 1-2 x per year Drug use: No Sexual activity: Not on file Other Topics Concern Not on file Social History Narrative Not on file Family History Problem Relation Age of Onset Cancer-Breast Other Cancer Mother uterine Stroke Mother Cancer Paternal Grandmother Diabetes Paternal Grandmother Diabetes Father Heart Disease Father Heart Attack Father >55 y/o Emphysema Father Seizures Other Objective: albuterol (VENTOLIN HFA, PROAIR HFA, PROVENTIL HFA) [...] daily bumetanide (BUMEX) 2 mg tablet Take 1 mg by mouth daily after dinner. CALCIUM CARBONATE/VITAMIN D3 (CALCIUM + D PO) Take by mouth. carvedilol (COREG) 6.25 mg tablet Take 6.25 mg by mouth twice daily. chlorhexidine gluconate (PERIDEX) 0.12 % solution Swish and Spit 15 mL by ms ut as directed after meals and at bedtime. citalopram (CELEXA) 40 mg tablet Take 40 mg by mouth at bedtime daily. dexlansoprazole (+) (DEXILANT) 60 mg capsule Take 60 mg by mouth daily. docusate (COLACE) 100 mg capsule Take 100 mg by mouth at bedtime daily. fluticasone (FLONASE) 50 mcg/actuation nasal spray Apply 1 [place] to each nos tril as directed twice daily. gabapentin (NEURONTIN) 100 mg capsule Take 100 mg by mouth twice daily. insulin pump -ASPART- Patients Own by SubQ Pump route. Indications: 1.9U bas al, 1U=8carbs, target range 100-130 lisinopril (PRINIVIL; ZESTRIL) 10 mg tablet Take 5 mg by mouth daily. loratadine (CLARITIN) 10 mg tablet Take 10 mg by mouth twice daily. metFORMIN (GLUCOPHAGE) 500 mg tablet Take 500 mg by mouth twice daily. methylprednisolone (MEDROL) 32 mg tablet Take one tablet by mouth as directe d. Take 32mg by mouth 12 hours before appointment, then take 32mg by mouth 2 rinku rs before appointment time mupirocin (BACTROBAN) 2 % topical ointment Apply to affected area as Needed . nystatin (NYSTOP) 100,000 unit/g topical powder Apply topically to affected area twice daily as needed. potassium chloride SR (K-DUR) 10 mEq tablet Take 10 mEq by mouth daily after dinner. rivaroxaban (XARELTO) 15 mg tablet Take 15 mg by mouth twice daily. Take wit h food. One at morning and one at night vitamin E 400 unit capsule Take 400 Units by mouth daily. vitamins, multiple cap Take 1 Cap by mouth daily. Vitals: 10/08/19 1024 BP: 136/62 BP Source: Arm, Left Upper Pulse: 67 Temp: 36.7 C (98.1 F) SpO2: 95% Weight: 102.6 kg (226 lb 1.6 oz) Height: 1.626 m (5' 4") PainSc: Four Body mass index is 38.81 kg/m. Physical Exam Constitutional: Appearance: Normal appearance. She is obese. Cardiovascular: Rate and Rhythm: Normal rate and regular rhythm. Pulses: Normal pulses. Heart sounds: Murmur present. Pulmonary: Effort: Pulmonary effort is normal. No respiratory distress. Comments: O2 per NC at 2L. Diminished lung sounds bilaterally. Abdominal: General: Bowel sounds are normal. Palpations: Abdomen is soft. Skin: General: Skin is warm and dry. Neurological: Mental Status: She is alert and oriented to person, place, and time. Psychiatric: Mood and Affect: Mood normal. Behavior: Behavior normal. Thought Content: Thought content normal. Judgment: Judgment normal. Assessment: 1. Aortic valve stenosis, etiology of cardiac valve disease unspecified 2. Acute on chronic diastolic CHF (congestive heart failure), NYHA class 3 ([facility]) 3. S/P CABG (coronary artery bypass graft) 4. COPD, severe ([facility]) 5. Chronic pulmonary embolism, unspecified pulmonary embolism type, unspecified whether acute cor pulmonale present ([facility]) 6. Anticoagulated 7. Obesity, Class II, BMI 35-39.9 8. Myocardial infarction, unspecified VA type, unspecified artery ([facility]) 9. Requires continuous at home supplemental oxygen 10. ANCA on CPAP 11. PAD (peripheral artery disease) ([facility]) 12. Bilateral carotid artery stenosis 13. Malignant neoplasm of right female breast, unspecified estrogen receptor sta tus, unspecified site of breast ([facility]) 14. Type 2 diabetes mellitus with other specified complication, with long-term c urrent use of insulin ([facility]) 15. Family history of premature CAD 16. MRSA cellulitis 17. Chronic back pain, unspecified back location, unspecified back pain laterali ty 18. PVD (peripheral vascular disease) ([facility]) 19. Gastroparesis 20. Osteoporosis, unspecified osteoporosis type, unspecified pathological fractu re presence 21. Hyperlipidemia, unspecified hyperlipidemia type 22. Contrast media allergy We will continue with TAVR workup. She will need dental clearance prior to surge ry. We will also need to obtain her operative report from her iliac stenting to identify her stents and better know her access for TAVR. Stephany George APRN [facility] 10/08/2019 Assessment and Plan: I had the pleasure of seeing Mrs. Nicholas in the valve clinic along with Dr. Alejandro whaley for evaluation of her severe symptomatic aortic stenosis. She has an extensi ve past medical history including coronary bypass surgery, severe COPD, carotid artery disease, peripheral vascular disease with bilateral iliac stents and her aortic stenosis. She is also had extensive radiation to her chest for treatment of her breast can cer. She has been relatively immobile for the past several years with significant cazares itation to ambulation and exercise. She was recently diagnosed with bilateral D VTs and pulmonary emboli and started on anticoagulation. She has an echo that shows severe aortic stenosis with a mean gradient of 37 and a peak velocity of 4.1. Her left ventricular function is approximately 45%. S he has a very calcified and stenotic valve. We reviewed her TAVR CTA. Access will be very difficult given her extensive per ipheral vascular disease. She has calcification of the common femoral arteries bilaterally but with bilateral common iliac stents that are somewhat narrowed. I do think we will be able to get a device up through this area but may require some extra work. She is not a good candidate for alternative access sites. I reviewed the risks of the procedure including bleeding, infection, stroke, ronak lysis and . She also understands there is a 10% incidence of needing a pac emaker afterwards. I did discuss that should we not be able to get up to her co mmon femoral arteries we would stop at that time and discuss further options. I also think we should bridge her for her anticoagulation around the time of her procedure given her history of PE. I appreciate the opportunity to participate in the care of this nice lady. Augusto Moise M.D. ZING MACHINE OPERATOR documented in this encounter Plan of Treatment Not on filedocumented as of this encounter Goals Goal Patient Associated Recent Progress Patient-Stat Aut hor Goal Type Problems ed? Diabetic Blood Sugar Lifestyle No Lashell, Lisa Mera RN documented as of this encounter Visit Diagnoses Diagnosis Aortic valve stenosis, etiology of card iac valve disease unspecified Acute on chronic diastolic CHF (congest jeffrey heart failure), NYHA class 3 ([facility]) Acute on chronic diastolic heart failur e S/P CABG (coronary artery bypass graft) Postsurgical aortocoronary bypass statu s COPD, severe ([facility]) Chronic airway obstruction, not elsewhe re classified Chronic pulmonary embolism, unspecified pulmonary embolism type, unspecified whether acute cor pulmonale present ([facility]) Anticoagulated Long-term (current) use of anticoagulan ts Obesity, Class II, BMI 35-39.9 Morbid obesity Myocardial infarction, unspecified VA t ype, unspecified artery ([facility]) Requires continuous at home supplementa l oxygen ANCA on CPAP Obstructive sleep apnea (adult) ([facility]) PAD (peripheral artery disease) ([facility]) Peripheral vascular disease, unspecifie d Bilateral carotid artery stenosis Occlusion and stenosis of multiple and bilateral precerebral arteries without mention of cerebral infarction Malignant neoplasm of right female [address], unspecified estrogen receptor status, unspecified site of breast ([facility]) Type 2 diabetes mellitus with other spe cified complication, with long-term current use of insulin ([facility]) Family history of premature CAD Family history of ischemic heart diseas e MRSA cellulitis Cellulitis and abscess of unspecified s ite Chronic back pain, unspecified back loc ation, unspecified back pain laterality PVD (peripheral vascular disease) ([facility]) Peripheral vascular disease, unspecifie d Gastroparesis Osteoporosis, unspecified osteoporosis type, unspecified pathological fracture presence Hyperlipidemia, unspecified hyperlipide tianna type Contrast media allergy Allergy to radiographic dye documented in this encounter
--- OUTSIDE RECORDS SUMMARY | 2020-03-02 17:49 | XMS REPORT | Encounter Summary ---
Author Author [facility] Organization [facility] Address Unknown Phone Unavailable Care Team Providers Care Honing Machine Operator Production Name Role Phone Bishnu Martin MD Unavailable Chata Chau DPM Unavailable SelfJesus MD PCP Reason for Visit * Reason Comments Test 5 m walk Encounter Details Care Team Description Date Type Department Cassandra Sandhu RN Test (5 m walk) 10/08/2019 Documentation The [address] [place] [address] Social History Date Tobacco Use Types Packs/Day [...] as of this encounter Progress Notes * Cassandra Sandhu RN - 10/08/2019 11:26 AM HAND LAMINATOR TAVR 5 Meter Walk Walk 1: 6.07 Walk 2: 5.71 Walk 3: 5.40 LAMINATOR documented in this encounter Plan of Treatment Not on filedocumented as of this encounter Goals Goal Patient Associated Recent Progress Patient-Stat Aut hor Goal Type Problems ed? Diabetic Blood Sugar Lifestyle No [place], Monitoring URIAH Mera documented as of this encounter Visit Diagnoses Not on filedocumented in this encounter
--- OUTSIDE RECORDS SUMMARY | 2020-03-02 17:49 | XMS REPORT | Encounter Summary ---
Author Author [facility] Organization [facility] Address Unknown Phone Unavailable Care Team Providers Care Hot Die Picker Name Role Phone Bishnu Martin MD Unavailable Chata Chau DPM Unavailable SelfJesus MD PCP Reason for Visit * Reason Comments Results CTA Encounter Details Care Team Description Date Type Department Dina Barnes, AUTO DAMAGE APPRAISER-FINANCIAL PLANNING ASSISTANT [address] [id number] Results (CTA) 10/02/2019 Telephone [facility] [address] [address] Social History Date Tobacco Use Types Packs/Day [...] encounter Miscellaneous Notes * Telephone Encounter - Dina Barnes APRN-NP - 10/02/2019 3:58 PM WRAPPER LAYER CTA results noted. CTA was ordered for TAVR workup but we have not yet seen the patient in clinic. Bilateral PE and nonocclusive right iliac vein thrombus were incidental findings. Discussed with patient - she has shortness of breath with exertion that has gradually progressed. She denies chest pain or right leg swel ling. Discussed with her PCP's nurse (Dr. Jesus López) and faxed results to eir office. They will address anticoagulation. PER LAYER documented in this encounter Plan of Treatment Not on filedocumented as of this encounter Goals Goal Patient Associated Recent Progress Patient-Stat Aut hor Goal Type Problems ed? Diabetic Blood Sugar Lifestyle No Lisa Lobo RN documented as of this encounter Visit Diagnoses Not on filedocumented in this encounter
--- OUTSIDE RECORDS SUMMARY | 2020-03-02 17:49 | XMS REPORT | Encounter Summary ---
Author Author [facility] Organization [facility] Address Unknown Phone Unavailable Care Team Providers Care Well Drill Operator Cable Tool Name Role Phone Bishnu Martin MD Unavailable Chata Chau DPM Unavailable Jesus López MD PCP Reason for Visit * Reason Comments New Patient ref. Dr. Valera; /TAVR cydney l * Consult, Test & Treat (Routine) Referred By Contact Referred To Contact Status Reason Specialty Diagnoses / Procedures Mac, Referring Cvm [facility] [address] [address] New Request Specialty Services Cardiology Diagnoses Required Aortic valve stenosis, etiology of cardiac valve disease unspecified Encounter Details Care Team Description Date Type Department Steven Berry MD [address] [address] [phone] New Patient (ref. Dr. Valera; /TAVR cydney l) 10/08/[address] [facility] [address] [address] Social History Date Tobacco Use Types Packs/Day [...] Time Taken Comments Vital Sign 136/62 10/08/2019 10:34 AM WIRE MILL OPERATOR Blood Pressure 67 10/08/2019 10:34 AM WIRE MILL OPERATOR Pulse 36.7 C (98.1 F) 10/08/2019 10:34 AM WIRE MILL OPERATOR Temperature - - Respiratory Rate 95% 10/08/2019 10:34 AM WIRE MILL OPERATOR Oxygen Saturation - - Inhaled Oxygen Concentration 102.5 kg (226 lb) 10/08/2019 10:34 AM WIRE MILL OPERATOR Weight 162.6 cm (5' 4") 10/08/2019 10:34 AM WIRE MILL OPERATOR Height 38.79 10/08/2019 10:34 AM WIRE MILL OPERATOR Body Mass Index documented in this [...] as of this encounter Progress Notes * Steven Berry MD - 10/08/2019 10:30 AM WIRE MILL OPERATOR Date of Service: 10/08/2019 Maggy Nicholas is a 69 y.o. female. HPI We had the pleasure of seeing aMggy Nicholas in clinic today for evaluation of their aortic valve stenosis. As you know Maggy Nicholas is a 69 y.o. female who has a history of type 2 diabetes with insulin pump and oral medication, hyperte nsion, hyperlipidemia, obstructive sleep apnea with CPAP machine, home O2 depend ence per nasal cannula currently on 2 L, gastroparesis, obesity, PA x3, status p ost coronary artery bypass grafting in 2005 at [facility] in [facility], breast cancer diagnosed in 2005 following her cardiac operation and is st atus post right lumpectomy and mediastinal radiation with chronic radiation type changes on her skin, severe COPD, history of tobacco use quitting in 2008, box spring upholsterer margarita back pain with a nerve stimulator in place, peripheral artery disease with b ilateral iliac stents, bilateral carotid artery disease, family history of adelso ture coronary artery disease with her father having an PA prior to the age of 55 , [...] left heart catheterization also at an outside [facility] that showed an elevated mean right atrial pressure at 10 pulmonary arter y pressure mean was 34, pulmonary capillary wedge pressure was 25, cardiac outpu t was 5.6 L/min with an index of 2.5, severe aortic valve stenosis with a mean g radient of 56 mmHg and a valve area of 0.6 cm, severe venetie ira three-vessel aurora nary artery disease with patent [...] or groin area. Denies any reason or presybeterian belief that would impact their car e such as receiving blood, tissue, or animal products. They don't currently foll ow routinely with their dentist and she has very few remaining teeth and those t eeth are broken and need attention. She is here today to discuss possible surgical interventions. This was all reviewed today by Dr. Berry and was discussed at length with Maggy Nicholas. Preliminary STS today: Procedure: Isolated AVR CALCULATE Risk of Mortality: 11.143% Renal Failure: 5.798% Permanent Stroke: 1.967% Prolonged Ventilation: 26.929% DSW Infection: 0.576% Reoperation: 2.199% Morbidity or Mortality: 28.526% Short Length of Stay: 14.966% Long Length of Stay: 20.817% Vitals: 10/08/19 1034 BP: 136/62 BP Source: Arm, Left Upper Pulse: 67 Temp: 36.7 C (98.1 F) SpO2: 95% Weight: 102.5 kg (226 lb) Height: 1.626 m (5' 4") PainSc: Four Body mass index is 38.79 kg/m. Past Medical History Patient Active Problem List Diagnosis Date Noted Contrast media allergy Hyperlipidemia DM (diabetes mellitus) ([facility]) Obese PVD (peripheral vascular disease) ([facility]) Pulmonary embolism ([facility]) Aortic stenosis Type 2 diabetes mellitus with circulatory disorder, with long-term current u se of insulin ([facility]) 10/03/20162009 - Insulin pump started. Hypertension 09/27/2016 CAD (coronary artery disease) 09/27/2016 09/15/05 Cath ([facility]):Triple-vessel CAD with 100% proximal RCA with significant reconstitution of the vessel distally from collaterals, 90% stenosis of the cir cumflex proximal to a large obtuse marginal branch, and a 75% lesion in the diag onal branch. EF 25-30%. Elevated EDP. Inferior akinesis. 04/17/06 Cath ([facility]): Severe triple-vessel venetie ira coronary disease. 12/30 bypasses remain open with good flow. Overall preserved LV systolic function. 02/15/13 Echo ([facility]): Normal LV contraction. AV sclerosis vs mild aortic stenosi s. Minimally dilated LA. Mild mitral and tricuspid regurgitation. 12/30/14 Echo ([facility]): Mild concentric LVH and dilation with overall normal systol ic EF and mildly impaired diastolic relaxation. Calcified , mild to moderate. Left atrial enlargement, mild. Mild tricuspid regurgitation. 02/19/16 Echo ([facility]): EF 60%. Mild to moderate . (Mean gradient 21 mmHg) Mild mitral and tricuspid regurgitation. Mild diastolic dysfunction of the LV. LVH w ith normal LV contraction. Minimally dilated LA. 07/23/16 ECG ([facility]): SR, 86 BPM. No distinct abnormalities are seen. 07/23/16 Chest X-ray ([facility]): No acute cardiopulmonary findings. 07/24/16 CTA Chest ([facility]): No central PE. Groundglass opacities involving the u pper lobes in the dependent RLL why may represent fluid overload. Emphysema. COPD (chronic obstructive pulmonary disease) ([facility]) 09/27/2016 HLD (hyperlipidemia) 09/27/2016 Status post coronary artery bypass graft 09/27/2016 2006: CABGx5 Fistula of maxillary sinus 07/19/2016 Primary osteoarthritis of hand 12/01/2015 Breast cancer ([facility]) 08/28/2007 Right- lumpectomy and radiation Medical History: Diagnosis Date Acute on chronic diastolic CHF (congestive heart failure), NYHA class 3 ([facility] ) Anticoagulated for PE Aortic stenosis Arthritis Bilateral carotid artery disease ([facility]) moderate disease Breast cancer ([facility]) 2007 Right- lumpectomy and radiation CAD (coronary artery disease) CHF (congestive heart failure) ([facility]) Chronic back pain with spinal nerve stimulator Contrast media allergy COPD, severe ([facility]) CVA (cerebral vascular accident) ([facility]) DM (diabetes mellitus) ([facility]) Family history of premature CAD Gastroparesis Heart murmur Hyperlipidemia Hypertension MRSA cellulitis 2006 right leg vein harvest site Myocardial infarction ([facility]) 2006, ~2005 Total of 3 Neuropathy Obese Obesity, Class II, BMI 35-39.9 ANCA on CPAP with supplemental O2 Osteoporosis PAD (peripheral artery disease) ([facility]) s/p bilateral iliac stents Pulmonary embolism ([facility]) PVD (peripheral vascular disease) ([facility]) Requires continuous at home supplemental oxygen S/P CABG (coronary artery bypass graft) 2006 [facility] in [place], [place] Surgical History: Procedure Laterality Date EYE [...] SPINE SURGERY 2014 neurostem FOOT SURGERY Right 2014 RADICAL EXCISION OF CHEEK FISTULA, TOOTH EXTRACTION Right 10/13/2016 Performed by Gianfranco Conti MD at Main OR/Periop CATARACT REMOVAL Bilateral 2009, 2010 DENTAL SURGERY 2011, 2013 cheek infection NE EXCISION TUMOR SOFT TISSUE LEG/ANKLE SUBQ 3 [...] Father >55 y/o Emphysema Father Seizures Other Review of Systems Constitution: Positive for malaise/fatigue. HENT: Negative. Eyes: Negative. Cardiovascular: Negative. Respiratory: Positive for shortness of breath. Endocrine: Negative. Hematologic/Lymphatic: Negative. Skin: Negative. Musculoskeletal: Positive for arthritis and back pain. Gastrointestinal: Negative. Genitourinary: Negative. Neurological: Negative. Psychiatric/Behavioral: Negative. Allergic/Immunologic: Negative. Physical Exam Constitutional: Appearance: Normal appearance. She [...] CHF (congestive heart failure), NYHA class 3 ([facility]) 3. S/P CABG (coronary artery bypass graft) 4. COPD, severe ([facility]) 5. Chronic pulmonary embolism, unspecified pulmonary embolism type, unspecified whether acute cor pulmonale present ([facility]) 6. Anticoagulated 7. Obesity, Class II, BMI 35-39.9 8. Myocardial infarction, unspecified PA type, unspecified artery ([facility]) 9. Requires continuous at home supplemental oxygen 10. ANCA on CPAP 11. PAD (peripheral artery disease) ([facility]) 12. Bilateral carotid artery stenosis 13. Malignant neoplasm of right female breast, unspecified estrogen receptor sta tus, unspecified site of breast ([facility]) 14. Type 2 diabetes mellitus with other specified complication, with long-term c urrent use of insulin ([facility]) 15. Family history of premature CAD 16. MRSA cellulitis 17. Chronic back pain, unspecified back location, unspecified back pain laterali ty 18. PVD (peripheral vascular disease) ([facility]) 19. Gastroparesis 20. Osteoporosis, unspecified [...] her access for TAVR. Stephany George APRN [facility] Thoracic & Cardiovascular Surgery 10/08/2019 Assessment and Plan Mrs. Nicholas was seen in the office today for evaluation of severe symptomatic a ortic stenosis. She does have a prior history of coronary artery disease requir ing bypass surgery. Additionally, she has chronic obstructive pulmonary disease as well as peripheral vascular disease. I did have a chance to review her echo cardiogram which demonstrates severe aortic stenosis with a peak aortic velocity of 4.1 m/s. I agree with the assessment of severe symptomatic aortic stenosis. Additionally, we did obtain a CTA today and she does have rather extensive per ipheral vascular disease, however I do believe we will be able to approach her v alve replacement from peripheral access. I discussed the case with cardiothorac ic surgery as well as the risks and benefits with the patient and we will plan t o proceed with scheduling. We will keep you informed us the results of her upco ying procedure. Her physical exam did demonstrate a harsh murmur at the right u pper sternal border and she had diminished breath sounds bilaterally. Thanks for the opportunity to participate in her care. Steven Berry MD Current Medications (including today's revisions) albuterol (VENTOLIN HFA, PROAIR HFA, PROVENTIL HFA) [...] solution Swish and Spit 15 mL by [facility] as directed after meals and at bedtime. citalopram (CELEXA) 40 mg tablet Take 40 mg by mouth at bedtime daily. dexlansoprazole (+) (DEXILANT) 60 mg capsule Take 60 mg by mouth daily. docusate (COLACE) 100 mg capsule Take 100 mg by mouth at bedtime daily. fluticasone (FLONASE) 50 mcg/actuation nasal spray Apply 1 [place] to each nos tril as directed twice [...] cap Take 1 Cap by mouth daily. MILL OPERATOR documented in this encounter Plan of Treatment Not on filedocumented as of this encounter Goals Goal Patient Associated Recent Progress Patient-Stat Aut hor Goal Type Problems ed? Diabetic Blood Sugar Lifestyle No Lisa Lobo RN documented as of this encounter Procedures Comments Procedure Name Priority Date/Time Associated Diag nosis ECG-SCAN 10/08/2019 12:00 AM WIRE MILL OPERATOR documented in this encounter Results * ECG-SCAN (10/08/2019 12:00 AM WIRE MILL OPERATOR) Narrative Performed At This result has an attachment that is n ot available. Ordered by an unspecified provider. documented in this encounter Visit Diagnoses Diagnosis Essential hypertension Unspecified essential hypertension Bilateral carotid artery stenosis Occlusion and stenosis of multiple and bilateral precerebral arteries without mention of cerebral infarction S/P CABG (coronary artery bypass graft) Postsurgical aortocoronary bypass statu s Osteoporosis, unspecified osteoporosis type, unspecified pathological fracture presence PAD (peripheral artery disease) (HCC) Peripheral vascular disease, unspecifie d Gastroparesis Acute on chronic diastolic CHF (congest jeffrey heart failure), NYHA class 3 (HCC) Acute on chronic diastolic heart failur e Anticoagulated Long-term (current) use of anticoagulan ts MRSA cellulitis Cellulitis and abscess of unspecified s ite Obesity, Class II, BMI 35-39.9 Morbid obesity ANCA on CPAP Obstructive sleep apnea (adult) (pediat osmany) Requires continuous at home supplementa l oxygen COPD, severe (HCC) Chronic airway obstruction, not elsewhe re classified Family history of premature CAD Family history of ischemic heart diseas e Myocardial infarction, unspecified PA t ype, unspecified artery (HCC) Chronic pulmonary embolism, unspecified pulmonary embolism type, unspecified whether acute cor pulmonale present (HCC) PVD (peripheral vascular disease) (HCC) Peripheral vascular disease, unspecifie d Type 2 diabetes mellitus with other cir culatory complication, with long-term current use of insulin (HCC) Malignant neoplasm of right female [address], unspecified estrogen receptor status, unspecified site of breast (HCC) Aortic valve stenosis, etiology of card iac valve disease unspecified documented in this encounter
--- OUTSIDE RECORDS SUMMARY | 2020-03-02 17:49 | XMS REPORT | Encounter Summary ---
Author Author [facility] Organization [facility] Address Unknown Phone Unavailable Care Team Providers Care Commercial Real Estate Underwriter Name Role Phone Bishnu Martin MD Unavailable Chata Chau DPM Unavailable SelfJesus MD PCP Reason for Referral * Radiology Services (Routine) Referred By Contact Referred To Contact Status Reason Specialty Diagnoses / Procedures Dina Barnes APRN-NP [address] [address] New Request Radiology Diagnoses Aortic valve stenosis, etiology of cardiac valve disease unspecified P rocedures CTA ABD/PELVIS * Radiology Services (Routine) Referred By Contact Referred To Contact Status Reason Specialty Diagnoses / Procedures Dina Barnes APRN-NP [address] [address] No Auth Needed Radiology Diagnoses Aortic valve stenosis, etiology of cardiac valve disease unspecified P rocedures CTA CHEST WO/W CONTRAST+POST IMPRESSION Reason for Visit * Radiology Services (Routine) Referred By Contact Referred To Contact Status Reason Specialty Diagnoses / Procedures Dina Barnes APRN-NP [address] [address] No Auth Needed Radiology Diagnoses Aortic valve stenosis, etiology of cardiac valve disease unspecified P rocedures CTA CHEST WO/W CONTRAST+POST IMPRESSION Encounter Details Care Team Description Date Type Department Dina Barnes, TONE-DRILL GRINDER 4000 [facility] [address] [place] [address] [phone] 10/02/2019 [facility] [address] [address] Social History Date Tobacco Use Types Packs/Day [...] bedtime daily. fluticasone (FLONASE) 50 Apply 1 [place] 0 mcg/actuation nasal spray to each nostril [...] Procedure Name Priority Date/Time Associated Diag nosis CTA ABD/PELVIS Routine 10/02/[address] enosis, 12:50 PM CONTROL SYSTEMS DRAFTING OFFICER etiology of cardiac valve disease unspecified CTA CHEST WO/W Routine 10/02/[address] enosis, CONTRAST+POST IMPRESSION 12:50 PM CONTROL SYSTEMS DRAFTING OFFICER etiology of cardiac valve disease unspecified HC CREATININE, POC 10/02/2019 12:30 PM CONTROL SYSTEMS DRAFTING OFFICER documented in this encounter Results * CTA ABD/PELVIS (10/02/2019 12:50 PM CONTROL SYSTEMS DRAFTING OFFICER) Specimen Impressions Performed At CHEST: [facility] [...] Interface, Radiant Results - 10/02/2019 2:44 PM CONTROL SYSTEMS DRAFTING OFFICER CTA CHEST, ABDOMEN AND PELVIS Clinical Indication: [...] one Number [facility] RAD RESULTS * CTA CHEST WO/W CONTRAST+POST IMPRESSION (10/02/2019 12:50 PM CONTROL SYSTEMS DRAFTING OFFICER) Specimen Impressions Performed At CHEST: [facility] [...] Interface, Radiant Results - 10/02/2019 2:44 PM CONTROL SYSTEMS DRAFTING OFFICER CTA CHEST, ABDOMEN AND PELVIS Clinical Indication: [...] on 10/02/2019 2:19 PM. Performing Organization Address [facility] Ph one Number [facility] RAD RESULTS * POC CREATININE, RAD (10/02/2019 12:30 PM CONTROL SYSTEMS DRAFTING OFFICER) Creatinine, POC 1.0 0.4 - 1.00 MG/DL [facility] Specimen Performing Organization Address [facility] Ph one Number MAIN LAB [address] [place] [address] documented in this encounter Visit Diagnoses Diagnosis Aortic valve stenosis, etiology of card iac valve disease unspecified documented in this encounter Administered Medications Action Date Dose Rate Site Medication Order MAR Action 10/02/2019 1:00 PM CONTROL SYSTEMS DRAFTING OFFICER 100 mL iohexol (OMNIPAQUE-350) 350 mg/mL Given injection 100 mL 100 mL, Intravenous, ONCE, 1 dose, 10/02/19 at 1300, Pre medicated NOTE: Thi s is a HIGH ALERT Medication., 10/02/2019 1:00 PM CONTROL SYSTEMS DRAFTING OFFICER 50 mL sodium chloride PF 0.9% injection 50 mL Given 50 mL, Intravenous, ONCE, 1 dose, 10/02/19 at 1300, Intra-procedure (IR) documented in this encounter
--- OUTSIDE RECORDS SUMMARY | 2020-03-02 17:49 | XMS REPORT | Encounter Summary ---
Author Author [facility] Organization [facility] Address Unknown Phone Unavailable Care Team Providers Care Scale Mechanic Name Role Phone Bishnu Martin MD Unavailable Chata Chau DPM Unavailable SelfJesus MD PCP Reason for Referral * Test (Routine) Referred By Contact Referred To Contact Status Reason Specialty Diagnoses / Procedures Dina Barnes LEARNING SUPPORT ASSISTANT-GREENSKEEPER LABORER [address] [address] [facility] [address] [address] No Auth Needed Cardiology Diagnoses Aortic valve stenosis, etiology of cardiac valve disease unspecified P rocedures 2-D + DOPPLER ECHOCARDIOGRAM RI ECHO TTHRC R-T 2D W/WOM-MODE COMPL SPEC&COLR D Reason for Visit * Test (Routine) Referred By Contact Referred To Contact Status Reason Specialty Diagnoses / Procedures Dina Barnes, LEARNING SUPPORT ASSISTANT-GREENSKEEPER LABORER [address] [address] Cvm Bhg Echopv [address] [address] No Auth Needed Cardiology Diagnoses Aortic valve stenosis, etiology of cardiac valve disease unspecified P rocedures 2-D + DOPPLER ECHOCARDIOGRAM RI ECHO TTHRC R-T 2D W/WOM-MODE COMPL SPEC&COLR D Encounter Details Care Team Description Date Type Department Dina Barnes, LEARNING SUPPORT ASSISTANT-GREENSKEEPER LABORER 4000 [facility] [place] [address] [phone] 10/08/2019 [facility] 4000 [facility] [place] [address] Social History Date Tobacco Use Types Packs/Day [...] Signs Reading Time Taken Comments Vital Sign 128/62 10/08/2019 10:14 AM MEDICAL SOCIAL CONSULTANT Blood Pressure - - Pulse - - Temperature - - Respiratory Rate - - Oxygen Saturation - - Inhaled Oxygen Concentration 102.5 kg (226 lb) 10/08/2019 10:14 AM MEDICAL SOCIAL CONSULTANT Weight 165.1 cm (5' 5") 10/08/2019 10:14 AM MEDICAL SOCIAL CONSULTANT Height 37.61 10/08/2019 10:14 AM MEDICAL SOCIAL CONSULTANT Body Mass Index documented in this encounter [...] bedtime daily. fluticasone (FLONASE) 50 Apply 1 [place] 0 mcg/actuation nasal spray to each nostril [...] by mouth 2 hours before appointment time 12/24/2019 rivaroxaban (XARELTO) 15 Take 15 mg by 0 mg tablet mouth twice daily. Take with food. One at morning and one at night 01/02/2020 vitamin E 400 unit Take 400 [...] Procedure Name Priority Date/Time Associated Diag nosis 2D + DOPPLER ECHO Routine 10/08/2019 Aortic valve stenosis, 10:14 AM MEDICAL SOCIAL CONSULTANT etiology of cardiac valve disease unspecified documented in this encounter Results * 2D + DOPPLER ECHO (10/08/2019 10:14 AM MEDICAL SOCIAL CONSULTANT) BSA 2.17 m2 OTHER OUTSIDE LAB LVOT [...] = LAB AV index 0.21 OTHER OUTSIDE ([facility]) LAB E/A ratio 0.71 OTHER OUTSIDE LAB [...] Self OTHER OUTSIDE Provider LAB Cardiology Siemens [id number] OTHER OUTSIDE Ultrasound LAB Machine Specimen Narrative Performed At OTHER OUTSIDE LAB LVEF=55-60%, Mild Abnormal Septal Mo tion Moderate Concentric LVH Mild Left Atrial Dilatation Severe Aortic Valve Stenosis: Peak V elocity=3.8m/sec, Mean Gradient=37mmHg, Velocity Ratio=0.21, A tyrell=0.64cm2 Mild Mitral Annular Calcification No Pericardial Effusion PASP=19mmHg TAPSE=1.42cm Performing Organization Address City/State/Zipcode Ph one Number OTHER OUTSIDE LAB documented in this encounter Visit Diagnoses Diagnosis Aortic valve stenosis, etiology of card iac valve disease unspecified documented in this encounter
--- OUTSIDE RECORDS SUMMARY | 2020-03-02 17:49 | XMS REPORT | Encounter Summary ---
Author Author [facility] Organization [facility] Address Unknown Phone Unavailable Care Team Providers Care Food Service Team Member Name Role Phone Bishnu Martin MD Unavailable Chata Chau DPM Unavailable SelfJesus MD PCP Reason for Visit * Reason Comments Medication Follow-up Xarelto holding & Lovenox b ridging pre TAVR Dental Concerns Encounter Details Care Team Description Date Type Department Sue Ríos RN Medication Follow-up (Xarelto holding & Lovenox bridging pre TAVR); Dental Concerns 10/08/2019 Telephone [facility] 4000 [facility] [place], [place] [id number] Social History Date Tobacco Use Types Packs/Day [...] Telephone Encounter - Sue Ríos RN - 10/08/2019 11:36 AM OUTCOME ANALYST Pt given Xarelto holding and lovenox bridging letter in clinic today. Pt prefers to have the Lovenox prescription sent in to her pharmacy closer to the procedure date. TAVR is scheduled 11/20. Preop 11/13 at 12:00. Pt needs to have dental ext ractions completed prior to TAVR. Her initial dental eval is scheduled 10/30. OME ANALYST documented in this encounter Plan of Treatment Not on filedocumented as of this encounter Goals Goal Patient Associated Recent Progress Patient-Stat Aut hor Goal Type Problems ed? Diabetic Blood Sugar Lifestyle No Lisa Lobo RN documented as of this encounter Visit Diagnoses Not on filedocumented in this encounter
--- OUTSIDE RECORDS SUMMARY | 2020-03-02 17:50 | XMS REPORT ---
Author Author Maggy DALLAS Organization [employer] Address Unknown Phone Unavailable Care Team Providers Care Dormitory Keeper Name Role Phone JOSÉ ANTONIO DALLAS Unavailable Allergies No Known Allergies Problems Problem Type Condition Code Onset Dates Condition Statu s Assessment Encounter for immunization Z23 A ctive Medications No Known Medications Procedures Procedure Coding System Code Date SINGLE IMMUNIZATION ADMIN CPT-4 53251 May FLUZONE HIGH DOSE 65 AND UP 2015 CPT-4 03002 Jun 23, 2016 Results No Known Results Immunizations Vaccine Administration Date FLUZONE HIGH DOSE 65 AND UP 2015Jun 23, 2016 Summary Purpose [employer] Submission
--- OUTSIDE RECORDS SUMMARY | 2020-03-02 17:50 | XMS REPORT ---
Author Maggy Russell Organization [employer] Address Unknown Phone Unavailable Care Team Providers Care Funeral Pre Arrangement Specialist Name Role Phone SERAFIN HUSSEIN CP Unavailable Allergies No Known Allergies Problems Problem Type Condition Code Onset Dates Condition Statu s Assessment Encounter for immunization Z23 A ctive Medications No Known Medications Procedures Procedure Coding System Code Date SINGLE IMMUNIZATION ADMIN CPT-4 78943 Jun ADMN FLU VAC NO FEE SCHED SAME DAY CPT-4 G0008 Jul 16, 2015 FLUARIX QUAD (3 & UP)-GSK-2014 CPT-4 20186 N 2014 Results No Known Results Immunizations Vaccine Administration Date FLUARIX QUAD (3 & UP)-GSK-2014Jul 16, 2015 Summary Purpose [employer] Submission
--- OUTSIDE RECORDS SUMMARY | 2020-03-02 17:50 | XMS REPORT ---
Author Author MORGAN Maggylizzette Santizo [facility] Address [address] [place] [address] Care Team Providers Care Survey Research Analyst Name Role Phone TIMOTEO MORAWELL Unavailable PROBLEMS Type Condition ICD9-CM Code TQH85-RC Code Onset Dates Condition S tatus SNOMED Code Problem History of cervical cancer Z85.41 Jun, Active 175842249 Problem Status post right breast biopsy Z98.890 Nov, Active 193629381 Problem Obstructive sleep apnea on CPAP G47.33 Jul, Active 35212835 Problem Other ventral hernia without mention of obstruction or gangrene K43.9 Sep, Active 264794153 Problem 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 Apr, Active 6435677 Problem Incisional hernia without mention of obstruction or ga ngrene K43.2 Jan, Active 352211027 Problem Status post repair of ventral hernia Z98.890 Nov, Active 832912576 Problem Osteoporosis M81.0 Active 5472408 6 Problem Personal history of malignant neoplasm of breast Z85.3 Jun, Active 560927402 Problem Essential hypertension I10 Active 90767682 Problem Nonrheumatic aortic valve stenosis I35.0 2014 Active 345573440 Problem Cellulitis, face L03.211 Feb, Active 125058851 Problem Severe obesity (BMI 35.0-39.9) E66.01 Active 173799494 Problem Aortic stenosis, moderate I35.0 Acti ve 3171496 Problem Thrombocytopenia D69.6 Active 302 697909 Problem Ischemic heart disease I25.9 Active 814643980 Problem PAD (peripheral artery disease) I73.9 Active 402120073 Problem Hypoxia R09.02 Active 033427326 Problem Cervical cancer C53.9 Active 3633 95761 Problem Anemia D64.9 Active 333028337 Problem Neuropathy G62.9 Active 655125928 Problem Insomnia G47.00 Active 202459959 Problem Aortic valve stenosis, unspecified etiology I35.0 Active 0825239 Problem Type 2 diabetes mellitus with unspecified complications E11.8 Active 58384343 Problem Hematoma, nontraumatic, soft tissue M79.81 09 N ov, 2008 Active 439510470 Problem snf current use of insulin Z79.4 Active 047240010 Problem Moderate aortic stenosis I35.0 27 Jun, 2018 Ac tive 9083780 Problem Hx of CABG Z95.1 13 Mar, 2015 Active 832788 000 Problem Atherosclerosis of coronary artery of [place] heart without angina pectoris, unspecified vessel or lesion type I25.10 Active 285410850823260 Problem ANCA on CPAP G47.33 Active 81727922 Problem Type 2 diabetes mellitus with diabetic polyneuropathy E11.42 Active 242088209 Problem Type 2 diabetes mellitus with diabetic chronic kidney disease E11.22 Active 523472781 ALLERGIES No Information ENCOUNTERS Encounter Location Date Diagnosis [address] [address] Apr, [address] [address] Mar, [facility] [address] [facility] [id number] [address] [place] [address] Feb, ANCA on CPAP G47.33 and Hypox ia R09.[address] [address] Feb, Hypoxia R09.02 and ANCA on CPAP G47.[address] [address] Feb, [address] [address] Feb, ANCA on CPAP G47.[address] [address] Feb, Type 2 diabetes mellitus with diabetic p olyneuropathy E11.42 ; Rash and nonspecific skin eruption R21 and Callus of foot L84 [address] [address] Feb, Herpes zoster without complication B02.9 [facility] [address] [facility] [place] [address] Jan, Rash and nonspecific skin eruption R21 [address] [address] Jan, Obstructive sleep apnea on CPAP G47.33 a nd Hypoxia R09.[address] [address] Jan, [address] [address] Jan, Type 2 diabetes mellitus with diabetic p olyneuropathy E11.42 and Ischemic heart disease I25.[address] [address] December, [address] [address] December, [address] [address] Nov, [address] [address] Nov, [address] [address] Oct, [address] [address] Oct, Aortic stenosis, moderate I35.0 ; Osteop orosis M81.0 ; 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.00 ; 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 Z79.4 ; Type 2 diabetes mellitus 250.00 ; Type 2 diabetes mellitus with diabetic chronic kidney disease E11.22 ; Atherosclerosis of coronary artery of [place] heart without angina pectoris, unspecified vessel or lesion type I25.10 ; Type 2 diabetes mellitus with diabetic polyneuropathy E11.42 ; Severe obesity (BMI 35.0-39.9) E66.01 ; Thrombocytopenia D69.6 ; Hypoxia R09.02 ; ANCA on CPAP G47.33 ; Insomnia G47.00 ; Anemia D64.9 ; PAD (peripheral artery disease) I73.9 ; Neuropathy G62.9 ; Cervical cancer C53.9 ; Ischemic heart disease I25.9 ; Essential hypertension I10 and Type 2 diabetes mellitus with unspecified complications E11.[address] [address] Oct, Type 2 diabetes mellitus with diabetic p eripheral angiopathy without gangrene, unspecified whether manager long term care insulin use E11.51 [facility] IVANIA [address] [address] Sep, [address] [address] Sep, [address] [address] Sep, Type 2 diabetes mellitus with unspecifie d complications E11.8 and snf current use of insulin Z79.[address] [address] 06 Sep, 2018 Screening mammogram, encounter for Z12.[address] [address] Sep, [facility] [address] [id number] [address] [place] [address] Jul, [facility] [address] [id number] [address] [place] [address] Jul, [facility] [address] [id number] [address] [place] [address] Jul, [facility] [address] [id number] [address] [place] [address] Jun, [facility] [address] [id number] [address] [place] [address] Jun, [facility] [address] [id number] [address] [place] [address] Jun, [facility] [address] [id number] [address] [place] [address] Jun, [facility] [address] [id number] [address] [place] [address] Mar, [facility] [address] [id number] [address] [place] [address] Apr, Encounter for immunization Z 23 [facility] [address] [facility] [id number] [address] [place] [address] May, Encounter for immunization Z 23 [facility] [address] [facility] [id number] [address] [place] [address] Jun, Encounter for immunization Z 23 [facility] [address] [facility] [id number] [address] [place] [address] May, [facility] [address] [facility] [id number] [address] [place] [address] May, [facility] [address] [facility] [id number] [address] [place] [address] Apr, IMMUNIZATIONS No Known Immunizations SOCIAL HISTORY Never Assessed REASON FOR VISIT hydrocodone PLAN OF CARE VITAL SIGNS MEDICATIONS Medication Instructions Dosage Frequency Start Date End Date Duration S tatus Hydrocodone-Acetaminophen 5-325 MG Orally 4 times a day 1 tablet as needed 6h Oct, 28 days Active RESULTS No Results PROCEDURES No Known procedures INSTRUCTIONS MEDICATIONS ADMINISTERED No Known Medications MEDICAL (GENERAL) HISTORY Type Description Date Medical History Aortic stenosis, moderate Medical History Osteoporosis Medical History Type 2 diabetes mellitus with diabetic c hronic kidney disease Medical History Atherosclerosis of coronary artery of [place] heart without angina pectoris, unspecified vessel or lesion type Medical History Type 2 diabetes mellitus with diabetic p olyneuropathy Medical History Severe obesity (BMI 35.0-39.9) Medical History Thrombocytopenia Medical History Hypoxia Medical History ANCA on CPAP Medical History Aortic valve stenosis, unspecified etiol ogy Medical History Insomnia Medical History Anemia Medical History PAD (peripheral artery disease) Medical History Neuropathy Medical History Cervical cancer Medical History Ischemic heart disease Medical History Essential hypertension Surgical History hernia repair Surgical History breast biopsy Surgical History CABG Surgical History colonoscopy Surgical History facial cosmetic surgery Surgical History partial hysterectomy Hospitalization History See Surgeries
--- OUTSIDE RECORDS SUMMARY | 2020-03-02 17:50 | XMS REPORT ---
Author Author Maggy Rosales Doctor Organization [facility] Address Unknown Phone Unavailable Care Team Providers Care Coin Machine Supervisor Name Role Phone Migration, Doctor Unavailable Unavailable PROBLEMS Type Condition ICD9-CM Code YMP24-AR Code Onset Dates Condition S tatus SNOMED Code Problem History of cervical cancer Z85.41 Jun, Active 916665297 Problem Status post right breast biopsy Z98.890 Nov, Active 105362847 Problem Obstructive sleep apnea on CPAP G47.33 Jul, Active 96251503 Problem Other ventral hernia without mention of obstruction or gangrene K43.9 Sep, Active 719807052 Problem 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 Apr, Active 2841736 Problem Incisional hernia without mention of obstruction or ga ngrene K43.2 Jan, Active 565386529 Problem Status post repair of ventral hernia Z98.890 Nov, Active 293598455 Problem Osteoporosis M81.0 Active 6607976 6 Problem Personal history of malignant neoplasm of breast Z85.3 Jun, Active 441266197 Problem Essential hypertension I10 Active 24189592 Problem Nonrheumatic aortic valve stenosis I35.0 2014 Active 322620778 Problem Cellulitis, face L03.211 Feb, Active 531901753 Problem Severe obesity (BMI 35.0-39.9) E66.01 Active 013368019 Problem Aortic stenosis, moderate I35.0 Acti ve 3463480 Problem Thrombocytopenia D69.6 Active 302 299296 Problem Ischemic heart disease I25.9 Active 959635842 Problem PAD (peripheral artery disease) I73.9 Active 842266718 Problem Hypoxia R09.02 Active 682287780 Problem Cervical cancer C53.9 Active 3633 01499 Problem Anemia D64.9 Active 643034387 Problem Neuropathy G62.9 Active 368717403 Problem Insomnia G47.00 Active 508418157 Problem Aortic valve stenosis, unspecified etiology I35.0 Active 2886154 Problem Type 2 diabetes mellitus with unspecified complications E11.8 Active 03670869 Problem Hematoma, nontraumatic, soft tissue M79.81 09 N , 2008 Active 899398864 Problem FCI current use of insulin Z79.4 Active 773267634 Problem Moderate aortic stenosis I35.0 27 Jun, 2018 Ac tive 5461616 Problem Hx of CABG Z95.1 13 Mar, 2015 Active 508073 000 Problem Atherosclerosis of coronary artery of [place] heart without angina pectoris, unspecified vessel or lesion type I25.10 Active 651812117965653 Problem ANCA on CPAP G47.33 Active 19170026 Problem Type 2 diabetes mellitus with diabetic polyneuropathy E11.42 Active 274751008 Problem Type 2 diabetes mellitus with diabetic chronic kidney disease E11.22 Active 744444598 ALLERGIES No Information ENCOUNTERS Encounter Location Date Diagnosis [address] [address] Apr, [facility] [address] [facility] [id number] [address] [place] [address] Feb, ANCA on CPAP G47.33 and Hypox ia R09.[address] [address] Feb, Hypoxia R09.02 and ANCA on CPAP G47.[address] [address] Feb, [address] [address] Feb, ANCA on CPAP G47.[address] [address] Feb, Type 2 diabetes mellitus with diabetic p olyneuropathy E11.42 ; Rash and nonspecific skin eruption R21 and Callus of foot L84 [address] [address] Feb, Herpes zoster without complication B02.9 [facility] [address] [place] [address] Jan, Rash and nonspecific skin eruption R21 [address] [address] Jan, Obstructive sleep apnea on CPAP G47.33 a nd Hypoxia R09.02 [facility] [place] [address] [address] Jan, [address] [address] Jan, Type 2 diabetes mellitus with diabetic p olyneuropathy E11.42 and Ischemic heart disease I25.[address] [address] December, [address] [address] December, [address] [address] Nov, [address] [address] Nov, [address] [address] Oct, [address] [address] Oct, Aortic stenosis, moderate I35.0 ; Osteop orosis M81.0 ; 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.00 ; FCI current use of insulin Z79.4 ; Type 2 diabetes mellitus 250.00 ; Type 2 diabetes mellitus with diabetic chronic kidney disease E11.22 ; Atherosclerosis of coronary artery of [place] heart without angina pectoris, unspecified vessel or [...] 2 diabetes mellitus with unspecified complications E11.[address] [address] Oct, Type 2 diabetes mellitus with diabetic p eripheral angiopathy without gangrene, unspecified whether 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 insulin 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 E11.[address] [address] Sep, [facility] [place] [address] [address] Sep, [address] [address] Sep, Type 2 diabetes mellitus with unspecifie d complications E11.8 and [facility]CI current use of insulin Z79.[address] [address] Sep, Screening mammogram, encounter for Z12.3 1 [facility] [address] [place] [address] Sep, [facility] [address] [id number] [address] [place] [address] Jul, [facility] [address] [id number] [address] [place] [address] Jul, [facility] [address] [id number] [address] [place] [phone] Jul, [facility] [address] [id number] [address] [place] [phone] Jun, [facility] [address] [id number] [address] [place] [phone] Jun, [facility] [address] [id number] [address] [place] [address] Jun, [facility] [address] [id number] [address] [place] [phone] Jun, [facility] [address] [id number] [address] [place] [address] Mar, [facility] [address] [id number] [address] [place] [address] Apr, Encounter for immunization Z 23 [facility] [address] [id number] [address] [place] [address] May, Encounter for immunization Z 23 [facility] [address] [id number] [address] [place] [address] Jun, Encounter for immunization Z 23 [facility] [address] [facility] [id number] [address] [place] [address] May, [facility] [address] [facility] [id number] [address] [place] [address] May, [facility] [address] [facility] [id number] [address] [place] [address] Apr, IMMUNIZATIONS No Known Immunizations SOCIAL HISTORY Never Assessed REASON FOR VISIT PLAN OF CARE VITAL SIGNS MEDICATIONS Unknown Medications RESULTS No Results PROCEDURES No Known procedures INSTRUCTIONS MEDICATIONS ADMINISTERED No Known Medications MEDICAL (GENERAL) HISTORY Type Description Date Medical History Aortic stenosis, moderate Medical History Osteoporosis Medical History Type 2 diabetes mellitus with diabetic c hronic kidney disease Medical History Atherosclerosis of coronary artery of [place] heart without angina pectoris, unspecified vessel or [...]
--- OUTSIDE RECORDS SUMMARY | 2020-03-02 17:50 | XMS REPORT ---
Author Author Maggy HUSSEIN Organization [facility] Address [address] [place] [address] Care Team Providers Care Tug Hand Name Role Phone SERAFIN HUSSEIN Unavailable PROBLEMS Unknown Problems ALLERGIES No Information ENCOUNTERS Encounter Location Date Diagnosis [facility] [address] [facility] [id number] [address] [place] [address] Apr, Encounter for immunization Z 23 [facility] [address] [facility] [id number] [address] [place] [phone] May, Encounter for immunization Z 23 [place] [address] [facility] [id number] [address] [place] [address] Jun, Encounter for immunization Z 23 [facility] [address] [id number] [address] [place] [address] May, [facility] [address] [facility] [id number] [address] [place] [address] May, [facility] [address] [facility] [id number] [address] [place] [address] Apr, IMMUNIZATIONS Vaccine Route Administration Date Status FLUARIX QUAD (3 AND UP) 2017 IM Intramuscular May 22, 2017 Ad ministered SOCIAL HISTORY Never Assessed REASON FOR VISIT Flu shot- Pepper VOGEL PLAN OF CARE VITAL SIGNS MEDICATIONS Unknown Medications RESULTS No Results PROCEDURES Procedure Date Ordered Result Body Site FLUARIX QUAD (3 & UP)-GSK-2014May 22, 2017 SINGLE IMMUNIZATION ADMIN May 22, 2017 INSTRUCTIONS MEDICATIONS ADMINISTERED No Known Medications
--- OUTSIDE RECORDS SUMMARY | 2020-03-02 17:50 | XMS REPORT ---
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 Name Role Phone ROCIOJOSÉ ANTONIO HUTCHINSON Unavailable Unavailable HUSSEINSERAFIN Unavailable Unavailable SELF, CHRISTY Unavailable HUSSEIN SERAFIN Unavailable SELF, CHRISTY Unavailable LINDA HOLT Unavailable Unavailable SELF, CHRISTY J Unavailable Unavailable Migration, Doctor Unavailable Unavailable SELF, CHRISTY Unavailable JAYLENE LYNN APRN Unavailable Unavailable LINDA HOLT Unavailable Unavailable Unavailable Unavailable ZAHRA MEMBRENO MD Unavailable Unavailable Unavailable Unavailable Unavailable Unavailable Unavailable Unavailable Unavailable Unavailable Unavailable Unavailable Allergies Normalized Allergy Reported Date of Reaction(s) Care Provider Facility Allergy Type classification allergen Allergy Onset DA (20 Unclassified erythromycin 07-29-2015 - BLISTERS LINDA STEVE Not Available sources.) base (88469) DA (20 Unclassified venom-honey 07-29-2015 - SWELLING LINDA VOGEL THEChente Not Available sources.) bee (17551) Medications Medication Ingredient Drug Dose Dates Status Sig Sig Care Class(es) (Normalized) (Original) Provid er calcium calcium no 1500 Complete take 1 Calcium (no carbonate carbonate information mg d tablet by Carbonate phone) 1500 mg mouth twice (Calcium) oral tablet daily 600 Mg (1 source.) Tablet 600 Mg ORAL Twice A Day no Cholecalcif no 1000 Complete take 1 Cholecalcife (n o information jo information [IU] d capsule by rol (Linette min phone) (1 source.) (Vitamin mouth once D3) (Vitamin D3) daily, then D) 1,000 (Vitamin D) take 1 Unit Capsule 1,000 Unit capsule by 1,000 Unit Capsule mouth ORAL Daily no Multivitami no Complete take 1 Multivitamin (n o information n information d tablet by (Multi-Vit am phone) (1 source.) (Multi-Linette mouth once in Daily) 1 min Daily) daily, then Each Tablet 1 Each take 1 1 Each ORAL Tablet tablet by Daily mouth no Nystatin 1 no 02-27-20 Complete no Nystatin 1 (no information Each information 18 d information Each phone) (1 source.) Powder.ea., Powder.ea., 1 Each 1 Each Topical Topical As Needed Discontinued no Potassium no 10 mEq Complete take 1 Potassium (no information Chloride 10 information d tablet by Chlorid e 10 phone) (1 source.) Meq mouth once Meq Tab.er.prt daily Tab.er.prt 10 Meq ORAL Daily sulfamethox sulfamethox Dihydrofola 03-02-20 Complete take 14 Sulfamethoxa Chata azole 800 azole / te 18 - d tablets by zole/Trimeth Q mg / trimethopri Reductase 03-09-20 mouth twice oprim Kandi trimethopri m Inhibitor 18 daily (Bactrim Ds ( no m 160 mg Antibacteri Tablet) 1 phone) oral tablet al, Each Tablet (1 source.) Sulfonamide 1 Each ORAL Antimicrobi Twice A Day al 7 Days 14 Tab 03/02/18 traZODone traZODone Serotonin 150 mg Complete take 1 Trazodone (no hydrochlori Reuptake d tablet by Hcl 150 Mg phone) de 150 mg Inhibitor mouth at Tablet 150 oral tablet bedtime Mg ORAL (1 source.) Bedtime Problems Active Problems Problem Normalized Date Last Normalized Normalized Provider Fa cility Classification Problem(s) Recorded Problem Problem Sta tus Duration Osteoporosis Age-related Chronic Active LINDA HOLT Not Available (20 sources.) osteoporosis (37029) without current pathological fracture Translations: [ OSTEOPOROSIS NOS, - Osteoporosis M81.0, Osteoporosis, Osteoporosis] Allergic Allergy status 01-03-2020 - Episodic Active ZAHRA PEREIRA RT , [facility] Via reactions (12 to penicillin MD [place] sources.) Translations: Hospital - [ ALLERGY [place] STATUS TO (36872) OTHER ANTIBIOTIC AGENT, ALLERGY STATUS TO OTH DRUG/MEDS/BIOL SUB, RADIOGRAPHIC DYE ALLERGY STATUS] Deficiency and Anemia, Episodic Active LINDA HOLT Not A vailable other anemia unspecified (77043) (7 sources.) Coronary Atheroscleroti 01-03-2020 - Chronic Active LINDA UBTCHERChente Not Available atherosclerosi c heart (01269) s and other disease of heart disease [place] (21 sources.) coronary artery without angina pectoris Translations: [ - Ischemic heart disease I25.9, Ischemic heart disease, Ischemic heart disease, - Atherosclerosi s of coronary artery of [place] heart without angina pectoris, unspecified vessel or lesion type I25.10, OLD MYOCARDIAL INFARCTION] Chronic kidney Chronic kidney Chronic Active LINDA HOLT Not Available disease (7 disease, Stage (91729) sources.) III (moderate) Chronic Chronic 01-03-2020 - Chronic Active CHAAT LEWIS , Not Available obstructive obstructive DPM (07710) pulmonary pulmonary disease and disease, bronchiectasis unspecified (8 sources.) Translations: [ EMPHYSEMA, UNSPECIFIED] Fracture of Displaced Episodic Active CHATA LEWIS , Not Av ailable lower limb (3 fracture of DPM (16637) sources.) fifth metatarsal bone, right foot, subsequent encounter for fracture with nonunion Other nervous Disturbance of Episodic Active LINDA HOLT Not Available system skin sensation (80443) disorders (7 sources.) Other Dyspepsia and Episodic Active no name no infor mation disorders of other stomach and specified duodenum (4 disorders of sources.) function of stomach Other Encounter for Episodic Active LINDA HOLT Not A vailable aftercare (21 follow-up (73432) sources.) examination after completed treatment for malignant neoplasm Essential Essential 01-03-2020 - Chronic Active LINDA HOLT Not Available hypertension (primary) (53756) (24 sources.) hypertension Translations: [ - Essential hypertension I10] Other Follow-up Episodic Active no name no informati on aftercare (4 examination, sources.) following radiotherapy Acquired foot Hallux valgus Chronic Active CHATA LEWIS , Not Available deformities (4 (acquired), DPM (08963) sources.) right foot Translations: [ OTHER HAMMER TOE(S) (ACQUIRED), RIGHT FO] Other bone Hypertrophy of Episodic Active CHATA LEWIS , No t Available disease and bone, right DPM (98035) musculoskeleta ankle and foot l deformities (3 sources.) Deficiency and Iron Episodic Active LINDA HOLT , [facility] Via other anemia deficiency MD [place] (2 sources.) anemia, Hospital - unspecified [place] (12586) Other [facility] 01-03-2020 - Episodic Active JULIANNA KAUR Via aftercare (3 (current) use MD [place] sources.) of Hospital - anticoagulants [place] (22112) Other [facility] 01-03-2020 - Episodic Active CHATA LEWIS , Not Available aftercare (6 (current) use DPM (05280) sources.) of aspirin Translations: [ USP (CURRENT) USE OF INSULIN, 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 (CURRENT) DRUG THERAPY] Other pattern developer 01-03-2020 - Episodic Active ZAHRA HASEEB , [facility] Via aftercare (3 (current) use MD [place] sources.) of inhaled Hospital - steroids [place] (69069) Other Long-term Episodic Active LINDA HOLT Not Avail able aftercare (10 (current) use (36402) sources.) of antiplatelet/a ntithrombotic Other Long-term Episodic Active LINDA HOLT Not Avail able aftercare (10 (current) use (83611) sources.) of aspirin Other Long-term Episodic Active LINDA HOLT Not Avail able aftercare (14 (current) use (20619) sources.) of other medications Mood disorders Major 01-03-2020 - Chronic Active ZAHRA PEREIRA RT , [facility] Via (3 sources.) depressive MD [place] disorder, Hospital - single [place] episode, (52713) unspecified Cancer of Malignant Chronic Active LINDA HOLT Not Avail able breast (10 neoplasm of (81376) sources.) breast (female), unspecified Substance-rela Nicotine Chronic Active LINDA HOLT Not A vailable sammie disorders dependence, (74329) (21 sources.) cigarettes, uncomplicated Other Other long Episodic Active LINDA HOLT Not Avai lable aftercare (23 term (current) (36647) sources.) drug therapy Other Pain in limb Episodic Active LINDA HOLT Not Av ailable connective (27185) tissue disease (7 sources.) Other Pain in right Episodic Active JAYLENE LEAH [facility] Via non-traumatic shoulder [facility] joint Hospital - disorders (3 [place] sources.) (77303) Residual Personal Episodic Active LINDA HOLT , [facility] Via codes; history of MD [place] unclassified estrogen Hospital - (2 sources.) therapy [place] (62274) Unclassified Personal Episodic Active LINDA HOLT Not Krista ilable (10 sources.) history of (89020) irradiation, presenting hazards to health Cancer of Personal 01-03-2020 - Episodic Active LINDA HOLT Not Available breast (22 history of (15599) sources.) malignant neoplasm of breast Translations: [ HX OF BREAST MALIGNANCY, Personal history of primary malignant neoplasm of breast, Personal history of malignant neoplasm of breast] Screening and Personal 01-03-2020 - Episodic Active ZAHRA Schmitz [facility] Via history of history of MD [place] mental [facility] nicotine Hospital - and substance dependence [place] abuse codes (3 (97185) sources.) Complications Postprocedural 01-03-2020 - Episodic Active JULIANNA KAUR Via of surgical hemorrhage of MD [place] procedures or a digestive Hospital - medical care system organ [place] (6 sources.) or structure (83105) following a digestive system procedure Disorders of Pure 01-03-2020 - Chronic Active LINDA Eldridge [facility] Via lipid hypercholester MD [place] metabolism (5 olemia, Hospital - sources.) unspecified [place] (52911) Residual Sleep apnea, 01-03-2020 - Chronic Active ZAHRA MEMBRENO [facility] Via codes; unspecified MD [place] unclassified Hospital - (3 sources.) [place] (47130) Diabetes Type 2 Chronic Active LINDA HOLT Not Availa ble mellitus diabetes (99137) without mellitus complication without (21 sources.) complications Translations: [ - Type 2 diabetes mellitus 250.00, - 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.00, Type 2 diabetes mellitus with unspecified complications, Type 2 diabetes mellitus with unspecified complications] Past or Other Problems Problem Normalized Date Last Normalized Normalized Provider Fa cility Classification Problem(s) Recorded Problem Problem Sta tus Duration External Exposure to no information no information CHATA LEWIS , Not Available Injury - other DPM (76434) Natural / specified Environment (3 factors, sources.) subsequent encounter Residual Family history Episodic Completed LINDA HOLT Not Available codes; of malignant (53195) unclassified neoplasm of (4 sources.) breast Fracture of Nondisplaced Episodic Completed CHATA LEWIS , Not Available lower limb (3 fracture of DPM (29708) sources.) fifth metatarsal bone, left foot, subsequent encounter for fracture with nonunion External Other external no information no information CHATA MILLER , Not Available Injury - cause status DPM (69983) Unspecified (3 sources.) Diabetes Type 2 no information no information CHATA LEWIS , Not Available mellitus with diabetes DPM (45505) complications mellitus with (3 sources.) diabetic autonomic (poly)neuropat hy Procedures Procedure Normalized Procedure Procedure Result Performer Facility Date 03-02-2018 Fluoroscopy no information CHATA Bashir MICHELLEE Via [facility] (39109) 03-02-2018 Open reduction of no information CHATA LEWIS Via [facility] fracture of metatarsal [place] (24959) bone with internal fixation 03-02-2018 X-ray of left foot no information CHATA MICHELLEE Vi a [facility] (60470) Immunizations Normalized Immunization Date Notes Care Provider Facili ty Immunization influenza, 08-05-2019 no information no name [facility] ealth injectable, [facility] quadrivalent, - [facility] contains (94890) preservative pneumococcal 07-28-2015 no information no name [facility] conjugate vaccine, [facility]58[facility] pneumococcal 08-03-2018 no information no name [facility] polysaccharide [facility] vaccine, 23 [facility] (10454) Vaccination no information [facility] [address] [address] Via [facility] Translations: [ [place] (89676) vaccine] Results Test Name Value Interpretation Reference Range Date Time Fa cility (Normalized) (Normalized) (Medline Reference) not yet categorized on null BLO trace-intat (no code) [facility] (08779) Control Negative (no code) [facility] (00778) Exp date 03/2022 (no code) [facility] (93649) Exp date neg~trace~67036r (no code) [facility] ~04/2020 [facility] (95993) KET 12/2020~cloudy~y (no code) [facility] ellow~slight~> = [address] mg/dL~neg~neg (31077) Lot # [id number] (no code) [facility] (03617) Lot # [id number] (no code) [facility] (98350) SG 1.010 (no code) [facility] (72096) URO 0.2 (no code) [facility] (87651) laboratory on null pH (Bld) 5.5 [pH] (no code) 7.38 - 7.42 [pH] [facility] () Protein (U) Negative (no code) 0 - 20 mg/dL [facility] [Mass/Vol] [facility] () laboratory on 2020-02-07 Ferritin 23 ng/mL (N) [facility] [Mass/Vol] [facility] (36230) Iron [Mass/Vol] 41 ug/dL (L) 60 - 170 ug/dL [facility] () Iron binding 314 (N) [facility] [Mass/Vol] [facility] (65071) Iron saturation 13 (L) [facility] th [Mass fraction] [facility] () laboratory on 2020-02-04 Albumin 3.9 g/dL (N) 3.4 - 5.4 g/dL [facility] [Mass/Vol] [facility] () Albumin/Globulin 1.5 {ratio} (N) 1 - 2.5 {ratio} [facility] [Mass ratio] [facility] () ALP [Catalytic 75 U/L (N) 44 - 147 U/L [facility] activity/Vol] [facility] (49129) ALT [Catalytic 9 U/L (N) 4 - 40 U/L [facility] activity/Vol] [facility] (85793) AST [Catalytic 16 U/L (N) 10 - 34 U/L [facility] activity/Vol] [facility] (96959) Basophils (Bld) 0.029 10*3/uL (N) 0 - 0.3 10*3/uL [facility] [#/Vol] [facility] (65024) Basophils/100 0.6 % (N) 0.5 - 1 % [facility] WBC (Bld) [facility] (54854) Bilirubin 0.3 mg/dL (N) 0.1 - 1.2 mg/dL [facility] [Mass/Vol] [facility] (14851) Calcium 9.3 mg/dL (N) 8.5 - 10.2 mg/dL [facility] [Mass/Vol] [facility] (77617) Chloride 105 mmol/L (N) 95 - 106 mmol/L [facility] [Moles/Vol] [facility] (51393) CO2 [Moles/Vol] 26 mmol/L (N) 23 - 29 mmol/L [facility] (07866) Creatinine 1.01 mg/dL (H) [facility] [Mass/Vol] [facility] (71426) Eosinophils 0.24 10*3/uL (N) 0.05 - 0.5 [facility] lth (Bld) [#/Vol] 10*3/uL [facility] (92227) Eosinophils/100 4.9 % (N) 1 - 4 % [facility] WBC (Bld) [facility] (38563) Erythrocyte 14.0 % (N) 11.6 - 14.6 % [facility] ealth distribution [facility] (RBC) [facility] [Ratio] (03577) GFR/1.73 sq M 65 (N) 90 - 120 [facility] predicted among mL/min/{1.73_m2} mL/min/{1.73_m2} [place] [facility] blacks MDRD [facility] (S/P/Bld) [Vol (77748) rate/Area] GFR/1.73 sq 56 (L) 90 - 120 [facility] th M.predicted MDRD mL/min/{1.73_m2} mL/min/{1.73_m2} [facility] (S/P/Bld) [Vol [facility] rate/Area] (89548) Globulin (S) 2.6 g/dL (N) 2 - 3.5 g/dL [facility] ealt [Mass/Vol] [facility] (35193) Glucose 148 mg/dL (H) 60 - 125 mg/dL [facility] [Mass/Vol] [facility] (36138) HbA1c (Bld) 0 % (no code) 0 - 5.7 % [facility] [Mass fraction] [facility] (74461) Hematocrit (Bld) 31.7 % (L) 36.1 - 50.3 % [facility] [Volume [facility]] [facility] (12117) Hemoglobin (Bld) 9.7 g/dL (L) 12.1 - 17.2 g/dL [facility] [Mass/Vol] [facility] (82653) Lymphocytes 1.504 10*3/uL (N) 0.9 - 2.9 [facility] (Bld) [#/Vol] 10*3/uL [facility] (91145) Lymphocytes/100 30.7 % (N) 20 - 40 % [facility] WBC (Bld) [facility] (75348) MCH (RBC) 26.3 pg (L) 27 - 31 pg [facility] [Entitic mass] [facility] (50166) MCHC (RBC) 30.6 g/dL (L) 32 - 36 g/dL [facility] [Mass/Vol] [facility] (06269) MCV (RBC) 85.9 fL (N) 80 - 100 fL [facility] [Entitic vol] [facility] (68259) Monocytes (Bld) 0.363 10*3/uL (N) 0.3 - 0.9 [facility] Health [#/Vol] 10*3/uL [facility] (19514) Monocytes/100 7.4 % (N) 2 - 8 % [facility] WBC (Bld) [facility] (37068) Neutrophils 2.764 10*3/uL (N) 1.7 - 7 10*3/uL [facility] Health (Bld) [#/Vol] [facility] (61676) Neutrophils/100 56.4 % (N) 40 - 60 % [facility] WBC (Bld) [facility] (49541) Platelet mean 10.4 fL (N) 7.2 - 11.7 fL [facility] volume (Bld) [facility] [Entitic vol] [facility] (82655) Platelets (Bld) 175 10*3/uL (N) 150 - 450 [facility] [#/Vol] 10*3/uL [facility] (22351) Potassium 4.2 mmol/L (N) 3.7 - 5.2 mmol/L [facility] [Moles/Vol] [facility] (84890) Protein 6.5 g/dL (N) 6.4 - 8.3 g/dL [facility] [Mass/Vol] [facility] (74184) RBC (Bld) 3.69 10*6/uL (L) 4.2 - 6.1 [facility] [#/Vol] 10*6/uL [facility] (87914) Sodium 140 mmol/L (N) 135 - 145 mmol/L [facility] [Moles/Vol] [facility] (78562) Urea nitrogen 11 mg/dL (N) 7 - 20 mg/dL [facility] [Mass/Vol] [facility] () Urea 11 mg/mg (N) 6 - 22 mg/mg [facility] nitrogen/Creatin [facility] [Mass ratio] [facility] () WBC (Bld) 4.9 10*3/uL (N) 3.5 - 10.5 [facility] [#/Vol] 10*3/uL [facility] () laboratory on 2020-01-13 Bacteria SEE NOTE (A) [facility] identified [facility] (U) [facility] () laboratory on 2019-11-01 Albumin 3.8 g/dL (N) 3.4 - 5.4 g/dL [facility] [Mass/Vol] [facility] () Albumin/Globulin 1.5 {ratio} (N) 1 - 2.5 {ratio} Comm [facility] [Mass ratio] [facility] () ALP [Catalytic 94 U/L (N) 44 - 147 U/L [facility] activity/Vol] [facility] () ALT [Catalytic 13 U/L (N) 4 - 40 U/L [facility] activity/Vol] [facility] () AST [Catalytic 16 U/L (N) 10 - 34 U/L [facility] activity/Vol] [facility] (22013) Bilirubin 0.3 mg/dL (N) 0.1 - 1.2 mg/dL [facility] [Mass/Vol] [facility] (13254) Calcium 9.0 mg/dL (N) 8.5 - 10.2 mg/dL [facility] [Mass/Vol] [facility] (47548) Chloride 105 mmol/L (N) 95 - 106 mmol/L [facility] [Moles/Vol] [facility] (45658) CO2 [Moles/Vol] 31 mmol/L (N) 23 - 29 mmol/L [facility] (61500) Creatinine 1.02 mg/dL (H) [facility] [Mass[facility]] [facility] (96097) GFR/1.73 sq M 64 (N) 90 - 120 [facility] predicted among mL/min/{1.73_m2} mL/min/{1.73_m2} [facility] blacks MDRD [facility] (S/P/Bld) [Vol (76071) rate/Area] GFR/1.73 sq 55 (L) 90 - 120 [facility] th M.predicted MDRD mL/min/{1.73_m2} mL/min/{1.73_m2} [facility] (S/P/Bld) [Vol [facility] rate/Area] (78109) Globulin (S) 2.6 g/dL (N) 2 - 3.5 g/dL [facility] ealth [Mass/Vol] [facility] (90076) Glucose 110 mg/dL (H) 60 - 125 mg/dL [facility] [Mass/Vol] [facility] (37945) HbA1c (Bld) 6.8 (H) [facility] [Mass fraction] [facility] (44400) Potassium 4.1 mmol/L (N) 3.7 - 5.2 mmol/L [facility] [Moles/Vol] [facility] (73189) Protein 6.4 g/dL (N) 6.4 - 8.3 g/dL [facility] [Mass/Vol] [facility] (91083) Sodium 141 mmol/L (N) 135 - 145 mmol/L [facility] [Moles/Vol] [facility] (25072) Urea nitrogen 12 mg/dL (N) 7 - 20 mg/dL [facility] [Mass/Vol] [facility] (07050) Urea 12 mg/mg (N) 6 - 22 mg/mg [facility] nitrogen/Creatin [facility] [Mass ratio] [facility] () laboratory on 2019-08-01 Albumin 3.9 g/dL (N) 3.4 - 5.4 g/dL [facility] [Mass/Vol] [facility] () Albumin/Globulin 1.4 {ratio} (N) 1 - 2.5 {ratio} [facility] [Mass ratio] [facility] () ALP [Catalytic 90 U/L (N) 44 - 147 U/L [facility] activity/Vol] [facility] (91610) ALT [Catalytic 16 U/L (N) 4 - 40 U/L [facility] ealth activity/Vol] [facility] (80187) AST [Catalytic 24 U/L (N) 10 - 34 U/L [facility] activity/Vol] [facility] () Bilirubin 0.4 mg/dL (N) 0.1 - 1.2 mg/dL [facility] [Mass/Vol] [facility] (82257) Calcium 9.8 mg/dL (N) 8.5 - 10.2 mg/dL [facility] [Mass/Vol] [facility] (47174) Chloride 101 mmol/L (N) 95 - 106 mmol/L [facility] [Moles/Vol] [facility] (61125) CO2 [Moles/Vol] 31 mmol/L (N) 23 - 29 mmol/L [facility] (13473) Creatinine 0.98 mg/dL (H) [facility] [Mass/Vol] [facility] (69674) GFR/1.73 sq M 67 (N) 90 - 120 [facility] predicted among mL/min/{1.73_m2} mL/min/{1.73_m2} Center o f [facility] blacks MDRD [facility] (S/P/Bld) [Vol (37740) rate/Area] GFR/1.73 sq 58 (L) 90 - 120 [facility] th M.predicted MDRD mL/min/{1.73_m2} mL/min/{1.73_m2} [facility] (S/P/Bld) [Vol [facility] rate/Area] (28545) Globulin (S) 2.7 g/dL (N) 2 - 3.5 g/dL [facility] ealt [Mass/Vol] [facility] (39304) Glucose 107 mg/dL (H) 60 - 125 mg/dL [facility] [Mass/Vol] [facility] (28853) HbA1c (Bld) 6.8 (H) [facility] [Mass fraction] [facility] (28551) Potassium 4.2 mmol/L (N) 3.7 - 5.2 mmol/L [facility] [Moles/Vol] [facility] (60580) Protein 6.6 g/dL (N) 6.4 - 8.3 g/dL [facility] [Mass/Vol] [facility] (59655) Sodium 141 mmol/L (N) 135 - 145 mmol/L [facility] [Moles/Vol] [facility] (71106) Urea nitrogen 21 mg/dL (N) 7 - 20 mg/dL [facility] [Mass/Vol] [facility] (14246) Urea 21 mg/mg (N) 6 - 22 mg/mg [facility] nitrogen/Creatin [facility] ine [Mass ratio] [facility] (50261) laboratory on 2019-05-02 Albumin 3.8 g/dL (N) 3.4 - 5.4 g/dL [facility] [Mass/Vol] [facility] (89069) Albumin DL <= 20 TNP (no code) [facility] mg/L (U) [facility] [Mass/Vol] [facility] [place] ([id number]) Albumin DL <= 20 0 mg/dL (no code) 0.2 - 1.9 mg/dL [facility] mg/L (U) [facility] [Mass/Vol] [facility] () Albumin/Creatini no information (no code) Community a lt ne (U) [Mass [facility] ratio] [facility] () Albumin/Globulin 1.4 {ratio} (N) 1 - 2.5 {ratio} Comm [facility] [Mass ratio] [facility] () ALP [Catalytic 72 U/L (N) 44 - 147 U/L [facility] activity/Vol] [facility] () ALT [Catalytic 12 U/L (N) 4 - 40 U/L Community ealt activity/Vol] [facility] () AST [Catalytic 17 U/L (N) 10 - 34 U/L [facility] activity/Vol] [facility] () Bilirubin 0.5 mg/dL (N) 0.1 - 1.2 mg/dL [facility] [Mass/Vol] [facility] () Calcium 8.9 mg/dL (N) 8.5 - 10.2 mg/dL [facility] Health [Mass/Vol] [facility] () Chloride 104 mmol/L (N) 95 - 106 mmol/L [facility] [Moles/Vol] [facility] () Cholesterol 132 mg/dL (N) 180 - 200 mg/dL [facility] [Mass/Vol] [facility] () Cholesterol in 38 mg/dL (L) [facility] HDL [Mass/Vol] [facility] () Cholesterol in 69 mg/dL (N) 0 - 100 mg/dL [facility] LDL [Mass/Vol] [facility] (10970) Cholesterol non 94 mg/dL (N) [facility] HDL [Mass/Vol] [facility] (16593) Cholesterol.tota 3.5 {ratio} (N) [facility] l/Cholesterol in [facility] HDL [Mass ratio] [facility] () CO2 [Moles/Vol] 32 mmol/L (N) 23 - 29 mmol/L [facility] (28906) Creatinine (U) TNP (no code) [facility] [Mass/Vol] [facility] (41554) Creatinine (U) 0 mg/dL (no code) [facility] [Mass/Vol] [facility] (02782) Creatinine 1.03 mg/dL (H) [facility] [Mass/Vol] [facility] (64833) GFR/1.73 sq M 64 (N) 90 - 120 [facility] predicted among mL/min/{1.73_m2} mL/min/{1.73_m2} [facility] blacks MDRD [facility] (S/P/Bld) [Vol (35914) rate/Area] GFR/1.73 sq 55 (L) 90 - 120 [facility] M.predicted MDRD mL/min/{1.73_m2} mL/min/{1.73_m2} [facility] (S/P/Bld) [Vol [facility] rate/Area] (09581) Globulin (S) 2.7 g/dL (N) 2 - 3.5 g/dL [facility] ealt [Mass/Vol] [facility] (48903) Glucose 110 mg/dL (H) 60 - 125 mg/dL [facility] [Mass/Vol] [facility] (27208) HbA1c (Bld) 7.4 (H) [facility] [Mass fraction] [facility] (19194) Potassium 4.3 mmol/L (N) 3.7 - 5.2 mmol/L [facility] [Moles/Vol] [facility] (80139) Protein 6.5 g/dL (N) 6.4 - 8.3 g/dL [facility] [Mass/Vol] [facility] (22236) Sodium 141 mmol/L (N) 135 - 145 mmol/L [facility] [Moles/Vol] [facility] (38420) Triglyceride 174 mg/dL (H) 0 - 150 mg/dL [facility] [Mass/Vol] [facility] (47997) Urea nitrogen 13 mg/dL (N) 7 - 20 mg/dL [facility] [Mass/Vol] [facility] (74087) Urea 13 mg/mg (N) 6 - 22 mg/mg [facility] nitrogen/Creatin [facility] [Mass ratio] [facility] () laboratory on 2019-02-01 Albumin 3.9 g/dL (N) 3.4 - 5.4 g/dL [facility] [Mass/Vol] [facility] () Albumin/Globulin 1.4 {ratio} (N) 1 - 2.5 {ratio} Comm [facility] [Mass ratio] [facility] (89182) ALP [Catalytic 91 U/L (N) 44 - 147 U/L [facility] activity/Vol] [facility] (79971) ALT [Catalytic 11 U/L (N) 4 - 40 U/L [facility] activity/Vol] [facility] () AST [Catalytic 16 U/L (N) 10 - 34 U/L [facility] activity/Vol] [facility] (82657) Bilirubin 0.4 mg/dL (N) 0.1 - 1.2 mg/dL [facility] [Mass/Vol] [facility] (20874) Calcium 8.9 mg/dL (N) 8.5 - 10.2 mg/dL [facility] [Mass/Vol] [facility] (88986) Chloride 105 mmol/L (N) 95 - 106 mmol/L [facility] [Moles/Vol] [facility] (29422) Cholesterol 135 mg/dL (N) 180 - 200 mg/dL [facility] [Mass/Vol] [facility] (81558) Cholesterol in 38 mg/dL (L) [facility] HDL [Mass/Vol] [facility] (00990) Cholesterol in 72 mg/dL (N) 0 - 100 mg/dL [facility] LDL [Mass/Vol] [facility] (18769) Cholesterol non 97 mg/dL (N) [facility] HDL [Mass/Vol] [facility] (83659) Cholesterol.tota 3.6 {ratio} (N) [facility] l/Cholesterol in [facility] HDL [Mass ratio] [facility] (63217) CO2 [Moles/Vol] 31 mmol/L (N) 23 - 29 mmol/L [facility] (01128) Creatinine 1.04 mg/dL (H) [facility] [Mass/Vol] [facility] (69725) GFR/1.73 sq M 63 (N) 90 - 120 [facility] alth predicted among mL/min/{1.73_m2} mL/min/{1.73_m2} [facility] MDRD [facility] (S/P/Bld) [Vol (21925) rate/Area] GFR/1.73 sq 54 (L) 90 - 120 [facility] th M.predicted MDRD mL/min/{1.73_m2} mL/min/{1.73_m2} [facility] (S/P/Bld) [Vol [facility] rate/Area] (28259) Globulin (S) 2.7 g/dL (N) 2 - 3.5 g/dL [facility] ealth [Mass/Vol] [facility] (62836) Glucose 102 mg/dL (H) 60 - 125 mg/dL [facility] [Mass/Vol] [facility] (78239) HbA1c (Bld) 6.8 (H) [facility] [Mass fraction] [facility] (81893) Potassium 3.9 mmol/L (N) 3.7 - 5.2 mmol/L [facility] [Moles/Vol] [facility] (71040) Protein 6.6 g/dL (N) 6.4 - 8.3 g/dL [facility] [Mass/Vol] [facility] (18707) Sodium 143 mmol/L (N) 135 - 145 mmol/L [facility] [Moles/Vol] [facility] (79345) Triglyceride 172 mg/dL (H) 0 - 150 mg/dL [facility] [Mass/Vol] [facility] (79161) Urea nitrogen 14 mg/dL (N) 7 - 20 mg/dL [facility] [Mass/Vol] [facility] () Urea 13 mg/mg (N) 6 - 22 mg/mg [facility] nitrogen/Creatin [facility] [Mass ratio] [facility] () not yet categorized on 2018-10-30 SPECIMEN no information (no code) [facility] () laboratory on 2018-10-30 Albumin 4.0 g/dL (N) 3.4 - 5.4 g/dL [facility] [Mass/Vol] [facility] () Albumin/Globulin 1.4 {ratio} (N) 1 - 2.5 {ratio} Comm [facility] [Mass ratio] [facility] () ALP [Catalytic 76 U/L (N) 44 - 147 U/L [facility] activity/Vol] [facility] () ALT [Catalytic 11 U/L (N) 4 - 40 U/L [facility] ealth activity/Vol] [facility] (31542) AST [Catalytic 15 U/L (N) 10 - 34 U/L [facility] activity/Vol] [facility] (50619) Bilirubin 0.5 mg/dL (N) 0.1 - 1.2 mg/dL [facility] [Mass/Vol] [facility] (69778) Calcium 9.1 mg/dL (N) 8.5 - 10.2 mg/dL [facility] [Mass/Vol] [facility] (28797) Chloride 101 mmol/L (N) 95 - 106 mmol/L [facility] [Moles/Vol] [facility] (98000) Cholesterol 130 mg/dL (N) 180 - 200 mg/dL [facility] [Mass/Vol] [facility] (46451) Cholesterol in 42 mg/dL (L) [facility] [[facility] (67982) Cholesterol in 68 mg/dL (N) 0 - 100 mg/dL [facility] Health LDL [Mass/Vol] [facility] (51747) Cholesterol non 88 mg/dL (N) [facility] HDL [Mass/Vol] [facility] (21574) Cholesterol.tota 3.1 {ratio} (N) [facility] lt l/Cholesterol in [facility] HDL [Mass ratio] [facility] (87911) CO2 [Moles/Vol] 28 mmol/L (N) 23 - 29 mmol/L [facility] (93176) Creatinine 0.86 mg/dL (N) [facility] [Mass/Vol] [facility] (20165) GFR/1.73 sq M 79 (N) 90 - 120 [facility] predicted among mL/min/{1.73_m2} mL/min/{1.73_m2} [facility] blacks MDRD [facility] (S/P/Bld) [Vol (41140) rate/Area] GFR/1.73 sq 68 (N) 90 - 120 [facility] th M.predicted MDRD mL/min/{1.73_m2} mL/min/{1.73_m2} [facility] (S/P/Bld) [Vol [facility] rate/Area] (63666) Globulin (S) 2.9 g/dL (N) 2 - 3.5 g/dL [facility] ealth [Mass/Vol] [facility] (27548) Glucose TNP (no code) [facility] [Mass/Vol] [facility] (55869) HbA1c (Bld) 6.5 (H) [facility] [Mass fraction] [facility] (11727) Potassium 4.4 mmol/L (N) 3.7 - 5.2 mmol/L [facility] [Moles/Vol] [facility] (42435) Protein 6.9 g/dL (N) 6.4 - 8.3 g/dL [facility] [Mass/Vol] [facility] (85680) Sodium 143 mmol/L (N) 135 - 145 mmol/L [facility] [Moles/Vol] [facility] (32301) Triglyceride 113 mg/dL (N) 0 - 150 mg/dL [facility] [Mass/Vol] [facility] (08659) Urea nitrogen 14 mg/dL (N) 7 - 20 mg/dL [facility] [Mass/Vol] [facility] (02551) Urea NOT APPLICABLE (no code) [facility] nitrogen/Creatin [facility] [Mass ratio] [facility] (05801) capillary blood glucose measurement by glucometer (mass/volume) on 2018-03-02 Glucose 104 mg/dL (no code) 60 - 125 mg/dL [facility] (28568) methicillin resistant staphylococcus aureus (mrsa) screening culture on 2018-02-26 MRSA presence MRSA not (no code) [facility] (70645) Vital Signs The data below is from unstructured sources Vital Response Date/Time Temperature (Fahrenheit) 97.5 degree s F (97.6 - 99.5) 07/31/2015 12:20pm Temperature (Calculated Celsius) 36. 60917 degrees C (36.4 - 37.5) 07/31/2015 11:50am Temperature Source Temporal 07/31/2015 12:20pm Pulse Rate (adult) 83 bpm (60 - 90) 07/31/2015 12:20pm Respiratory Rate 18 bpm (12 - 24) 07/31/2015 12:20pm O2 Sat by Pulse Oximetry 95 % (88 - 100) 07/31/2015 12:20pm Blood Pressure 110/66 mm Hg 07/31/2015 12:20pm Pain Pain Intensity 0 2014 11:50am Height (Feet) 5 feet 11/2014 7:09am Height (Inches) 5.00 inches 07/31/2015 7:09am Height (Calculated Centimeters) 165. 025046 cm 07/31/2015 7:09am Weight (Pounds) 213 pounds 07/31/2015 7:09am Weight (Calculated Grams) 05610.176 gm 07/31/2015 7:09am Weight (Calculated Kilograms) 96.615 176 kilograms 07/31/2015 7:09am Calculated BMI 35.44 11/2014 7:09am Vital Response Date/Time Temperature (Fahrenheit) 97.3 degree s F (97.6 - 99.5) 03/02/2018 5:00pm Temperature (Calculated Celsius) 36. 19479 degrees C (36.4 - 37.5) 03/02/2018 4:45pm Temperature Source Temporal 03/02/2018 5:00pm Pulse Rate (adult) 73 bpm (60 - 90) 03/02/2018 5:00pm Respiratory Rate 22 bpm (12 - 24) 03/02/2018 5:00pm O2 Sat by Pulse Oximetry 95 % (88 - 100) 03/02/2018 5:00pm Blood Pressure 170/78 mm Hg 03/02/2018 5:00pm Blood Pressure Mean 112 mm Hg (65 - 110) 03/02/2018 11:15am Pain Numeric Pain Scale 0-No Pain 03/02/2018 5:00pm Pain Intensity 0 2017 4:45pm Height (Feet) 5 feet 01/2018 11:15am Height (Inches) 5.00 inches 03/02/2018 11:15am Height (Calculated Centimeters) 165. 938282 cm 03/02/2018 11:15am Weight (Pounds) 213 pounds 03/02/2018 11:15am Weight (Ounces) 0.0 oz 0 03/02/2018 11:15am Weight (Calculated Grams) 07773.18 gm 03/02/2018 11:15am Weight (Calculated Kilograms) 96.615 176 kilograms 03/02/2018 11:15am Calculated BMI 35.4 01/2018 11:15am Interventions No Information Plan of Treatment The data below is from unstructured sources Discharge Date 07/31/15 12:20pm Instructions/Education Provided THIAGO RIDLEY INSTRUCTIONS POSTOP DR. LEWIS-POST OP INSTRUCTIONS Prescriptions See Medication Section Discharge Date 03/02/18 5:00pm Instructions/Education Provided THIAGO BLEVINSA INSTRUCTIONS POSTOP DR. LEWIS-POST OP INSTRUCTIONS Prescriptions See Medication Section Goals No Information Social History No Information Functional Status The data below is from unstructured sourcesNo functional status results.No functional status information available.No functional status information available. Mental Status No Information Encounters Encounter Normalized Encounter Encounter Diagnosis Care Provi mckay Organization Date Type 03-02-2018 Admission to day no information CHATA LEWIS Work no organization name - surgery Phone: 03-02-2018 12-06-2019 Emergency department no information ZAHRA Aponte (no [facility] [address] - patient visit phone) [facility] 12-06-2019 (no phone) 03-02-2018 Patient encounter no information no name no or ganization name - 03-02-2018 02-26-2018 Patient encounter no information CHATA LEWIS Work no organization name - 02-26-2018 NEGATED Patient encounter no information no name no or ganization name 10-25-2017 07-26-2017 Patient encounter no information no name no or ganization name - 10-24-2017 04-03-2017 Patient encounter no information no name no or ganization name - 05-27-2017 02-21-2017 Patient encounter no information no name no or ganization name 02-23-2016 Patient encounter no information no name no or ganization name 07-31-2015 Patient encounter no information no name no or ganization name - 07-31-2015 NEGATED Patient encounter no information no name no or ganization name 02-10-2015 02-18-2014 Patient encounter no information no name no or ganization name 02-19-2013 Patient encounter no information no name no or ganization name 07-10-2012 Patient encounter no information no name no or ganization name 02-07-2020 Patient encounter no information CHRISTY J SELF (no [facility] phone) (no phone) [facility] (no phone) 02-04-2020 Patient encounter no information (no phone) CHRISTY J [facility] procedure SELF (no phone) [facility] (no phone) 01-13-2020 Patient encounter no information (no phone) [facility] (no phone) 12-06-2019 Patient encounter no information ZAHRA MEMBRENO MD ( no [facility] [address] procedure phone) [facility] (no phone) 12-05-2019 Patient encounter no information CHRISTY J SELF (no [facility] procedure phone) [facility] (no phone) 11-06-2019 Patient encounter no information CHRISTY J SELF (no [facility] procedure phone) [facility] (no phone) 11-01-2019 Patient encounter no information (no phone) [facility] (no phone) 10-30-2019 Patient encounter no information CHRISTY J SELF (no [facility] procedure phone) [facility] (no phone) 10-11-2019 Patient encounter no information (no phone) [facility] procedure [facility] (no phone) 08-05-2019 Patient encounter no information no name no or ganization name procedure 08-01-2019 Patient encounter no information no name no or ganization name procedure 07-22-2019 Patient encounter no information no name no or ganization name procedure 06-10-2019 Patient encounter no information no name no or ganization name procedure 05-06-2019 Patient encounter no information no name no or ganization name procedure 05-02-2019 Patient encounter no information no name no or ganization name procedure 03-27-2019 Patient encounter no information no name no or ganization name procedure 03-11-2019 Patient encounter no information no name no or ganization name procedure 02-25-2019 Patient encounter no information no name no or ganization name procedure 02-21-2019 Patient encounter no information no name no or ganization name procedure 02-14-2019 Patient encounter no information no name no or ganization name procedure 02-01-2019 Patient encounter no information no name no or ganization name procedure 11-01-2018 Patient encounter no information no name no or ganization name procedure 10-30-2018 Patient encounter no information no name no or ganization name procedure 10-25-2018 Patient encounter no information no name no or ganization name procedure 07-26-2018 Patient encounter no information no name no or ganization name - procedure 10-24-2018 11-07-2017 Patient encounter no information no name no or ganization name procedure 05-28-2017 Patient encounter no information no name no or ganization name procedure 03-27-2017 Patient encounter no information no name no or ganization name procedure 08-04-2014 Patient encounter no information no name no or ganization name procedure 01-03-2012 Patient encounter no information no name no or ganization name procedure 04-17-2019 Telephone encounter no information CHRISTY SELF (no [employer] phone) (no phone) NEGATED no information Encounter for other no name no organization name preprocedural examination Medical Equipment No Information Payers No Information Summary Purpose eClinicalWorks SubmissioneClinicalWorks Submission Advance Directives Directive Response Recor ded Date/Time Advance Directives No 7:09am Health Care Power of Configuration Consultant No 07/31/15 7:09am Resuscitation Status Full Code 07/31/15 7:09am Directive Response Recor ded Date/Time Advance Directives No 11:15am Health Care Power of Configuration Consultant No 03/02/18 11:15am Organ Donor Yes 03/02/18 11:15am Resuscitation Status Full Code 03/02/18 11:15am Discharge Instructions Patient Instructions Physician Instructions New, Converted or Re-Newed RX: Call to Patients Pharmacy Plan of Care/Instructions/FU: No weight to right foot Activity as Tolerated: No Goal: Resume normal walking Discharge Diet: ADA Diet Return to The Hospital For: Excessive bleeding or pain Care Plan Patient Instructions:: No weight to right foot Goal:: Resume normal walking No hospital discharge instruction information available. Additional Source Comments This clinical document has been generated using [employer] software that has been certified by the Office of the National Coordinator for Health Information Technology (ONC 15.99.04.3023.Diam.31.00.0.255025) and the National Committee for Warehouse Record Clerk (NCQA, as an eMeasure certified technology). FOR RECORDS PERTAINING TO PATIENTS WHO ARE OR HAVE BEEN ENROLLED IN A CHEMICAL D EPENDENCY/SUBSTANCE ABUSE PROGRAM, SOME INFORMATION MAY BE OMITTED. This clinica l summary was aggregated from multiple sources. Caution should be exercised in using it in the provision of clinical care. This summary normalizes information from multiple sources, and as a consequence, information in this document may ma terially change the coding, format and clinical context of patient data. In wilian tion, data may be omitted in some cases. CLINICAL DECISIONS SHOULD BE BASED ON T HE PRIMARY CLINICAL RECORDS. [employer] 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 Medical History Severe obesity (BMI 35.0-39.9) Medical History Thrombocytopenia Medical History Hypoxia Medical History ANCA on CPAP Medical History Aortic valve stenosi s, unspecified etiology Medical History Insomnia Medical History Anemia Medical History PAD (peripheral clarence ry disease) Medical History Neuropathy Medical History Cervical cancer Medical History Ischemic heart disease Medical History Essential hypertension Surgical History hernia repair Surgical History breast biopsy Surgical History CABG Surgical History colonoscopy Surgical History facial cosmetic surgery Surgical History partial hysterectomy Hospitalization History See Surgeries UNRECOGNIZED CONTENT PROVIDED BELOW FOR UNRECOGNIZED SECTION REASON FOR VISIT hydrocodone
== END 2020-03-02 17:40 | disposition home or self-care (01) ==
LOC: EDUNIT# 16:00 → ER FS 16:01
DX: S99.911A Unspecified injury of right ankle, initial encounter (principal); S99.921A Unspecified injury of right foot, initial encounter; J43.9 Emphysema, unspecified; I10 Essential (primary) hypertension; I25.10 Atherosclerotic heart disease of native coronary artery without angina pectoris; I25.2 Old myocardial infarction; E78.00 Pure hypercholesterolemia, unspecified; G62.9 Polyneuropathy, unspecified; G89.29 Other chronic pain; M54.9 Dorsalgia, unspecified; F32.9 Major depressive disorder, single episode, unspecified; Z85.3 Personal history of malignant neoplasm of breast; Z85.41 Personal history of malignant neoplasm of cervix uteri; Z79.891 Long term (current) use of opiate analgesic; Z88.1 Allergy status to other antibiotic agents; Z79.82 Long term (current) use of aspirin; Z79.4 Long term (current) use of insulin; Z87.891 Personal history of nicotine dependence; Z91.041 Radiographic dye allergy status; Z89.411 Acquired absence of right great toe; Z95.1 Presence of aortocoronary bypass graft; Z79.51 Long term (current) use of inhaled steroids; Z88.8 Allergy status to other drugs, medicaments and biological substances; Z88.0 Allergy status to penicillin; W50.0XXA Accidental hit or strike by another person, initial encounter; Y93.83 Activity, rough housing and horseplay
CPT/HCPCS: 73610; 73630

== ENCOUNTER 2020-03-30 16:28 | Emergency (ER) | payer MEDICARE, MEDICAID ==
[~2020-03-30] VITALS: Ht 165 cm; Wt 103.0 kg
[~2020-03-30 16:28] MED LIST changes: -CALC600T12 PO; +CALC600T14 PO
[2020-03-30 16:38] VITALS: BP 139/43
--- NOTE | 2020-03-30 16:52 | ED Lower Extremity ---
General Chief Complaint: Lower Extremity Stated Complaint: FOOT PAIN Source: patient Exam Limitations: no limitations History of Present Illness Date Seen by Provider: Mar 30, 2020 Time Seen by Provider: 16:25 Initial Comments The patient is a pleasant 69-year-old female who presents for right lateral foot pain. She states that she was walking and twisted her foot and felt a snap. She says that she has broken this foot 2 times previously from similar trauma. She is alert and oriented 4, calm, and appears to be in no distress. She denies any knee pain or any other complaints. She states that she is able to walk on her heel but not on the ball of her foot. Pain/Injury Location: right foot Method of Injury: twisted Modifying Factors: Improves With Movement (makes it worse), Improves With Rest (helps) Allergies and Home Medications Allergies Coded Allergies: Penicillins (Verified Allergy, Severe, BLISTERS, 02/26/18) adhesive tape (Verified Allergy, Severe, BLISTERS, 02/26/18) barium sulfate (Verified Allergy, Severe, SEVERE GI UPSET, 02/26/18) cefazolin (Verified Allergy, Severe, BLISTERS, 02/26/18) clindamycin (Verified Allergy, Severe, BLISTERS, 02/26/18) erythromycin base (Verified Allergy, Severe, BLISTERS, 02/26/18) indomethacin (Verified Allergy, Severe, BLISTERS/SYNCOPE, 02/26/18) venom-honey bee (Verified Allergy, Severe, SWELLING, 02/26/18) cortisone (Verified Allergy, Intermediate, SYNCOPE, 02/26/18) Uncoded Allergies: IV DYE (Allergy, Severe, SEVERE GI PROBLEMS FOR DAYS, 07/29/15) SWEETNERS (Allergy, Severe, MAKES HER VERY ILL-HOSPITALIZED, 07/29/15) Home Medications Alendronate Sodium 70 Mg Tablet, 70 MG PO UD, (Reported) Aspirin 81 Mg Tablet.dr, 81 MG PO DAILY, (Reported) Atorvastatin Calcium 80 Mg Tablet, 80 MG PO HS, (Reported) Calcium Carbonate 600 Mg Tablet, 600 MG PO BID, (Reported) Carvedilol 6.25 Mg Tablet, 6.25 MG PO BID, (Reported) Cholecalciferol (Vitamin D3) 1,000 Unit Capsule, 1,000 UNIT PO DAILY, (Reported) Citalopram Hydrobromide 40 Mg Tablet, 40 MG PO HS, (Reported) Dexlansoprazole 60 Mg , 60 MG PO DAILY, (Reported) Docusate Sodium 100 Mg Capsule, 100 MG PO DAILY, (Reported) Fluticasone Propionate 9.9 Ml [place].susp, 1 SPR NS BID, (Reported) Gabapentin 100 Mg Capsule, 100 MG PO BID, (Reported) Hydrocodone Bit/Acetaminophen 1 Each Tablet, 1 EACH PO Q4H PRN for PAIN, (Reported) Hydrocodone Bit/Acetaminophen 1 Tab Tab, 1-2 TAB PO Q4-6HR PRN for PAIN PRN PAIN Prescribed by: PASQUALE LEWIS on 03/02/18 1446 Insulin Aspart 100 Unit/1 Ml Susp, 1.9 UNIT SQ UD, (Reported) Lisinopril 10 Mg Tablet, 10 MG PO DAILY, (Reported) Loratadine 10 Mg Tablet, 10 MG PO BID, (Reported) Metformin HCl 500 Mg Tablet, 500 MG PO BID, (Reported) Multivitamin 1 Each Tablet, 1 EACH PO DAILY, (Reported) Potassium Chloride 10 Meq Tab.er.prt, 10 MEQ PO DAILY, (Reported) Sulfamethoxazole/Trimethoprim 1 Each Tablet, 1 EACH PO BID Prescribed by: AMY BARROS on 03/02/18 1631 Trazodone HCl 150 Mg Tablet, 150 MG PO HS, (Reported) Patient Home Medication List Home Medication List Reviewed: Yes Review of Systems Constitutional: no symptoms reported EENTM: no symptoms reported Respiratory: no symptoms reported Cardiovascular: no symptoms reported Gastrointestinal: no symptoms reported Genitourinary: no symptoms reported Musculoskeletal: joint pain (right lateral foot injury) Skin: no symptoms reported Psychiatric/Neurological: No Symptoms Reported All Other Systems Reviewed Negative Unless Noted: Yes Past Yufqnvd-Bgujim-Jamgla Hx Past Med/Social Hx: Reviewed Nursing Past Med/Soc Hx Patient Social History Alcohol Use: Denies Use Recreational Drug Use: No Smoking Status: Former Smoker Type Used: Cigarettes Former Smoker, Quit: Nov 24, 2008 2nd Hand Smoke Exposure: No Recent Foreign Travel: No Contact w/Someone Who Travel: No Recent Hopitalizations: No Physical Abuse: No Sexual Abuse: No Mistreated: No Fear: No Immunizations Up To Date Date of Pneumonia Vaccine: Jul 28, 2015 Date of Influenza Vaccine: Jun 12, 2017 Seasonal Allergies Seasonal Allergies: Yes Past Medical History Surgeries: Yes (L EYE, RT HERNIA, PARTIAL AMP. R GREAT TOE, PARTIAL HYSTER- CERVICAL CA,) Breast, CABG, Gallbladder Respiratory: Yes (O2 2L ) Sleep Apnea, COPD, Emphysema Currently Using CPAP: Yes Cardiac: Yes (BYPASS X5) Coronary Artery Disease, Heart Attack, Heart Murmur, High Cholesterol, Hypertension Neurological: Yes Neuropathy Reproductive Disorders: No Female Reproductive Disorders: Denies Sexually Transmitted Disease: No HIV/AIDS: No Genitourinary: No Gastrointestinal: Yes (HX ULCERATIVE COLITIS) Colitis, Gastrointestinal Bleed Musculoskeletal: Yes (OSTEOARTHRITIS) Back Injury, Chronic Back Pain Endocrine: Yes (INSULIN PUMP) HEENT: No Loss of Vision: Bilateral Hearing Impairment: Denies Cancer: Yes Breast, Cervical Did You Recieve Any Treatments: Yes What Type of Treatment Did You: Radiation, Surgical Intervention Psychosocial: Yes (MILD) Depression Integumentary: No Blood Disorders: No Adverse Reaction/Blood Tranf: Yes (HAS RECIEVED BLOOD WITHOUT DIFFICULTY) Physical Exam Vital Signs Vital Signs - First Documented 03/30/20 16:38 Temp 36.5 Pulse 71 Resp 16 B/P (MAP) 139/43 (75) Pulse Ox 97 Capillary Refill : Height, Weight, BMI Height: 5'5.00" Weight: 213lbs. 0.0oz. [id number]; 37.00 BMI Method: General Appearance: WD/WN, no apparent distress HEENT: PERRL/EOMI, pharynx normal Neck: non-tender, full range of motion Cardiovascular: regular rate, rhythm, no edema Respiratory: lungs clear, normal breath sounds, no respiratory distress Hips: bilateral hip non-tender, bilateral hip normal inspection, bilateral hip normal range of motion, bilateral hip no evidence of injury Knees: bilateral knee non-tender, bilateral knee normal inspection, bilateral knee normal range of motion, bilateral knee no evidence of injury Ankles: bilateral ankle non-tender, bilateral ankle normal inspection, bilateral ankle normal range of motion, bilateral ankle no evidence of injury Feet: right foot bone tenderness (lateral mid-foot) Neurologic/Psychiatric: no motor/sensory deficits, alert, normal mood/affect, oriented x 3 Skin: normal color, warm/dry Progress/Results/Core Measures Results/Orders My Orders Orders - NEERAJ CASTRO DO Foot 3 View Right (03/30/20 16:37) Ice: Apply To Affected Area (03/30/20 16:37) Vital Signs/I&O 03/30/20 16:38 Temp 36.5 Pulse 71 Resp 16 B/P (MAP) 139/43 (75) Pulse Ox 97 Progress Progress Note : Progress Note @1705 - Patient updated on x-ray results which show a hairline fracture in the fourth metatarsal. Orthopedic shoe placed on the foot. Advised patient to follow up with orthopedics in the next 1-2 days. The patient expresses verbal understanding and agreement with the plan and is stable for discharge. Diagnostic Imaging Diagonstic Imaging: Xray Comments [facility] [place] [place] NAME: KVNG SUMNER [facility] REC#: [id number] PT STATUS: REG ER : 1950 PHYSICIAN: NEERAJ CASTRO DO ADMIT DATE: 03/30/20/ER FS Draft Date of Exam:03/30/20 FOOT 3 VIEW RIGHT INDICATION: Foot pain. COMPARISON: 03/02/2020 FINDINGS: Three radiographic views of the right foot were obtained. Postsurgical changes to the 1st distal phalanx, distal margins of the 3rd metatarsal, and 5th metatarsal are noted. No unexpected radiopaque foreign bodies are seen. Since the previous exam, there has been interval development of some subtle linear lucency involving the lateral cortex of the proximal 4th metatarsal. The appearance is suggestive of hairline fracture. Stress fracture is also a consideration. There is no intra-articular extension. No other acute appearing osseous abnormalities are seen. Joint spaces are maintained. IMPRESSION: 1. New hairline fracture involving the proximal 4th metatarsal, as described above. Dictated on workstation # [id number] Dict: 03/30/20 1653 Trans: 03/30/20 1657 [facility] [id number] Interpreted by: TANISHA DIALLO MD Electronically signed by: Departure Impression Primary Impression: Fracture of fourth metatarsal bone of right foot Disposition: 01 HOME, SELF-CARE Condition: Stable Departure-Patient Inst. Decision time for Depature: 17:05 Referrals: AKOSUA BILL MD, MAXWELL MD (PCP/Family) Primary Care Physician Patient Instructions: Stress Fracture of the Metatarsal Bone (DC), Walking Boot Add. Discharge Instructions: Follow-up with orthopedics in the next 1-2 days. Take ibuprofen or Tylenol for pain relief as needed. Return to the Emergency Department immediately for new or worsening symptoms. NEERAJ CASTRO DO Mar 30, 2020 16:52
--- NOTE | 2020-03-30 16:57 | Diagnostic Imaging Report ---
INDICATION: Foot pain. COMPARISON: 03/02/2020 FINDINGS: Three radiographic views of the right foot were obtained. Postsurgical changes to the 1st distal phalanx, distal margins of the 3rd metatarsal, and 5th metatarsal are noted. No unexpected radiopaque foreign bodies are seen. Since the previous exam, there has been interval development of some subtle linear lucency involving the lateral cortex of the proximal 4th metatarsal. The appearance is suggestive of hairline fracture. Stress fracture is also a consideration. There is no intra-articular extension. No other acute appearing osseous abnormalities are seen. Joint spaces are maintained. IMPRESSION: 1. New hairline fracture involving the proximal 4th metatarsal, as described above. Dictated by: Dictated on workstation # [id number]
--- OUTSIDE RECORDS SUMMARY | 2020-03-30 19:51 | XMS REPORT | Clinical Summary ---
Author Author [facility] Organization [facility] Address Unknown Phone Unavailable Care Team Providers Care Lean Engineer Name Role Phone Bishnu Martin MD Unavailable Chata Chau DPM Unavailable Jesus López MD PCP Unavailable Source Comments Some departments are not documenting in the electronic medical record. If you d o not see the information that you expected, contact Release of Information in [facility] SEAT 4a Information Management department at [phone] for further assistan ce in locating additional records.[facility] Allergies Comments Active Allergy Reactions Severity Noted [...] daily. Active fluticasone (FLONASE) 50 Apply 1 [place] 0 mcg/actuation nasal spray to each nostril [...] having symptomatic hypotension. Coronary artery disease involving la posta coronary art mukul of la posta heart 09/27/2016 without angina pectoris Overview: 09/15/05 Cath ([facility]):Triple-vessel CAD with 100% proximal RCA with significant reconstitution of the vesse l distally from collaterals, 90% stenosis of the circumflex proximal to a large obtuse marginal branch, and a 75% lesion in the diagonal branch. EF 25-30%. Elevated EDP. Inferior akinesis. 04/17/06 Cath ([facility]): Severe triple-ves namrata la posta coronary disease. 12/30 bypasses remain open with good flow. Ov erall preserved LV systolic function. 02/15/13 Echo ([facility]): Normal LV contrac tion. AV sclerosis vs mild aortic stenosis. Minimally dilated LA. Mild mi tral and tricuspid regurgitation. 12/30/14 Echo ([facility]): Mild concentric LV H and dilation with overall normal systolic EF and mildly impaired diastol ic relaxation. Calcified , mild to moderate. Left atrial enlargement, mild . Mild tricuspid regurgitation. 02/19/16 Echo ([facility]): EF 60%. Mild to m oderate . (Mean gradient 21 mmHg) Mild mitral and tricuspid regurgitation . Mild diastolic dysfunction of the LV. LVH with normal LV contraction. Min imally dilated LA. 07/23/16 ECG ([facility]): SR, 86 BPM. No di stinct abnormalities are seen. 07/23/16 Chest X-ray ([facility]): No acute cardiopulmonary findings. 07/24/16 CTA Chest ([facility]): No central PE. Groundglass opacities involving the upper lobes in the dependent RLL wh y may represent fluid overload. Emphysema. L ast Assessment & Plan: She's had none of the left shoulder/dys pnea symptoms that she had prior to her CABG 10 years ago. She's had every -other-year surveillance stress testing through Dr. Herrera in [place]. I'll get a copies of his CABG [...] bypass graft) 08/28/2005 Overview: [facility] in [place], [place] Nonrheumatic aortic valve stenosis Contrast media [...] replacement) 01/21/2020 Orders Only Cardiology Dina Barnes, JOINT CREASER-UMBRELLA SUPERVISOR Cardiac Eval (follow up post-op) 01/02/2020 Scheduled Cardiology Telephone 01/02/2020 Travel Ashlie Pina MA Appointment (Telephone appt) 01/01/2020 Telephone Cardiology from Last 3 Months Family [...] PM CDT Temperature 18 09/21/2016 1:18 PM TECHNICAL HEALTHCARE CONSULTANT Respiratory Rate 98% 12/28/2019 3:36 PM CDT [...] ed? Diabetic Blood Sugar Lifestyle No Lisa Lobo, URIAH Implants Device Identifier Shelf Expiration Date Model / Serial / L ot Implanted Type Area Manufactur er 05/28/2021 [id number] / [id number] / NA System Delivery 26mm Commander - N/A: Heart EDWA RDS [id number] [employer] Implanted: Qty: 1 on 12/26/2019 by ES Neymar Becerra (Mary Rg III, MD at [facility] Results Not on filefrom Last 3 Months Insurance Type Payer Benefit Subscriber ID Effective Phone Address Plan / Dates Group Medicare MEDICARE MEDICARE xxxxxxxxxxx 2008-P PART A AND resent B [place] 2015-[place], [place] Advance Directives Patient Tunnel Elastic Operator Zigzag Explanation Type Date Recorded Advance 10/13/2016 5:09 AM Directive/DPOA Date Inactivated Comments Code Status Date Activated 12/28/2019 6:52 PM Full Code 12/26/2019 6:59 AM Provider has discussed Code Status Yes w/Patient or Family?
--- OUTSIDE RECORDS SUMMARY | 2020-03-30 19:52 | XMS REPORT | Encounter Summary ---
Author Author [facility] Organization [facility] Address Unknown Phone Unavailable Care Team Providers Care Spray Dry Operator Name Role Phone Bishnu Martin MD Unavailable Chata Chau DPM Unavailable Jesus López MD PCP Unavailable Reason for Visit * Reason Comments Appointment Telephone appt Encounter Details Care Team Description Date Type Department Ashlie Pina MA Appointment (Telephone appt) 01/01/[address] [facility] [address] [facility] [place] [address] Social History Date Tobacco Use Types Packs/Day [...]
--- OUTSIDE RECORDS SUMMARY | 2020-03-30 19:52 | XMS REPORT | Encounter Summary ---
Author Author [facility] Organization [facility] Address Unknown Phone Unavailable Care Team Providers Care Sample Hand Name Role Phone Bisnhu Martin MD Unavailable Chata Chau DPM Unavailable Jesus López MD PCP Unavailable Reason for Referral * Test (Routine) Referred By Contact Referred To Contact Status Reason Specialty Diagnoses / Procedures Dina Barnes, PRODUCTION CONTROL MANAGER-OPTICAL GLASS INSPECTOR [address] [facility] [place] [address] [facility] [address] [facility] [place] [address] No Auth Needed Cardiology Diagnoses Nonrheumatic aortic valve stenosis S/P TAVR (transcatheter aortic valve replacement) P rocedures 2-D + DOPPLER ECHOCARDIOGRAM TN ECHO TTHRC R-T 2D W/WOM-MODE COMPL SPEC&COLR D Encounter Details Care Team Description Date Type Department Sue Ríos RN Essential hypertension (Primary Dx); Nonrheumatic aortic valve stenosis; S/P TAVR (transcatheter aortic valve replacement) 01/21/2020 Orders Only [facility] [address] [facility] [place] [address] Social History Date Tobacco Use Types Packs/Day [...]
--- OUTSIDE RECORDS SUMMARY | 2020-03-30 19:52 | XMS REPORT | Encounter Summary ---
Author Author [facility] Organization [facility] Address Unknown Phone Unavailable Care Team Providers Care Synthetic Resin Operator Name Role Phone Bishnu Martin MD Unavailable Chata Chau DPM Unavailable Jesus López MD PCP Unavailable Encounter Details Care Team Description Date Type [...]
--- OUTSIDE RECORDS SUMMARY | 2020-03-30 19:52 | XMS REPORT | Encounter Summary ---
Author Author [facility] Organization [facility] Address Unknown Phone Unavailable Care Team Providers Care Meteorologist Liaison Name Role Phone Bishnu Martin MD Unavailable Chata Chau DPM Unavailable Christy Mora MD PCP Unavailable Reason for Visit * Auth/Cert Referred By Contact Referred To Contact Status Reason Specialty Diagnoses / Procedures Diagnoses Nonrheumatic aortic valve stenosis Nonrheumatic aortic valve stenosis [I35.0] P rocedures CA REPLACE AORTIC VALVE PERQ FEMORAL ARTRY APPROACH PERCUTANEOUS TRANSCATHETER REPLACEMENT AORTIC VALVE - FEMORAL ARTERY-gregoria, left common femoral, 26s3 *ICU* Encounter Details Care Team Description Date Type Department Nando Lemus (Manolo Rg III, MD [address] [id number] Duncan Patel MD [address] [place] [id number] [phone] S/P TAVR (transcatheter aortic valve rep lacement) 12/26/2019 [facility] 12/28/2019 [address] [place] [address] Social History Date Tobacco Use Types Packs/Day [...] supplemental O2 Osteoporosis PAD (peripheral artery disease) ([facility]) s/p bilateral iliac stents Pulmonary embolism (HCC) PVD (peripheral vascular disease) ([facility]) Requires continuous at home supplemental oxygen S/P CABG (coronary artery bypass graft) 2006 [facility] in [place], [place] Allergies: Adhesive tape (rosins); Erythromycin; Pcn [...] Course: The patient was admitted to [facility] for elective transcatheter aortic valve [...] PC P for continued diabetes management. Her CUSTOMER QUALITY ENGINEER coreg was not resumed due to labil e blood pressure. Condition at Discharge: Stable Discharge Diagnoses: Hospital Problems Active Problems * (Principal) S/P TAVR (transcatheter aortic valve replacement) Hypertension CAD (coronary artery disease) COPD (chronic obstructive pulmonary disease) ([facility]) HLD (hyperlipidemia) Status post coronary artery bypass graft Type 2 diabetes mellitus with circulatory disorder, with long-term current use of insulin (HCC) Contrast media allergy Hyperlipidemia Obese PVD (peripheral vascular disease) ([facility]) Pulmonary embolism ([facility]) Requires continuous at home supplemental oxygen ANCA on CPAP MRSA cellulitis Anticoagulated Acute on chronic diastolic CHF (congestive heart failure), NYHA class 3 ([facility]) PAD (peripheral artery disease) ([facility]) Bilateral carotid artery disease (HCC) CVA (cerebral vascular accident) ([facility]) Thrombocytopenia ([facility]) Postoperative anemia due to acute blood loss [...] you can call a dietitia n at [phone]. Other Activity Restrictions -You should and need [...] is fully healed. If your surgeon used Halfway lin (skin glue), this will fall off gradually, do not pick at the glue. If you notice redness, swelling, drainage, foul odor, or sutures sticking up through y our incision, please call the Cardiothoracic Surgery clinic immediately. [phone] Report These Signs and Symptoms Please contact [...] will follow at 3pm. Provider DINA BARNES [[id number]] Location Cardiology Clinic Appointment date: 01/23/2020 Appointment time: 2:00 PM Return Appointment Call to schedule an appointment with your primary care doctor in 1-2 weeks for a check up and medication review. Address your blood glucose levels at this aldo ointment as well. Provider CHRISTY MORA [[id number]] Cardiac Rehab Your physician has referred you to [facility] Contact [facility] at [phone] to schedule an appointment. If you will [...] To register for smoking cessation program call [phone] or visit www.smokefree.gov Diabetes Risk Goal: Non-diabetic: [...] you can call a deng randall at [phone] Physical Activity Risk Goal: Patients should have approval by a physician prior to beginning an exercis e program. Plan: Try to get at least 30 minutes of moderate physical activity five days a w [place] or 20 minutes of vigorous physical activity [...] Contact your primary care provi mckay or schedule manager for an antibiotic prescription when needed. Questions About Your Stay For questions or concerns regarding your hospital stay. Call [phone] Discharging attending physician: NANDO LEMUS (MANOLO Rg III [[id number]] Return Appointment [facility] Provider DINA BARNES [[id number]] Location [facility] Appointment date: 01/02/2020 Appointment time: 4:30 PM [...] education. The class is held in the [facility] on the 5th Floor of the Medical Office Building, every Monday f rom 2:00 PM - 3:00 PM. The class is not held on actual or observed holidays. Iain cosme call [phone] to let us know when you plan on attending. There is no cost and we will not bill your insurance. More diabetes education and individual nutrition appointments are offered at the [facility]. Most insurance plans cover these services if you have a r eferral from your doctor. Call [phone], option 3 or go to [email or web address] for details. insulin pen needles not [...] (FLONASE) 50 mcg/actuation nasal spray Apply 1 Stafford to each nostril as directed twice daily. [...] CDT Return Patient with MARI Cruz [facility] (CVM Exam) 4000 [facility] [address] January 23, 2020 2:00 PM CDT Echo Doppler with [facility] SPECIAL PROC/RESEARCH [facility] (CVM Procedural) [address] [address] January 23, 2020 3:00 PM CDT Return Patient with MARI Cruz [facility] (CVM Exam) 4000 [facility] [address] Pending items needing follow up: Check your blood glucose [facility] at 3:30pm and 4:30pm to ensure [...] bedtime daily. fluticasone (FLONASE) 50 Apply 1 Stafford 0 mcg/actuation nasal spray to each nostril [...] levels WNL. Patient's spouse on way to picker / packer patient for d/c. 1645: Patient escorted via [...] allergy Hyperlipidemia Obese PVD (peripheral vascular disease) ([facility]) Pulmonary embolism (HCC) Requires continuous at home supplemental oxygen ANCA on CPAP MRSA cellulitis Anticoagulated Acute on chronic diastolic CHF (congestive heart failure), NYHA class 3 (HCC) PAD (peripheral artery disease) ([facility]) Bilateral carotid artery disease (HCC) CVA (cerebral [...] assistance in management of insulin drip and CUSTOMER QUALITY ENGINEER pump. Type 2 Diabetes Mellitus Steroid induced hyperglycemia -Diagnosed: 1986 -A1c 6.8 (12/23) -CUSTOMER QUALITY ENGINEER regimen: insulin pump (medtronic, 1.9 unit bolus, 1 unit per 8 carbs, targe t 110-130), metformin 500mg BID -she has a new medtronic insulin pump which she will start using on discharge (p vida one has outgrown 5 yr warranty), also will start using freestyle eugenio C GM -Hypoglycemic episodes on this regimen: glucoses in 60s approximately 2x/week, h x of asymptomatic hypoglycemia -Follows with Dr. Mora (PCP) in [place] -Diabetic-complications assessment: Retinopathy: denies Peripheral neuropathy: yes, bilateral feet Gastroparesis: yes Autonomic neuropathy: denies Nephropathy: pt reports yes, last urine prot:cr ratio 8.9 mg/g 10/31/2017 Macrovascular complications: PVD, MT Risk factor assessment: Last lipid profile - [...] 15 units of insulin via drip from 8363-5782 12/26, equates 2.5 units/hr basal rate - [...] bolus of 1:8 carb ratio, target 110-120 -community educator consult to provide education on priming her insulin pump, aldo reciate their help Okay to discharge from a diabetes standpoint. Blood sugars will likely decrease over the day and improve as further out from prednisone. (last dose on 12/25) Follow up: will be with her PCP in [place] (she has appt in January and have [...] puff, 2 puff, Inhalation, PRN, Nando Serrano (Manolo Rg III, MD ARIPiprazole (ABILIFY) tablet 5 mg, 5 mg, Oral, QHS, Mildred Carrillo APRN- OPERATING ROOM ORDERLY, 5 mg at 12/27/192049 aspirin chewable tablet 81 mg, 81 mg, Oral, QDAY, Mildred Carrillo APRN-OPERATING ROOM ORDERLY, 81 mg at 12/28/19903 atorvastatin (LIPITOR) tablet 80 mg, 80 mg, Oral, QHS, Mildred Carrillo APR N-OPERATING ROOM ORDERLY, 80 mg at 12/27/192048 bisacodyL (DULCOLAX) rectal suppository 10 mg, 10 mg, Rectal, QDAY PRN, Mildred Marie RECORD TESTER-OPERATING ROOM ORDERLY citalopram (CeleXA) tablet 40 mg, 40 mg, Oral, QHS, Mildred Carrillo APRN-N P, 40 mg at 12/27/192048 fluticasone propionate (FLONASE) nasal spray 2 spray, 2 spray, Each Nostril , QDAY, Modesta Walton MD, 2 spray at 12/27/1918 gabapentin (NEURONTIN) capsule 100 mg, 100 mg, Oral, TID, Mildred Carrillo APRN-OPERATING ROOM ORDERLY, 100 mg at 12/28/1904 hydrALAZINE (APRESOLINE) injection 10 mg, 10 mg, Intravenous, Q6H PRN, Mildred Terry APRN-OPERATING ROOM ORDERLY HYDROcodone/acetaminophen (NORCO) 5/325 mg tablet 1 tablet, 1 tablet, Oral, Q4H PRN, Shelley Kumar RECORD TESTER, 1 tablet at 12/27/19 2207 Insulin Pump User Patient Agreement Form, , , Once AND insulin pump - PART- Patients Own, , SubQ Pump, TID w/ Meals & PRN, Meaghan Red MD, 11.1 Units at 12/28/19 0930 magnesium sulfate 1 g/D5W 100 mL IVPB, 1 g, Intravenous, PRN AND Magn esium, , , PRN AND Notify Physician, , , Ongoing, Mildred Carrillo APRN-OPERATING ROOM ORDERLY milk of magnesia (CONC) oral suspension 10 mL, 10 mL, Oral, QDAY PRN, Mildred Carrillo RECORD TESTER-OPERATING ROOM ORDERLY ondansetron (ZOFRAN) injection 4 mg, 4 mg, Intravenous, Q6H PRN, Deshawn Carrillo, RECORD TESTER-OPERATING ROOM ORDERLY pantoprazole DR (PROTONIX) tablet 40 mg, 40 mg, Oral, QDAY(21), Franky Carrillo, RECORD TESTER-OPERATING ROOM ORDERLY, 40 mg at 12/27/192047 potassium chloride SR (K-DUR) tablet 20-40 mEq, 20-40 mEq, Oral, PRN, 20 mE q at 12/26/19 2245 OR potassium chloride oral solution 20-40 mEq, 20-40 mEq, Per NG tube, PRN OR potassium chloride in water IVPB 10 mEq, 10 mEq, Intrav enous, PRN, Mildred Carrillo, RECORD TESTER-OPERATING ROOM ORDERLY, Last Rate: 50 mL/hr at 12/26/19 1314, 10 m Eq at 12/26/19 1314 prochlorperazine (COMPAZINE) rectal suppository 25 mg, 25 mg, Rectal, Q6H P RN, Mildred Carrillo, RECORD TESTER-OPERATING ROOM ORDERLY rivaroxaban (XARELTO) tablet 20 mg, 20 mg, Oral, QDAY w/dinner, Franky Carrillo, RECORD TESTER-OPERATING ROOM ORDERLY, 20 mg at 12/27/19 1716 senna/docusate (SENOKOT-S) tablet 2 tablet, 2 tablet, Oral, BID, Deshawn Carrillo, RECORD TESTER-OPERATING ROOM ORDERLY, 2 tablet at 12/28/19 0904 traZODone (DESYREL) [...] 70 - 100 MG/DL Glucose: (!) 217 (12/28/190) POC Glucose (Download): (!) 225 (12/28/19912) Pertinent [...] AM CDT Cardiothoracic Surgery Progress Note Kvng Sumner Today's Date: 12/28/2019 Admission Date: 12/26/2019 LOS: 2 days POD: 2 Procedure: 12/26/19 - PERCUTANEOUS TRANSCATHETER REPLACEMENT AORTIC VALVE - FEMOR AL ARTERY-gregoria, left common femoral, 26s3 *ICU*: 71763 (CPT) Principal Problem: S/P TAVR (transcatheter aortic valve replacement) Active Problems: Hypertension CAD (coronary artery disease) COPD (chronic obstructive pulmonary disease) ([facility]) HLD (hyperlipidemia) Status post coronary artery bypass graft Type 2 diabetes mellitus with circulatory disorder, with long-term current use of insulin (HCC) Contrast media allergy Hyperlipidemia Obese PVD (peripheral vascular disease) ([facility]) Pulmonary embolism (HCC) Requires continuous at home [...] A&O x4, OGLESBY. Continue PRN Tylenol, resume CUSTOMER QUALITY ENGINEER [place]. CV SR, rates 70s-80s. SBP 100-140s. Cont ASA 81 mg, CUSTOMER QUALITY ENGINEER xarelto (for h/o PD ) and statin. Intra op MALINA LVEF 45-50%. Hold CUSTOMER QUALITY ENGINEER coreg 6.25mg and Lisinopril 5m g for now. Resp Daily CXR lungs expanded, atelectasis, pulmonary vascular congestio n. SpO2 93% on 2 L NC, on home O2 @ 2 L. Continue IS, aggressive pulm toilet. Renal Baseline Scr 0.9. Today 0.92. UOP 1.9L/24hr, net -100 mL/24hr, Weight +1.8kg/admission. Resume CUSTOMER QUALITY ENGINEER Bumex. GI - KRISHNA, continue post op bowel regimen. No BM since surgery. ID Afebrile, wbc 4.9. Heme Hgb 9.0-->7.7, plt 86. Monitor anemia/thrombocytopenia. Continue CUSTOMER QUALITY ENGINEER Xarelto for PE, continue mechanical DVT prophylaxis. FEN Hgb A1c 6.8 %. On insulin pump CUSTOMER QUALITY ENGINEER, resumed yesterday. Endocrinology f luiza, appreciate recs. [...] Last Filed Vital Signs: 24 Hour [facility] BP: 138/60 (12/27 814) Temp: 37.1 C [...] inaccurate with missed hat occurrence. Last BM CUSTOMER QUALITY ENGINEER. Call light within reach, will continue to monitor until transferring care to [facility] shift RN. * Cynthia Castanon PT - [...] Home Equipment: Walker;Cane Prior Function Level Of [place]: Independent with ADLs and functional transfers Lives [...] ARTERY- gregoria, left common femoral, 26s3 *ICU*: 09782 (CPT) Active Problems: Hypertension CAD (coronary artery disease) COPD (chronic obstructive pulmonary disease) ([facility]) HLD (hyperlipidemia) Status post coronary artery bypass graft Type 2 diabetes mellitus with circulatory disorder, with long-term current use of insulin ([facility]) Contrast media allergy Hyperlipidemia Obese PVD (peripheral vascular disease) ([facility]) Pulmonary embolism ([facility]) ANCA on CPAP MRSA cellulitis Acute on chronic diastolic CHF (congestive heart failure), NYHA class 3 ([facility]) PAD (peripheral artery disease) (HCC) Bilateral carotid artery disease (HCC) S/P TAVR (transcatheter aortic valve replacement) Assessment/Plan: Neuro A&O x4, OGLESBY. Continue PRN Tylenol, resume CUSTOMER QUALITY ENGINEER [place]. CV SR, rates 70s-80s, no pacing requirements, [...] 2.8 L/24hr, net -10 50 mL/24hr, Resume CUSTOMER QUALITY ENGINEER Bumex. GI - ADAT, continue post op bowel regimen. ID Continue standard post op antibiotic for prophylaxis, per CTS protocol. Heme 9.0, Continue CUSTOMER QUALITY ENGINEER Xarelto for PE, continue mechanical DVT prophylaxis. FEN If creatinine < 2.0, replace Mg and K per CTS post op protocol to minimize cardiac arrhythmias. Hgb A1c 6.8 %.On insulin pump CUSTOMER QUALITY ENGINEER, currently on insulin gtt. Endocrinology following, appreciate [...] floor la ter today. Shelley Kumar APRN CTS Intensive Care Pager [phone] 12/27/2019 Subjective: HPI: Kvng Sumner is a [...] allergy Hyperlipidemia Obese PVD (peripheral vascular disease) ([facility]) Pulmonary embolism (HCC) ANCA on CPAP MRSA [...] assistance in management of insulin drip and CUSTOMER QUALITY ENGINEER pump. Type 2 Diabetes Mellitus Steroid induced hyperglycemia -Diagnosed: 1986 -A1c 6.8 (12/23) -CUSTOMER QUALITY ENGINEER regimen: insulin pump (medtronic, 1.9 unit bolus, [...] hypoglycemia -Follows with Dr. Mora (PCP) in [place] -Diabetic-complications assessment: Retinopathy: denies Peripheral neuropathy: yes, bilateral feet Gastroparesis: yes Autonomic neuropathy: denies Nephropathy: pt reports yes, last urine prot:cr ratio 8.9 mg/g 10/31/2017 Macrovascular complications: PVD, MT Risk factor assessment: Last lipid profile - [...] 15 units of insulin via drip from 6568-1438 12/26, equates 2.5 units/hr basal rate Aortic [...] 229* 164* 159* -resumed insulin pump at CUSTOMER QUALITY ENGINEER basal rate of 1.9, bolus of 1:8 carb ratio, target 11-120, pt initiated during our encounter (order placed) -insulin drip discontinued 2 hours after (ordered) -community educator consult to provide education on priming her insulin pump Thank you for the consult, we will continue to follow. Seen and discussed with Dr. Alanis. Meaghan Red MD Internal Medicine PGY1 Pager [phone], available on [employer] Subjective: Ms Sumner is doing well today, [...] MINUTE (12/26 151) SpO2: 100 % (12/26 151) SpO2 Pulse: 73 (12/26 1200) Height: 165.1 [...] solution Swish and Spit 15 mL by [facility] as directed after meals and at [...] (FLONASE) 50 mcg/actuation nasal spray Apply 1 Stafford to each nos tril as directed twice [...] 229* 164* 159* -resumed insulin pump at CUSTOMER QUALITY ENGINEER basal rate of 1.9, bolus of 1:8 carb ratio, target 11-120, pt initiated during our encounter (order placed) -insulin drip discontinued 2 hours after (ordered) -community educator consult to provide education on priming her insulin pump I have reviewed with her how to set a temporary basal. She demonstrated a good understanding of the insulin pump and I think was competent to operate the pump. Pump Detail Sergeant: Medtronic Paradigm Insulin type Humalog Insulin Time: [...] back/feet/hands ~ Lupe Villanueva APRN to order [place] per patient request and home dose. SR ~ 70-80's. Pulses palpable. MAP > 65. TV pacemaker @ 40 VVI, sensitivity 2, output 5 ~ patient has not required/used pacer this shift. 2 L NC ~ baseline Cards/ADA diet. Pt, RN, and RECORD TESTER discussed dietary restrictions for pt while on [...] allergy Hyperlipidemia Obese PVD (peripheral vascular disease) ([facility]) Pulmonary embolism (HCC) ANCA on CPAP MRSA cellulitis Acute on chronic diastolic CHF (congestive heart failure), NYHA class 3 (HCC) PAD (peripheral artery disease) ([facility]) Bilateral carotid artery disease (HCC) S/P TAVR [...] infectious concerns. MD Herson Iyer MD Pager [phone] * Ana M Mendez RN - 12/26/2019 [...] out of bed off bedrest. * Margarita Olivo, RECORD TESTER - 12/26/2019 12:22 PM CDT Cardiothoracic Surgery Critical Care Progress Note Kvng Rg Prafuladams Today's Date: 12/26/2019 Admission Date: 12/26/2019 LOS: 0 days POD: 1 Procedure: PERCUTANEOUS TRANSCATHETER REPLACEMENT AORTIC VALVE - FEMORAL ARTERY- gregoria, left common femoral, 26s3 *ICU*: 22141 (CPT) Active Problems: Hypertension CAD (coronary artery disease) COPD (chronic obstructive pulmonary disease) (HCC) HLD (hyperlipidemia) Status post coronary artery bypass graft Type 2 diabetes mellitus with circulatory disorder, with long-term current use of insulin (HCC) Contrast media allergy Hyperlipidemia Obese PVD (peripheral vascular disease) ([facility]) Pulmonary embolism (HCC) ANCA on CPAP MRSA [...] Margarita Olivo APRN CTS Intensive Care Pager [phone] 12/26/2019 Subjective: HPI: Kvng Sumner is a [...] Last Filed Vital Signs: 24 Hour Ra [facility] BP: 182/99 (12/25 0845) Temp: 36.6 C (97.9 F) (12/25 1153) Pulse: 85 (12/25 1215) Respirations: 15 PER MINUTE (12/25 1215) SpO2: 99 % (12/25 1215) SpO2 Pulse: 85 (12/25 121) Height: 165.1 cm (65") (12/25 07) BP: [...] Aortic Stenosis Date of Admission: 12/26/2019 Room: 303[facility] : 1950 Insurance: Primary: Medicare Secondary: unknown Address: [address] [place] [id number] Patient (home) Marital Status: Occupation: Unknown ED Contact: Gianfranco Sumner ED Phone #: CTS: [facility] Hand Thermal Cutter: not listed Cardiac Procedures and Events Valve: 12/26/19(TAVR) EF: 55 % Risk Factors Risk Factors: Hypertension, Obesity, Hyperlipidemia, Diabetes-type II BP: (!) 182/99 Height: 165.1 cm (65") Weight: 100.2 kg (220 lb 14.4 oz) BMI (Calculated): 36.76 Medical History has a past medical history of Acute on chronic diastolic CHF (congestive heart failure), NYHA class 3 ([facility]), Anticoagulated, Aortic stenosis, Arthritis, Bilate ral carotid artery disease ([facility]), Breast cancer ([facility]) (2007), CAD (coronary clarence ry disease), CHF (congestive heart failure) ([facility]), Chronic back pain, Contrast m edia allergy, COPD, severe ([facility]), CVA (cerebral vascular accident) ([facility]), DM (di abetes mellitus) ([facility]), Family history of premature CAD, Gastroparesis, Heart mu rmur, Hyperlipidemia, Hypertension, MRSA cellulitis (2005), Myocardial infarctio n ([facility]) (2005, ~2004), Neuropathy, Obese, Obesity, Class II, BMI 35-39.9, ANCA on CPAP, Osteoporosis, PAD (peripheral artery disease) ([facility]), Pulmonary embolism ( [facility]), PVD (peripheral vascular disease) ([facility]), Requires continuous at home suppl emental oxygen, and S/P CABG (coronary artery bypass graft) (2005). Labs Hemoglobin A1C Date Value Ref Range Status 12/24/2019 6.8 (H) 4.0 - 6.0 % Final Comment: The ADA recommends that most patients with type 1 and type 2 diabetes maintain an A1c level <7%. Heart Resource Manual Given: Teaching Completed: Outpatient Cardiopulmonary Rehabilitation [facility] Rehab: Referral Faxed to: Date Faxed: Location: If [facility], Sent to Staff: Maryam Aguilar RN 12/26/2019 documented in this encounter H&P Notes * Mildred Carrillo, RECORD TESTER-OPERATING ROOM ORDERLY - 12/26/2019 8:13 AM CDT Admission History [...] beta b locker dose taken this morning CUSTOMER QUALITY ENGINEER. Pt has a home insulin pump- patient stopped pump at 0750, Endocrine consulted, Insulin drip ordered. Pt allergic to Ancef wi ll order Vancomycin. Patient has contrast allergy- patient received pretreatment . __ Primary Care Physician: Christy Mora Verified Chief Complaint: Aortic Stenosis History of Present [...] (coronary artery disease) CHF (congestive heart failure) ([facility]) Chronic back pain with spinal nerve stimulator Contrast media allergy COPD, severe (HCC) CVA (cerebral vascular accident) ([facility]) DM (diabetes mellitus) ([facility]) Family history of premature CAD Gastroparesis Heart murmur Hyperlipidemia Hypertension MRSA cellulitis 2006 right leg vein harvest site Myocardial infarction (HCC) 2006, ~2005 Total of 3 Neuropathy Obese Obesity, Class II, BMI 35-39.9 ANCA on CPAP with supplemental O2 Osteoporosis PAD (peripheral artery disease) ([facility]) s/p bilateral iliac stents Pulmonary embolism (HCC) PVD (peripheral vascular disease) ([facility]) Requires continuous at home supplemental oxygen S/P CABG (coronary artery bypass graft) 2006 [place], [place] Surgical History: Procedure Laterality Date EYE SURGERY Left 1956 HERNIA REPAIR Right 1958 HX TUBAL LIGATION 1974 HX HYSTERECTOMY 1980 AMPUTATION Right 1990 Toe CYST REMOVAL Left 1993 hand X2 [...] 10/13/2016 Performed by Gianfranco Conti MD at [facility] OR CATARACT REMOVAL Bilateral 2009, 2010 DENTAL SURGERY 2012, 2014 cheek infection CA EXCISION TUMOR SOFT TISSUE LEG/ANKLE SUBQ 3 [...] file Gets together: Not on file Attends jain service: Not on file Active member of [...] solution Swish and Spit 15 mL by [facility] as directed after meals and at [...] (FLONASE) 50 mcg/actuation nasal spray Apply 1 Stafford to each nos tril as directed twice [...] VLDL POC Glucose (Download): (!) 360 (12/26/19 0782) Pertinent radiology reviewed. STS: 11.143% Frailty: TAVR [...] a valve area of 0.6 cm, severe tunica-biloxi three-vessel coronary artery disease with patent grafts [...] difficult access. bilateral iliac stents. calcium at FOREIGN LANGUAGE INSTRUCTOR bilaterally. Likely bes t through left FOREIGN LANGUAGE INSTRUCTOR. May need to dilate stents. 26 S3. Annular size: 23.9 CXR: 12/23 IMPRESSION 1. Mild cardiomegaly without evidence of pulmonary vascular congestion. 2. Bibasilar opacities, likely atelectasis. COVID-19: Negative 12/23 Mildred Carrillo APRN-OPERATING ROOM ORDERLY Available on [employer]. T documented in this encounter Consult Notes [...] an insulin pump teaching with a pump driver trainer after leaving hospital. State that she [...] RN, BSN, CDE Clinical Nurse Excellence - [employer] (P) [phone] (Pager) [phone] 08:00-4:30 weekdays, If no response, please call team pager ([phone]) Diabetic Education Team office [phone]) Available on [employer]. * Meaghan Red MD - 12/26/2019 2:24 [...] allergy Hyperlipidemia Obese PVD (peripheral vascular disease) ([facility]) Pulmonary embolism (HCC) ANCA on CPAP MRSA [...] assistance in management of insulin drip and CUSTOMER QUALITY ENGINEER pump. Type 2 Diabetes Mellitus Steroid induced hyperglycemia -Diagnosed: 1984 -A1c 6.8 (12/23) -CUSTOMER QUALITY ENGINEER regimen: insulin pump (medtronic, 1.9 unit bolus, [...] hypoglycemia -Follows with Dr. Mora (PCP) in [place] -Diabetic-complications assessment: Retinopathy: denies Peripheral neuropathy: yes, bilateral feet Gastroparesis: yes Autonomic neuropathy: denies Nephropathy: pt reports yes, last urine prot:cr ratio 8.9 mg/g 10/31/2017 Macrovascular complications: PVD, MT Risk factor assessment: Last lipid profile - [...] Meaghan Red MD Internal Medicine PGY1 Pager [phone], available on Voalte Subjective: Kvng Sumner is a 69 y.o. female with a PMH of aortic stenosis, diastolic hea rt failure, CAD s/p CABG, COPD, type 2 diabetes, HLD, HTN, PAD who was admitted for TAVR on 12/25. Endocrinology has been consulted for assistance in management of insulin drip and CUSTOMER QUALITY ENGINEER insulin pump. Ms Sumner was diagnosed with type 2 diabetes in 1984 and states she has since c onverted to type I DM (DIMITRIS Ab 0 in 2014). [facility]. Last A1c was 6.8 on 12/23. 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 consists of metfo rmin 500 mg [...] CHF (congestive heart failure), NYHA class 3 ([facility] ) Anticoagulated for PE Aortic stenosis Arthritis Bilateral carotid artery disease ([facility]) moderate disease Breast cancer ([facility]) 2007 Right- lumpectomy and radiation CAD (coronary artery disease) CHF (congestive heart failure) ([facility]) Chronic back pain with spinal nerve stimulator Contrast media allergy COPD, severe ([facility]) CVA (cerebral vascular accident) ([facility]) DM (diabetes mellitus) ([facility]) Family history of premature CAD Gastroparesis Heart murmur Hyperlipidemia Hypertension MRSA cellulitis 2006 right leg vein harvest site Myocardial infarction ([facility]) 2005, ~2005 Total of 3 Neuropathy Obese Obesity, Class II, BMI 35-39.9 ANCA on CPAP with supplemental O2 Osteoporosis PAD (peripheral artery disease) ([facility]) s/p bilateral iliac stents Pulmonary embolism ([facility]) PVD (peripheral vascular disease) (HCC) Requires continuous at home supplemental oxygen S/P CABG (coronary artery bypass graft) 2006 [facility] in [place], [place] Surgical History: Procedure Laterality Date EYE [...] 10/13/2016 Performed by Gianfranco Conti MD at [facility] OR CATARACT REMOVAL Bilateral 2009, 2010 DENTAL SURGERY 2011, 2013 cheek infection CA EXCISION TUMOR SOFT TISSUE LEG/ANKLE SUBQ 3 [...] file Gets together: Not on file Attends jain service: Not on file Active member of [...] solution Swish and Spit 15 mL by [facility] as directed after meals and at [...] (FLONASE) 50 mcg/actuation nasal spray Apply 1 [place] to each nos tril as directed twice [...] Screen NEG Electronic Crossmatch YES Unit Number [id number] Blood Component Type RBC,ADSOL,LEUKO REDUCED Unit Division 0 Status OF Unit REL FROM ALLOC Transfusion Status OK TO TRANSFUSE Crossmatch Result COMPATIBLE,ELECTRONIC Unit Number [id number] Blood Component Type RBC,ADSOL,LEUKO REDUCED Unit Division 0 Status OF Unit REL FROM ALLOC Transfusion Status OK TO TRANSFUSE Crossmatch Result COMPATIBLE,ELECTRONIC Unit Number [id number] Blood Component Type RBC,ADSOL,LEUKO REDUCED Unit Division 0 Status OF Unit REL FROM ALLOC Transfusion Status OK TO TRANSFUSE Crossmatch Result COMPATIBLE,ELECTRONIC Unit Number [id number] Blood Component Type RBC,ADSOL,LEUKO REDUCED Unit Division 0 Status OF Unit REL FROM ALLOC Transfusion Status OK TO TRANSFUSE Crossmatch Result COMPATIBLE,ELECTRONIC POC GLUCOSE Collection Time: 12/26/19 10:31 AM Result Value Ref Range Glucose, POC 327 (H) 70 - 100 MG/DL POC BLOOD GAS ARTERIAL Collection Time: 12/26/19 10:34 AM Result Value Ref Range PH-ART-POC 7.39 7.35 - 7.45 [id number] 46 (H) 35 - 45 MMHG PO2-ART-POC 143 (H) 80 - 100 MMHG Base Ex-ART-POC 2.0 MMOL/L O2 Sat-ART-POC 99.0 95 - 99 % Fzztcfweudm-DMM-RON 27.5 21 - 28 MMOL/L POC HEMATOCRIT [...] the care of Dr. Christy Mora in [place] and has been under g ood glycemic [...] arise over the weekend, please contact the [facility] and ask for the RNCM pattern repair person. Harleen HYDEN, RN CTS Nurse Connie Scratcher O: [phone] Pgr:[phone] Cell: [phone] * Care Plan - Margarita Balbuena RN [...] MD (Trip) - 12/26/2019 10:59 AM [address]T [address] [address] PATIENT NAME: KVNG SUMNER MR#/PT#: [id number] OPERATIVE REPORT : 1950 DATE OF OPERATION: 12/26/2019 ROOM #: [facility] OR OPERATIVE REPORT SURGEON: Nando Lemus III, [...] ProGlide sutures were p laced and an 8-Cymraes, and then subsequently the Caputo 14-Cymraes Esheath was p laced. On the right side, a 5-Cymraes sheath was positioned. A balloon-tipped t emporary [...] 20 mL. SPECIMENS REMOVED: None. COMPLICATIONS: None. MD CLOVER Horne III (Trip)/Yasmin Lemus III, MD (Trip) / Yasmin [id number] cc: - Nando Lemus III, MD (Trip) [...] under the care of Dr. Lynne/Josh the [facility] anesthesia service. The anesthesia team monitored the patient's hemodynamic s, airway, and sedation throughout the case. 3. Access was obtained in the right common femoral artery with placement of 5-Fr ench sheath. Access also obtained in the left common femoral artery with placeme nt of an 8-Cymraes sheath. A dual ProGlide pre-close technique was [...] 5 mmHg. 11. The left common femoral 16-Cymraes sheath was then removed and the dual [...] MG/DL MAIN LAB Specimen Performing Organization Address [facility] [place] Ph one Number MAIN LAB [address] [place] [address] * POC GLUCOSE (12/28/2019 3:36 PM CDT) Glucose, POC 164 (H) 70 - 100 MG/DL MAIN LAB Specimen Performing Organization Address [facility] [place] Ph one Number MAIN LAB [address] [place] [address] * POC GLUCOSE (12/28/2019 2:46 PM CDT) Glucose, POC 201 (H) 70 - 100 MG/DL KU MAIN LAB Specimen Performing Organization Address City/[facility] [place] Ph one Number MAIN LAB [address] [place] [address] * POC GLUCOSE (12/28/2019 12:36 PM CDT) Glucose, POC 517 (HH) 70 - 100 MG/DL MAIN LAB Specimen Performing Organization Address [facility] [place] Ph one Number MAIN LAB [address] [place] [address] * POC GLUCOSE (12/28/2019 9:13 AM CDT) Glucose, POC 225 (H) 70 - 100 MG/DL MAIN LAB Specimen Performing Organization Address [facility] one Number MAIN LAB [address] [place] [address] * CHEST SINGLE VIEW (12/28/2019 6:50 AM [...] on 12/28/2019 7:23 AM. Performing Organization Address [facility] [place] Ph one Number KU RAD RESULTS * CBC (12/28/2019 4:50 AM CDT) Pathologist [facility] White Blood 4.9 4.5 - 11.0 K/UL [...] KU MAIN LAB Specimen Performing Organization Address [facility] [place] Ph one Number KU MAIN LAB [address] [place] [address] * BASIC METABOLIC PANEL (12/28/2019 4:50 AM CDT) Pathologist [facility] Sodium 135 (L) 137 - 147 MMOL/L [...] Non >60 >60 mL/min MAIN LAB Comment: [place] The eGFR is not validated f or use in drug dosing adjustments. Continue to use estimated creatinine clearance per dosing reference text. Please contact the Clinical Pharmacist for questions. eGFR >60 >60 mL/min MAIN LAB [place] Comment: The eGFR is not validated for use in drug dosing adjustments. Continue to use estimated creatinine clearance per dosing reference text. Please contact the Clinical Pharmacist for questions. Specimen Performing Organization Address City/State[facility] Ph one Number MAIN LAB [address] [place] [address] * MAGNESIUM (12/28/2019 4:50 AM CDT) Magnesium 2.0 1.6 - 2.6 mg/dL MAIN LAB Specimen Blood Performing Organization Address [facility] Ph one Number MAIN LAB [address] [place] [address] * POC GLUCOSE (12/28/2019 3:09 AM CDT) Glucose, POC 222 (H) 70 - 100 MG/DL MAIN LAB Specimen Performing Organization Address [facility] Number [facility] LAB [address] [place] [address] * POC GLUCOSE (12/27/2019 10:14 PM CDT) Glucose, POC 300 (H) 70 - 100 MG/DL MAIN LAB Specimen Performing Organization Address City/[facility] Ph one Number MAIN LAB [address] [place] [address] * POC GLUCOSE (12/27/2019 5:16 PM CDT) Glucose, POC 159 (H) 70 - 100 MG/DL MAIN LAB Specimen Performing Organization Address [facility] Ph one Number MAIN LAB [address] [place] [address] * POC GLUCOSE (12/27/2019 4:04 PM CDT) Glucose, POC 164 (H) 70 - 100 MG/DL KU MAIN LAB Specimen Performing Organization Address City/[facility] Ph one Number MAIN LAB [address] [place] [address] * POC GLUCOSE (12/27/2019 2:27 PM CDT) Glucose, POC 229 (H) 70 - 100 MG/DL KU MAIN LAB Specimen Performing Organization Address City/[facility] Ph one Number MAIN LAB [address] [place] [address] * POC GLUCOSE (12/27/2019 1:26 PM CDT) Glucose, POC 174 (H) 70 - 100 MG/DL MAIN LAB Specimen Performing Organization Address City/[facility] one Number MAIN LAB [address] [place] [address] * POC GLUCOSE (12/27/2019 12:15 PM CDT) Glucose, POC 182 (H) 70 - 100 MG/DL MAIN LAB Specimen Performing Organization Address City/[facility] one Number MAIN LAB [address] [place] [address] * POC GLUCOSE (12/27/2019 9:20 AM CDT) Glucose, POC 151 (H) 70 - 100 MG/DL MAIN LAB Specimen Performing Organization Address City/[facility] Ph one Number MAIN LAB [address] [place] [address] * LIMITED ECHO (12/27/2019 7:15 AM CDT) [...] = LAB AV index 0.52 OTHER OUTSIDE (tunica-biloxi) LAB E/A ratio 0.71 OTHER OUTSIDE LAB LVOT area 3.84 cm2 OTHER OUTSIDE LAB LVOT stroke 113.47 cm3 OTHER OUTSIDE volume LAB and a peak 27 mmHg OTHER OUTSIDE gradient of LAB TV rest N/A mmHg OTHER OUTSIDE pulmonary LAB artery pressure Lateral E/E' 8.86 OTHER OUTSIDE ratio LAB Left Atrium 20.23 16 - 34 OTHER OUTSIDE Index LAB Cardiology Siemens [id number] OTHER OUTSIDE Ultrasound LAB Machine Left Ventricle [...] c hange are noted. Performing Organization Address City/State/[facility] Ph one Number OTHER OUTSIDE LAB * POC GLUCOSE (12/27/2019 5:40 AM CDT) Glucose, POC 178 (H) 70 - 100 MG/DL KU MAIN LAB Specimen Performing Organization Address City/[facility] [place] Ph one Number MAIN LAB [address] [place] [address] * CHEST SINGLE VIEW (12/27/2019 4:07 AM [...] on 12/27/2019 7:29 AM. Performing Organization Address [facility] [place] Ph one Number RAD RESULTS * POC GLUCOSE (12/27/2019 3:15 AM CDT) Glucose, POC 190 (H) 70 - 100 MG/DL MAIN LAB Specimen Performing Organization Address [facility] one Number MAIN LAB [address] [place] [id number] * MAGNESIUM (12/27/2019 3:15 AM CDT) Magnesium 1.8 1.6 - 2.6 mg/dL MAIN LAB Specimen Blood Performing Organization Address [facility] [place] Ph one Number MAIN LAB [address] [place] [address] * BASIC METABOLIC PANEL (12/27/2019 3:15 AM [...] Creatinine 1.04 (H) 0.4 - 1.00 MG/DL MAIN LAB Calcium 7.9 (L) 8.5 - 10.6 MG/DL MAIN LAB eGFR Non 52 (L) >60 mL/min MAIN LAB Comment: [place] The eGFR is not validated f or use in drug dosing adjustments. Continue to use estimated creatinine clearance per dosing reference text. Please contact the Clinical Pharmacist for questions. eGFR >60 >60 mL/min MAIN LAB [place] Comment: The eGFR is not validated for use in drug dosing adjustments. Continue to use estimated creatinine clearance per dosing reference text. Please contact the Clinical Pharmacist for questions. Specimen Performing Organization Address City/[facility] [place] Ph one Number MAIN LAB [address] [place] [address] * CBC (12/27/2019 3:15 AM CDT) White [...] [place] MAIN LAB Specimen Performing Organization Address [facility] one Number MAIN LAB [address] [place] [address] * POC GLUCOSE (12/27/2019 1:10 AM CDT) Glucose, POC 191 (H) 70 - 100 MG/DL MAIN LAB Specimen Performing Organization Address [facility] one Number MAIN LAB [address] [place] [address] * POC GLUCOSE (12/26/2019 11:47 PM CDT) Glucose, POC 133 (H) 70 - 100 MG/DL MAIN LAB Specimen Performing Organization Address [facility]/Zipcode Ph one Number MAIN LAB [address] [place] [address] * POC GLUCOSE (12/26/2019 11:11 PM CDT) Glucose, POC 114 (H) 70 - 100 MG/DL MAIN LAB Specimen Performing Organization Address City/State/[facility] Ph one Number MAIN LAB [address] [place] [address] * POC GLUCOSE (12/26/2019 9:32 PM CDT) Glucose, POC 198 (H) 70 - 100 MG/DL MAIN LAB Specimen Performing Organization Address City/State/[facility] Ph one Number MAIN LAB [address] [place] [address] * POC GLUCOSE (12/26/2019 8:28 PM CDT) Glucose, POC 241 (H) 70 - 100 MG/DL MAIN LAB Specimen Performing Organization Address City/State/[facility] Ph one Number MAIN LAB [address] [place] [address] * POTASSIUM (12/26/2019 6:31 PM CDT) Potassium 4.1 3.5 - 5.1 MMOL/L MAIN LAB Specimen Blood Performing Organization Address City/[facility] Ph one Number MAIN LAB [address] [place] [address] * MAGNESIUM (12/26/2019 6:31 PM CDT) Magnesium 1.9 1.6 - 2.6 mg/dL MAIN LAB Specimen Blood Performing Organization Address City/State/[facility] Ph one Number MAIN LAB [address] [place] [address] * POC GLUCOSE (12/26/2019 6:29 PM CDT) Glucose, POC 259 (H) 70 - 100 MG/DL MAIN LAB Specimen Performing Organization Address [facility]/[place]/[facility] Ph one Number MAIN LAB [address] [place] [address] * POC GLUCOSE (12/26/2019 5:14 PM CDT) Glucose, POC 190 (H) 70 - 100 MG/DL MAIN LAB Specimen Performing Organization Address City/State/Zipcode Ph one Number MAIN LAB [address] [place] [address] * POC GLUCOSE (12/26/2019 4:05 PM CDT) Glucose, POC 204 (H) 70 - 100 MG/DL MAIN LAB Specimen Performing Organization Address [facility] [place] Ph one Number MAIN LAB [address] [place] [address] * POC GLUCOSE (12/26/2019 2:14 PM CDT) Glucose, POC 239 (H) 70 - 100 MG/DL MAIN LAB Specimen Performing Organization Address [facility] [place] Ph one Number MAIN LAB [address] [place] [address] * POC GLUCOSE (12/26/2019 1:06 PM CDT) Glucose, POC 253 (H) 70 - 100 MG/DL MAIN LAB Specimen Performing Organization Address [facility] one Number MAIN LAB [address] [place] [address] * LINE PLCMT 1V CXR (12/26/2019 12:11 [...] on 12/26/2019 1:02 PM. Performing Organization Address [facility] [place] Ph one Number RAD RESULTS * POC GLUCOSE (12/26/2019 12:01 PM CDT) Glucose, POC 259 (H) 70 - 100 MG/DL MAIN LAB Specimen Performing Organization Address [facility] [place] Ph one Number MAIN LAB [address] [place] [address] * PTT (APTT) (12/26/2019 12:00 PM CDT) APTT 32.5 24.0 - 36.5 SEC MAIN LAB Specimen Performing Organization Address [facility] [place] Ph one Number MAIN LAB [address] [place] [address] * PROTIME INR (PT) (12/26/2019 12:00 PM CDT) INR 1.2 0.8 - 1.2 MAIN LAB Specimen Performing Organization Address [facility] [place] Ph one Number MAIN LAB [address] [place] [address] * MAGNESIUM (12/26/2019 12:00 PM CDT) Pathologist [facility] Magnesium 1.1 (L) 1.6 - 2.6 mg/dL KU MAIN LAB Specimen Blood Performing Organization Address [facility] one Number KU MAIN LAB [address] [place] [address] * BASIC METABOLIC PANEL (12/26/2019 12:00 PM [...] >60 >60 mL/min KU MAIN LAB Comment: [place] The eGFR is not validated f or use in drug dosing adjustments. Continue to use estimated creatinine clearance per dosing reference text. Please contact the Clinical Pharmacist for questions. eGFR >60 >60 mL/min KU MAIN LAB [place] Comment: The eGFR is not validated for use in drug dosing adjustments. Continue to use estimated creatinine clearance per dosing reference text. Please contact the Clinical Pharmacist for questions. Specimen Performing Organization Address [facility] one Number KU MAIN LAB [address] [place] [address] * CBC (12/26/2019 12:00 PM CDT) Pathologist [...] KU MAIN LAB Specimen Performing Organization Address City/[facility] Ph one Number MAIN LAB [address] [place] [address] * POC GLUCOSE (12/26/2019 10:57 AM CDT) Glucose, POC 305 (H) 70 - 100 MG/DL MAIN LAB Specimen Performing Organization Address City/[facility] Ph one Number MAIN LAB [address] [place] [address] * POC ACTIVATED CLOTTING TIME (12/26/2019 10:38 AM CDT) Activated 252 s MAIN LAB Clotting Time Specimen Performing Organization Address City/[facility] Ph one Number MAIN LAB [address] [place] [address] * POC IONIZED CALCIUM (12/26/2019 10:34 AM CDT) Ionized 1.13 1.0 - 1.3 MMOL/L MAIN LAB Calcium-POC Specimen Performing Organization Address City/[facility] Ph one Number MAIN LAB [address] [place] [address] * POC SODIUM (12/26/2019 10:34 AM CDT) Sodium-POC 135 (L) 137 - 147 MMOL/L MAIN LAB Specimen Performing Organization Address City/[facility] Ph one Number MAIN LAB [address] [place] [address] * POC POTASSIUM (12/26/2019 10:34 AM CDT) Potassium-POC 4.8 3.5 - 5.1 MMOL/L MAIN LAB Specimen Performing Organization Address City/[facility] Ph one Number MAIN LAB [address] [place] [address] * POC HEMATOCRIT (12/26/2019 10:34 AM CDT) Hemoglobin POC 9.9 (L) 12.0 - 15.0 GM/DL KU MAIN LAB Hematocrit POC 29.0 (L) 36 - 45 % MAIN LAB Specimen Performing Organization Address City/[facility] Ph one Number MAIN LAB [address] [place] [address] * POC BLOOD GAS ARTERIAL (12/26/2019 10:34 AM CDT) PH-ART-POC 7.39 7.35 - 7.45 KU MAIN LAB [id number] 46 (H) 35 - 45 MMHG KU MAIN LAB PO2-ART-POC 143 (H) 80 - 100 MMHG KU MAIN LAB Base Ex-ART-POC 2.0 MMOL/L KU MAIN LAB O2 Sat-ART-POC 99.0 95 - 99 % KU MAIN LAB Bicarbonate-ART 27.5 21 - 28 MMOL/L KU MAIN LAB -POC Specimen Performing Organization Address City/State/Zipcode Ph one Number MAIN LAB [address] [place] [address] * POC GLUCOSE (12/26/2019 10:31 AM CDT) Glucose, POC 327 (H) 70 - 100 MG/DL KU MAIN LAB Specimen Performing Organization Address City/[facility] Ph one Number MAIN LAB [address] [place] [address] * POC ACTIVATED CLOTTING TIME (12/26/2019 10:30 AM CDT) Activated 223 s MAIN LAB Clotting Time Specimen Performing Organization Address City/[facility] [place] Ph one Number MAIN LAB [address] [place] [id number] * TYPE & CROSSMATCH (12/26/2019 7:38 AM CDT) Units Ordered 4 KU MAIN LAB Crossmatch 12/29/2019,2359 KU MAIN LAB Expires Record Check FOUND KU MAIN LAB ABO/RH(D) O POS MAIN LAB Antibody Screen NEG KU MAIN LAB Electronic YES MAIN LAB Crossmatch Unit Number [id number] MAIN LAB Blood Component RBC,ADSOL,LEUKO REDUCED MAIN LAB Type Unit Division 0 MAIN LAB Status OF Unit REL FROM ALLOC MAIN LAB Transfusion OK TO TRANSFUSE MAIN LAB Status Crossmatch COMPATIBLE,ELECTRONIC MAIN LAB Result Unit Number [id number] MAIN LAB Blood Component RBC,ADSOL,LEUKO REDUCED MAIN LAB Type Unit Division 0 MAIN LAB Status OF Unit REL FROM ALLOC MAIN LAB Transfusion OK TO TRANSFUSE MAIN LAB Status Crossmatch COMPATIBLE,ELECTRONIC KU MAIN LAB Result Unit Number [id number] KU MAIN LAB Blood Component RBC,ADSOL,LEUKO REDUCED KU MAIN LAB Type Unit Division 0 KU MAIN LAB Status OF Unit REL FROM ALLOC KU MAIN LAB Transfusion OK TO TRANSFUSE KU MAIN LAB Status Crossmatch COMPATIBLE,ELECTRONIC KU MAIN LAB Result Unit Number [id number] KU MAIN LAB Blood Component RBC,ADSOL,LEUKO REDUCED KU MAIN LAB Type Unit Division 0 KU MAIN LAB Status OF Unit REL FROM ALLOC KU MAIN LAB Transfusion OK TO TRANSFUSE KU MAIN LAB Status Crossmatch COMPATIBLE,ELECTRONIC KU MAIN LAB Result Specimen Blood Performing Organization Address City/State/Zipcode Ph one Number KU MAIN LAB [address] [place] [address] * POC GLUCOSE (12/26/2019 7:37 AM CDT) Glucose, POC 360 (H) 70 - 100 MG/DL KU MAIN LAB Specimen Performing Organization Address [facility] [place] Ph one Number MAIN LAB [address] [place] [address] * TELEMETRY STRIPS-SCAN (12/26/2019 12:00 AM CDT) [...] obstructive pulmonary disease, unspecified COPD type (HCC) Mixed hyperlipidemia Essential hypertension Unspecified essential hypertension Class 2 severe obesity due to excess ca lories with serious comorbidity and body mass index (BMI) of 36.0 to 36.9 in adult (HCC) ANCA on CPAP Obstructive sleep apnea (adult) ([facility]) PAD (peripheral artery disease) ([facility]) Peripheral vascular disease, unspecifie d Chronic pulmonary embolism, unspecified pulmonary embolism type, unspecified whether acute cor pulmonale present ([facility]) S/P TAVR (transcatheter aortic valve re placement) Heart valve replaced by other means Type 2 diabetes mellitus with other cir culatory complication, with long-term current use of insulin ([facility]) Coronary artery disease due to calcifie d coronary lesion Status post coronary artery bypass maged t Postsurgical aortocoronary bypass statu s Hypertension Unspecified essential hypertension Coronary artery disease involving nativ e coronary artery of [place] heart without angina pectoris HLD (hyperlipidemia) Other and unspecified hyperlipidemia Hyperlipidemia Other and unspecified hyperlipidemia Obese Obesity, unspecified PVD (peripheral vascular disease) ([facility]) Peripheral vascular disease, unspecifie d Pulmonary embolism (HCC) Other pulmonary embolism and infarction Bilateral carotid artery disease (HCC) Unspecified disorders of arteries and a rterioles Acute on chronic diastolic heart failur e (HCC) Acute on chronic diastolic heart failur e MRSA cellulitis Cellulitis and abscess of unspecified s ite Nonrheumatic aortic valve stenosis Aortic valve disorders Anticoagulated Long-term (current) use of anticoagulan ts Requires continuous at home supplementa l oxygen CVA (cerebral vascular accident) ([facility]) Unspecified cerebral artery occlusion w ith cerebral infarction Thrombocytopenia (HCC) Thrombocytopenia, unspecified Postoperative anemia due to acute [...] Given 1 mg, Intravenous, ONCE, 1 dose, [facility] 12/26/19 at 1230, PROTECT FROM LIGHT, 12/27/2019 8:49 PM CDT 40 mg citalopram (CeleXA) tablet 40 mg Given 40 mg, Oral, AT BEDTIME DAILY, First dose on [facility] 12/26/19 at 2100, Until Discontinued 40 mg Given 12/26/2019 10:33 PM CDT 12/26/2019 7:56 AM CDT 50 mg diphenhydrAMINE (BENADRYL) capsule 50 mg Given 50 mg, Oral, ONCE, 1 dose, [facility] 12/26/19 at 0700, Pre-Op DIPHENHYDRAMINE HCL 25 [...] cabinet override, Created by cabinet override, 12/27/2019 9:18 [...] tablet 1 tablet, Oral, ONCE, 1 dose, [facility] 12/26/19 at 2100, TOTAL ACETAMINOPHEN DOSE NOT [...]
--- OUTSIDE RECORDS SUMMARY | 2020-03-30 19:52 | XMS REPORT | Encounter Summary ---
Author Author [facility] Organization [facility] Address Unknown Phone Unavailable Care Team Providers Care Glaze Mixer Name Role Phone Bishnu Martin MD Unavailable Chata Chau DPM Unavailable Jesus López MD PCP Unavailable Reason for Visit * Reason Comments Cardiac Eval follow up post-op Encounter Details Care Team Description Date Type Department Dina Barnes, ENLISTED AIRCREW/AERIAL OBSERVER/GUNNER-CLIENT SOLUTIONS MANAGER [address] [phone] Cardiac Eval (follow up post-op) 01/02/2020 Scheduled [facility] [address] [phone] Social History Date Tobacco Use Types Packs/Day [...] this encounter Progress Notes * Dina Barnes, TONE-CLIENT SOLUTIONS MANAGER - 01/02/2020 4:30 PM CDT Telehealth Visit [...] a cardiac catheterization which reve aled severe [place] coronary disease with patent grafts. She was [...] (FLONASE) 50 mcg/actuation nasal spray Apply 1 [place] to each nos tril as directed twice [...] Barnes APRN Structural Heart Nurse Practitioner Pager [phone] Total time 20 minutes. Estimated counseling time [...] Chronic obstructive pulmonary disease, unspecified COPD type ([facility]) Coronary artery disease involving nativ e coronary artery of [place] heart without angina pectoris Acute on chronic diastolic heart failur e (HCC) Acute on chronic diastolic heart failur e Hypoxemia documented in this encounter
--- OUTSIDE RECORDS SUMMARY | 2020-03-30 19:53 | XMS REPORT | Encounter Summary ---
Author Author [facility] Organization [facility] Address Unknown Phone Unavailable Care Team Providers Care Panel Machine Setter Name Role Phone Bishnu Martin MD Unavailable Chata Chau DPM Unavailable Christy Mora MD PCP Unavailable Reason for Visit * Auth/Cert Referred By Contact Referred To Contact Status Reason Specialty Diagnoses / Procedures Diagnoses Nonrheumatic aortic valve stenosis Nonrheumatic aortic valve stenosis [I35.0] P rocedures ID REPLACE AORTIC VALVE PERQ FEMORAL ARTRY APPROACH PERCUTANEOUS TRANSCATHETER REPLACEMENT AORTIC VALVE - FEMORAL ARTERY-gregoria, left common femoral, 26s3 *ICU* Encounter Details Care Team Description Date Type Department Nando Lemus (Mary Rg III, MD [address] [address] PERCUTANEOUS TRANSCATHETER REPLACEMENT A ORTIC VALVE - FEMORAL ARTERY-gregoria, left common femoral, 26s3 *ICU* 12/26/2019 Surgery [facility] OR [address] [place], [place] [id number] Social History Date Tobacco Use Types Packs/Day [...] nerve stimulator Contrast media allergy COPD, severe ([facility]) CVA (cerebral vascular accident) ([facility]) DM (diabetes mellitus) ([facility]) Family history of premature CAD Gastroparesis Heart murmur Hyperlipidemia Hypertension MRSA cellulitis 2006 right leg vein harvest site Myocardial infarction ([facility]) 2005, ~2005 Total of 3 Neuropathy Obese Obesity, Class II, BMI 35-39.9 ANCA on CPAP with supplemental O2 Osteoporosis PAD (peripheral artery disease) ([facility]) s/p bilateral iliac stents Pulmonary embolism ([facility]) PVD (peripheral vascular disease) ([facility]) Requires continuous at home supplemental oxygen S/P CABG (coronary artery bypass graft) 2006 [facility] in [place], [place] Allergies: Adhesive tape (rosins); Erythromycin; Pcn [...] Course: The patient was admitted to [facility] for elective transcatheter aortic valve replacement. The [...] PC P for continued diabetes management. Her BILINGUAL CALL CENTER REPRESENTATIVE coreg was not resumed due to labil e blood pressure. Condition at Discharge: Stable Discharge Diagnoses: Hospital Problems Active Problems * (Principal) S/P TAVR (transcatheter aortic valve replacement) Hypertension CAD (coronary artery disease) COPD (chronic obstructive pulmonary disease) ([facility]) HLD (hyperlipidemia) Status post coronary [...] you can call a dietitia n at [phone]. Other Activity Restrictions -You should and need [...] is fully healed. If your surgeon used [place] lin (skin glue), this will fall off [...] will follow at 3pm. Provider DINA HAMILTON [[id number]] Location Cardiology Clinic Appointment date: 01/23/2020 Appointment time: 2:00 PM Return Appointment Call to schedule an appointment with your primary care doctor in 1-2 weeks for a check up and medication review. Address your blood glucose levels at this aldo ointment as well. Provider CHRISTY MORA [[id number]] Cardiac Rehab Your physician has [facility] Contact [facility] at [phone] to schedule an appointment. If you will [...] To register for smoking cessation program call [phone] or visit www.smokefree.gov Diabetes Risk Goal: Non-diabetic: [...] you can call a deng randall at [phone] Physical Activity Risk Goal: Patients should have approval by a physician prior to beginning an exercis e program. Plan: Try to get at least 30 minutes of moderate physical activity five days a w [place] or 20 minutes of vigorous physical activity [...] Contact your primary care provi mckay or goat farmer for an antibiotic prescription when needed. Questions About Your Stay For questions or concerns regarding your hospital stay. Call [phone] Discharging attending physician: NANDO LEMUS ([place]) Arcenio MENA [[id number]] Return Appointment [facility] Provider DINA HAMILTON [[id number]] Location [facility] Appointment date: 01/02/2020 Appointment time: 4:30 [...] education. The class is held in the [facility] Diabetes [place] on the 5th Floor of the Medical Office Building, every Monday f rom 2:00 PM - 3:00 PM. The class is not held on actual or observed holidays. Iain cosme call [phone] to let us know when you plan on attending. There is no cost and we will not bill your insurance. More diabetes education and individual nutrition appointments are offered at the [facility]. Most insurance plans cover these services if you have a r eferral from your doctor. Call [phone], option 3 or go to [email or web address] for details. insulin pen needles not needed [...] (FLONASE) 50 mcg/actuation nasal spray Apply 1 Kathryn to each nostril as directed twice daily. [...] CDT Return Patient with MARI Cruz [facility] (CVM Exam) 4000 [facility] [facility] [address] January 23, 2020 2:00 PM CDT Echo Doppler with [facility] SPECIAL PROC/RESEARCH [facility] (CVM Procedural) [address] [address] January 23, 2020 3:00 PM CDT Return Patient with MARI Cruz [facility] (CVM Exam) 4000 [facility] [facility] [address] Pending items needing follow up: [facility] and 4:30pm to ensure [...] bedtime daily. fluticasone (FLONASE) 50 Apply 1 Kathryn 0 mcg/actuation nasal spray to each nostril [...] denied any questions or concerns. PIV and shalini le d/c'd. Patient A&Ox4. VS per trend. RA / 2L on NC. Incisions CDI. Pain controlled c current PO pain regimen. Blood sugar levels WNL. Patient's spouse on way to cotton picker patient for d/c. 1645: Patient escorted [...] allergy Hyperlipidemia Obese PVD (peripheral vascular disease) ([facility]) Pulmonary embolism (HCC) Requires continuous at home supplemental oxygen ANCA on CPAP MRSA cellulitis Anticoagulated Acute on chronic diastolic CHF (congestive heart failure), NYHA class 3 (HCC) PAD (peripheral artery disease) ([facility]) Bilateral carotid artery disease (HCC) [...] assistance in management of insulin drip and BILINGUAL CALL CENTER REPRESENTATIVE pump. Type 2 Diabetes Mellitus Steroid induced hyperglycemia -Diagnosed: 1984 -A1c 6.8 (12/23) -BILINGUAL CALL CENTER REPRESENTATIVE regimen: insulin pump (medtronic, 1.9 unit bolus, [...] hypoglycemia -Follows with Dr. Mora (PCP) in [place] -Diabetic-complications assessment: Retinopathy: denies Peripheral neuropathy: yes, bilateral feet Gastroparesis: yes Autonomic neuropathy: denies Nephropathy: pt reports yes, last urine prot:cr ratio 8.9 mg/g 10/31/2017 Macrovascular complications: PVD, [place] Risk factor assessment: Last lipid profile - [...] 15 units of insulin via drip from 3256-6608 12/26, equates 2.5 units/hr basal rate - [...] bolus of 1:8 carb ratio, target 110-120 -clinical systems educator consult to provide education on priming her insulin pump, aldo reciate their help Okay to discharge from a diabetes standpoint. Blood sugars will likely decrease over the day and improve as further out from prednisone. (last dose on 12/25) Follow up: will be with her PCP in [place] (she has appt in January and have [...] 325 mg, Oral, Q6H PRN, Codi Kumar, PLUMBER'S ASSISTANT, 325 mg at 12/28/19 0904 albuterol sulfate (PROAIR HFA) inhaler 2 puff, 2 puff, Inhalation, PRN, Nando Serrano (Mary Rg III, MD ARIPiprazole (ABILIFY) tablet 5 mg, 5 mg, Oral, QHS, Mildred Carrillo APRN- COUNSELOR CAMP, 5 mg at 12/27/19 2050 aspirin chewable tablet 81 mg, 81 mg, Oral, QDAY, Mildred Carrillo APRN-COUNSELOR CAMP, 81 mg at 12/28/19 0904 atorvastatin (LIPITOR) tablet 80 mg, 80 mg, Oral, QHS, Mildred Carrillo APR N-COUNSELOR CAMP, 80 mg at 12/27/192048 bisacodyL (DULCOLAX) rectal suppository 10 mg, 10 mg, Rectal, QDAY PRN, Mildred Marie APRN-COUNSELOR CAMP citalopram (CeleXA) tablet 40 mg, 40 mg, Oral, QHS, Mildred Carrillo APRN-N P, 40 mg at 12/27/192048 fluticasone propionate (FLONASE) nasal spray 2 spray, 2 spray, Each Nostril , QDAY, Modesta Walton MD, 2 spray at 12/27/1918 gabapentin (NEURONTIN) capsule 100 mg, 100 mg, Oral, TID, Mildred Carrillo APRN-COUNSELOR CAMP, 100 mg at 12/28/1904 hydrALAZINE (APRESOLINE) injection 10 mg, 10 mg, Intravenous, Q6H PRN, Mildred Terry APRN-COUNSELOR CAMP HYDROcodone/acetaminophen (NORCO) 5/325 mg tablet 1 tablet, 1 tablet, Oral, Q4H PRN, Shelley Kumar APRN, 1 tablet at 12/27/19 2207 Insulin Pump User Patient Agreement Form, , , Once AND insulin pump - PART- Patients Own, , SubQ Pump, TID w/ Meals & PRN, Meaghan Red MD, 11.1 Units at 12/28/19 0930 magnesium sulfate 1 g/D5W 100 mL IVPB, 1 g, Intravenous, PRN AND Magn esium, , , PRN AND Notify Physician, , , Ongoing, Mildred Carrillo APRN-COUNSELOR CAMP milk of magnesia (CONC) oral suspension 10 mL, 10 mL, Oral, QDAY PRN, Mildred Carrillo APRN-COUNSELOR CAMP ondansetron (ZOFRAN) injection 4 mg, 4 mg, Intravenous, Q6H PRN, Deshawn Carrillo APRN-COUNSELOR CAMP pantoprazole DR (PROTONIX) tablet 40 mg, 40 mg, Oral, QDAY(21), Franky Carrillo, PLUMBER'S ASSISTANT-COUNSELOR CAMP, 40 mg at 12/27/192047 potassium chloride SR (K-DUR) tablet 20-40 mEq, 20-40 mEq, Oral, PRN, 20 mE q at 12/26/19 2245 OR potassium chloride oral solution 20-40 mEq, 20-40 mEq, Per NG tube, PRN OR potassium chloride in water IVPB 10 mEq, 10 mEq, Intrav enous, PRN, Mildred Carrillo, PLUMBER'S ASSISTANT-COUNSELOR CAMP, Last Rate: 50 mL/hr at 12/26/19 1314, 10 m Eq at 12/26/19 1314 prochlorperazine (COMPAZINE) rectal suppository 25 mg, 25 mg, Rectal, Q6H P RN, Mildred Carrillo, PLUMBER'S ASSISTANT-COUNSELOR CAMP rivaroxaban (XARELTO) tablet 20 mg, 20 mg, Oral, QDAY w/dinner, Franky Carrillo, PLUMBER'S ASSISTANT-COUNSELOR CAMP, 20 mg at 12/27/19 1716 senna/docusate (SENOKOT-S) tablet 2 tablet, 2 tablet, Oral, BID, Deshawn Carrillo, PLUMBER'S ASSISTANT-COUNSELOR CAMP, 2 tablet at 12/28/19 0904 traZODone (DESYREL) [...] AL ARTERY-gregoria, left common femoral, 26s3 *ICU*: 28165 (CPT) Principal Problem: S/P TAVR (transcatheter aortic valve replacement) Active Problems: Hypertension CAD (coronary artery disease) COPD (chronic obstructive pulmonary disease) (HCC) HLD (hyperlipidemia) Status post coronary artery bypass graft Type 2 diabetes mellitus with circulatory disorder, with long-term current use of insulin (HCC) Contrast media allergy Hyperlipidemia Obese PVD (peripheral vascular disease) ([facility]) Pulmonary embolism (HCC) Requires continuous [...] A&O x4, OGLESBY. Continue PRN Tylenol, resume BILINGUAL CALL CENTER REPRESENTATIVE [place]. CV SR, rates 70s-80s. SBP 100-140s. Cont ASA 81 mg, BILINGUAL CALL CENTER REPRESENTATIVE xarelto (for h/o PD ) and statin. Intra op MALINA LVEF 45-50%. Hold BILINGUAL CALL CENTER REPRESENTATIVE coreg 6.25mg and Lisinopril 5m g for now. Resp Daily CXR lungs expanded, atelectasis, pulmonary vascular congestio n. SpO2 93% on 2 L NC, on home O2 @ 2 L. Continue IS, aggressive pulm toilet. Renal Baseline Scr 0.9. Today 0.92. UOP 1.9L/24hr, net -100 mL/24hr, Weight +1.8kg/admission. Resume BILINGUAL CALL CENTER REPRESENTATIVE Bumex. GI - KRISHNA, continue post op bowel regimen. No BM since surgery. ID Afebrile, wbc 4.9. Heme Hgb 9.0-->7.7, plt 86. Monitor anemia/thrombocytopenia. Continue BILINGUAL CALL CENTER REPRESENTATIVE Xarelto for PE, continue mechanical DVT prophylaxis. FEN Hgb A1c 6.8 %. On insulin pump BILINGUAL CALL CENTER REPRESENTATIVE, resumed yesterday. Endocrinology f luiza, appreciate recs. [...] inaccurate with missed hat occurrence. Last BM BILINGUAL CALL CENTER REPRESENTATIVE. Call light within reach, will continue to monitor until [facility] shift [facility]. * Cynthia Castanon [...] Home Equipment: Walker;Cane Prior Function Level Of [place]: Independent with ADLs and functional transfers Lives [...] ARTERY- gregoria, left common femoral, 26s3 *ICU*: 40969 (CPT) Active Problems: Hypertension CAD (coronary artery disease) COPD (chronic obstructive pulmonary disease) ([facility]) HLD (hyperlipidemia) Status post coronary artery bypass graft Type 2 diabetes mellitus with circulatory disorder, with long-term current use of insulin ([facility]) Contrast media allergy Hyperlipidemia Obese PVD (peripheral vascular disease) ([facility]) Pulmonary embolism ([facility]) ANCA on CPAP MRSA cellulitis Acute on chronic diastolic CHF (congestive heart failure), NYHA class 3 ([facility]) PAD (peripheral artery disease) ([facility]) Bilateral carotid artery disease ([facility]) S/P TAVR (transcatheter aortic valve replacement) Assessment/Plan: Neuro A&O x4, OGLESBY. Continue PRN Tylenol, resume BILINGUAL CALL CENTER REPRESENTATIVE [place]. CV SR, rates 70s-80s, no pacing requirements, [...] 2.8 L/24hr, net -10 50 mL/24hr, Resume BILINGUAL CALL CENTER REPRESENTATIVE Bumex. GI - ADAT, continue post op bowel regimen. ID Continue standard post op antibiotic for prophylaxis, per CTS protocol. Heme 9.0, Continue BILINGUAL CALL CENTER REPRESENTATIVE Xarelto for PE, continue mechanical DVT prophylaxis. FEN If creatinine < 2.0, replace Mg and K per CTS post op protocol to minimize cardiac arrhythmias. Hgb A1c 6.8 %.On insulin pump BILINGUAL CALL CENTER REPRESENTATIVE, currently on insulin gtt. Endocrinology following, appreciate [...] Shelley Kumar APRN CTS Intensive Care Pager [phone] 12/27/2019 Subjective: HPI: Kvng Sumner is a [...] assistance in management of insulin drip and BILINGUAL CALL CENTER REPRESENTATIVE pump. Type 2 Diabetes Mellitus Steroid induced hyperglycemia -Diagnosed: 1984 -A1c 6.8 (12/23) -BILINGUAL CALL CENTER REPRESENTATIVE regimen: insulin pump (medtronic, 1.9 unit bolus, [...] hypoglycemia -Follows with Dr. Mora (PCP) in [place] -Diabetic-complications assessment: Retinopathy: denies Peripheral neuropathy: yes, bilateral feet Gastroparesis: yes Autonomic neuropathy: denies Nephropathy: pt reports yes, last urine prot:cr ratio 8.9 mg/g 10/31/2017 Macrovascular complications: PVD, [place] Risk factor assessment: Last lipid profile - [...] 15 units of insulin via drip from 9764-7583 12/26, equates 2.5 units/hr basal rate Aortic [...] 229* 164* 159* -resumed insulin pump at BILINGUAL CALL CENTER REPRESENTATIVE basal rate of 1.9, bolus of 1:8 carb ratio, target 11-120, pt initiated during our encounter (order placed) -insulin drip discontinued 2 hours after (ordered) -clinical systems educator consult to provide education on priming her insulin pump Thank you for the consult, we will continue to follow. Seen and discussed with Dr. Alanis. Meaghan Red MD Internal Medicine PGY1 Pager [phone], available on Voalte Subjective: Ms Sumner is [...] 1514) Temp: 37.1 C (98.7 F) (12/26 151) [...] solution Swish and Spit 15 mL by [facility] as directed after meals and at bedtime. [...] (FLONASE) 50 mcg/actuation nasal spray Apply 1 Kathryn to each nos tril as directed twice [...] 229* 164* 159* -resumed insulin pump at BILINGUAL CALL CENTER REPRESENTATIVE basal rate of 1.9, bolus of 1:8 carb ratio, target 11-120, pt initiated during our encounter (order placed) -insulin drip discontinued 2 hours after (ordered) -clinical systems educator consult to provide education on priming her insulin pump I have reviewed with her how to set a temporary basal. She demonstrated a good understanding of the insulin pump and I think was competent to operate the pump. Pump Pulp Roller: Medtronic Paradigm Insulin type Humalog Insulin Time: [...] back/feet/hands ~ Lupe Villanueva APRN to order [place] per patient request and home dose. SR ~ 70-80's. Pulses palpable. MAP > 65. TV pacemaker @ 40 VVI, sensitivity 2, output 5 ~ patient has not required/used pacer this shift. 2 L NC ~ baseline Cards/ADA diet. Pt, RN, and PLUMBER'S ASSISTANT discussed dietary restrictions for pt while on [...] allergy Hyperlipidemia Obese PVD (peripheral vascular disease) ([facility]) Pulmonary embolism (HCC) ANCA on CPAP MRSA cellulitis Acute on chronic diastolic CHF (congestive heart failure), NYHA class 3 (HCC) PAD (peripheral artery disease) ([facility]) Bilateral carotid artery disease (HCC) [...] infectious concerns. MD Herson Iyer MD Pager [phone] * Ana M Mendez RN - 12/26/2019 [...] ARTERY- gregoria, left common femoral, 26s3 *ICU*: 25789 (CPT) Active Problems: Hypertension CAD (coronary artery disease) COPD (chronic obstructive pulmonary disease) (HCC) HLD (hyperlipidemia) Status post coronary artery bypass graft Type 2 diabetes mellitus with circulatory disorder, with long-term current use of insulin (HCC) Contrast media allergy Hyperlipidemia Obese PVD (peripheral vascular disease) ([facility]) Pulmonary embolism (HCC) ANCA on CPAP MRSA cellulitis Acute on chronic diastolic CHF (congestive heart failure), NYHA class 3 ([facility]) PAD (peripheral artery disease) ([facility]) Bilateral carotid artery disease ([facility]) S/P TAVR (transcatheter aortic valve replacement) [...] and coordination of care. Margarita Olivo APRN [facility] Intensive Care Pager [phone] 12/26/2019 Subjective: HPI: Kvng Sumner is a [...] Aortic Stenosis Date of Admission: 12/26/2019 Room: [place] [address] : 1950 Insurance: Primary: Medicare Secondary: unknown Address: [address] [place] [address] [place] [address] Patient (home) Marital Status: Occupation: Unknown ED Contact: Gianfranco Sumner ED Phone #: CTS: [address] Supervisor: not listed Cardiac Procedures and Events Valve: 12/26/19(TAVR) EF: 55 % Risk Factors Risk Factors: Hypertension, Obesity, Hyperlipidemia, Diabetes-type II BP: (!) 182/99 Height: 165.1 cm (65") Weight: 100.2 kg (220 lb 14.4 oz) BMI (Calculated): 36.76 Medical History has a past medical history of Acute on chronic diastolic CHF (congestive heart failure), NYHA class 3 ([facility]), Anticoagulated, Aortic stenosis, Arthritis, Bilate ral carotid artery disease ([facility]), Breast cancer ([facility]) (2007), CAD (coronary clarence ry disease), CHF (congestive heart failure) ([facility]), Chronic back pain, Contrast m edia allergy, COPD, severe ([facility]), CVA (cerebral vascular accident) ([facility]), DM (di abetes mellitus) ([facility]), Family history of premature CAD, Gastroparesis, Heart mu rmur, Hyperlipidemia, Hypertension, MRSA cellulitis (2005), Myocardial infarctio n ([facility]) (2005, ~2004), Neuropathy, Obese, Obesity, Class II, BMI 35-39.9, ANCA on CPAP, Osteoporosis, PAD (peripheral artery disease) ([facility]), Pulmonary embolism ( [facility]), PVD (peripheral vascular disease) ([facility]), Requires continuous at home suppl emental oxygen, and S/P CABG (coronary artery bypass graft) (2005). Labs Hemoglobin A1C Date Value Ref Range Status 12/24/2019 6.8 (H) 4.0 - 6.0 % Final Comment: The ADA recommends that most patients with type 1 and type 2 diabetes maintain an A1c level <7%. Heart Resource Manual Given: Teaching Completed: Outpatient Cardiopulmonary Rehabilitation [facility]patient [facility]: Referral Faxed to: Date Faxed: Location: If [facility], Sent to Staff: Mayram Aguilar RN 12/26/2019 documented in this encounter H&P Notes * AndradeMildred knowles, PLUMBER'S ASSISTANT-COUNSELOR CAMP - 12/26/2019 8:13 AM CDT Admission History [...] beta b locker dose taken this morning BILINGUAL CALL CENTER REPRESENTATIVE. Pt has a home insulin pump- patient stopped pump at 0750, Endocrine consulted, Insulin drip ordered. Pt allergic to Ancef wi ll order Vancomycin. Patient has contrast allergy- patient received pretreatment . __ Primary Care Physician: Christy Mora Chief Complaint: Aortic Stenosis History of Present Illness: Kvng Sumner is a 69 y.o. female who presents tod ay for TAVR with Dr. Lemus and Dr. [...] (coronary artery disease) CHF (congestive heart failure) ([facility]) Chronic back pain with spinal nerve stimulator Contrast media allergy COPD, severe (HCC) CVA (cerebral vascular accident) ([facility]) DM (diabetes mellitus) ([facility]) Family history of premature CAD Gastroparesis Heart murmur Hyperlipidemia Hypertension MRSA cellulitis 2006 right leg vein harvest site Myocardial infarction (HCC) 2006, ~2005 Total of 3 Neuropathy Obese Obesity, Class II, BMI 35-39.9 ANCA on CPAP with supplemental O2 Osteoporosis PAD (peripheral artery disease) ([facility]) s/p bilateral iliac stents Pulmonary embolism (HCC) PVD (peripheral vascular disease) ([facility]) Requires continuous at home supplemental oxygen S/P CABG (coronary artery bypass graft) 2006 [facility] in [place], [place] Surgical History: Procedure Laterality Date EYE [...] 10/13/2016 Performed by Gianfranco Conti MD at [facility] OR CATARACT REMOVAL Bilateral 2009, 2010 DENTAL SURGERY 2012, 2014 cheek infection ID EXCISION TUMOR SOFT TISSUE LEG/ANKLE SUBQ 3 [...] file Gets together: Not on file Attends moravian service: Not on file Active member of [...] solution Swish and Spit 15 mL by [facility] as directed after meals and at bedtime. [...] (FLONASE) 50 mcg/actuation nasal spray Apply 1 Kathryn to each nos tril as directed twice [...] VLDL POC Glucose (Download): (!) 360 (12/26/19 0710) Pertinent radiology reviewed. STS: 11.143% Frailty: TAVR [...] a valve area of 0.6 cm, severe [place] three-vessel coronary artery disease with patent grafts [...] difficult access. bilateral iliac stents. calcium at ADON bilaterally. Likely bes t through left ADON. May need to dilate stents. 26 S3. Annular size: 23.9 CXR: 12/23 IMPRESSION 1. Mild cardiomegaly without evidence of pulmonary vascular congestion. 2. Bibasilar opacities, likely atelectasis. COVID-19: Negative 12/23 Mildred Carrillo APRN-MEGAN Available on [employer]. T documented in this encounter Consult Notes [...] an insulin pump teaching with a pump seeing eye dog trainer after leaving hospital. State that she [...] RN, BSN, CDE Clinical Nurse Excellence - Endoscope Technician (P) [phone] (Pager) [phone] 08:00-4:30 weekdays, If no response, please call team pager ([phone]) Diabetic Education Team office [phone]) Available on [employer]. * Meaghan Red MD - 12/26/2019 2:24 [...] assistance in management of insulin drip and BILINGUAL CALL CENTER REPRESENTATIVE pump. Type 2 Diabetes Mellitus Steroid induced hyperglycemia -Diagnosed: 1984 -A1c 6.8 (12/23) -BILINGUAL CALL CENTER REPRESENTATIVE regimen: insulin pump (medtronic, 1.9 unit bolus, [...] hypoglycemia -Follows with Dr. Mora (PCP) in [place] -Diabetic-complications assessment: Retinopathy: denies Peripheral neuropathy: yes, bilateral feet Gastroparesis: yes Autonomic neuropathy: denies Nephropathy: pt reports yes, last urine prot:cr ratio 8.9 mg/g 10/31/2017 Macrovascular complications: PVD, [place] Risk factor assessment: Last lipid profile - [...] Meaghan Red MD Internal Medicine PGY1 Pager [phone], available on Voalte Subjective: Kvng Sumner is a 69 y.o. female with a PMH of aortic stenosis, diastolic hea rt failure, CAD s/p CABG, COPD, type 2 diabetes, HLD, HTN, PAD who was admitted for TAVR on 12/25. Endocrinology has been consulted for assistance in management of insulin drip and BILINGUAL CALL CENTER REPRESENTATIVE insulin pump. Ms Sumner was diagnosed with type 2 diabetes in 1984 and states she has since c onverted to type I DM (DIMITRIS Ab 0 in 2014). She follows with Dr. mora in [facility] who is her PCP. Last A1c was 6.8 on 12/23. Her BILINGUAL CALL CENTER REPRESENTATIVE regimen consists of metfo rmin 500 mg [...] CHF (congestive heart failure), NYHA class 3 ([facility] ) Anticoagulated for PE Aortic stenosis Arthritis Bilateral carotid artery disease ([facility]) moderate disease Breast cancer ([facility]) 2007 Right- lumpectomy and radiation CAD (coronary artery disease) CHF (congestive heart failure) ([facility]) Chronic back pain with spinal nerve stimulator Contrast media allergy COPD, severe ([facility]) CVA (cerebral vascular accident) ([facility]) DM (diabetes mellitus) ([facility]) Family history of premature CAD Gastroparesis Heart murmur Hyperlipidemia Hypertension MRSA cellulitis 2006 right leg vein harvest site Myocardial infarction ([facility]) 2005, ~2004 Total of 3 Neuropathy Obese Obesity, Class II, BMI 35-39.9 ANCA on CPAP with supplemental O2 Osteoporosis PAD (peripheral artery disease) ([facility]) s/p bilateral iliac stents Pulmonary embolism ([facility]) PVD (peripheral vascular disease) ([facility]) Requires continuous at home supplemental oxygen S/P CABG (coronary artery bypass graft) 2005 [facility] in [place], [place] Surgical History: Procedure Laterality Date EYE [...] 10/13/2016 Performed by Gianfranco Conti MD at [facility] OR CATARACT REMOVAL Bilateral 2009, 2010 DENTAL SURGERY 2012, 2013 cheek infection ID EXCISION TUMOR SOFT TISSUE LEG/ANKLE SUBQ 3 [...] file Gets together: Not on file Attends moravian service: Not on file Active member of [...] solution Swish and Spit 15 mL by [facility] as directed after meals and at bedtime. [...] (FLONASE) 50 mcg/actuation nasal spray Apply 1 Kathryn to each nos tril as directed twice [...] Screen NEG Electronic Crossmatch YES Unit Number [id number] Blood Component Type RBC,ADSOL,LEUKO REDUCED Unit Division 0 Status OF Unit REL FROM ALLOC Transfusion Status OK TO TRANSFUSE Crossmatch Result COMPATIBLE,ELECTRONIC Unit Number [id number] Blood Component Type RBC,ADSOL,LEUKO REDUCED Unit Division 0 Status OF Unit REL FROM ALLOC Transfusion Status OK TO TRANSFUSE Crossmatch Result COMPATIBLE,ELECTRONIC Unit Number [id number] Blood Component Type RBC,ADSOL,LEUKO REDUCED Unit Division 0 Status OF Unit REL FROM ALLOC Transfusion Status OK TO TRANSFUSE Crossmatch Result COMPATIBLE,ELECTRONIC Unit Number [id number] Blood Component Type RBC,ADSOL,LEUKO REDUCED Unit Division 0 Status OF Unit REL FROM ALLOC Transfusion Status OK TO TRANSFUSE Crossmatch Result COMPATIBLE,ELECTRONIC POC GLUCOSE Collection Time: 12/26/19 10:31 AM Result Value Ref Range Glucose, POC 327 (H) 70 - 100 MG/DL POC BLOOD GAS ARTERIAL Collection Time: 12/26/19 10:34 AM Result Value Ref Range PH-ART-POC 7.39 7.35 - 7.45 [id number] 46 (H) 35 - 45 MMHG PO2-ART-POC 143 (H) 80 - 100 MMHG Base Ex-ART-POC 2.0 MMOL/L O2 Sat-ART-POC 99.0 95 - 99 % Qlzpkmsaafx-XVR-DIO 27.5 21 - 28 MMOL/L POC HEMATOCRIT [...] the care of Dr. Christy Mora in [place] and has been under g ood glycemic [...] IV insulin today and through the jeremy baezag and tomorrow assess her insulin requirements and [...] appropria te glycemic control. Staff name: Ion Alains MD Date: 12/26/2019 documented in this encounter [...] arise over the weekend, please contact the [facility] and ask for the RNCM data virtualization consultant. Harleen Saravia BSN, RN CTS Nurse Claim Manager O: [phone] [phone] Cell: [phone] * Care Plan - Margarita Balbuena RN [...] MD (Trip) - 12/26/2019 10:59 AM CDT [address] [address] PATIENT NAME: KVNG SUMNER MR#/PT#: [id number] OPERATIVE REPORT : 1950 DATE OF OPERATION: 12/26/2019 ROOM #: HC3 OR OPERATIVE REPORT SURGEON: Nando Lemus III, [...] ProGlide sutures were p laced and an 8-Algerian, and then subsequently the Caputo 14-Algerian Esheath was p laced. On the right side, a 5-Algerian sheath was positioned. A balloon-tipped t emporary [...] GLZ/Yasmin Lemus III, MD (Trip) / Yasmin [id number] cc: - Nando Lemus III, MD (Trip) [...] under the care of Dr. Lynne/[facility]. The anesthesia team monitored the patient's hemodynamic s, airway, and sedation throughout the case. 3. Access was obtained in the right common femoral artery with placement of 5-Fr ench sheath. Access also obtained in the left common femoral artery with placeme nt of an 8-Algerian sheath. A dual ProGlide pre-close technique was [...] 5 mmHg. 11. The left common femoral 16-Algerian sheath was then removed and the dual [...] MG/DL MAIN LAB Specimen Performing Organization Address [facility] Ph one Number MAIN LAB [address] [place] [address] * POC GLUCOSE (12/28/2019 3:36 PM CDT) Glucose, POC 164 (H) 70 - 100 MG/DL MAIN LAB Specimen Performing Organization Address [facility] Ph one Number MAIN LAB [address] [place] [address] * POC GLUCOSE (12/28/2019 2:46 PM CDT) Glucose, POC 201 (H) 70 - 100 MG/DL MAIN LAB Specimen Performing Organization Address [facility] Ph one Number MAIN LAB [address] [place] [address] * POC GLUCOSE (12/28/2019 12:36 PM CDT) Glucose, POC 517 (HH) 70 - 100 MG/DL KU MAIN LAB Specimen Performing Organization Address [facility] Ph one Number MAIN LAB [address] [place] [address] * POC GLUCOSE (12/28/2019 9:13 AM CDT) Glucose, POC 225 (H) 70 - 100 MG/DL MAIN LAB Specimen Performing Organization Address [facility] Ph one Number MAIN LAB [address] [place] [address] * CHEST SINGLE VIEW (12/28/2019 6:50 AM [...] on 12/28/2019 7:23 AM. Performing Organization Address City/[facility] Ph one Number KU RAD RESULTS * CBC (12/28/2019 4:50 AM CDT) Pathologist [facility] White Blood 4.9 4.5 - 11.0 K/UL [...] KU MAIN LAB Specimen Performing Organization Address [facility] Ph one Number KU MAIN LAB [address] [place] [address] * BASIC METABOLIC PANEL (12/28/2019 4:50 AM CDT) Pathologist [facility] Sodium 135 (L) 137 - 147 MMOL/L [...] Non >60 >60 mL/min MAIN LAB Comment: Jamaican The eGFR is not validated f or use in drug dosing adjustments. Continue to use estimated creatinine clearance per dosing reference text. Please contact the Clinical Pharmacist for questions. eGFR >60 >60 mL/min MAIN LAB Jamaican Comment: The eGFR is not validated for use in drug dosing adjustments. Continue to use estimated creatinine clearance per dosing reference text. Please contact the Clinical Pharmacist for questions. Specimen Performing Organization Address City/State/Zipcode Ph one Number MAIN LAB [address] [place] [address] * MAGNESIUM (12/28/2019 4:50 AM CDT) Magnesium 2.0 1.6 - 2.6 mg/dL MAIN LAB Specimen Blood Performing Organization Address City/State/Zipcode Ph one Number MAIN LAB [address] [place] [address] * POC GLUCOSE (12/28/2019 3:09 AM CDT) Glucose, POC 222 (H) 70 - 100 MG/DL MAIN LAB Specimen Performing Organization Address [facility] one Number MAIN LAB [address] [place] [address] * POC GLUCOSE (12/27/2019 10:14 PM CDT) Glucose, POC 300 (H) 70 - 100 MG/DL MAIN LAB Specimen Performing Organization Address City/[facility] Ph one Number MAIN LAB [address] [place] [address] * POC GLUCOSE (12/27/2019 5:16 PM CDT) Glucose, POC 159 (H) 70 - 100 MG/DL MAIN LAB Specimen Performing Organization Address City/[facility] Ph one Number MAIN LAB [address] [place] [address] * POC GLUCOSE (12/27/2019 4:04 PM CDT) Glucose, POC 164 (H) 70 - 100 MG/DL MAIN LAB Specimen Performing Organization Address City/[facility] Ph one Number MAIN LAB [address] [place] [address] * POC GLUCOSE (12/27/2019 2:27 PM CDT) Glucose, POC 229 (H) 70 - 100 MG/DL KU MAIN LAB Specimen Performing Organization Address City/[facility] Ph one Number MAIN LAB [address] [place] [address] * POC GLUCOSE (12/27/2019 1:26 PM CDT) Glucose, POC 174 (H) 70 - 100 MG/DL KU MAIN LAB Specimen Performing Organization Address City/[facility] Ph one Number MAIN LAB [address] [place] [address] * POC GLUCOSE (12/27/2019 12:15 PM CDT) Glucose, POC 182 (H) 70 - 100 MG/DL MAIN LAB Specimen Performing Organization Address [facility] Ph one Number MAIN LAB [address] [place] [address] * POC GLUCOSE (12/27/2019 9:20 AM CDT) Glucose, POC 151 (H) 70 - 100 MG/DL MAIN LAB Specimen Performing Organization Address City/[facility] Ph one Number MAIN LAB [address] [place] [address] * LIMITED ECHO (12/27/2019 7:15 AM CDT) [...] = LAB AV index 0.52 OTHER OUTSIDE ([place]) LAB E/A ratio 0.71 OTHER OUTSIDE LAB LVOT area 3.84 cm2 OTHER OUTSIDE LAB LVOT stroke 113.47 cm3 OTHER OUTSIDE volume LAB and a peak 27 mmHg OTHER OUTSIDE gradient of LAB TV rest N/A mmHg OTHER OUTSIDE pulmonary LAB artery pressure Lateral E/E' 8.86 OTHER OUTSIDE ratio LAB Left Atrium 20.23 16 - 34 OTHER OUTSIDE Index LAB Cardiology Siemens [id number] OTHER OUTSIDE Ultrasound LAB Machine Left Ventricle [...] Ph one Number KU MAIN LAB [address] [place] [address] * CHEST SINGLE VIEW (12/27/2019 4:07 AM [...] on 12/27/2019 7:29 AM. Performing Organization Address [facility] Ph one Number KU RAD RESULTS * POC GLUCOSE (12/27/2019 3:15 AM CDT) Glucose, POC 190 (H) 70 - 100 MG/DL MAIN LAB Specimen Performing Organization Address [facility] one Number MAIN LAB [address] [place] [address] * MAGNESIUM (12/27/2019 3:15 AM CDT) Pathologist [facility] Magnesium 1.8 1.6 - 2.6 mg/dL KU MAIN LAB Specimen Blood Performing Organization Address [facility] Ph one Number MAIN LAB [address] [place] [address] * BASIC METABOLIC PANEL (12/27/2019 3:15 AM [...] 52 (L) >60 mL/min MAIN LAB Comment: Jamaican The eGFR is not validated f or use in drug dosing adjustments. Continue to use estimated creatinine clearance per dosing reference text. Please contact the Clinical Pharmacist for questions. eGFR >60 >60 mL/min KU MAIN LAB Jamaican Comment: The eGFR is not validated for use in drug dosing adjustments. Continue to use estimated creatinine clearance per dosing reference text. Please contact the Clinical Pharmacist for questions. Specimen Performing Organization Address City/[facility] Ph one Number MAIN LAB [address] [place] [address] * CBC (12/27/2019 3:15 AM CDT) White [...] [place] MAIN LAB Specimen Performing Organization Address [facility] one Number MAIN LAB [address] [place] [address] * POC GLUCOSE (12/27/2019 1:10 AM CDT) Glucose, POC 191 (H) 70 - 100 MG/DL MAIN LAB Specimen Performing Organization Address [facility] Ph one Number MAIN LAB [address] [place] [address] * POC GLUCOSE (12/26/2019 11:47 PM CDT) Glucose, POC 133 (H) 70 - 100 MG/DL MAIN LAB Specimen Performing Organization Address [facility] Ph one Number MAIN LAB [address] [place] [address] * POC GLUCOSE (12/26/2019 11:11 PM CDT) Glucose, POC 114 (H) 70 - 100 MG/DL MAIN LAB Specimen Performing Organization Address City/State/Zipcode Ph one Number MAIN LAB [address] [place] [address] * POC GLUCOSE (12/26/2019 9:32 PM CDT) Glucose, POC 198 (H) 70 - 100 MG/DL MAIN LAB Specimen Performing Organization Address City/[facility] Ph one Number MAIN LAB [address] [place] [address] * POC GLUCOSE (12/26/2019 8:28 PM CDT) Glucose, POC 241 (H) 70 - 100 MG/DL MAIN LAB Specimen Performing Organization Address City/[facility] Ph one Number MAIN LAB [address] [place] [address] * POTASSIUM (12/26/2019 6:31 PM CDT) Potassium 4.1 3.5 - 5.1 MMOL/L MAIN LAB Specimen Blood Performing Organization Address City/[facility]/Zipcode Ph one Number MAIN LAB [address] [place] [address] * MAGNESIUM (12/26/2019 6:31 PM CDT) Magnesium 1.9 1.6 - 2.6 mg/dL MAIN LAB Specimen Blood Performing Organization Address City/[facility] Ph one Number MAIN LAB [address] [place] [address] * POC GLUCOSE (12/26/2019 6:29 PM CDT) Glucose, POC 259 (H) 70 - 100 MG/DL MAIN LAB Specimen Performing Organization Address City/[facility]/Zipcode Ph one Number MAIN LAB [address] [place] [address] * POC GLUCOSE (12/26/2019 5:14 PM CDT) Glucose, POC 190 (H) 70 - 100 MG/DL MAIN LAB Specimen Performing Organization Address City/[facility]/Zipcode Ph one Number MAIN LAB [address] [place] [address] * POC GLUCOSE (12/26/2019 4:05 PM CDT) Glucose, POC 204 (H) 70 - 100 MG/DL KU MAIN LAB Specimen Performing Organization Address [facility] one Number MAIN LAB [address] [place] [address] * POC GLUCOSE (12/26/2019 2:14 PM CDT) Glucose, POC 239 (H) 70 - 100 MG/DL KU MAIN LAB Specimen Performing Organization Address [facility] one Number MAIN LAB [address] [place] [address] * POC GLUCOSE (12/26/2019 1:06 PM CDT) Glucose, POC 253 (H) 70 - 100 MG/DL MAIN LAB Specimen Performing Organization Address [facility] one Number MAIN LAB [address] [place] [address] * [facility] 1 CXR (12/26/2019 12:11 PM CDT) [...] 12/26/2019 1:02 PM. Narrative Performed At [facility] 1 CXR KU RAD RESULTS HISTORY: [...] on 12/26/2019 1:02 PM. Performing Organization Address [facility] one Number RAD RESULTS * POC GLUCOSE (12/26/2019 12:01 PM CDT) Glucose, POC 259 (H) 70 - 100 MG/DL MAIN LAB Specimen Performing Organization [facility] one Number MAIN LAB [address] [place] [address] * PTT (APTT) (12/26/2019 12:00 PM CDT) APTT 32.5 24.0 - 36.5 SEC MAIN LAB Specimen Performing Organization Address [facility] one Number MAIN LAB [address] [place] [address] * PROTIME INR (PT) (12/26/2019 12:00 PM CDT) INR 1.2 0.8 - 1.2 MAIN LAB Specimen Performing [facility] one Number MAIN LAB [address] [place] [address] * MAGNESIUM (12/26/2019 12:00 PM CDT) Magnesium 1.1 (L) 1.6 - 2.6 mg/dL KU MAIN LAB Specimen Blood Performing Organization Address [facility] one Number KU MAIN LAB [address] [place] [address] * BASIC METABOLIC PANEL (12/26/2019 12:00 PM CDT) Pathologist [facility] Sodium 138 137 - 147 MMOL/L KU [...] >60 >60 mL/min KU MAIN LAB Comment: [place]ican The eGFR is not validated f or use in drug dosing adjustments. Continue to use estimated creatinine clearance per dosing reference text. Please contact the Clinical Pharmacist for questions. eGFR >60 >60 mL/min KU MAIN LAB Jamaican Comment: The eGFR is not validated for use in drug dosing adjustments. Continue to use estimated creatinine clearance per dosing reference text. Please contact the Clinical Pharmacist for questions. Specimen Performing Organization Address [facility] one Number MAIN LAB [address] [place] [address] * CBC (12/26/2019 12:00 PM CDT) Pathologist [facility] White Blood 6.6 4.5 - 11.0 K/UL [...] KU MAIN LAB Specimen Performing Organization Address [facility]/Zipcode Ph one Number MAIN LAB [address] [place] [address] * POC GLUCOSE (12/26/2019 10:57 AM CDT) Glucose, POC 305 (H) 70 - 100 MG/DL MAIN LAB Specimen Performing Organization Address City/[facility] Ph one Number MAIN LAB [address] [place] [address] * POC ACTIVATED CLOTTING TIME (12/26/2019 10:38 AM CDT) Activated 252 s MAIN LAB Clotting Time Specimen Performing Organization Address City/[facility] Ph one Number MAIN LAB [address] [place] [address] * POC IONIZED CALCIUM (12/26/2019 10:34 AM CDT) [facility] Signature Ionized 1.13 1.0 - 1.3 MMOL/L MAIN LAB Calcium-POC Specimen Performing Organization Address [facility] one Number MAIN LAB [address] [place] [address] * POC SODIUM (12/26/2019 10:34 AM CDT) Sodium-POC 135 (L) 137 - 147 MMOL/L MAIN LAB Specimen Performing Organization Address [facility] one Number MAIN LAB [address] [place] [address] * POC POTASSIUM (12/26/2019 10:34 AM CDT) Potassium-POC 4.8 3.5 - 5.1 MMOL/L MAIN LAB Specimen Performing Organization Address [facility] Ph one Number MAIN LAB [address] [place] [address] * POC HEMATOCRIT (12/26/2019 10:34 AM CDT) Hemoglobin POC 9.9 (L) 12.0 - 15.0 GM/DL MAIN LAB Hematocrit POC 29.0 (L) 36 - 45 % MAIN LAB Specimen Performing Organization Address [facility] Ph one Number MAIN LAB [address] [place] [address] * POC BLOOD GAS ARTERIAL (12/26/2019 10:34 AM CDT) PH-ART-POC 7.39 7.35 - 7.45 KU MAIN LAB FGG0-OAT-GWG 46 (H) 35 - 45 MMHG KU MAIN LAB PO2-ART-POC 143 (H) 80 - 100 MMHG MAIN LAB Base Ex-ART-POC 2.0 MMOL/L KU MAIN LAB O2 Sat-ART-POC 99.0 95 - 99 % KU MAIN LAB Bicarbonate-ART 27.5 21 - 28 MMOL/L KU MAIN LAB -POC Specimen Performing Organization Address City/State/Zipcode Ph one Number MAIN LAB [address] [place] [address] * POC GLUCOSE (12/26/2019 10:31 AM CDT) Glucose, POC 327 (H) 70 - 100 MG/DL KU MAIN LAB Specimen Performing Organization Address City/[facility] Ph one Number MAIN LAB [address] [place] [address] * POC ACTIVATED CLOTTING TIME (12/26/2019 10:30 AM CDT) Activated 223 s MAIN LAB Clotting Time Specimen Performing Organization Address City/[facility] Ph one Number MAIN LAB [address] [place] [address] * TYPE & CROSSMATCH (12/26/2019 7:38 AM CDT) Units Ordered 4 KU MAIN LAB Crossmatch 12/29/2019,2359 MAIN LAB Expires Record Check FOUND KU MAIN LAB ABO/RH(D) O POS MAIN LAB Antibody Screen NEG MAIN LAB Electronic YES MAIN LAB Crossmatch Unit Number [id number] MAIN LAB Blood Component RBC,ADSOL,LEUKO REDUCED MAIN LAB Type Unit Division 0 MAIN LAB Status OF Unit REL FROM ALLOC MAIN LAB Transfusion OK TO TRANSFUSE MAIN LAB Status Crossmatch COMPATIBLE,ELECTRONIC MAIN LAB Result Unit Number [id number] MAIN LAB Blood Component RBC,ADSOL,LEUKO REDUCED MAIN LAB Type Unit Division 0 MAIN LAB Status OF Unit REL FROM ALLOC MAIN LAB Transfusion OK TO TRANSFUSE MAIN LAB Status Crossmatch COMPATIBLE,ELECTRONIC MAIN LAB Result Unit Number [id number] MAIN LAB Blood Component RBC,ADSOL,LEUKO REDUCED MAIN LAB Type Unit Division 0 MAIN LAB Status OF Unit REL FROM ALLOC MAIN LAB Transfusion OK TO TRANSFUSE MAIN LAB Status Crossmatch COMPATIBLE,ELECTRONIC MAIN LAB Result Unit Number [id number] MAIN LAB Blood Component RBC,ADSOL,LEUKO REDUCED KU MAIN LAB Type Unit Division 0 MAIN LAB Status OF Unit REL FROM ALLOC MAIN LAB Transfusion OK TO TRANSFUSE MAIN LAB Status Crossmatch COMPATIBLE,ELECTRONIC MAIN LAB Result Specimen Blood Performing Organization Address [facility] Ph one Number MAIN LAB [address] [place] [address] * POC GLUCOSE (12/26/2019 7:37 AM CDT) Glucose, POC 360 (H) 70 - 100 MG/DL MAIN LAB Specimen Performing Organization Address [facility] Ph one Number MAIN LAB [address] [place] [address] * TELEMETRY STRIPS-SCAN (12/26/2019 12:00 AM CDT) [...]
--- OUTSIDE RECORDS SUMMARY | 2020-03-30 19:53 | XMS REPORT | Encounter Summary ---
Author Author [facility] Organization [facility] Address Unknown Phone Unavailable Care Team Providers Care Inspector Missile Name Role Phone Bishnu Martin MD Unavailable [...]
--- OUTSIDE RECORDS SUMMARY | 2020-03-30 19:54 | XMS REPORT | Encounter Summary ---
Author Author [facility] Organization [facility] Address Unknown Phone Unavailable Care Team Providers Care Vac Press Operator Name Role Phone Bishnu Martin MD Unavailable Chata Chau DPM Unavailable Jesus López MD PCP Unavailable Reason for Visit * Auth/Cert Referred By Contact Referred To Contact Status Reason Specialty Diagnoses / Procedures Diagnoses Nonrheumatic aortic valve stenosis Nonrheumatic aortic valve stenosis [I35.0] P rocedures SC REPLACE AORTIC VALVE PERQ FEMORAL ARTRY APPROACH PERCUTANEOUS TRANSCATHETER REPLACEMENT AORTIC VALVE - FEMORAL ARTERY-amelia, left common femoral, 26s3 *ICU* Encounter Details Care Team Description Date Type Department Flavia De Jesus MD [address] [facility] Lvl [address] [place] [id number] Acute upper respiratory infection, unspe cified 12/24/2019 [facility] [address] [place] [address] Social History Date Tobacco Use Types Packs/Day [...] bedtime daily. fluticasone (FLONASE) 50 Apply 1 [place] 0 mcg/actuation nasal spray to each nostril [...] Mendoza RN documented as of this encounter Procedures Comments Procedure Name Priority Date/Time Associated Diag nosis COVID-19 (SARS-COV-2) PCR Routine 12/24/2019 Aort ic valve stenosis, 1:51 PM CDT etiology of cardiac valve disease unspecified ECG-SCAN 12/24/2019 12:00 AM CDT documented in this encounter Results * COVID-19 (SARS-COV-2) PCR (12/24/2019 1:51 PM CDT) [facility] COVID-19 NASOPHARYNGEAL SWAB REFERENCE LAB (SARS-CoV-2) [...] performance characteristics have been verified by the [facility]. Fact sheet for providers: https://www.fda.gov/media/6013 56/download Fact sheet for patients: https://www.fda.gov/media/7248 57/download Specimen Nasopharyngeal Swab Performing Organization Address [...]
--- OUTSIDE RECORDS SUMMARY | 2020-03-30 19:54 | XMS REPORT | Encounter Summary ---
Author Author [facility] Organization [facility] Address Unknown Phone Unavailable Care Team Providers Care Cycle Touring Guide Name Role Phone Bishnu Martin MD Unavailable Chata Chau DPM Unavailable Jesus López MD PCP Unavailable Reason for Visit * Auth/Cert Referred By Contact Referred To Contact Status Reason Specialty Diagnoses / Procedures Diagnoses Nonrheumatic aortic valve stenosis Nonrheumatic aortic valve stenosis [I35.0] P rocedures OK REPLACE AORTIC VALVE PERQ FEMORAL ARTRY APPROACH PERCUTANEOUS TRANSCATHETER REPLACEMENT AORTIC VALVE - FEMORAL ARTERY-amelia, left common femoral, 26s3 *ICU* Encounter Details Care Team Description Date Type Department Neymar Moise (Mary Rg III, MD [address] [place] [address] Canceled (Office-Scheduling Error) 12/24/2019 [facility] [address] [place] [address] Social History Date Tobacco Use Types Packs/Day [...] bedtime daily. fluticasone (FLONASE) 50 Apply 1 Story 0 mcg/actuation nasal spray to each nostril [...]
--- OUTSIDE RECORDS SUMMARY | 2020-03-30 19:54 | XMS REPORT | Encounter Summary ---
Author Author [facility] Organization [facility] Address Unknown Phone Unavailable Care Team Providers Care Bed Rubber Name Role Phone Bishnu Martin MD Unavailable Chata Chau DPM Unavailable Jesus López MD PCP Unavailable Encounter Details Care Team Description Date Type Department Carline Frank RN 12/25/[address] [facility] [address] [facility] [place] [address] Social History Date Tobacco Use Types Packs/Day [...] of this encounter Progress Notes * Carline Frank RN - 12/25/2019 9:[address] Moise and PAs of CBC result from 12/23. kz documented in this encounter Plan of Treatment Not on filedocumented as of this encounter Goals Goal Patient Associated Recent Progress Patient-Stat Aut hor Goal Type Problems ed? Diabetic Blood Sugar Lifestyle No Lashell, Lisa Mera RN documented as of this encounter Visit Diagnoses Not on filedocumented in this encounter
--- OUTSIDE RECORDS SUMMARY | 2020-03-30 19:54 | XMS REPORT | Encounter Summary ---
Author Author [facility] Organization [facility] Address Unknown Phone Unavailable Care Team Providers Care Supervisor Harvesting Name Role Phone Bishnu Martin MD Unavailable Chata Chau DPM Unavailable Jesus López MD PCP Unavailable Reason for Visit * Auth/Cert Referred By Contact Referred To Contact Status Reason Specialty Diagnoses / Procedures Diagnoses Nonrheumatic aortic valve stenosis Nonrheumatic aortic valve stenosis [I35.0] P rocedures [place] REPLACE AORTIC VALVE PERQ FEMORAL ARTRY APPROACH PERCUTANEOUS TRANSCATHETER REPLACEMENT AORTIC VALVE - FEMORAL ARTERY-amelia, left common femoral, 26s3 *ICU* Encounter Details Care Team Description Date Type Department Sudarshan Lynne MD [id number] [place], [place] [id number] Nayana Watson DO 4000 [place], [place] [phone] 12/26/2019 Anesthesia [facility] OR [address] [place], [place] [phone] Anesthesia Record Responsible Anesthesiologist Anesthesia Start Time [...] by (NOT for CLOSED WITH SUTURES AND BACI Chely Pacheco, Pressure RN Injuries) Peripheral 10/02/19; 1233; IV Therapy; L; Upper; 10/02/19 1233 by Alejandro, IV Forearm; 20 G; No; Ultrasound; 1; 1.25 Johnathan, RN inches Puncture 12/26/19; 1025; Right; Femoral 0 [...] 0924 by attempted (0); Video laryngoscopy, Nayana Watson DO Stylet, Rapid sequence; Single-Lumen, Cuffed; 7.5mm; GlideScope; [...] Neymar Moise III, MD (Trip) CPT codes: 47626 - MALINA 2D imaging (w or w/o M-mode) including probe placement, i mage acquisition, interpretation & report, 35236 - PWD and/or CWD f/u or limited study and 21293 - Color flow velocity mapping Patient location: [...] Apical anterior: normal Apical inferior: normal Long [place] View Basal anteroseptal: normal Basal inferolateral: normal Mid anteroseptal: normal Mid inferolateral: normal Apical lateral: normal Apical septal: normal Martin: normal Mid Short [place] View Mid anteroseptal: normal Mid anterior: normal [...] (FLONASE) 50 mcg/actuation nasal spray Apply 1 Haughton to each nostril as directed twice daily. [...] CHF (congestive heart failure), NYHA class 3 ([facility] ) Anticoagulated for PE Aortic stenosis Arthritis Bilateral carotid artery disease ([facility]) moderate disease Breast cancer ([facility]) 2007 Right- lumpectomy and radiation CAD (coronary artery disease) CHF (congestive heart failure) ([facility]) Chronic back pain with spinal nerve stimulator Contrast media allergy COPD, severe (HCC) CVA (cerebral vascular accident) ([facility]) DM (diabetes mellitus) ([facility]) Family history of premature CAD [...] S/P CABG (coronary artery bypass graft) 2006 [facility] in [place], [place] Surgical History: Procedure Laterality Date EYE SURGERY Left 1956 HERNIA REPAIR Right 1958 HX TUBAL LIGATION 1974 HX HYSTERECTOMY 1980 AMPUTATION Right 1989 Toe CYST REMOVAL Left 1993 hand X2 HX CHOLECYSTECTOMY 1996 HX POLYPECTOMY Right 2004 vocal cord CORONARY ARTERY BYPASS GRAFT 2006 x 5 BREAST LUMPECTOMY Right 2008 BLADDER SUSPENSION 2009 VENTRAL HERNIA REPAIR 2011 mesh CARDIAC CATHERIZATION Bilateral 2010 PERIPHERAL VASCULAR SURGERY Bilateral 2010 Stent placement CARPAL TUNNEL RELEASE Left 2011 SPINE SURGERY 2014 neurostem FOOT SURGERY Right 2015 RADICAL EXCISION OF CHEEK FISTULA, TOOTH EXTRACTION Right 10/13/2016 Performed by Gianfranco Conti MD at [facility] OR CATARACT REMOVAL Bilateral 2009, 2010 DENTAL SURGERY 2011, 2013 cheek infection VT EXCISION TUMOR SOFT TISSUE LEG/ANKLE SUBQ 3 [...] controlled Valvular problems/murmurs ( severe ): Past IA (08/2005), > 6 months Coronary artery disease [...] Followed by cardiology in Dr. Valera at [facility] in [facility] [place] 08/2019 Impression: Right: Severe disease (non [...] 5. Normal LV systolic function. 6. Severe [place] three-vessel coronary artery disease as described above. [...] indications/hx of weakness Chronic opioid use (chronic Charlotte use x12 years, 1 tab BID ) [...] 100.2 kg (220 lb 14.4 oz) (12/25 3245) Patient History Allergies Allergen Reactions Adhesive Tape [...] (FLONASE) 50 mcg/actuation nasal spray Apply 1 Haughton to each nostril as directed twice daily. [...] CHF (congestive heart failure), NYHA class 3 ([facility] ) Anticoagulated for PE Aortic stenosis Arthritis Bilateral carotid artery disease (HCC) moderate disease Breast cancer ([facility]) 2007 Right- lumpectomy and radiation CAD (coronary artery disease) CHF (congestive heart failure) ([facility]) Chronic back pain with spinal nerve stimulator Contrast media allergy COPD, severe ([facility]) CVA (cerebral vascular accident) ([facility]) DM (diabetes mellitus) ([facility]) Family history of premature CAD [...] S/P CABG (coronary artery bypass graft) 2005 [facility] in [place], [place] Surgical History: Procedure Laterality Date EYE [...] 10/13/2016 Performed by Gianfranco Conti MD at [facility] OR CATARACT REMOVAL Bilateral 2009, 2010 DENTAL SURGERY 2012, 2013 cheek infection VT EXCISION TUMOR SOFT TISSUE LEG/ANKLE SUBQ 3 [...] diagnostic studies: echocardiogram EKG 12/24/19- NSR Echocardiogram 2/11/20 Interpretation Summary LVEF=55-60%, Mild Abnormal Septal Motion Moderate Concentric LVH Mild Left Atrial Dilatation Severe Aortic Valve Stenosis: Peak Velocity=3.8m/sec, Mean Gradient=37mmHg, Ve locity Ratio=0.21, Area=0.64cm2 Mild Mitral Annular Calcification No Pericardial Effusion PASP=19mmHg TAPSE=1.42cm Exercise tolerance: <4 METS (pt unable to walk 4 blocks without SOB) Beta Tyesha therapy: Yes Hypertension, well controlled Valvular problems/murmurs ( severe ): Past IA (08/2005), > 6 months Coronary artery disease [...] Followed by cardiology in Dr. Valera at [facility]iology in [facility] [place] 08/2019 Impression: Right: Severe disease (non [...] 5. Normal LV systolic function. 6. Severe [place] three-vessel coronary artery disease as described above. [...] indications/hx of weakness Chronic opioid use (chronic Charlotte use x12 years, 1 tab BID ) [...] Anesthesiologist: Sudarshan Lynne MD Surgeon: Neymar Moise (Mary Rg III, MD Performed personally Indication for MALINA: assessment of ascen ding aorta, assessment of surgical repair, defect repair evaluation, hemod ynamic monitoring, ventricular function, confirmation of pre-procedure diagnosis and valvular assessment Physician requesting echo: Neymar Moise III, MD (Trip) CPT codes: 15812 - MALINA 2D imaging (w or w/o M-mode) including probe placement, image acquisition, interpret ation & report, 91055 - PWD and/or CWD f/u or limited study and 94180 - Co sun flow velocity mapping Patient [...] Apical anterior: normal Apical inferior: normal Long [place] View Basal anteroseptal: normal Basal inferolateral: normal Mid anteroseptal: normal Mid inferolateral: normal Apical lateral: normal Apical septal: normal Martin: normal Mid Short [place] View Mid anteroseptal: normal Mid anterior: normal [...]
--- OUTSIDE RECORDS SUMMARY | 2020-03-30 19:54 | XMS REPORT | Encounter Summary ---
Author Author [facility] Organization [facility] Address Unknown Phone Unavailable Care Team Providers Care Asphalt Layer Name Role Phone Bishnu Martin MD Unavailable [...]
--- OUTSIDE RECORDS SUMMARY | 2020-03-30 19:54 | XMS REPORT | Encounter Summary ---
Author Author [facility] Organization [facility] Address Unknown Phone Unavailable Care Team Providers Care Cook Boat Name Role Phone Bishnu Martin MD Unavailable [...] Department Neymar Moise (Mary Rg III, MD [address] [place] [address] 12/24/2019 [facility] [id number] [place] [address] Social History Date Tobacco Use Types Packs/Day [...] bedtime daily. fluticasone (FLONASE) 50 Apply 1 [place] 0 mcg/actuation nasal spray to each nostril [...]
--- OUTSIDE RECORDS SUMMARY | 2020-03-30 19:55 | XMS REPORT | Encounter Summary ---
Author Author [facility] Organization [facility] Address Unknown Phone Unavailable Care Team Providers Care Office Assistant Name Role Phone Bishnu Martin MD Unavailable Chata Chau DPM Unavailable Jesus López MD PCP Unavailable Encounter Details Care Team Description Date Type Department Neymar Moise (Trip) Arcenio MENA MD [address] [id number] Aortic valve stenosis, etiology of cardi ac valve disease unspecified (Primary Dx) 12/20/2019 Orders Only [facility] 4000 [facility]600 [place] [address] Social History Date Tobacco Use Types Packs/Day [...] performance characteristics have been verified by the [facility]. Fact sheet for providers: https://www.fda.gov/media/7370 56/download Fact sheet for patients: https://www.fda.gov/media/7533 57/download Specimen Nasopharyngeal Swab Performing Organization Address City/State/Zipcode Ph one Number REFERENCE LAB REFERENCE LAB See results for address. documented in this encounter Visit Diagnoses Diagnosis Aortic valve stenosis, etiology of card iac valve disease unspecified documented in this encounter
--- OUTSIDE RECORDS SUMMARY | 2020-03-30 19:55 | XMS REPORT | Encounter Summary ---
Author Author [facility] Organization [facility] Address Unknown Phone Unavailable Care Team Providers Care Job Cost Estimator Name Role Phone Bishnu Martin MD Unavailable Chata Chau DPM Unavailable Jesus López MD PCP Unavailable Encounter Details Care Team Description Date Type Department Carline Frank RN 12/23/2019 Telephone [facility] 4000 [facility] [place] [address] Social History Date Tobacco Use Types Packs/Day [...]
--- OUTSIDE RECORDS SUMMARY | 2020-03-30 19:55 | XMS REPORT | Encounter Summary ---
Author Author [facility] Organization [facility] Address Unknown Phone Unavailable Care Team Providers Care Bone Density Technician Name Role Phone Bishnu Martin MD [...] Department Neymar Moise (Mary Rg III, MD [address] [place] [address] Preop examination (Primary Dx); Aortic valve stenosis, etiology of cardiac valve disease unspecified 12/24/2019 Ancillary [facility] Pre [facility]esthesia [facility] [address] [place] [address] Anesthesia Record Responsible Anesthesiologist Anesthesia Start Time [...] 24 hours following surgery. Bath/Shower Instructions {BATH/SHOWER INSTRUCTIONS:55807} Leave money, credit cards, jewelry, and any other valuables at home. The [facility] is not responsible for the loss or breakage of persona [employer] GOODS items. Remove nail burundian, makeup and all jewelry (including piercings) before comin g to the hospital. The morning of your procedure: brush your teeth and tongue do not smoke do not shave the area where you will have surgery What to bring to the hospital ID/ Insurance Card Professor Of Art History card Official documents for legal guardianship Copy of your Living Will, Advanced Directives, and/or Durable Power of Attorn ey Small bag with a few personal belongings {OTHER PERSONAL ITEMS:33755} Dress in clean, loose, comfortable clothing Eating or drinking before surgery {FOOD/DRINK:13649} Other instructions: Other instructions Notify your surgeon if: there is a possibility that you are you become ill with a cough, fever, sore throat, nausea, vomiting or flu-like symptoms you have any open wounds/sores that are red, painful, draining, or are new si nce you last saw the doctor you need to cancel your procedure {ARRIVAL TIME:} Notify us at {SURGERY CONTACT PHONE NUMBERS:21057} if you need to cancel your procedure [...] solution Swish and Spit 15 mL by [facility] as directed after meals and [...] (FLONASE) 50 mcg/actuation nasal spray Apply 1 Baldwin to each nos tril as directed twice [...] any medicine updates o r questions. E-mail: [email or web address] Before going home from the hospital, please [...] Epithelial Cells Specimen Urine Performing Organization Address [facility] Ph one Number [facility] [address] [place] [address] * URINALYSIS DIPSTICK REFLEX TO CULTURE (12/24/2019 12:05 PM CDT) Color,UA YELLOW [facility] Turbidity,UA CLEAR CLEAR-CLEAR [facility] Specific 1.017 1.003 - 1.035 [facility] [place]-Urine pH,UA 6.0 5.0 - 8.0 [facility] [...] Acid, UA Specimen Urine Performing Organization Address [facility] one Number [facility] [address] [place] [address] * UA REFLEX CULTURE LABEL (12/24/2019 12:05 PM CDT) UA Reflex Criteria for reflex to culture [facility] Culture are WBC>10, Positive Nitrit e, and/or >=+1 leukocytes. If quantity is not sufficient, an addendum will follow. Specimen Urine Performing Organization Address [facility] Ph one Number [facility] [address] [place] [address] * BLOOD TYPE CONFIRMATION - ORDER ONLY IF REQUESTED BY LAB (12/24/2019 12:00 PM CDT) ABO/RH(D) O POS MAIN LAB Specimen Blood Performing Organization Address City/[facility]/Zipcode Ph one Number MAIN LAB [address] [place] [address] * TYPE & CROSSMATCH (12/24/2019 11:50 AM CDT) Units Ordered 2 [facility] Crossmatch 12/27/2019,2359 [facility] Expires Record Check 2ND TYPE REQUIRED MAIN LAB ABO/RH(D) O POS MAIN LAB Antibody Screen NEG MAIN LAB Electronic YES [facility] Crossmatch Specimen Performing Organization Address City/[facility]/Zipcode Ph one Number MAIN LAB [address] [place] [address] * COMPREHENSIVE METABOLIC PANEL (12/24/2019 11:50 AM [...] (L) >60 mL/min [facility] Comment: [place] The eGFR is not validated f or use in drug dosing adjustments. Continue to use estimated creatinine clearance per dosing reference text. Please contact the Clinical Pharmacist for questions. eGFR >60 >60 mL/min [facility] [place] Comment: The eGFR is not validated for use in drug dosing adjustments. Continue to use estimated creatinine clearance per dosing reference text. Please contact the Clinical Pharmacist for questions. Specimen Blood Performing Organization Address [facility] Ph one Number MAIN LAB [address] [place] [address] * PTT (APTT) (12/24/2019 11:50 AM CDT) APTT 42.8 (H) 24.0 - 36.5 SEC MAIN LAB Specimen Blood Performing Organization Address [facility] one Number MAIN LAB [address] [place] [address] * PROTIME INR (PT) (12/24/2019 11:50 AM CDT) INR 1.2 0.8 - 1.2 MAIN LAB Specimen Blood Performing Organization Address [facility] one Number MAIN LAB [address] [place] [address] * HEMOGLOBIN A1C (12/24/2019 11:50 AM CDT) Hemoglobin A1C 6.8 (H) 4.0 - 6.0 % MAIN LAB Comment: The ADA recommends that most patients with type 1 and type 2 diabetes maintain an A1c level <7%. Specimen Blood Performing Organization Address [facility] one Number MAIN LAB [address] [place] [address] * CBC (12/24/2019 11:50 AM CDT) White [...] MAIN LAB Specimen Blood Performing Organization Address [facility] one Number MAIN LAB [address] [place] [address] * BNP (B-TYPE NATRIURETIC PEPTI) (12/24/2019 11:50 AM CDT) B Type 13.0 0 - 100 PG/ML [facility] Natriuretic Peptide Specimen Blood Performing Organization Address City/State/Zipcode Ph one Number MAIN LAB [address] [place] [address] documented in this encounter Visit Diagnoses Diagnosis Aortic valve stenosis, etiology of card iac valve disease unspecified Preop examination Preoperative examination, unspecified documented in this encounter
--- OUTSIDE RECORDS SUMMARY | 2020-03-30 19:55 | XMS REPORT | Encounter Summary ---
Author Author [facility] Organization [facility] Address Unknown Phone Unavailable Care Team Providers Care Cook Station Name Role Phone Bishnu Martin MD Unavailable Chata Chau DPM Unavailable Jesus López MD PCP Unavailable Encounter Details Care Team Description Date Type Department Carline Frank RN 12/23/2019 Telephone The [facility] 4000 [facility]600 [place] [address] Social History Date Tobacco Use Types Packs/Day [...]
--- OUTSIDE RECORDS SUMMARY | 2020-03-30 19:55 | XMS REPORT | Encounter Summary ---
Author Author [facility] Organization [facility] Address Unknown Phone Unavailable Care Team Providers Care Fisheries Director Name Role Phone Bishnu Martin MD Unavailable Chata Chau DPM Unavailable Jesus López MD PCP Unavailable Encounter Details Care Team Description Date Type Department Neymar Moise (Augusto) Arcenio MENA MD [address] [phone] 12/20/2019 Orders Only [facility] 4000 [facility]600 [place] [address] Social History Date Tobacco Use Types Packs/Day [...]
--- OUTSIDE RECORDS SUMMARY | 2020-03-30 19:55 | XMS REPORT | Encounter Summary ---
Author Author [facility] Organization [facility] Address Unknown Phone Unavailable Care Team Providers Care Railway Signalling Engineer Name Role Phone Bishnu Martin MD Unavailable Chata Chau DPM Unavailable Jesus López MD PCP Unavailable Reason for Visit * Reason Comments Pre Operative Visit Covid-19 Encounter Details Care Team Description Date Type Department Pre-op testing (Primary Dx) 12/24/2019 Nurse Only [facility] [address] [place] [address] Social History Date Tobacco Use Types Packs/Day [...] 12/24/2019 1:10 PM CDT [facility]. Patient iden [...]
--- OUTSIDE RECORDS SUMMARY | 2020-03-30 19:55 | XMS REPORT | Encounter Summary ---
Author Author [facility] Organization [facility] Address Unknown Phone Unavailable Care Team Providers Care Agile Coach Name Role Phone Bishnu Martin MD Unavailable Chata Chau DPM Unavailable Jesus López MD PCP Unavailable Reason for Visit * Reason Comments Follow Up Encounter Details Care Team Description Date Type Department Britney Sullivan RN Follow Up 11/05/2019 Telephone The [address] [place] [address] Social History Date Tobacco Use Types Packs/Day [...] PM CDT Received call from Leila at [facility] oral surgery ([phone]) garth negrito dental extractions/roots on patient. She was concerned that they may not be ab le to get teeth out prior to valve surgery. Explained that her valve surgery can be delayed if they need more time. She will notify when she has a confirmed ynla e. * Telephone Encounter - Britney Sullivan [...]
--- OUTSIDE RECORDS SUMMARY | 2020-03-30 19:55 | XMS REPORT | Encounter Summary ---
Author Author [facility] Organization [facility] Address Unknown Phone Unavailable Care Team Providers Care Supervisor Electronics Testing Name Role Phone Bishnu Martin MD Unavailable Chata Chau DPM Unavailable Jesus López MD PCP Unavailable Encounter Details Care Team Description Date Type Department Carline Frank RN 12/23/2019 Telephone The [facility] 4000 [facility]600 [place] [address] Social History Date Tobacco Use Types Packs/Day [...]
--- OUTSIDE RECORDS SUMMARY | 2020-03-30 19:55 | XMS REPORT | Encounter Summary ---
Author Author [facility] Organization [facility] Address Unknown Phone Unavailable Care Team Providers Care Research Project Manager Name Role Phone Bishnu Martin MD Unavailable Chata Chau DPM Unavailable Jesus López MD PCP Unavailable Encounter Details Care Team Description Date Type Department Carline Frank RN 12/23/2019 Telephone The [facility] Pre Anesthesia Clinic [address] [place] [address] Social History Date Tobacco Use Types [...]
--- OUTSIDE RECORDS SUMMARY | 2020-03-30 19:55 | XMS REPORT | Encounter Summary ---
Author Author [facility] Organization [facility] Address Unknown Phone Unavailable Care Team Providers Care Mend Worker Name Role Phone Bishnu Martin MD Unavailable Chata Chau DPM Unavailable Jesus López MD PCP Unavailable Encounter Details Care Team Description Date Type Department Sue Ríos RN Nonrheumatic aortic valve stenosis (Prim brandon Dx) 12/12/2019 Prep for Case [facility] 4000 [facility]600 [place] [address] Social History Date Tobacco Use Types Packs/Day [...] Diabetic Blood Sugar Lifestyle No Lisa Lobo, RN documented as of this encounter Visit Diagnoses Diagnosis Nonrheumatic aortic valve stenosis Aortic valve disorders documented in this encounter
--- OUTSIDE RECORDS SUMMARY | 2020-03-30 19:55 | XMS REPORT | Encounter Summary ---
Author Author [facility] Organization [facility] Address Unknown Phone Unavailable Care Team Providers Care Direct Sales Representative Name Role Phone Bishnu Martin MD Unavailable Chata Chau DPM Unavailable Jesus López MD PCP Unavailable Encounter Details Care Team Description Date Type Department Neymar Moise (Trip) Arcenio MENA MD 4000 [facility]600 [place], [place] [id number] Contrast media allergy (Primary Dx); Aortic valve [...]
--- OUTSIDE RECORDS SUMMARY | 2020-03-30 19:55 | XMS REPORT | Encounter Summary ---
Author Author [facility] Organization [facility] Address Unknown Phone Unavailable Care Team Providers Care Mercantile Reporter Name Role Phone Bishnu Martin MD Unavailable Chata Chau DPM Unavailable Jesus López MD PCP Unavailable Reason for Visit * Reason Comments Error Encounter Details Care Team Description Date Type Department Britney Sullivan RN Error 11/05/2019 Telephone [facility] 4000 [facility]600 [place] [address] Social History Date Tobacco Use Types Packs/Day [...]
--- OUTSIDE RECORDS SUMMARY | 2020-03-30 19:55 | XMS REPORT | Encounter Summary ---
Author Author [facility] Organization [facility] Address Unknown Phone Unavailable Care Team Providers Care Ribbon Cutter Name Role Phone Bishnu Martin MD Unavailable Chata Chau DPM Unavailable Jesus López MD PCP Unavailable Reason for Visit * Reason Comments Follow-up Phone Call Xarelto holding & Lovenox b ridging prior to TAVR & dental work completed Encounter Details Care Team Description Date Type Department Sue Ríos RN Follow-up Phone Call (Xarelto holding & Lovenox bridging prior to TAVR & dental work completed) 12/10/2019 Telephone [facility] 4000 [facility]600 [place] [address] Social History Date Tobacco Use Types Packs/Day [...] CDT Dental letter received - sent to [facility] to be scanned into patient's chart . * Telephone Encounter - Sue Ríos RN - 12/10/2019 11:24 AM CDT Received a voicemail on the nurse line from patient indicating her dental extrac tions were completed on 12/05 through [facility] . Spoke with the hotel or motel receptionist at the oral surgery office. Request that [...] Lovenox prescript ion sent [facility]. documented in this encounter Plan of Treatment Not on filedocumented as of this encounter Goals Goal Patient Associated Recent Progress Patient-Stat Aut hor Goal Type Problems ed? Diabetic Blood Sugar Lifestyle No Lisa Lobo RN documented as of this encounter Visit Diagnoses Not on filedocumented in this encounter
--- OUTSIDE RECORDS SUMMARY | 2020-03-30 19:55 | XMS REPORT | Encounter Summary ---
Author Author [facility] Organization [facility] Address Unknown Phone Unavailable Care Team Providers Care Checkout Supervisor Name Role Phone Bishnu Martin MD Unavailable Chata Chau DPM Unavailable Jesus López MD PCP Unavailable Encounter Details Care Team Description Date Type Department Neymar Moise (Trip) Arcenio MENA MD 4000 [facility]600 [place], [place] [id number] Aortic valve stenosis, etiology of cardi ac [...] Problems ed? Diabetic Blood Sugar Lifestyle No Dercher, Monitoring URIAH Mera documented as of this [...] on 12/24/2019 1:32 PM. Performing Organization Address [facility] one Number [facility] RAD RESULTS * URINALYSIS DIPSTICK REFLEX TO CULTURE (12/24/2019 12:05 PM CDT) Color,UA YELLOW [facility] Turbidity,UA CLEAR CLEAR-CLEAR [facility] Specific 1.017 1.003 - 1.035 [facility]IN [facility] [place]-Urine pH,UA 6.0 5.0 - 8.0 [facility] MAIN [...] Acid, UA Specimen Urine Performing Organization Address [facility] one Number [facility] MAIN LAB [address] [place] [address] * URINALYSIS MICROSCOPIC REFLEX TO CULTURE (12/24/2019 [...] Epithelial Cells Specimen Urine Performing Organization Address [facility] one Number [facility] MAIN LAB [address] [place] [id number] * UA REFLEX CULTURE LABEL (12/24/2019 12:05 PM CDT) UA Reflex Criteria for reflex to culture [facility] MAGGIE N LAB Culture are WBC>10, Positive Nitrit e, and/or >=+1 leukocytes. If quantity is not sufficient, an addendum will follow. Specimen Urine Performing Organization Address [facility] one Number MAIN LAB [address] [place] [address] * BNP (B-TYPE NATRIURETIC PEPTI) (12/24/2019 11:50 AM CDT) B Type 13.0 0 - 100 PG/ML MAIN LAB Natriuretic Peptide Specimen Blood Performing Organization Address [facility] Ph one Number MAIN LAB [address] [place] [address] * HEMOGLOBIN A1C (12/24/2019 11:50 AM CDT) Hemoglobin A1C 6.8 (H) 4.0 - 6.0 % MAIN LAB Comment: The ADA recommends that most patients with type 1 and type 2 diabetes maintain an A1c level <7%. Specimen Blood Performing Organization Address [facility] Ph one Number MAIN LAB [address] [place] [address] * PTT (APTT) (12/24/2019 11:50 AM CDT) APTT 42.8 (H) 24.0 - 36.5 SEC MAIN LAB Specimen Blood Performing Organization Address [facility] Ph one Number MAIN LAB [address] [place] [phone] * PROTIME INR (PT) (12/24/2019 11:50 AM CDT) INR 1.2 0.8 - 1.2 MAIN LAB Specimen Blood Performing Organization Address [facility] Ph one Number MAIN LAB [address] [place] [phone] * COMPREHENSIVE METABOLIC PANEL (12/24/2019 11:50 AM [...] (L) >60 mL/min [facility]IN [facility] Comment: [place] The eGFR is not validated f or use in drug dosing adjustments. Continue to use estimated creatinine clearance per dosing reference text. Please contact the Clinical Pharmacist for questions. eGFR >60 >60 mL/min [facility] MAIN [facility] [place] Comment: The eGFR is not validated for use in drug dosing adjustments. Continue to use estimated creatinine clearance per dosing reference text. Please contact the Clinical Pharmacist for questions. Specimen Blood Performing Organization Address [facility] Ph one Number MAIN LAB [address] [place] [address] * CBC (12/24/2019 11:50 AM CDT) White [...] MAIN LAB Specimen Blood Performing Organization Address [facility] one Number [facility] [address] [place] [address] documented in this encounter Visit Diagnoses Diagnosis Aortic valve stenosis, etiology of card iac valve disease unspecified documented in this encounter
--- OUTSIDE RECORDS SUMMARY | 2020-03-30 19:55 | XMS REPORT | Encounter Summary ---
Author Author [facility] Organization [facility] Address Unknown Phone Unavailable Care Team Providers Care Janitor Name Role Phone Bishnu Martin MD Unavailable Chata Chau DPM Unavailable Jesus López MD PCP Unavailable Reason for Visit * Reason Comments Provider Discussion About TAVR eval Patient Encounter Details Care Team Description Date Type Department Dina Barnes, CARBON CAPTURE POWER PLANT MANAGER-DISTRICT ATTORNEY [address] [phone] Provider Discussion About Patient (TAVR eval) 12/23/2019 Documentation [facility] 4000 [facility]600 [place], [place] [phone] Social History Date Tobacco Use Types Packs/Day [...] this encounter Progress Notes * Dina Barnes, TONE-DISTRICT ATTORNEY - 12/23/2019 7:41 AM CDT TAVR Evaluation Date of initial eval: 10/08 Name: Maggy Nicholas : 1950 Primary provider: Jesus López Referring continuous improvement specialist: [place] Cardiac Surgeon eval: TZ Machine Maintenance Servicer eval: Assessment & Plan: Severe symptomatic aortic stenosis. TAVR work up complete and results reviewed. TAVR scheduled 12/[address] Moise and Dr. Patel. Maria Eugenia Barnes APRN-C Anticoagulation/Antiplatelet plan: aspirin, rivaroxaban (chronic PE)- last [...] a valve area of 0.6 cm, severe [place] three-vessel coronary artery disease wit h patent [...] difficult access. bilateral iliac stents. calcium at MANAGER ANALYSIS bilaterally. Likely bes t through left MANAGER ANALYSIS. May need to dilate stents. 26 S3. [...]
--- OUTSIDE RECORDS SUMMARY | 2020-03-30 19:55 | XMS REPORT | Encounter Summary ---
Author Author [facility] Organization [facility] Address Unknown Phone Unavailable Care Team Providers Care Supervisor Powdered Sugar Name Role Phone Bishnu Martin MD Unavailable Chata Chau DPM Unavailable Jesus López MD PCP Unavailable Encounter Details Care Team Description Date Type Department Jud Portillo RN 12/20/2019 Documentation [facility] 4000 [facility]600 [place] [address] Social History Date Tobacco Use Types Packs/Day [...] allergy. NPO at 2300 12/24, mo rning Arley mckay shower 12/24 and 12/25 morning. Reviewed plan of care, hospi bill stay, dc restrictions and current visitor restrictions. Pt confirmed last do se of Xarelto was todat 12/19 and has Lovenox to begin injections tomorrow. Pt re quests a later arrival time since pt will be driving from [employer] [place] answered to pt's satisfaction. documented in this encounter Plan of Treatment Not on filedocumented as of this encounter Goals Goal Patient Associated Recent Progress Patient-Stat Aut hor Goal Type Problems ed? Diabetic Blood Sugar Lifestyle No Lashell, Lisa Mera, RN documented as of this encounter Visit Diagnoses Not on filedocumented in this encounter
--- OUTSIDE RECORDS SUMMARY | 2020-03-30 19:56 | XMS REPORT | Encounter Summary ---
Author Author [facility] Organization [facility] Address Unknown Phone Unavailable Care Team Providers Care Field Naturalist Name Role Phone Bishnu Martin MD Unavailable Chata Chau DPM Unavailable Jesus López MD PCP Unavailable Reason for Referral * Test (Routine) Referred By Contact Referred To Contact Status Reason Specialty Diagnoses / Procedures Dina Barnes APRN-MEGAN [address] [address] [facility] [address] [address] No Auth Needed Cardiology Diagnoses Aortic valve stenosis, etiology of cardiac valve disease unspecified P rocedures 2-D + DOPPLER ECHOCARDIOGRAM [place] ECHO TTHRC R-T 2D W/WOM-MODE COMPL SPEC&COLR D Reason for Visit * Test (Routine) Referred By Contact Referred To Contact Status Reason Specialty Diagnoses / Procedures Dina Barnes, VICE PRESIDENT OF DEVELOPMENT-OXYGEN FURNACE OPERATOR [address] [address] [facility] [address] [address] No Auth Needed Cardiology Diagnoses Aortic valve stenosis, etiology of cardiac valve disease unspecified P rocedures 2-D + DOPPLER ECHOCARDIOGRAM [place] ECHO TTHRC R-T 2D W/WOM-MODE COMPL SPEC&COLR D Encounter Details Care Team Description Date Type Department Dina Barnes, VICE PRESIDENT OF DEVELOPMENT-OXYGEN FURNACE OPERATOR 4000 [facility]600 [place] [address] [phone] 10/08/2019 [facility] 4000 [facility]600 [place] [address] Social History Date Tobacco Use Types Packs/Day [...] Comments Vital Sign 128/62 10/08/2019 10:14 AM MATERIAL FLOW ANALYST Blood Pressure - - Pulse - - Temperature - - Respiratory Rate - - Oxygen Saturation - - Inhaled Oxygen Concentration 102.5 kg (226 lb) 10/08/2019 10:14 AM MATERIAL FLOW ANALYST Weight 165.1 cm (5' 5") 10/08/2019 10:14 AM MATERIAL FLOW ANALYST Height 37.61 10/08/2019 10:14 AM MATERIAL FLOW ANALYST Body Mass Index documented in this encounter [...] bedtime daily. fluticasone (FLONASE) 50 Apply 1 [place] 0 mcg/actuation nasal spray to each nostril [...] Routine 10/08/2019 Aortic valve stenosis, 10:14 AM MATERIAL FLOW ANALYST etiology of cardiac valve disease unspecified documented in this encounter Results * 2D + DOPPLER ECHO (10/08/2019 10:14 AM MATERIAL FLOW ANALYST) BSA 2.17 m2 OTHER OUTSIDE LAB LVOT [...] OUTSIDE Systolic Volume LAB Index LVOT peak gerarod 0.8 m/s OTHER OUTSIDE LAB LVOT peak [...] = LAB AV index 0.21 OTHER OUTSIDE ([place]) LAB E/A ratio 0.71 OTHER OUTSIDE LAB [...] Self OTHER OUTSIDE Provider LAB Cardiology Siemens [id number] OTHER OUTSIDE Ultrasound LAB Machine Specimen Narrative [...]
--- OUTSIDE RECORDS SUMMARY | 2020-03-30 19:56 | XMS REPORT | Encounter Summary ---
Author Author [facility] Organization [facility] Address Unknown Phone Unavailable Care Team Providers Care Harness Preparer Name Role Phone Bishnu Martin MD Unavailable Chata Chau DPM Unavailable Jesus López MD PCP Unavailable Reason for Visit * Reason Comments Medication Follow-up Xarelto holding & Lovenox b ridging pre TAVR Dental Concerns Encounter Details Care Team Description Date Type Department Sue Ríos RN Medication Follow-up (Xarelto holding & Lovenox bridging pre TAVR); Dental Concerns 10/08/2019 Telephone The [facility] 4000 [facility]600 [place], [place] [phone] Social History Date Tobacco Use Types Packs/Day [...] encounter Miscellaneous Notes * Telephone Encounter - [place], Sue, RN - 10/08/2019 11:36 AM GRADES 1 THROUGH 5 TEACHER Pt given Xarelto holding and lovenox bridging letter in clinic today. Pt prefers to have the Lovenox prescription sent in to her pharmacy closer to the procedure date. TAVR is scheduled 11/20. Preop 11/13 at 12:00. Pt needs to have dental ext ractions completed prior to TAVR. Her initial dental eval is scheduled 10/30. ES 1 THROUGH 5 TEACHER documented in this encounter Plan of Treatment Not on filedocumented as of this encounter Goals Goal Patient Associated Recent Progress Patient-Stat Aut hor Goal Type Problems ed? Diabetic Blood Sugar Lifestyle No Lashell, Lisa Mera RN documented as of this encounter Visit Diagnoses Not on filedocumented in this encounter
--- OUTSIDE RECORDS SUMMARY | 2020-03-30 19:56 | XMS REPORT | Encounter Summary ---
Author Author [facility] Organization [facility] Address Unknown Phone Unavailable Care Team Providers Care Fabricator Artificial Breast Name Role Phone Bishnu Martin MD Unavailable Chata Chau DPM Unavailable Jesus López MD PCP Unavailable Reason for Visit * Reason Comments Test 5 m walk Encounter Details Care Team Description Date Type Department Cassandra Sandhu RN Test (5 m walk) 10/08/2019 Documentation The [address] [place] [address] Social History Date Tobacco Use Types Packs/Day [...] Cassandra Sandhu RN - 10/08/2019 11:26 AM TREE TRIMMER HELPER TAVR 5 Meter Walk Walk 1: 6.07 Walk 2: 5.71 Walk 3: 5.40 TRIMMER HELPER documented in this encounter Plan of Treatment Not on filedocumented as of this encounter Goals Goal Patient Associated Recent Progress Patient-Stat Aut hor Goal Type Problems ed? Diabetic Blood Sugar Lifestyle No Lashell, Lisa Mera RN documented as of this encounter Visit Diagnoses Not on filedocumented in this encounter
--- OUTSIDE RECORDS SUMMARY | 2020-03-30 19:56 | XMS REPORT | Encounter Summary ---
Author Author [facility] Organization [facility] Address Unknown Phone Unavailable Care Team Providers Care Signal Operator Name Role Phone Bishnu Martin MD Unavailable Chata Chau DPM Unavailable Jesus López MD PCP Unavailable Reason for Visit * Reason Comments Error Encounter Details Care Team Description Date Type Department Britney Sullivan RN Error 11/05/2019 Telephone The [facility] 4000 [facility]600 [place] [address] Social History Date Tobacco Use Types Packs/Day [...]
--- OUTSIDE RECORDS SUMMARY | 2020-03-30 19:56 | XMS REPORT | Encounter Summary ---
Author Author [facility] Organization [facility] Address Unknown Phone Unavailable Care Team Providers Care Policy Manager Name Role Phone Bishnu Martin MD Unavailable Chata Chau DPM Unavailable Jesus López MD PCP Unavailable Reason for Visit * Reason Comments New Patient /TAVR Eval * Consult, Test & Treat (Routine) Referred By Contact Referred To Contact Status Reason Specialty Diagnoses / Procedures Mac, Referring [facility] [address] [facility] [place] [address] New Request Specialty Services Cardiothoracic Diagnoses Required Surgery Aortic valve stenosis, etiology of cardiac valve disease unspecified Encounter Details Care Team Description Date Type Department Neymar Moise (Mary Rg III, MD [address] [facility] [place] [address] [phone] Aortic valve stenosis, etiology of cardi ac valve disease unspecified (Primary Dx); Acute on chronic diastolic CHF (congestive heart failure), NYHA class 3 ([facility]); S/P CABG (coronary artery bypass graft); COPD, severe ([facility]); Chronic pulmonary embolism, unspecified pulmonary embolism type, unspecified whether acute cor pulmonale present ([facility]); Anticoagulated; Obesity, Class II, BMI 35-39.9; Myocardial infarction, unspecified TN type, unspecified artery ([facility]); Requires continuous at home supplemental oxygen; ANCA on CPAP; PAD (peripheral artery disease) ([facility]); Bilateral carotid artery stenosis; Malignant neoplasm of right female breast, unspecified estrogen receptor status, unspecified site of breast ([facility]); Type 2 diabetes mellitus with other specified complication, with long-term current use of insulin (HCC); Family history of premature CAD; MRSA cellulitis; Chronic back pain, unspecified back location, unspecified back pain laterality; PVD (peripheral vascular disease) ([facility]); Gastroparesis; Osteoporosis, unspecified osteoporosis type, unspecified pathological fracture presence; Hyperlipidemia, unspecified hyperlipidemia type; Contrast media allergy 10/08/2019 Office Visit [facility] [address] [facility] [place] [address] Social History Date Tobacco Use Types Packs/Day [...] Comments Vital Sign 136/62 10/08/2019 10:24 AM [facility] Blood Pressure 67 10/08/2019 10:24 AM [facility] Pulse 36.7 C (98.1 F) 10/08/2019 10:24 AM [facility] Temperature - - Respiratory Rate 95% 10/08/2019 10:24 AM [facility] Oxygen Saturation - - Inhaled Oxygen Concentration 102.6 kg (226 lb 1.6 oz) 10/08/2019 10:24 AM [facility] Weight 162.6 cm (5' 4") 10/08/2019 10:24 AM [facility] Height 38.81 10/08/2019 10:24 AM [facility] Body Mass Index documented in this encounter [...] Stephany George APRN - 10/08/2019 10:30 AM [facility] Date of Service: 10/08/2019 Subjective: Maggy Nicholas [...] cannula currently on 2 L, gastroparesis, obesity, TN x3, status p ost coronary artery bypass grafting in 2005 at [facility] in [facility], breast cancer diagnosed in 2005 following her cardiac operation and is st atus post right lumpectomy and mediastinal radiation with chronic radiation type changes on her skin, severe COPD, history of tobacco use quitting in 2008, 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, peripheral artery disease with b ilateral iliac stents, bilateral carotid artery disease, family history of adelso ture coronary artery disease with her father having an TN prior to the age of 55 , [...] left heart catheterization also at an outside [facility] that showed an elevated mean right atrial pressure at 10 pulmonary arter y pressure mean was 34, pulmonary capillary wedge pressure was 25, cardiac outpu t was 5.6 L/min with an index of 2.5, severe aortic valve stenosis with a mean g radient of 56 mmHg and a valve area of 0.6 cm, severe rosebud three-vessel aurora nary artery disease with patent [...] or groin area. Denies any reason or roman catholic belief that would impact their car e [...] disease (HCC) moderate disease Breast cancer (HCC) 2008 Right- lumpectomy and radiation CAD (coronary artery disease) CHF (congestive heart failure) ([facility]) Chronic back pain with spinal nerve stimulator [...] S/P CABG (coronary artery bypass graft) 2006 [facility] in [place], [place] Surgical History: Procedure Laterality Date EYE [...] 2010 DENTAL SURGERY 2012, 2013 cheek infection IN EXCISION TUMOR SOFT TISSUE LEG/ANKLE SUBQ 3 [...] solution Swish and Spit 15 mL by [facility] as directed after meals and at bedtime. citalopram (CELEXA) 40 mg tablet Take 40 mg by mouth at bedtime daily. dexlansoprazole (+) (DEXILANT) 60 mg capsule Take 60 mg by mouth daily. docusate (COLACE) 100 mg capsule Take 100 mg by mouth at bedtime daily. fluticasone (FLONASE) 50 mcg/actuation nasal spray Apply 1 Agar to each nos tril as directed twice [...] (congestive heart failure), NYHA class 3 ([facility]) 3. S/P CABG (coronary artery bypass graft) 4. COPD, severe ([facility]) 5. Chronic pulmonary embolism, unspecified pulmonary embolism type, unspecified whether acute cor pulmonale present ([facility]) 6. Anticoagulated 7. Obesity, Class II, BMI 35-39.9 8. Myocardial infarction, unspecified TN type, unspecified artery ([facility]) 9. Requires continuous at home supplemental oxygen 10. ANCA on CPAP 11. PAD (peripheral artery disease) ([facility]) 12. Bilateral carotid artery stenosis 13. Malignant neoplasm of right female breast, unspecified estrogen receptor sta tus, unspecified site of breast ([facility]) 14. Type 2 diabetes mellitus with other specified complication, with long-term c urrent use of insulin ([facility]) 15. Family history of premature CAD 16. MRSA cellulitis 17. Chronic back pain, unspecified back location, unspecified back pain laterali ty 18. PVD (peripheral vascular disease) (HCC) 19. Gastroparesis 20. Osteoporosis, unspecified osteoporosis type, unspecified pathological fractu re presence 21. Hyperlipidemia, unspecified hyperlipidemia type 22. Contrast media allergy We will continue with TAVR workup. She will need dental clearance prior to surge ry. We will also need to obtain her operative report from her iliac stenting to identify her stents and better know her access for TAVR. Stephany George APRN [facility] Thoracic & Cardiovascular Surgery 10/08/2019 [...] of this nice lady. Augusto Moise M.D. [facility] documented in this encounter Plan of Treatment [...] (congest jeffrey heart failure), NYHA class 3 ([facility]) Acute on chronic diastolic heart failur e S/P CABG (coronary artery bypass graft) Postsurgical aortocoronary bypass statu s COPD, severe ([facility]) Chronic airway obstruction, not elsewhe re classified Chronic pulmonary embolism, unspecified pulmonary embolism type, unspecified whether acute cor pulmonale present ([facility]) Anticoagulated Long-term (current) use of anticoagulan ts Obesity, Class II, BMI 35-39.9 Morbid obesity Myocardial infarction, unspecified TN t ype, unspecified artery ([facility]) Requires continuous at home supplementa l oxygen ANCA on CPAP Obstructive sleep apnea (adult) ([facility]) PAD (peripheral artery disease) ([facility]) Peripheral vascular disease, unspecifie d Bilateral carotid artery stenosis Occlusion and stenosis of multiple and bilateral precerebral arteries without mention of cerebral infarction Malignant neoplasm of right female skyl[address] st, unspecified estrogen receptor status, unspecified site of breast ([facility]) Type 2 diabetes mellitus with other spe cified complication, with long-term current use of insulin ([facility]) Family history of premature CAD Family history of ischemic heart diseas e MRSA cellulitis Cellulitis and abscess of unspecified s ite Chronic back pain, unspecified back loc ation, unspecified back pain laterality PVD (peripheral vascular disease) ([facility]) Peripheral vascular disease, unspecifie d Gastroparesis Osteoporosis, unspecified osteoporosis type, unspecified pathological fracture presence Hyperlipidemia, unspecified hyperlipide tianna type Contrast media allergy Allergy to radiographic dye documented in this encounter
--- OUTSIDE RECORDS SUMMARY | 2020-03-30 19:56 | XMS REPORT | Encounter Summary ---
Author Author [facility] Organization [facility] Address Unknown Phone Unavailable Care Team Providers Care Floral Merchandiser Name Role Phone Bishnu Martin MD Unavailable Chata Chau DPM Unavailable Jesus López MD PCP Unavailable Reason for Referral * Radiology Services (Routine) Referred By Contact Referred To Contact Status Reason Specialty Diagnoses / Procedures Dina Barnes APRN-NP [address] [address] New Request Radiology Diagnoses Aortic valve stenosis, etiology of cardiac valve disease unspecified P rocedures CTA ABD/PELVIS * Radiology Services (Routine) Referred By Contact Referred To Contact Status Reason Specialty Diagnoses / Procedures Dina Barnes APRN-NP [address] [address] No Auth Needed Radiology Diagnoses Aortic valve stenosis, etiology of cardiac valve disease unspecified P rocedures CTA CHEST WO/W CONTRAST+POST IMPRESSION Reason for Visit * Radiology Services (Routine) Referred By Contact Referred To Contact Status Reason Specialty Diagnoses / Procedures Dina Barnes APRN-NP [address] [address] No Auth Needed Radiology Diagnoses Aortic valve stenosis, etiology of cardiac valve disease unspecified P rocedures CTA CHEST WO/W CONTRAST+POST IMPRESSION Encounter Details Care Team Description Date Type Department Dina Barnes, COLOR STRAINER-CLOTH CHECKER [address] [facility] [address] [place] [address] [phone] 10/02/2019 [facility] Encounter Health System [address] [address] Social History Date Tobacco Use Types Packs/Day [...] bedtime daily. fluticasone (FLONASE) 50 Apply 1 [place] 0 mcg/actuation nasal spray to each nostril [...] 10/02/[address] enosis, 12:50 PM [employer] H[employer] SUPERVISOR etiology of cardiac valve disease unspecified CTA CHEST WO/W Routine 10/02/[address] enosis, CONTRAST+POST IMPRESSION 12:50 PM METAL HANGING SUPERVISOR etiology of cardiac valve disease unspecified HC CREATININE, POC 10/02/2019 12:30 PM METAL HANGING SUPERVISOR documented in this encounter Results * CTA ABD/PELVIS (10/02/2019 12:50 PM METAL HANGING SUPERVISOR) Specimen Impressions Performed At CHEST: [facility] [...] Interface, Radiant Results - 10/02/2019 2:44 PM METAL HANGING SUPERVISOR CTA CHEST, ABDOMEN AND PELVIS Clinical Indication: [...] CHEST WO/W CONTRAST+POST IMPRESSION (10/02/2019 12:50 PM METAL HANGING SUPERVISOR) Specimen Impressions Performed At CHEST: [facility] [...] Interface, Radiant Results - 10/02/2019 2:44 PM METAL HANGING SUPERVISOR CTA CHEST, ABDOMEN AND PELVIS Clinical Indication: [...] on 10/02/2019 2:19 PM. Performing Organization Address [facility] Ph one Number [facility] RAD RESULTS * POC CREATININE, RAD (10/02/2019 12:30 PM METAL HANGING SUPERVISOR) Creatinine, POC 1.0 0.4 - 1.00 MG/DL [facility] Specimen Performing Organization Address [facility] Ph one Number MAIN LAB [address] [place] [address] documented in this encounter Visit Diagnoses Diagnosis Aortic valve stenosis, etiology of card iac valve disease unspecified documented in this encounter Administered Medications Action Date Dose Rate Site Medication Order MAR Action 10/02/2019 1:00 PM METAL HANGING SUPERVISOR 100 mL iohexol (OMNIPAQUE-350) 350 mg/mL Given injection 100 mL 100 mL, Intravenous, ONCE, 1 dose, 2/5/20 at 1300, Pre medicated NOTE: Thi s is a HIGH ALERT Medication., 10/02/2019 1:00 PM METAL HANGING SUPERVISOR 50 mL sodium chloride PF 0.9% injection 50 mL Given 50 mL, Intravenous, ONCE, 1 dose, 10/02/19 at 1300, Intra-procedure (IR) documented in this encounter
--- OUTSIDE RECORDS SUMMARY | 2020-03-30 19:56 | XMS REPORT | Encounter Summary ---
Author Author [facility] Organization [facility] Address Unknown Phone Unavailable Care Team Providers Care Electric Sign Wirer Name Role Phone Bishnu Martin MD Unavailable Chata Cahu DPM Unavailable Jesus López MD PCP Unavailable Encounter Details Care Team Description Date Type Department Dina Barnes, POULTRY BUYER-PACKAGER [address] [facility] [address] [place] [address] [phone] 10/08/2019 [facility] [address] [facility] [address] [place] [address] Social History Date Tobacco Use Types Packs/Day [...] bedtime daily. fluticasone (FLONASE) 50 Apply 1 [place] 0 mcg/actuation nasal spray to each nostril [...] ed? Diabetic Blood Sugar Lifestyle No Lashell, Lias Mera RN documented as of this encounter Procedures Comments Procedure Name Priority Date/Time Associated Diag nosis PFT COMPLETE PULM Routine 10/08/2019 Aortic valve stenosis, FUNCTION 8:18 AM AUTOCUTTER etiology of cardiac valve disease unspecified documented in this encounter Results * PFT COMPLETE PULM FUNCTION (10/08/2019 8:18 AM AUTOCUTTER) FVC-Pre 1.41 L [facility] P[facility] MAIN FVC-%Pred-pre 48 % [facility] FVC-Post 1.86 L [facility] FVC-%Pred-Post 64 % [facility] FEV1-Pre 0.83 L [facility] FEV1-%Pred-Pre 38 % [facility] FEV1-Post 1.11 L [facility] FEV1-%Pred-Post 51 % [facility] FEV1/FVC-Pre 59 % [facility] [id number] 66 % [facility] [id number] 0.42 L/sec [facility] [id number]-%Pred-P 23 % [facility] re [id number] 0.92 L/sec [facility] [id number]-%Pred-P 50 % [facility] ost PEF-Post [...] MAIN DLVA-#SD -0.747 ml/min/mmHg/L [facility] [id number] 44 % [facility] MAIN Specimen Narrative Performed At This result has an attachment that is n ot available. Performing Organization Address City/State/Zipcode Ph one Number [facility] PFT MAIN [address] [place], [place] [address] documented in this encounter Visit Diagnoses Not on filedocumented in this encounter
--- OUTSIDE RECORDS SUMMARY | 2020-03-30 19:56 | XMS REPORT | Encounter Summary ---
Author Author [facility] Organization [facility] Address Unknown Phone Unavailable Care Team Providers Care Ship Scaler Name Role Phone Bishnu Martin MD Unavailable Chata Chau DPM Unavailable Jesus López MD PCP Unavailable Reason for Visit * Reason Comments New Patient ref. Dr. Valera; /TAVR cydney l * Consult, Test & Treat (Routine) Referred By Contact Referred To Contact Status Reason Specialty Diagnoses / Procedures Mac, Referring [facility] [address] [address] New Request Specialty Services Cardiology Diagnoses Required Aortic valve stenosis, etiology of cardiac valve disease unspecified Encounter Details Care Team Description Date Type Department Steven Berry MD [address] [address] [phone] New Patient (ref. Dr. Valera; /TAVR cydney l) 10/08/2019 Office Visit [facility] [address] [address] Social History Date Tobacco Use Types Packs/Day [...] Comments Vital Sign 136/62 10/08/2019 10:34 AM CATALYTIC CONVERTER OPERATOR HELPER Blood Pressure 67 10/08/2019 10:34 AM CATALYTIC CONVERTER OPERATOR HELPER Pulse 36.7 C (98.1 F) 10/08/2019 10:34 AM CATALYTIC CONVERTER OPERATOR HELPER Temperature - - Respiratory Rate 95% 10/08/2019 10:34 AM CATALYTIC CONVERTER OPERATOR HELPER Oxygen Saturation - - Inhaled Oxygen Concentration 102.5 kg (226 lb) 10/08/2019 10:34 AM CATALYTIC CONVERTER OPERATOR HELPER Weight 162.6 cm (5' 4") 10/08/2019 10:34 AM CATALYTIC CONVERTER OPERATOR HELPER Height 38.79 10/08/2019 10:34 AM CATALYTIC CONVERTER OPERATOR HELPER Body Mass Index documented in this encounter [...] Steven Berry MD - 10/08/2019 10:30 AM CATALYTIC CONVERTER OPERATOR HELPER Date of Service: 10/08/2019 Maggy Nicholas is a 69 y.o. female. HPI We had the pleasure of seeing Maggy [...] cannula currently on 2 L, gastroparesis, obesity, IA x3, status p ost coronary artery bypass grafting in 2005 at [facility] in 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 with a nerve stimulator in place, peripheral artery disease with b ilateral iliac stents, bilateral carotid artery disease, family history of adelso ture coronary artery disease with her father having an IA prior to the age of 55 , [...] left heart catheterization also at an outside [facility] that showed an elevated mean right atrial pressure at 10 pulmonary arter y pressure mean was 34, pulmonary capillary wedge pressure was 25, cardiac outpu t was 5.6 L/min with an index of 2.5, severe aortic valve stenosis with a mean g radient of 56 mmHg and a valve area of 0.6 cm, severe [place] three-vessel [place]ary artery disease with patent [...] or groin area. Denies any reason or episcopal belief that would impact their car e [...] Contrast media allergy Hyperlipidemia DM (diabetes mellitus) ([facility]) Obese PVD (peripheral vascular disease) ([facility]) Pulmonary embolism ([facility]) Aortic stenosis Type 2 diabetes mellitus with circulatory disorder, with long-term current u se of insulin ([facility]) 10/03/20162009 - Insulin pump started. Hypertension 09/27/2016 CAD (coronary artery disease) 09/27/2016 09/15/05 Cath ([facility]):Triple-vessel CAD with 100% proximal RCA with significant reconstitution of the vessel distally from collaterals, 90% stenosis of the cir cumflex proximal to a large obtuse marginal branch, and a 75% lesion in the diag onal branch. EF 25-30%. Elevated EDP. Inferior akinesis. 04/17/06 Cath ([facility]): Severe triple-vessel [place] coronary disease. 12/30 bypasses remain open with good flow. Overall preserved LV systolic function. 02/15/13 Echo ([facility]): Normal LV contraction. AV sclerosis vs mild aortic stenosi s. Minimally dilated LA. Mild mitral and tricuspid regurgitation. 12/30/14 Echo ([facility]): Mild concentric LVH and dilation with overall normal systol ic EF and mildly impaired diastolic relaxation. Calcified , mild to moderate. Left atrial enlargement, mild. Mild tricuspid regurgitation. 02/19/16 Echo ([facility]): EF 60%. Mild to moderate . (Mean gradient 21 mmHg) Mild mitral and tricuspid regurgitation. Mild diastolic dysfunction of the LV. LVH w ith normal LV contraction. Minimally dilated LA. 07/23/16 ECG ([facility]): SR, 86 BPM. No distinct abnormalities are seen. 07/23/16 Chest X-ray ([facility]): No acute cardiopulmonary findings. 07/24/16 CTA Chest ([facility]): No central PE. Groundglass opacities involving the u pper lobes in the dependent RLL why may represent fluid overload. Emphysema. COPD (chronic obstructive pulmonary disease) ([facility]) 09/27/2016 HLD (hyperlipidemia) 09/27/2016 Status post coronary artery bypass graft 09/27/2016 2006: CABGx5 Fistula of maxillary sinus 07/19/2016 Primary osteoarthritis of hand 12/01/2015 Breast cancer ([facility]) 08/28/2007 Right- lumpectomy and radiation Medical History: Diagnosis Date Acute on chronic diastolic CHF (congestive heart failure), NYHA class 3 ([facility] ) Anticoagulated for PE Aortic stenosis Arthritis Bilateral carotid artery disease ([facility]) moderate disease Breast cancer ([facility]) 2007 Right- lumpectomy and radiation CAD (coronary artery disease) CHF (congestive heart failure) ([facility]) Chronic back pain with spinal nerve stimulator Contrast media allergy COPD, severe ([facility]) CVA (cerebral vascular accident) ([facility]) DM (diabetes mellitus) ([facility]) Family history of premature CAD Gastroparesis Heart murmur Hyperlipidemia Hypertension MRSA cellulitis 2006 right leg vein harvest site Myocardial infarction ([facility]) 2005, ~2005 Total of 3 Neuropathy Obese Obesity, Class II, BMI 35-39.9 ANCA on CPAP with supplemental O2 Osteoporosis PAD (peripheral artery disease) ([facility]) s/p bilateral iliac stents Pulmonary embolism ([facility]) PVD (peripheral vascular disease) ([facility]) Requires continuous at home supplemental oxygen S/P CABG (coronary artery bypass graft) 2006 [place], [place] Surgical History: Procedure Laterality Date EYE [...] 2010 DENTAL SURGERY 2011, 2013 cheek infection UT EXCISION TUMOR SOFT TISSUE LEG/ANKLE SUBQ 3 [...] CHF (congestive heart failure), NYHA class 3 ([facility]) 3. S/P CABG (coronary artery bypass graft) 4. COPD, severe ([facility]) 5. Chronic pulmonary embolism, unspecified pulmonary embolism type, unspecified whether acute cor pulmonale present ([facility]) 6. Anticoagulated 7. Obesity, Class II, BMI 35-39.9 8. Myocardial infarction, unspecified IA type, unspecified artery ([facility]) 9. Requires continuous at home supplemental oxygen 10. ANCA on CPAP 11. PAD (peripheral artery disease) ([facility]) 12. Bilateral carotid artery stenosis 13. Malignant neoplasm of right female breast, unspecified estrogen receptor sta tus, unspecified site of breast ([facility]) 14. Type 2 diabetes mellitus with other specified complication, with long-term c urrent use of insulin ([facility]) 15. Family history of premature CAD 16. MRSA cellulitis 17. Chronic back pain, unspecified back location, unspecified back pain laterali ty 18. PVD (peripheral vascular disease) ([facility]) 19. Gastroparesis 20. Osteoporosis, unspecified osteoporosis type, unspecified pathological fractu re presence 21. Hyperlipidemia, unspecified hyperlipidemia type 22. Contrast media allergy We will continue with TAVR workup. She will need dental clearance prior to surge ry. We will also need to obtain her operative report from her iliac stenting to identify her stents and better know her access for TAVR. Stephany George APRN [facility] Thoracic & Cardiovascular Surgery 10/08/2019 Assessment [...] solution Swish and Spit 15 mL by [facility] as directed after meals and at bedtime. citalopram (CELEXA) 40 mg tablet Take 40 mg by mouth at bedtime daily. dexlansoprazole (+) (DEXILANT) 60 mg capsule Take 60 mg by mouth daily. docusate (COLACE) 100 mg capsule Take 100 mg by mouth at bedtime daily. fluticasone (FLONASE) 50 mcg/actuation nasal spray Apply 1 [place] to each nos tril as directed twice [...] cap Take 1 Cap by mouth daily. LYTIC CONVERTER OPERATOR HELPER documented in this encounter Plan of Treatment Not on filedocumented as of this encounter Goals Goal Patient Associated Recent Progress Patient-Stat Aut hor Goal Type Problems ed? Diabetic Blood Sugar Lifestyle No Lashell, Lisa Mera RN documented as of this encounter Procedures Comments Procedure Name Priority Date/Time Associated Diag nosis ECG-SCAN 10/08/2019 12:00 AM CATALYTIC CONVERTER OPERATOR HELPER documented in this encounter Results * ECG-SCAN (10/08/2019 12:00 AM CATALYTIC CONVERTER OPERATOR HELPER) Narrative Performed At This result has an [...] ischemic heart diseas e Myocardial infarction, unspecified IA t ype, unspecified artery (HCC) Chronic pulmonary [...]
--- OUTSIDE RECORDS SUMMARY | 2020-03-30 19:56 | XMS REPORT | Encounter Summary ---
Author Author [facility] Organization [facility] Address Unknown Phone Unavailable Care Team Providers Care Building Construction Estimator Name Role Phone Bishnu Martin MD Unavailable Chata Chau DPM Unavailable Jesus López MD PCP Unavailable Reason for Visit * Reason Comments Results CTA Encounter Details Care Team Description Date Type Department Dina Barnes, FEDERAL LAW CLERK-COMPUTER MECHANIC [address] [phone] Results (CTA) 10/02/2019 Telephone [facility] [address] [phone] Social History Date Tobacco Use Types Packs/Day [...] Dina Barnes APRN-NP - 10/02/2019 3:58 PM PROP SETTER CTA results noted. CTA was ordered for [...] to eir office. They will address anticoagulation. SETTER documented in this encounter Plan of Treatment Not on filedocumented as of this encounter Goals Goal Patient Associated Recent Progress Patient-Stat Aut hor Goal Type Problems ed? Diabetic Blood Sugar Lifestyle No Lisa Lobo RN documented as of this encounter Visit Diagnoses Not on filedocumented in this encounter
--- OUTSIDE RECORDS SUMMARY | 2020-03-30 19:57 | XMS REPORT ---
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 Commun i M.predicted among mL/min/1.7 ty blacks MDRD [address] [place] [address] (S/P/Bld) [[facility] rate/Area] [facility] () GFR/1.73 sq 55 mL/min/{1.73_m2} Low > OR = 60 Commun i M.predicted MDRD mL/min/1.7 ty (S/P/Bld) [[address] rate/Area] [facility] () Globulin (S) 2.7 g/dL Normal 1.9-3.7 Communi [Mass/Vol] g/dL ty (calc) [facility] () Glucose [Mass/Vol] 110 mg/dL High 65-99 Communi mg/dL ty [facility] () HbA1c (Bld) [Mass 7.4 High <5.7 % of Communi fraction] total Hgb ty [facility] () Potassium 4.3 mmol/L Normal 3.5-5.3 Communi [Moles/Vol] mmol/L ty [facility] (42754) Protein [Mass/Vol] 6.5 g/dL Normal 6.1-8.1 Communi g/dL ty [facility] (83806) Sodium [Moles/Vol] 141 mmol/L Normal 135-146 Communi mmol/L ty [facility] (03523) Triglyceride 174 mg/dL High <150 mg/dL Communi [Mass/Vol] ty [facility] (47309) Urea nitrogen 13 mg/dL Normal 7-25 mg/dL Communi [Mass/Vol] [facility] (45348) Urea 13 mg/mg Normal 6-22 Communi nitrogen/Creatinine (calc) ty [Mass ratio] [facility] (81348) laboratory on 2019-02-01 Albumin [Mass/Vol] 3.9 g/dL Normal 3.6-5.1 Communi g/dL ty [facility] (99015) Albumin/Globulin 1.4 {ratio} Normal 1.0-2.5 Communi [Mass ratio] (calc) ty [facility] (96513) ALP [Catalytic 91 U/L Normal 33-130 U/L Communi activity/Vol] [facility] (24445) ALT [Catalytic 11 U/L Normal 6-29 U/L Communi activity/Vol] [facility] (22601) AST [Catalytic 16 U/L Normal 10-35 U/L Communi activity/Vol] ty [facility] (85441) Bilirubin [Mass/Vol] 0.4 mg/dL Normal 0.2-1.2 Commu ni mg/dL ty [facility] (21121) Calcium [Mass/Vol] 8.9 mg/dL Normal 8.6-10.4 Communi mg/dL [facility] (19750) Chloride [Moles/Vol] 105 mmol/L Normal 98-110 Commu ni mmol/L ty [facility] (67976) Cholesterol 135 mg/dL Normal <200 mg/dL Communi [Mass/Vol] ty [facility] () Cholesterol in HDL 38 mg/dL Low >50 mg/dL Communi [Mass/Vol] ty [facility] () Cholesterol in LDL 72 mg/dL Normal mg/dL Communi [Mass/Vol] (calc) ty [facility] () Cholesterol non HDL 97 mg/dL Normal <130 mg/dL Commun i [Mass/Vol] (calc) ty [facility] (80329) Cholesterol.total/Ch 3.6 {ratio} Normal <5.0 Commu ni olesterol in HDL (calc) ty [Mass ratio] [facility] () CO2 [Moles/Vol] 31 mmol/L Normal 20-32 Communi mmol/L ty [facility] () Creatinine 1.04 mg/dL High 0.60-0.93 Communi [Mass/Vol] mg/dL ty [facility] () GFR/1.73 sq 63 mL/min/{1.73_m2} Normal > OR = 60 Commun i M.predicted among mL/min/1.7 ty blacks MDRD [address] [place] [address] (S/P/Bld) [[facility] rate/Area] [facility] () GFR/1.73 sq 54 mL/min/{1.73_m2} Low > OR = 60 Commun i M.predicted MDRD mL/min/1.7 ty (S/P/Bld) [[address] rate/Area] [facility] () Globulin (S) 2.7 g/dL Normal 1.9-3.7 Communi [Mass/Vol] g/dL ty (calc) [facility] () Glucose [Mass/Vol] 102 mg/dL High 65-99 Communi mg/dL ty [facility] () HbA1c (Bld) [Mass 6.8 High <5.7 % of Communi fraction] total Hgb ty [facility] () Potassium 3.9 mmol/L Normal 3.5-5.3 Communi [Moles/Vol] mmol/L ty [facility] (63965) Protein [Mass/Vol] 6.6 g/dL Normal 6.1-8.1 Communi g/dL ty [facility] (61732) Sodium [Moles/Vol] 143 mmol/L Normal 135-146 Communi mmol/L ty [facility] (19087) Triglyceride 172 mg/dL High <150 mg/dL Communi [Mass/Vol] ty [facility] (32486) Urea nitrogen 14 mg/dL Normal 7-25 mg/dL Communi [Mass/Vol] ty [facility] (11612) Urea 13 mg/mg Normal 6-22 Communi nitrogen/Creatinine (calc) ty [Mass ratio] [facility] (03788) not yet categorized on 2018-10-30 SPECIMEN INTEGRITY Invalid Communi COMPROMISED Interpreta ty tion Code [facility] (56103) laboratory on 2018-10-30 Albumin [Mass/Vol] 4.0 g/dL Normal 3.6-5.1 Communi g/dL ty [facility] (52014) Albumin/Globulin 1.4 {ratio} Normal 1.0-2.5 Communi [Mass ratio] (calc) ty [facility] (57277) ALP [Catalytic 76 U/L Normal 33-130 U/L Communi activity/Vol] [facility] (30037) ALT [Catalytic 11 U/L Normal 6-29 U/L Communi activity/Vol] ty [facility] (55737) AST [Catalytic 15 U/L Normal 10-35 U/L Communi activity/Vol] [facility] (62397) Bilirubin [Mass/Vol] 0.5 mg/dL Normal 0.2-1.2 Commu ni mg/dL ty [facility] (39753) Calcium [Mass/Vol] 9.1 mg/dL Normal 8.6-10.4 Communi mg/dL ty [facility] (44415) Chloride [Moles/Vol] 101 mmol/L Normal 98-110 Commu ni mmol/L ty [facility] (73945) Cholesterol 130 mg/dL Normal <200 mg/dL Communi [Mass/Vol] ty [facility] (32977) Cholesterol in HDL 42 mg/dL Low >50 mg/dL Communi [Mass/Vol] ty [facility] (63256) Cholesterol in LDL 68 mg/dL Normal mg/dL Communi [Mass/Vol] (calc) ty [facility] (38571) Cholesterol non HDL 88 mg/dL Normal <130 mg/dL Commun i [Mass/Vol] (calc) ty [facility] (89752) Cholesterol.total/Ch 3.1 {ratio} Normal <5.0 Commu ni olesterol in HDL (calc) ty [Mass ratio] [facility] (21670) CO2 [Moles/Vol] 28 mmol/L Normal 20-32 Communi mmol/L ty [facility] (80118) Creatinine 0.86 mg/dL Normal 0.60-0.93 Communi [Mass/Vol] mg/dL ty [facility] (32627) GFR/1.73 sq 79 mL/min/{1.73_m2} Normal > OR = 60 Commun i M.predicted among mL/min/1.7 ty blacks MDRD 3m2 Health (S/P/Bld) [Vol Center rate/Area] [facility] (56398) GFR/1.73 sq 68 mL/min/{1.73_m2} Normal > OR = 60 Commun i M.predicted MDRD mL/min/1.7 ty (S/P/Bld) [Vol 3m2 Health rate/Area] [facility] (14766) Globulin (S) 2.9 g/dL Normal 1.9-3.7 Communi [Mass/Vol] g/dL ty (calc) [facility] (41118) Glucose [Mass/Vol] TNP Invalid mg/dL Communi Interpreta ty tion Code [facility] (27941) HbA1c (Bld) [Mass 6.5 High <5.7 % of Communi fraction] total Hgb ty [facility] (67935) Potassium 4.4 mmol/L Normal 3.5-5.3 Communi [Moles/Vol] mmol/L ty [facility] (20986) Protein [Mass/Vol] 6.9 g/dL Normal 6.1-8.1 Communi g/dL ty [facility] (92084) Sodium [Moles/Vol] 143 mmol/L Normal 135-146 Communi mmol/L ty [facility] (74530) Triglyceride 113 mg/dL Normal <150 mg/dL Communi [Mass/Vol] ty [facility] (08245) Urea nitrogen 14 mg/dL Normal 7-25 mg/dL Communi [Mass/Vol] ty [facility] (61664) Urea NOT APPLICABLE Invalid 6-22 Communi nitrogen/Creatinine Interpreta (calc) ty [Mass ratio] tion Code [facility] (61363) Social History No Information Vital Signs The data below is from unstructured sources Vital Response Date/Time Temperature (Fahrenheit) 97.5 degree s F (97.6 - 99.5) 07/31/2015 12:20pm Temperature (Calculated Celsius) 36. 60543 degrees C (36.4 - 37.5) 07/31/2015 11:50am [...] inches 07/31/2015 7:09am Height (Calculated Centimeters) 165. 992042 cm 07/31/2015 7:09am Weight (Pounds) 213 pounds 07/31/2015 7:09am Weight (Calculated Grams) 18551.176 gm 07/31/2015 7:09am Weight (Calculated Kilograms) 96.615 176 kilograms 07/31/2015 7:09am Calculated BMI 35.44 11/2014 7:09am Vital Response Date/Time Temperature (Fahrenheit) 97.3 degree s F (97.6 - 99.5) 03/02/2018 5:00pm Temperature (Calculated Celsius) 36. 20563 degrees C (36.4 - 37.5) 03/02/2018 4:45pm [...] inches 03/02/2018 11:15am Height (Calculated Centimeters) 165. 026272 cm 03/02/2018 11:15am Weight (Pounds) 213 pounds 03/02/2018 11:15am Weight (Ounces) 0.0 oz 0 03/02/2018 11:15am Weight (Calculated Grams) 48731.18 gm 03/02/2018 11:15am Weight (Calculated Kilograms) 96.615 176 kilograms 03/02/2018 11:15am Calculated BMI 35.4 01/2018 11:15am Functional Status The data below is from unstructured sourcesNo functional status results.No functional status information available.No functional status information available. Mental Status No Information Summary Purpose eClinicalWorks SubmissioneClinicalWorks Submission Advance Directives Directive Response Recor ded Date/Time Advance Directives No 7:09am Health Care Power of Telecommunications Analyst No 07/31/15 7:09am Resuscitation Status Full Code 07/31/15 7:09am Directive Response Recor ded Date/Time Advance Directives No 11:15am Health Care Power of Telecommunications Analyst No 03/02/18 11:15am Organ Donor Yes 03/02/18 11:15am Resuscitation Status Full Code 03/02/18 11:15am Discharge Instructions No hospital discharge instruction information available. Additional Source Comments This clinical document has been generated using [employer] software that has been certified by the Office of the National Coordinator for Health Information Technology (ONC 15.99.04.3023.Diam.[id number]) and the National Committee for Legal Paraprofessional (NCQA, as an eMeasure certified technology). FOR [...] BASED ON T HE PRIMARY CLINICAL RECORDS. [employer] provides no warranty or guara ntee of the accuracy or completeness of information in this document.The followi ng information is based on time limited clinical information UNRECOGNIZED CONTENT PROVIDED BELOW FOR UNRECOGNIZED SECTION REASON FOR VISIT hydrocodone
== END 2020-03-30 17:16 | disposition home or self-care (01) ==
LOC: EDUNIT# 16:28 → ER FS 16:29
DX: S92.341A Displaced fracture of fourth metatarsal bone, right foot, initial encounter for closed fracture (principal); J43.9 Emphysema, unspecified; I10 Essential (primary) hypertension; E78.00 Pure hypercholesterolemia, unspecified; I25.10 Atherosclerotic heart disease of native coronary artery without angina pectoris; I25.2 Old myocardial infarction; F32.9 Major depressive disorder, single episode, unspecified; M54.9 Dorsalgia, unspecified; G89.29 Other chronic pain; G62.9 Polyneuropathy, unspecified; Z85.3 Personal history of malignant neoplasm of breast; Z85.41 Personal history of malignant neoplasm of cervix uteri; Z79.4 Long term (current) use of insulin; Z95.1 Presence of aortocoronary bypass graft; Z87.891 Personal history of nicotine dependence; Z79.82 Long term (current) use of aspirin; Z79.51 Long term (current) use of inhaled steroids; Z88.0 Allergy status to penicillin; Z88.1 Allergy status to other antibiotic agents; Z91.041 Radiographic dye allergy status; Z91.030 Bee allergy status; Z88.8 Allergy status to other drugs, medicaments and biological substances; X50.1XXA Overexertion from prolonged static or awkward postures, initial encounter; Y93.01 Activity, walking, marching and hiking
CPT/HCPCS: 73630

== ENCOUNTER → 2020-10-29 | Outpatient (CLI) | payer MEDICARE, MEDICAID ==
[~2020-10-29] MED LIST changes: -ALEN70TA5 PO; +ALEN70TA80 PO; -CALC600T14 PO; +CLC600T PO; -LISI10TA2 PO; +LISI10TA25 PO
== END ==
LOC: ONC 13:29
PROVIDERS: ATTEND Internal Medicine Hematology & Oncology
DX: C50.411 Malignant neoplasm of upper-outer quadrant of right female breast (principal); D50.9 Iron deficiency anemia, unspecified; M81.0 Age-related osteoporosis without current pathological fracture; I25.10 Atherosclerotic heart disease of native coronary artery without angina pectoris; I10 Essential (primary) hypertension; E78.00 Pure hypercholesterolemia, unspecified; Z87.19 Personal history of other diseases of the digestive system; Z90.11 Acquired absence of right breast and nipple; Z92.3 Personal history of irradiation; Z98.890 Other specified postprocedural states
CPT/HCPCS: 99213

== ENCOUNTER 2020-11-09 21:47 | Emergency (ER) | payer MEDICARE, MEDICAID ==
[~2020-11-09] VITALS: Ht 165.1 cm; Wt 102.9 kg
--- NOTE | 2020-11-09 22:26 | ED Lower Extremity ---
General Chief Complaint: Lower Extremity Stated Complaint: RT LEG SWELLING/PAIN Nursing Triage Note: Patient is here with right lower leg swelling. Patient states she is concerned because she has a history of DVT and PE. Patient is taking Xaralto. Patient states the swelling started at approximately 13:00 today and has progressively gotten worse. Nursing Sepsis Screen: No Definite Risk Source: patient History of Present Illness Date Seen by Provider: Nov 09, 2020 Time Seen by Provider: 21:53 Initial Comments 70-year-old female presenting with concerns of pain and swelling to the right anterior may. She denies any trauma to the leg. She does have a history of DVTs and pulmonary emboli. She is currently taking Xarelto and denies missing any doses of medication. She states that she noticed the pain and swelling around 1 PM today and it has progressively gotten worse. She has no increased warmth or erythema to the area. There is no break in the skin for concern of infection. She denies any fever or chills. She has no increased pain to the posterior calf. Allergies and Home Medications Allergies Coded Allergies: Penicillins (Verified Allergy, Severe, BLISTERS, 02/26/18) adhesive tape (Verified Allergy, Severe, BLISTERS, 02/26/18) barium sulfate (Verified Allergy, Severe, SEVERE GI UPSET, 02/26/18) cefazolin (Verified Allergy, Severe, BLISTERS, 02/26/18) clindamycin (Verified Allergy, Severe, BLISTERS, 02/26/18) erythromycin base (Verified Allergy, Severe, BLISTERS, 02/26/18) indomethacin (Verified Allergy, Severe, BLISTERS/SYNCOPE, 02/26/18) venom-honey bee (Verified Allergy, Severe, SWELLING, 02/26/18) cortisone (Verified Allergy, Intermediate, SYNCOPE, 02/26/18) Uncoded Allergies: IV DYE (Allergy, Severe, SEVERE GI PROBLEMS FOR DAYS, 07/29/15) SWEETNERS (Allergy, Severe, MAKES HER VERY ILL-HOSPITALIZED, 07/29/15) Home Medications Alendronate Sodium 70 Mg Tablet, 70 MG PO UD, (Reported) Aspirin 81 Mg Tablet.dr, 81 MG PO DAILY, (Reported) Atorvastatin Calcium 80 Mg Tablet, 80 MG PO HS, (Reported) Calcium Carbonate 600 Mg Tablet, 600 MG PO BID, (Reported) Carvedilol 6.25 Mg Tablet, 6.25 MG PO BID, (Reported) Cholecalciferol (Vitamin D3) 1,000 Unit Capsule, 1,000 UNIT PO DAILY, (Reported) Citalopram Hydrobromide 40 Mg Tablet, 40 MG PO HS, (Reported) Dexlansoprazole 60 Mg Cap., 60 MG PO DAILY, (Reported) Docusate Sodium 100 Mg Capsule, 100 MG PO DAILY, (Reported) Fluticasone Propionate 9.9 Ml Virgil.susp, 1 SPR NS BID, (Reported) Gabapentin 100 Mg Capsule, 100 MG PO BID, (Reported) Hydrocodone Bit/Acetaminophen 1 Each Tablet, 1 EACH PO Q4H PRN for PAIN, (Reported) Hydrocodone Bit/Acetaminophen 1 Tab Tab, 1-2 TAB PO Q4-6HR PRN for PAIN PRN PAIN Prescribed by: PASQUALE LEWIS on 03/02/18 1446 Insulin Aspart 100 Unit/1 Ml Susp, 1.9 UNIT SQ UD, (Reported) Lisinopril 10 Mg Tablet, 10 MG PO DAILY, (Reported) Loratadine 10 Mg Tablet, 10 MG PO BID, (Reported) Metformin HCl 500 Mg Tablet, 500 MG PO BID, (Reported) Multivitamin 1 Each Tablet, 1 EACH PO DAILY, (Reported) Potassium Chloride 10 Meq Tab.er.prt, 10 MEQ PO DAILY, (Reported) Sulfamethoxazole/Trimethoprim 1 Each Tablet, 1 EACH PO BID Prescribed by: AMY BARROS on 03/02/18 1631 Trazodone HCl 150 Mg Tablet, 150 MG PO HS, (Reported) Patient Home Medication List Home Medication List Reviewed: Yes Review of Systems Constitutional: No chills, No fever EENTM: no symptoms reported Respiratory: no symptoms reported Cardiovascular: no symptoms reported Gastrointestinal: no symptoms reported Genitourinary: no symptoms reported Musculoskeletal: see HPI Skin: see HPI; No change in color Psychiatric/Neurological: No Symptoms Reported Past Keztzqs-Omhvon-Ugkjko Hx Past Med/Social Hx: Reviewed Nursing Past Med/Soc Hx Patient Social History Alcohol Use: Denies Use Smoking Status: Never a Smoker Type Used: Cigarettes Former Smoker, Quit: Nov 24, 2008 2nd Hand Smoke Exposure: No Recent Infectious Disease Expo: No Recent Hopitalizations: No Immunizations Up To Date Date of Pneumonia Vaccine: Jul 28, 2015 Date of Influenza Vaccine: Jun 12, 2017 Seasonal Allergies Seasonal Allergies: Yes Past Medical History Surgeries: Yes (L EYE, RT HERNIA, PARTIAL AMP. R GREAT TOE, PARTIAL HYSTER- CERVICAL CA,) Breast, CABG, Gallbladder Respiratory: Yes (O2 2L ) Sleep Apnea, COPD, Emphysema Currently Using CPAP: Yes Cardiac: Yes (BYPASS X5) Coronary Artery Disease, Heart Attack, Heart Murmur, High Cholesterol, Hypertension Neurological: Yes Neuropathy Reproductive Disorders: No Female Reproductive Disorders: Denies Sexually Transmitted Disease: No HIV/AIDS: No Genitourinary: No Gastrointestinal: Yes (HX ULCERATIVE COLITIS) Colitis, Gastrointestinal Bleed Musculoskeletal: Yes (OSTEOARTHRITIS) Back Injury, Chronic Back Pain Endocrine: Yes (INSULIN PUMP) HEENT: No Loss of Vision: Bilateral Hearing Impairment: Denies Cancer: Yes Breast, Cervical Did You Recieve Any Treatments: Yes What Type of Treatment Did You: Radiation, Surgical Intervention Psychosocial: Yes (MILD) Depression Integumentary: No Blood Disorders: No Adverse Reaction/Blood Tranf: Yes (HAS RECIEVED BLOOD WITHOUT DIFFICULTY) Physical Exam Vital Signs Vital Signs - First Documented 11/09/20 21:49 Temp 36.3 Pulse 79 Resp 18 B/P (MAP) 156/62 (93) Pulse Ox 93 O2 Delivery Nasal Cannula O2 Flow Rate 2.00 Capillary Refill : Less Than 3 Seconds Height, Weight, BMI Height: 5'5.00" Weight: 213lbs. 0.0oz. 96.635841ag; 37.00 BMI Method: General Appearance: no apparent distress Cardiovascular: normal peripheral pulses Legs: right leg soft tissue tenderness, right leg swelling (Mild swelling and soft tissue tenderness to the anterior medial may just below her knee. No abrasion or break in the skin for infection. No crepitus. No drainage.) Neurologic/Psychiatric: alert, normal mood/affect, oriented x 3 Skin: normal color, warm/dry Progress/Results/Core Measures Results/Orders My Orders Vital Signs/I&O 11/09/20 11/09/20 21:49 23:07 Temp 36.3 36.3 Pulse 79 79 Resp 18 18 B/P (MAP) 156/62 (93) 156/62 (93) Pulse Ox 93 93 O2 Delivery Nasal Cannula Room Air O2 Flow Rate 2.00 2.00 Blood Pressure Mean: 93 Progress Progress Note : Progress Note Counseled patient that with her taking the Xarelto and not missing any doses that this is unlikely to be a DVT. Especially since she is not having pain over her calf her where she has deep veins. It appears to be more of an area where she could have a hematoma related to her Xarelto. There is some tenderness and fluctuance to the area. There is no bruising or erythema noted. There is also no break in the skin or signs for infection. Advised to continue with her Xarelto as prescribed. Given information to have downtime ultrasound of her r ight lower extremity to evaluate the area of swelling and pain. Counseled that if this was some sort of a blood clot the Xarelto would be the main treatment that we would use anyway. Patient is sounding more short of breath than usual. With pain and swelling being more medial and anterior again this may be more of a hematoma from mild trauma and being on the Xarelto. Departure Impression Primary Impression: Pain in right may Additional Impressions: Localized swelling of right lower extremity Hx of deep venous thrombosis Disposition: 01 HOME, SELF-CARE Condition: Stable Departure-Patient Inst. Decision time for Depature: 22:54 Referrals: CHRISTY LÓPEZ MD (PCP/Family) Primary Care Physician Patient Instructions: Doppler Ultrasound Add. Discharge Instructions: Continue on your regular medicines and make sure to continue on your Xarelto. Call Radiology at [phone] between 7 and 730 am to schedule Ultrasound for 9 am or a time that works for you. After you get the ultrasound done the results will go to Dr. López and if they see a blood clot or need emergent management then the ER doctor will be notified and help treat you. Tonight elevate your leg on an extra pillow and if you can tolerate ice apply an ice pack for 10-15 minutes every few hours while awake. You could also apply an angela bandage for compression to help with swelling. This looks like it might be a Hematoma or deep bruise but the ultrasound will help look at that. All discharge instructions reviewed with patient and/or family. Voiced understanding. Images Extremities-Lower 1 - Mild, Swelling, Tenderness (Area of mild swelling and tenderness to the right anterior and medial may/lower leg. No crepitus or cording. ) ZAHRA MEMBRENO MD Nov 09, 2020 22:26
[2020-11-09 23:07] VITALS: BP 156/62
== END 2020-11-09 23:08 | disposition home or self-care (01) ==
LOC: EDUNIT# 21:47 → ER FS 21:48
DX: M79.661 Pain in right lower leg (principal); M79.89 Other specified soft tissue disorders; I25.2 Old myocardial infarction; E78.00 Pure hypercholesterolemia, unspecified; I10 Essential (primary) hypertension; F32.9 Major depressive disorder, single episode, unspecified; G89.29 Other chronic pain; M54.9 Dorsalgia, unspecified; Z88.0 Allergy status to penicillin; Z88.1 Allergy status to other antibiotic agents; Z91.041 Radiographic dye allergy status; Z88.8 Allergy status to other drugs, medicaments and biological substances; Z87.891 Personal history of nicotine dependence; Z86.718 Personal history of other venous thrombosis and embolism; Z86.711 Personal history of pulmonary embolism; Z85.41 Personal history of malignant neoplasm of cervix uteri; Z95.1 Presence of aortocoronary bypass graft; Z79.82 Long term (current) use of aspirin; Z79.01 Long term (current) use of anticoagulants; Z79.891 Long term (current) use of opiate analgesic
CPT/HCPCS: 99283

== ENCOUNTER → 2020-11-10 | Outpatient (CLI) | payer MEDICARE, MEDICAID ==
--- NOTE | 2020-11-10 15:26 | Diagnostic Imaging Report ---
PROCEDURE: US right lower extremity venous. TECHNIQUE: Multiple Real-time grayscale images were obtained over the right lower extremity in various projections. Additional spectral analysis and color Doppler duplex images were also obtained. INDICATION: Right lower extremity swelling and pain. FINDINGS: The right lower extremity femoropopliteal deep venous system shows normal compressibility, normal color flow, and normal waveforms. There is no deep or superficial thrombus. No mass or fluid collection is demonstrated. IMPRESSION: Normal negative unilateral right lower extremity venous Doppler and ultrasound exam. Dictated by: Dictated on workstation # [id number]
== END ==
LOC: RAD 13:20
PROVIDERS: ATTEND Family Medicine
DX: M79.605 Pain in left leg (principal); M79.604 Pain in right leg; R22.43 Localized swelling, mass and lump, lower limb, bilateral; R51.9 Headache, unspecified

== ENCOUNTER → 2020-12-31 | Outpatient (CLI) | payer MEDICARE ==
[~2020-12-31] MED LIST changes: +CALC600T91 PO; -CLC600T PO; -DOCU-238 PO; +DOCU-241 PO; +FERRIC CARBOXYMALTOSE (CANCER) 750 MG in NS (IVPB) CANCER CENTER 250 ML IV SCH
== END ==
LOC: ONC 12-24 11:22
PROVIDERS: ATTEND Internal Medicine Hematology & Oncology
DX: Z51.11 Encounter for antineoplastic chemotherapy (principal); C50.411 Malignant neoplasm of upper-outer quadrant of right female breast; M81.0 Age-related osteoporosis without current pathological fracture; I25.10 Atherosclerotic heart disease of native coronary artery without angina pectoris; E78.00 Pure hypercholesterolemia, unspecified; J43.9 Emphysema, unspecified; E11.22 Type 2 diabetes mellitus with diabetic chronic kidney disease; Z86.2 Personal history of diseases of the blood and blood-forming organs and certain disorders involving the immune mechanism; Z92.3 Personal history of irradiation; Z90.11 Acquired absence of right breast and nipple; Z98.890 Other specified postprocedural states; Z87.19 Personal history of other diseases of the digestive system
CPT/HCPCS: 96365

== ENCOUNTER → 2021-01-07 | Outpatient (CLI) | payer MEDICARE | LOC: ONC 11:08 | PROVIDERS: ATTEND Internal Medicine Hematology & Oncology | DX: C50.411 Malignant neoplasm of upper-outer quadrant of right female breast (principal); D64.9 Anemia, unspecified; I10 Essential (primary) hypertension; E78.00 Pure hypercholesterolemia, unspecified; E11.9 Type 2 diabetes mellitus without complications | CPT/HCPCS: 96365 ==

== ENCOUNTER 2021-09-07 13:16 | Emergency (ER) | payer MEDICARE, MEDICAID ==
[~2021-09-07] VITALS: Ht 165 cm; Wt 100.0 kg
[~2021-09-07 13:16] MED LIST changes: -CITA40TA11 PO; +CITA40TA13 PO; -DOCU-241 PO; +DOCU-26 PO; -FERRIC CARBOXYMALTOSE (CANCER) 750 MG in NS (IVPB) CANCER CENTER 250 ML IV SCH; -POTA10TA36 PO; +POTA10TA37 PO; -SULF1TAB35 PO; +SULF1TAB38 PO
[2021-09-07] MEDS ORDERED: OXYMETAZOLINE (AFRIN) 0.05% NA 30 ML BTL ONE (13:51)
--- NOTE | 2021-09-07 14:33 | ED EENT ---
History of Present Illness General Chief Complaint: Nasal Problems Stated Complaint: EPISTAXIS Nursing Triage Note: PT REPORTS A NOSE BLEED OFF AND ON FOR 3-4 DAYS. LEFT NARE. BLEEDING HAS STOPPED SINCE ARRIVAL TO THE ED. THE PT HAD A ROLLED UP PIECE OF TOILET PAPER IN THE NARE. Source: patient Exam Limitations: no limitations History of Present Illness Date Seen by Provider: Sep 07, 2021 Time Seen by Provider: 13:43 Initial Comments Here with nosebleed that has been on and off for the last 3 to 4 days on the left side. Noted bleeding had stopped on arrival. Packing removed but then bleeding restarted. Packing was replaced until my evaluation. No injury. 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 She has been on that for 2 years. Not really had problems before with nosebleeds in her adult life but she used to have a lot of them when she was a kid. Denies illness. She is vaccinated and boosted for COVID-19. She does use oxygen at home. Timing/Duration: intermittent, other (Few days ago) Severity: mild Location: nose Prearrival Treatment: squeezing nostrils, nasal packing Associated Symptoms: No cough, No fever Allergies and Home Medications Allergies Coded Allergies: Penicillins (Verified Allergy, Severe, BLISTERS, 02/26/18) adhesive tape (Verified Allergy, Severe, BLISTERS, 02/26/18) barium sulfate (Verified Allergy, Severe, SEVERE GI UPSET, 02/26/18) cefazolin (Verified Allergy, Severe, BLISTERS, 02/26/18) clindamycin (Verified Allergy, Severe, BLISTERS, 02/26/18) erythromycin base (Verified Allergy, Severe, BLISTERS, 02/26/18) indomethacin (Verified Allergy, Severe, BLISTERS/SYNCOPE, 02/26/18) venom-honey bee (Verified Allergy, Severe, SWELLING, 02/26/18) cortisone (Verified Allergy, Intermediate, SYNCOPE, 02/26/18) Uncoded Allergies: IV DYE (Allergy, Severe, SEVERE GI PROBLEMS FOR DAYS, 07/29/15) SWEETNERS (Allergy, Severe, MAKES HER VERY ILL-HOSPITALIZED, 07/29/15) Patient Home Medication List Home Medication List Reviewed: Yes Alendronate Sodium (Alendronate Sodium) 70 Mg Tablet, 70 MG PO UD, (Reported) Entered as Reported by: LETICIA COLEY on 07/29/15 1312 Aspirin (Aspir 81) 81 Mg Tablet., 81 MG PO DAILY, (Reported) Entered as Reported by: LETICIA COLEY on 07/29/15 1321 Atorvastatin Calcium (Atorvastatin Calcium) 80 Mg Tablet, 80 MG PO HS, (Reported) Entered as Reported by: LETICIA COLEY on 07/29/15 131 Calcium Carbonate (Calcium) 600 Mg Tablet, 600 MG PO BID, (Reported) Entered as Reported by: LETICIA COLEY on 02/26/18 1215 Carvedilol (Carvedilol) 6.25 Mg Tablet, 6.25 MG PO BID, (Reported) Entered as Reported by: LETICIA COLEY on 07/29/15 131 Cholecalciferol (Vitamin D3) (Vitamin D) 1,000 Unit Capsule, 1,000 UNIT PO DAILY, (Reported) Entered as Reported by: LETICIA COLEY on 02/26/18 1215 Citalopram Hydrobromide (Citalopram HBr) 40 Mg Tablet, 40 MG PO HS, (Reported) Entered as Reported by: ELTICIA COLEY on 07/29/15 131 Dexlansoprazole (Dexilant) 60 Mg Cap., 60 MG PO DAILY, (Reported) Entered as Reported by: LETICIA COLEY on 07/29/15 131 Docusate Sodium (Stool Softener) 100 Mg Capsule, 100 MG PO DAILY, (Reported) Entered as Reported by: LETICIA COLEY on 07/29/15 131 Fluticasone Propionate (Flonase Allergy Relief) 9.9 Ml Smith.susp, 1 SPR NS BID, (Reported) Entered as Reported by: LETICIA COLEY on 07/29/15 1312 Gabapentin (Gabapentin) 100 Mg Capsule, 100 MG PO BID, (Reported) Entered as Reported by: LETICIA COLEY on 07/29/15 1312 Hydrocodone Bit/Acetaminophen (Lortab 5 Mg Tablet) 1 Each Tablet, 1 EACH PO Q4H PRN for PAIN, (Reported) Entered as Reported by: LETICIA COLEY on 07/29/15 1312 Hydrocodone Bit/Acetaminophen (Lortab 5 Mg Tablet) 1 Tab Tab, 1-2 TAB PO Q4-6HR PRN for PAIN Prescribed by: PASQUALE LEWIS on 03/02/18 1446 Insulin Aspart (Novolog) 100 Unit/1 Ml Susp, 1.9 UNIT SQ UD, (Reported) Entered as Reported by: LETICIA COLEY on 07/29/15 1312 Lisinopril (Lisinopril) 10 Mg Tablet, 10 MG PO DAILY, (Reported) Entered as Reported by: LETICIA COLEY on 07/29/15 1312 Loratadine (Loratadine) 10 Mg Tablet, 10 MG PO BID, (Reported) Entered as Reported by: LETICIA COLEY on 07/29/15 1312 Metformin HCl (Metformin HCl) 500 Mg Tablet, 500 MG PO BID, (Reported) Entered as Reported by: LETICIA COLEY on 07/29/15 1312 Multivitamin (Multi-Vitamin Daily) 1 Each Tablet, 1 EACH PO DAILY, (Reported) Entered as Reported by: LETICIA COLEY on 07/29/15 1312 Potassium Chloride (Potassium Chloride) 10 Meq Tab.er.prt, 10 MEQ PO DAILY, (Reported) Entered as Reported by: LETICIA COLEY on 07/29/15 1312 Sulfamethoxazole/Trimethoprim (Bactrim Ds Tablet) 1 Each Tablet, 1 EACH PO BID Prescribed by: AMY BARROS on 03/02/18 1631 Trazodone HCl (Trazodone HCl) 150 Mg Tablet, 150 MG PO HS, (Reported) Entered as Reported by: LETICIA COLEY on 02/26/18 1215 Review of Systems Review of Systems Constitutional: see HPI; No chills, No fever Ears: No Symptoms Reported Nose: see HPI, epistaxis; denies pain Respiratory: No cough, No short of breath Cardiovascular: no symptoms reported Past Mmjwiyu-Hahdnf-Hcnpaf Hx Patient Social History Tobacco Use?: Yes Tobacco type used: Cigarettes Smoking Status: Former Smoker Use of E-Cig and/or Vaping dev: No Substance use?: No Alcohol Use?: No Pt feels they are or have been: No Immunizations Up To Date Influenza Vaccine Up-to-Date: Yes; Up-to-Date First/Initial COVID19 Vaccinat: 2020 Second COVID19 Vaccination Derian: 2020 COVID19 Vaccine Cross Tie Cutter: MARILU Seasonal Allergies Seasonal Allergies: Yes Past Medical History Surgeries: Yes (L EYE, RT HERNIA, PARTIAL AMP. R GREAT TOE, PARTIAL HYSTER- CERVICAL CA,) Breast, CABG, Gallbladder Respiratory: Yes (O2 2L ) Sleep Apnea, COPD, Emphysema Currently Using CPAP: Yes Cardiac: Yes (BYPASS X5) Coronary Artery Disease, Heart Attack, Heart Murmur, High Cholesterol, Hypertension Neurological: Yes Neuropathy Reproductive Disorders: No Female Reproductive Disorders: Denies Sexually Transmitted Disease: No HIV/AIDS: No Genitourinary: No Gastrointestinal: Yes (HX ULCERATIVE COLITIS) Colitis, Gastrointestinal Bleed Musculoskeletal: Yes (OSTEOARTHRITIS) Back Injury, Chronic Back Pain Endocrine: Yes (INSULIN PUMP) HEENT: No Loss of Vision: Bilateral Hearing Impairment: Denies Cancer: Yes Breast, Cervical Did You Recieve Any Treatments: Yes What Type of Treatment Did You: Radiation, Surgical Intervention Psychosocial: Yes (MILD) Depression Integumentary: No Blood Disorders: No Adverse Reaction/Blood Tranf: Yes (HAS RECIEVED BLOOD WITHOUT DIFFICULTY) Family Medical History Reviewed Nursing Family Hx Physical Exam Vital Signs Vital Signs - First Documented 09/07/21 13:25 Temp 36.2 Pulse 72 Resp 18 B/P (MAP) 101/63 (76) Pulse Ox 94 O2 Delivery Nasal Cannula O2 Flow Rate 3.00 Height, Weight, BMI Height: 5'5.00" Weight: 213lbs. 0.0oz. [id number]; 36.00 BMI Method: General Appearance: WD/WN, no apparent distress Nose: active bleeding (Left nostril); No discharge Mouth/Throat: pharynx normal; No uvula swelling Neck: full range of motion, supple Cardiovascular: regular rate, rhythm, no murmur Respiratory: lungs clear, normal breath sounds Neurologic/Psychiatric: alert, oriented x 3 Progress/Results/Core Measures Results/Orders My Orders Orders - HOLLY GRULLON MD Oxymetazoline 0.05% Nasal [place] (Afrin 0. (09/07/21 21:00) Oxymetazoline 0.05% Nasal [place] (Afrin 0. (09/07/21 13:51) Medications Given in ED Current Medications Medications Dose Ordered Sig/Cecilio Route Start Time Stop Time Status Last Admin Dose Admin Oxymetazoline HCl 30 ml STK-MED ONCE .ROUTE 09/07/21 13:51 09/07/21 13:53 DC 09/07/21 13:57 30 ML Vital Signs/I&O 09/07/21 13:25 Temp 36.2 Pulse 72 Resp 18 B/P (MAP) 101/63 (76) Pulse Ox 94 O2 Delivery Nasal Cannula O2 Flow Rate 3.00 Blood Pressure Mean: 76 Progress Progress Note : Progress Note Seen and evaluated. Oxymetazoline 0.05% 3 sprays to each nostril and nasal clamp placed. 1430: Nosebleed has stopped. Discharged home with return precautions. Patient verbalized understand instructions and agreement with plan. Departure Impression Primary Impression: Epistaxis Disposition: 01 HOME, SELF-CARE Condition: Improved Departure-Patient Inst. Decision time for Depature: 14:32 Referrals: MICHAELA NI MD SELF,CHRISTY MILLER (PCP/Family) Primary Care Physician Patient Instructions: Nosebleeds (DC) Add. Discharge Instructions: All discharge instructions reviewed with patient and/or family. Voiced understanding. Use the Afrin nasal spray (oxymetazoline) 2 sprays to each nostril twice daily for 3 days only and then stop and discard. Do not use more than 3 days. If you have bleeding you may do 2 sprays to the bleeding nostril and place nasal clamp for 20 to 30 minutes. If bleeding stops then you may proceed but if bleeding returns immediately then present to the emergency department for further evaluation. Return for worse pain, fever, vomiting, weakness, breathing problems or other concerns as needed. HOLLY GRULLON MD Sep 07, 2021 14:33
[2021-09-07 14:39] VITALS: BP 101/63
[2021-09-07] MEDS ORDERED: OXYMETAZOLINE (AFRIN) 0.05% NA 30 ML BTL SCH (21:00)
== END 2021-09-07 14:39 | disposition home or self-care (01) ==
LOC: EDUNIT# 13:16 → ER FS 13:17
DX: R04.0 Epistaxis (principal); G47.30 Sleep apnea, unspecified; J44.9 Chronic obstructive pulmonary disease, unspecified; I25.2 Old myocardial infarction; I10 Essential (primary) hypertension; E78.00 Pure hypercholesterolemia, unspecified; I25.10 Atherosclerotic heart disease of native coronary artery without angina pectoris; F32.9 Major depressive disorder, single episode, unspecified; G89.29 Other chronic pain; M54.9 Dorsalgia, unspecified; Z87.891 Personal history of nicotine dependence; Z79.82 Long term (current) use of aspirin; Z79.891 Long term (current) use of opiate analgesic; Z79.899 Other long term (current) drug therapy
CPT/HCPCS: 99284

== ENCOUNTER → 2021-10-26 | Outpatient (CLI) | payer MEDICARE, MEDICAID ==
[2021-10-26 11:03] LABS: BASOPHILS % (AUTO) 0 % (0-10); HEMOGLOBIN 11.4 g/dL (11.5-16.0)
[2021-10-26 11:06] LABS: ABSOLUTE RETIC # 88 10e9/uL (24-90); EOSINOPHILS # (AUTO) 0.2 10^3/uL (0.0-0.3); EOSINOPHILS % (AUTO) 3 % (0-10); HEMATOCRIT 36 % (35-52); LYMPHOCYTES # (AUTO) 1.5 10^3/uL (1.0-4.0); LYMPHOCYTES % (AUTO) 27 % (12-44); MEAN CORPUSCULAR HEMOGLOBIN 28 pg (25-34); MEAN CORPUSCULAR HGB CONC 32 g/dL (32-36); MEAN CORPUSCULAR VOLUME 88 fL (80-99); MEAN PLATELET VOLUME 9.6 fL (9.0-12.2); MONOCYTES # (AUTO) 0.5 10^3/uL (0.0-1.0); MONOCYTES % (AUTO) 8 % (0-12); NEUTROPHILS # (AUTO) 3.3 10^3/uL (1.8-7.8); NEUTROPHILS % (AUTO) 61 % (42-75); PLATELET COUNT 146 10^3/uL (130-400); RETICULOCYTE % 2.12 % (0.50-2.40); WHITE BLOOD COUNT 5.5 10^3/uL (4.3-11.0)
[2021-10-26 11:41] LABS: ALBUMIN 3.8 GM/DL (3.2-4.5); BILIRUBIN,TOTAL 0.3 MG/DL (0.1-1.0); CALCIUM 9.1 MG/DL (8.5-10.1); CREATININE SERUM 1.15 MG/DL (0.60-1.30); POTASSIUM 4.4 MMOL/L (3.6-5.0); TOTAL PROTEIN 6.7 GM/DL (6.4-8.2)
== END ==
LOC: ONC 10:46
PROVIDERS: ATTEND Internal Medicine Hematology & Oncology
DX: Z45.2 Encounter for adjustment and management of vascular access device (principal); D64.9 Anemia, unspecified
CPT/HCPCS: 80053; 82728; 85025; 85045; G0463; 36415; 99213

== ENCOUNTER 2023-03-01 06:52 | Outpatient (CLI) | payer MEDICARE, MEDICAID ==
[~2023-03-01] VITALS: Ht 165 cm; Wt 102.2 kg
[~2023-03-01 06:52] MED LIST changes: +POTA-177 PO; -POTA10TA37 PO
[2023-03-01] MEDS ORDERED: IRON150C3 PO (15:42)
[2023-03-01] MEDS ORDERED: ESZO2TAB4 PO (15:42)
[2023-03-01] MEDS ORDERED: DAPA10TA PO (15:42)
[2023-03-01] MEDS ORDERED: ROSU40TA23 PO (15:42)
[2023-03-01] MEDS ORDERED: ESZO2TAB31 PO (15:42)
[2023-03-01] MEDS ORDERED: PANT40TA52 PO (15:42)
[2023-03-01] MEDS ORDERED: RIVA20TA PO (15:42)
[2023-03-01] MEDS ORDERED: RISP0.5T65 PO (15:42)
== END 2023-03-01 15:52 | disposition home or self-care (01) ==
LOC: PREOP 06:52
PROVIDERS: ATTEND Surgery
DX: Z01.818 Encounter for other preprocedural examination (principal)

== ENCOUNTER 2023-03-08 12:20 | Day surgery (SDC) | payer MEDICARE, MEDICAID ==
[~2023-03-08] VITALS: Ht 165.1 cm; Wt 102.2 kg
[~2023-03-08 12:20] MED LIST changes: +DAPA10TA PO; +ESZO2TAB31 PO; +ESZO2TAB4 PO; +IRON150C3 PO; +PANT40TA52 PO; +RISP0.5T65 PO; +RIVA20TA PO; +ROSU40TA23 PO
[2023-03-08] MEDS ORDERED: LACTATED RINGERS 1,000 ML IV STA (12:28)
[2023-03-08] MEDS ORDERED: HURRICAINE EXT TUBE (BENZOCAINE) XX PRN (12:30)
[2023-03-08] MEDS ORDERED: LIDOCAINE JELLY 2% 6 ML SYRINGE MM PRN (12:30)
[2023-03-08 13:03] VITALS: BP 96/54
--- NOTE | 2023-03-08 13:24 | Progress Note-Pre Operative ---
Pre-Operative Progress Note Date of Available H&P: Mar 08, 2023 Date H&P Reviewed: Mar 08, 2023 Time H&P Reviewed: 13:00 History & Physical: No changes noted Pre-Operative Diagnosis: iron deficiency anemia CHENTE RONDON MD Mar 08, 2023 13:24
--- NOTE | 2023-03-08 13:27 | Discharge Inst-Surgical ---
D/C Lap Instructions-KIDO New, Converted, or Re-Newed RX: RX on Chart Follow Up Activity as tolerated High Fiber Diet 25g or more per day Avoid Alcohol, Caffeine, Spicy [place] and Acid foods. Drink 64 fluid oz or more of fluids per day. Symptoms to Report: Fever over 101 degree F, Nausea/Vomiting If any problems/questions: Contact your physician or go to Emergency Room CHENTE RONDON MD Mar 08, 2023 13:27
[2023-03-08] MEDS ORDERED: ONDANSETRON 4 MG/2 ML (SDV) Z0FRAN IVP PRN (13:30)
[2023-03-08] MEDS ORDERED: ONDANSETRON 4 MG (ZOFRAN) ORAL DISSOLVE TAB PO PRN (13:30)
[2023-03-08] MEDS ORDERED: PROPOFOL INJECTION 50 ML IV ONE (14:28)
[2023-03-08] MEDS ORDERED: LIDOCAINE JELLY 2% 6 ML SYRINGE ONE (14:35)
[2023-03-08 15:20] VITALS: BP 120/60
[2023-03-08 15:25] VITALS: BP 131/60
--- NOTE | 2023-03-08 15:28 | Anesthesia-General Post-Op ---
MAC Patient Condition Mental Status/LOC: Same as Preop Cardiovascular: Satisfactory Nausea/Vomiting: Absent Respiratory: Satisfactory Pain: Controlled Complications: Absent Post Op Complications Complications None Follow Up Care/Instructions Patient Instructions None needed. Anesthesiology Discharge Order Discharge Order Patient is doing well, no complaints, stable vital signs, no apparent adverse anesthesia problems. No complications reported per nursing. MACHO BAUTISTA CRNA Mar 08, 2023 15:28
--- NOTE | 2023-03-08 15:54 | Progress Note-Post Operative ---
Post-Operative Progess Note Surgeon (s)/Peanut Blancher (s) Surgeon CHENTE RONDON MD Peanut Blancher: none Pre-Operative Diagnosis iron deficiency anemia Post-Operative Diagnosis reflux esophagitis(grade B), small HH(2.5cm), mod-severe gastritis. mild chronic stage 2 ext and int hemorrhoids, small splenic flex polyp(3mm). Procedure & Operative Findings Date of Procedure 03/08/23 Procedure Performed/Findings EGD with bx. colonoscopy with bx. Anesthesia Type mac Estimated Blood Loss Estimated blood loss (mL): minimal Specimens/Packing Specimens Removed ge jxn, antrum CHENTE RONDON MD Mar 08, 2023 15:54
[2023-03-08 15:55] VITALS: BP 105/58
[2023-03-08 16:26] VITALS: BP 105/58
--- NOTE | 2023-03-08 21:13 | OPERATIVE REPORT ---
DATE OF SERVICE: 03/08/2023 ATTENDING PRIMARY CARE PHYSICIAN: Dr. Jesus López. PREOPERATIVE DIAGNOSIS: Iron deficiency anemia. POSTOPERATIVE DIAGNOSES: Reflux esophagitis, Pender grade B, small to moderate size hiatal hernia approximately 2.5 cm in size, moderate to severe gastritis, no active bleed. Chronic stage II, external and internal hemorrhoids, small polyp of the splenic flexure, 3 mm in size. PROCEDURE: EGD with biopsy, colonoscopy with polypectomy with hot biopsy forceps. SURGEON: Chente Lehman MD ANESTHESIA: Monitored anesthesia care. ESTIMATED BLOOD LOSS: Minimal. FINDINGS: Reflux esophagitis, Pender grade B, small to moderate size hiatal hernia approximately 2.5 cm in size, moderate to severe gastritis, no active bleed. Chronic stage II, external and internal hemorrhoids, small polyp of the splenic flexure, 3 mm in size. DISPOSITION: The patient tolerated the procedure well. INDICATIONS: The patient is a 72-year-old female referred over to us for anemia. She had some laboratory work done, which showed a hemoglobin of 7.4 and she was also found to have a low iron and ferritin. Upon further questioning, she reports that she has had an upper gastrointestinal bleed in 2017 and was treated medically. She has not had a colonoscopy up to this point in her life. She does not report any red blood per rectum, nor any dark tarry stools and does not report any family history of colon cancer. She is on aspirin as well as Xarelto for history of pulmonary embolism arising from a right lower extremity DVT. She is currently on Protonix 40 mg daily. DESCRIPTION OF PROCEDURE: The patient was brought to the endoscopy suite and laid in the left lateral decubitus position. After adequate IV pain and sedative medications and monitored anesthesia care, the mouthpiece was applied. The endoscope was placed in the mouth, visualized the pharynx and hypopharyngeal region. Vocal cords, epiglottis and vallecula identified and appeared to be normal. Endoscope was then gently intubated in the esophageal opening and esophagus insufflated. The endoscope was then advanced into the first, second and third portions of esophagus at the level of the GE junction, a reflux esophagitis, Pender grade B identified. There were no ulcers or strictures identified in this region and a biopsy was taken with forceps with visualization of good hemostasis. The endoscope was then advanced into the stomach and endoscope retroflexed visualizing a small to moderate size hiatal hernia approximately 2.5 cm in size. There was a moderate to severe gastritis more towards the antrum of the stomach. No formal ulcerations, polyps or any neoplasms as well as no active bleeding. A biopsy was taken of the antrum to rule out H. pylori with visualization of good hemostasis. The endoscope was then advanced through the pylorus into the first and second portion of the duodenum, which appeared normal. There was a moderate to severe gastritis at the antrum of the stomach with some superficial erosions; however, no active bleeding. A biopsy was taken of the antrum to rule out H. pylori with visualization of good hemostasis. The endoscope was then advanced to the pylorus and the first and second portion of the duodenum with no duodenal ulcers identified. The endoscope was then slowly withdrawn while taking a second look and suctioning of residual air with no additional findings. Digital rectal examination was performed which revealed chronic stage II, external and internal hemorrhoids, not actively edematous nor inflamed and no bleeding. Normal sphincter tone was felt and there were no palpable masses. The endoscope was then advanced through the valves of Weber of the rectum with no polyps or any neoplasms identified. Through the sigmoid colon, no diverticulosis was identified. At the splenic flexure, a small flat polyp approximately 3 mm in size identified and this was biopsied and destroyed with forceps and electrocautery with visualization of good hemostasis. The endoscope was then advanced to the remainder of the descending, transverse and ascending colon to the cecum, which were normal with no active bleeding sources. The endoscope was then slowly withdrawn while taking a second look and suctioning of residual air with no additional findings. The patient tolerated the procedure well. We feel that the most likely etiology of her iron-deficiency anemia is secondary to a slow amount of chronic blood loss from the upper gastrointestinal tract from her gastritis and being on anticoagulation. She is currently on Protonix 40 mg daily; however, she continues to show signs of gastritis and inadequate acid hypersecretion control. We will add omeprazole 40 mg daily in addition to her Protonix to be taken at a separate time during the day. We will also recommend a high-fiber diet with addition of a fiber supplement, which should equal or exceed 25 grams daily to promote soft stools on a daily basis. We will await the biopsy results; however, if this is a benign hyperplastic polyp. She does not need another colonoscopy for another 10 years; however, if this is an adenomatous polyp, she may need to have a followup in 3 years. Job ID: [id number] DocumentID: [id number] Dictated Date: 03/08/2023 15:36:02 Field Sales Executive Date: 03/08/2023 21:12:00 Dictated By: CHENTE RONDON MD
== END 2023-03-08 16:26 | disposition home or self-care (01) ==
LOC: ENDO 12:20
PROVIDERS: ATTEND Surgery
DX: K21.00 Gastro-esophageal reflux disease with esophagitis, without bleeding (principal); D12.3 Benign neoplasm of transverse colon; K29.70 Gastritis, unspecified, without bleeding; K64.1 Second degree hemorrhoids; K64.4 Residual hemorrhoidal skin tags; K63.5 Polyp of colon; K44.9 Diaphragmatic hernia without obstruction or gangrene; D50.9 Iron deficiency anemia, unspecified; E66.9 Obesity, unspecified; G47.33 Obstructive sleep apnea (adult) (pediatric); Z79.82 Long term (current) use of aspirin; Z79.01 Long term (current) use of anticoagulants; Z79.899 Other long term (current) drug therapy; Z99.81 Dependence on supplemental oxygen; Z68.38 Body mass index [BMI] 38.0-38.9, adult; Z87.891 Personal history of nicotine dependence
CPT/HCPCS: 88305